=== PATIENT | female | born 1950 | race Caucasian/White ===

== ENCOUNTER 2019-09-22 20:09 | Inpatient (IN) | payer MEDICARE, MEDICAID ==
[~2019-09-22] VITALS: Ht 147.3 cm; Wt 58.2 kg
[~2019-09-22 20:09] MED LIST: ALPR.25T PO; CITA40TA19 PO; CRESTOR40 MG PO; FLUT1DIS27 IH; FURO40TA4 PO; LVT.05T PO; LVT.1T PO; POTA10CA43 PO; Prednisone PO; SERT100T8 PO; SERT25TA PO; TIOT18CA IH; TRAM50TA2 PO; WARF1TAB6 PO; WARF4TAB PO; ZLP10T PO
[2019-09-22] MEDS ORDERED: ANTACID SUSP 30 ML UDC (MYLANTA) PO PRN (20:30)
[2019-09-22] MEDS ORDERED: ONDANSETRON 4 MG (ZOFRAN) ORAL DISSOLVE TAB PO PRN (20:30)
[2019-09-22] MEDS ORDERED: ONDANSETRON 4 MG/2 ML (SDV) Z0FRAN IV PRN (20:30)
[2019-09-22] MEDS ORDERED: ENOXAPARIN 40 MG/0.4 ML (LOVENOX) SYR SC SCH (20:30)
[2019-09-22] MEDS ORDERED: CEFEPIME INJECTION 1,000 MG in WATER (STERILE) FOR INJECTION 10 ML IV SCH (20:30)
[2019-09-22] MEDS ORDERED: BISACODYL 10 MG SUPP (DULCOLAX) PR PRN (20:30)
[2019-09-22] MEDS ORDERED: polyethylene glycoL POWDER 17 GM (MIRALAX) PACK PO PRN (20:30)
[2019-09-22 22:29] VITALS: BP 115/71
[2019-09-22] MEDS: LACTATED RINGERS 1,000 ML IV SCH (22:40)
[2019-09-22 22:45] VITALS: BP 101/61
[2019-09-22 23:00] VITALS: BP 115/52
[2019-09-22] MEDS ORDERED: WATER (STERILE) FOR INJECTION 20 ML ONE (23:02)
[2019-09-22] MEDS ORDERED: CEFEPIME 2 GM (MAXIPIME) VIAL ONE (23:02)
[2019-09-22 23:15] VITALS: BP 112/65
[2019-09-22] MEDS: inSUlin ASPART (NovoLOG) 1 UNIT/0.01 ML (CHARGE PER UNIT) SC SCH (23:16)
[2019-09-22] MEDS: methylPREDNISolone 40 MG/ML (Solu-MEDROL) VIAL IV SCH (23:17)
[2019-09-22 23:30] VITALS: BP 113/52
[2019-09-22 23:45] VITALS: BP 118/55
[2019-09-23] VITALS (17 sets, daily range): BP systolic 77–127; BP diastolic 52–96
[2019-09-23] MEDS: AZITHROMYCIN 250 MG TAB (ZITHROMAX) PO SCH ×2 (02:54→23:11)
[2019-09-23] MEDS: ACETAMINOPHEN 325 MG TABLET PO PRN ×2 (02:55→18:47)
[2019-09-23 03:33] LABS: BASOPHILS % (AUTO) 0 % (0-10); EOSINOPHILS % (AUTO) 0 % (0-10); HEMATOCRIT 38 % (35-52); HEMOGLOBIN 11.5 G/DL (11.5-16.0); LYMPHOCYTES # (AUTO) 1.2 X 10^3 (1.0-4.0); LYMPHOCYTES % (AUTO) 5 % (12-44); MEAN CORPUSCULAR HEMOGLOBIN 23 PG (25-34); MEAN CORPUSCULAR HGB CONC 30 G/DL (32-36); MEAN CORPUSCULAR VOLUME 76 FL (80-99); MEAN PLATELET VOLUME 10.7 FL (7.4-10.4); MONOCYTES # (AUTO) 1.3 X 10^3 (0.0-1.0); MONOCYTES % (AUTO) 6 % (0-12); NEUTROPHILS # (AUTO) 20.4 X 10^3 (1.8-7.8); NEUTROPHILS % (AUTO) 89 % (42-75); PLATELET COUNT 278 10^3/uL (130-400); RED CELL DISTRIBUTION WIDTH 23.1 % (10.0-14.5); WHITE BLOOD COUNT 22.9 10^3/uL (4.3-11.0)
[2019-09-23 03:45] LABS: INR 2.6 (0.8-1.4); PROTHROMBIN TIME PATIENT 28.9 SEC (12.2-14.7)
[2019-09-23 03:51] LABS: ALANINE AMINOTRANSFERASE 18 U/L (0-55); ALBUMIN 3.6 GM/DL (3.2-4.5); ALKALINE PHOSPHATASE 84 U/L (40-136); BUN/CREATININE RATIO 27; CALCIUM 8.9 MG/DL (8.5-10.1); CARBON DIOXIDE 17 MMOL/L (21-32); CHLORIDE 108 MMOL/L (98-107); CREATININE SERUM 0.92 MG/DL (0.60-1.30); GFR ESTIMATED 60; GLUCOSE 145 MG/DL (70-105); PHOSPHORUS 3.8 MG/DL (2.3-4.7); POTASSIUM 4.4 MMOL/L (3.6-5.0); SODIUM 140 MMOL/L (135-145); TOTAL PROTEIN 7.1 GM/DL (6.4-8.2)
[2019-09-23 04:27] LABS: BAND NEUTROPHILS 8 %; LYMPHOCYTES % (MANUAL) 4 %; MONOCYTES % (MANUAL) 3 %; NEUTROPHILS % (MANUAL) 85 %; POLYCHROMASIA SLIGHT
[2019-09-23 04:28] LABS: ANISOCYTOSIS MARKED; ELLIPT/OVALOCYTES SLIGHT; MICROCYTOSIS MODERATE; POIKILOCYTOSIS SLIGHT; SPHEROCYTES SLIGHT
[2019-09-23] MEDS ORDERED: CEFEPIME INJECTION 1,000 MG in WATER (STERILE) FOR INJECTION 10 ML IV SCH (05:00)
[2019-09-23] MEDS: inSUlin ASPART (NovoLOG) 1 UNIT/0.01 ML (CHARGE PER UNIT) SC SCH ×4 (05:37→20:55)
--- NOTE | 2019-09-23 06:09 | Diagnostic Imaging Report ---
INDICATION: Pneumonia. Single frontal view of the chest is obtained with comparison made study of 12/25/2014. FINDINGS: There is cardiomegaly. There is focal airspace disease in the upper left lung which is somewhat obscured by overlying pacemaker battery pack. In addition, there is rounded focal density projecting over the upper lobe of the right lung. There is prominence of the right hilum. Mild diffuse interstitial prominence is also seen throughout both lungs. No pneumothorax is identified. IMPRESSION: Bilateral airspace disease could represent multifocal pneumonia. Focal densities do appear somewhat nodular and underlying mass cannot be excluded. Short-term radiographic follow-up after treatment for pneumonia is recommended to document resolution. If these findings persist, consideration could be given to CT evaluation of the chest to exclude mass and/or adenopathy. Dictated by: Dictated on workstation # [id number]
[2019-09-23] MEDS: methylPREDNISolone 40 MG/ML (Solu-MEDROL) VIAL IV SCH ×4 (06:27→23:10)
[2019-09-23] MEDS: LACTATED RINGERS 1,000 ML IV SCH ×5 (06:27→23:11)
[2019-09-23] MEDS ORDERED: LACTATED RINGERS 1,000 ML IV SCH (07:45)
[2019-09-23 08:14] LABS: CLARITY,URINE SL CLOUDY; COLOR,URINE BROWN; GLUCOSE, URINE (UA) NEGATIVE (NEGATIVE); KETONES,URINE TRACE (NEGATIVE); LEUKOCYTE ESTERASE ,URINE NEGATIVE (NEGATIVE); NITRITE,URINE NEGATIVE (NEGATIVE); PH,URINE 5.5 (5-9); PROTEIN,URINE 2+ (NEGATIVE)
[2019-09-23 08:31] LABS: AMORPHOUS SEDIMENT,UR RARE AMOR URATES /LPF; BACTERIA,URINE TRACE /HPF; RBC,URINE TNTC /HPF
--- NOTE | 2019-09-23 10:38 | History & Physical-Hospitalist ---
History of Present Illness HPI/Chief Complaint Pt is a 69yoCF with a PMH of COPD, CAD s/p CABG, a-fib who presented to outside ER due to cough and dizziness. She is quite flat and short in her answer and thus history is limited. Per patient this all started yesterday and she was too weak to get up from her chair. In the ER she was found to have a fever and PNA and was transferred here for sepsis. She has no complaints today and states she is feeling well. In fact her only concern was about turning her oxygen down to her baseline 4lpm. She is currently admitted to the ICU while awaiting COVID testing. Source: patient Exam Limitations: no limitations Date Seen 09/23/19 Time Seen by a Provider: 10:23 Attending Physician Beth Gao MD PCP Gavino Benitez DO Referring Physician Date of Admission Sep 22, 2019 at 22:25 Home Medications & Allergies Home Medications Reviewed patient Home Medication Reconciliation performed by pharmacy medication reconciliations optical manufacturing technician and/or nursing. Patients Allergies have been reviewed. Allergies Allergies Coded Allergies No Known Drug Allergies (Xhjnqaprqt22/15/11) Past Zoxbxin-Bozszi-Lnkipc Hx Past Med/Social Hx: Reviewed Nursing Past Med/Soc Hx Patient Social History Alcohol Use: Occasionally Uses Recreational Drug Use: No Smoking Status: Former Smoker Former Smoker, Quit: Sep 21, 2013 Type Used: Cigarettes Physical Abuse Screen: No Sexual Abuse: No Recent Foreign Travel: No Contact w/other who traveled: No Recent Hopitalizations: Yes (6 months ago) Immunizations Up To Date Tetanus Booster (TDap): Unknown Date of Pneumonia Vaccine: Sep 21, 2018 Seasonal Allergies Seasonal Allergies: No Past Medical History Surgeries: Cardiac, CABG Respiratory: COPD Cardiac: Atrial Fibrillation, Coronary Artery Disease, High Cholesterol, Hypertension Reproductive: No Sexually Transmitted Disease: No HIV/AIDS: No Female Reproductive Disorders: Denies Endocrine: Hypothyroidsim Are Your Blood Sugars Over 250: No HEENT: Cataract Hearing Impairment: Hard of Hearing Psychosocial: Anxiety History of Blood Disorders: No Adverse Reaction to Blood Flannery: No Family History Reviewed Nursing Family Hx FH: cancer G8 BROTHER G8 BROTHER G8 BROTHER G8 BROTHER G8 BROTHER G8 SISTER G8 SISTER FHx: leukemia 19 FATHER FHx: stroke 19 MOTHER No Pertinent Family Hx Review of Systems Constitutional: dizziness, fever, weakness Respiratory: cough, phlegm, short of breath Cardiovascular: No chest pain, No palpitations Gastrointestinal: no symptoms reported Genitourinary: no symptoms reported Musculoskeletal: no symptoms reported Skin: no symptoms reported Psychiatric/Neurological: No Symptoms Reported Physical Exam Physical Exam Vital Signs Vital Signs - First Documented 09/22/19 09/22/19 22:29 22:45 Pulse 59 Resp 16 B/P (MAP) 115/71 (86) Pulse Ox 98 O2 Delivery Nasal Cannula O2 Flow Rate 6.00 Capillary Refill : Less Than 3 Seconds Height, Weight, BMI Height: 4'10.50" Weight: 106lbs. oz. 48.996475ke; 26.31 BMI Method:Stated General Appearance: No Apparent Distress, Chronically ill HEENT: PERRL/EOMI, Moist Mucous Membranes Neck: Normal Inspection, Supple Respiratory: No Accessory Muscle Use; No Respiratory Distress; Rhonci; No Wheezing Cardiovascular: Regular Rate, Rhythm, No Murmur Gastrointestinal: Normal Bowel Sounds, Non Tender, Soft Genital/Rectal: Other (ramos in place) Extremity: No Calf Tenderness, No Pedal Edema Neurologic/Psychiatric: Alert, Oriented x3; No Facial Droop; Other (flat affect) Skin: Normal Color, Warm/Dry Results Results/Procedures Labs Laboratory Tests 09/23/19 03:15 Patient resulted labs reviewed. Assessment/Plan Admission Diagnosis Sepsis from CAP Admission Status: Inpatient Order (span 2 midnights) Reason for Inpatient Admission: iv abx, on increase oxygen, high risk for decompensation Assessment and Plan Severe Sepsis CAP COPD Acute on Chronic Hypoxic Respiratory Failure Severe sepsis on Continue Cefepime given structural lung disease Continue steroids Seems more consistent with PNA and COPD than COVID but will await testing and keep in precautions CADs/p CABG HTN a-fib Resume meds when able INR therapeutic Hypothyroidism Resume meds when able Diagnosis/Problems Diagnosis/Problems (1) CAD (coronary artery disease) Status: Chronic Qualifiers: Coronary Disease-Associated Artery/Lesion type: bypass graft [place] vs. transplanted heart: [place] heart Associated angina: without angina Qualified Codes: I25.810 - Atherosclerosis of coronary artery bypass graft(s) without angina pectoris (2) COPD (chronic obstructive pulmonary disease) Status: Chronic Qualifiers: COPD type: COPD with acute lower respiratory infection Qualified Codes: J44.0 - Chronic obstructive pulmonary disease with (acute) lower respiratory infection (3) Acute respiratory failure Status: Chronic Qualifiers: Respiratory failure complication: hypoxia Qualified Codes: J96.01 - Acute respiratory failure with hypoxia (4) Atrial fibrillation Status: Chronic Qualifiers: Atrial fibrillation type: paroxysmal Qualified Codes: I48.0 - Paroxysmal atrial fibrillation (5) Hypertension Status: Chronic Qualifiers: Hypertension type: essential hypertension Qualified Codes: I10 - Essential (primary) hypertension (6) Hyperlipidemia Status: Chronic Qualifiers: Hyperlipidemia type: mixed hyperlipidemia Qualified Codes: E78.2 - Mixed hyperlipidemia (7) Hypothyroidism Status: Chronic Qualifiers: Hypothyroidism type: unspecified Qualified Codes: E03.9 - Hypothyroidism, unspecified (8) Severe sepsis Status: Acute (9) Sepsis due to pneumonia Status: Acute Clinical Quality Measures DVT/VTE Risk/Contraindication: Risk Factor Score Per Nursin RFS Level Per Nursing on Admit: 4+=Very High ROC KING MD Sep 23, 2019 10:38
--- NOTE | 2019-09-23 10:38 | NUR ---
DR GASPAR NOTIFIED THAT PT'S URINE OUTPUT FOR 4 HOURS WAS 75ML AND THAT BOLUS COMPLETED. ORDERS RECEIVED TO INCREASE IVF TO 150ML/HR. ORDERS ENTERED AND IVF INCREASED. PT VOICES NO C/O OF PAIN, NO NEEDS VOICED AT THIS TIME WILL CONTINUE TO MONITOR.
--- NOTE | 2019-09-23 11:00 | NUR ---
I spoke with RN, she advised pt was doing well emotionally, I requested she advise pt I could phone in if she would like to speak with me. I will continue to monitor.
[2019-09-23] MEDS ORDERED: MONT10TA26 PO (11:51)
[2019-09-23] MEDS ORDERED: ALPR0.254 PO (11:51)
[2019-09-23] MEDS ORDERED: OMEP20CA18 PO (11:51)
[2019-09-23] MEDS ORDERED: LEVO50TA6 PO (11:51)
[2019-09-23] MEDS ORDERED: IPRA3AMP31 NEB (11:51)
[2019-09-23] MEDS ORDERED: ROSU40TA23 PO (11:51)
[2019-09-23] MEDS ORDERED: RT-ALBUINH PO (11:51)
[2019-09-23] MEDS ORDERED: SERT100T8 PO (11:51)
[2019-09-23] MEDS ORDERED: METF-397 PO (11:51)
[2019-09-23] MEDS ORDERED: POTA10TA PO (11:51)
[2019-09-23] MEDS ORDERED: FURO20TA4 PO (11:51)
[2019-09-23] MEDS ORDERED: APIX5TAB PO (11:51)
[2019-09-23] MEDS ORDERED: FLUT1BLS3 IN (11:51)
[2019-09-23] MEDS ORDERED: CETI10TA17 PO (11:51)
[2019-09-23] MEDS ORDERED: LISI2.5T PO (11:51)
[2019-09-23] MEDS ORDERED: MULT-974 PO (11:53)
[2019-09-23] MEDS ORDERED: OMEG-109 PO (11:53)
[2019-09-23 11:54] LABS: BILIRUBIN,URINE 2+ (NEGATIVE)
--- NOTE | 2019-09-23 11:55 | NUR ---
SPOKE WITH THE PT VIA HER ROOM PHONE, WENT THRU THE EXT MED HISTORY AND GOT A MED LIST FAXED FROM [facility] TO COMPLETE THE MED REC. PT WAS ABLE TO TELL ME HOW SHE TAKES ALL HER MEDICATIONS AND THERE WERE NO DISCREPANCIES WITH WHAT IS LISTED FROM [facility]. OTC MEDS: FISH OIL [id number]
[2019-09-23] MEDS: CEFEPIME INJECTION 1,000 MG in WATER (STERILE) FOR INJECTION 10 ML IV SCH ×2 (13:50→20:42)
[2019-09-23] MEDS ORDERED: NON-FORMULARY MEDICATION 1 EA EA (Cetirizine HCl 10 MG) PO PRN (14:30)
[2019-09-23] MEDS ORDERED: LORATADINE (CLARITIN) 10 MG TAB PO PRN (15:15)
[2019-09-23] MEDS: FUROSEMIDE 20 MG (LASIX) TAB PO SCH (16:37)
[2019-09-23] MEDS: APIXABAN 5 MG (ELIQUIS) TABLET PO SCH (20:42)
[2019-09-23] MEDS: MONTELUKAST 10 MG (SINGULAIR) TAB PO SCH (20:42)
[2019-09-23] MEDS: ROSUVASTATIN 20 MG (CRESTOR) TABLET PO SCH (20:42)
[2019-09-23] MEDS ORDERED: NON-FORMULARY MEDICATION 1 EA EA (Rosuvastatin Calcium 40 MG) PO SCH (21:00)
--- NOTE | 2019-09-23 23:30 | NUR ---
Received bedside report from AKIN Negron. Agreed with previous nurse assessment. Will assume patient care.
[2019-09-24] VITALS (7 sets, daily range): BP systolic 102–126; BP diastolic 52–75
--- NOTE | 2019-09-24 03:38 | Pulmonary Consultation ---
History of Present Illness History of Present Illness Date Seen by Provider: Sep 24, 2019 Time Seen by Provider: 03:33 Date of Admission History of Present Illness 69yo with hx of COPD, CAD presented to ED secondary to worsening cough, weakness, and dizziness. Influenza, strep and COVID are negative. She was dx with acute PNA in the ED. Allergies and Home Medications Allergies Coded Allergies: No Known Drug Allergies (Unverified , 05/03/11) Home Medications Albuterol Sulfate 1 Puff Puff, 2 PUFF PO Q6H PRN for SHORTNESS OF BREATH, (Reported) Alprazolam 0.25 Mg Tablet, 0.25 MG PO DAILY PRN for ANXIETY, (Reported) Apixaban 5 Mg Tablet, 5 MG PO BID, (Reported) Cetirizine HCl 10 Mg Tablet, 10 MG PO DAILY PRN for ALLERGY SYMPTOMS, (Reported) Fluticasone/Umeclidin/Vilanter 1 Each Blst.w.dev, 1 PUFF IN DAILY, (Reported) RINSE AND SPIT AFTER EACH INHALATION Furosemide 20 Mg Tablet, 20 MG PO BID, (Reported) Ipratropium/Albuterol Sulfate 3 Ml Ampul.neb, 1 VIAL NEB Q6H, (Reported) Levothyroxine Sodium 50 Mcg Tablet, 50 MCG PO DAILY, (Reported) Lisinopril 2.5 Mg Tablet, 2.5 MG PO DAILY, (Reported) Metformin HCl 500 Mg Tablet, 500 MG PO BID, (Reported) Montelukast Sodium 10 Mg Tablet, 10 MG PO HS, (Reported) Multivitamin 1 Each Tablet, 1 EACH PO DAILY, (Reported) [place]-3 Fatty Acids/Fish Oil 1 Each Capsule, 1 EACH PO DAILY, (Reported) Omeprazole 20 Mg Capsule.dr, 20 MG PO DAILY, (Reported) Potassium Chloride 10 Meq Tablet.er, 20 MEQ PO DAILY, (Reported) TAKES 2 (10MEQ) TABS DAILY Rosuvastatin Calcium 40 Mg Tablet, 40 MG PO HS, (Reported) Sertraline HCl 100 Mg Tablet, 100 MG PO DAILY, (Reported) Past Lopyfcy-Zkiuzt-Chzzul Hx Past Med/Social Hx: Reviewed Nursing Past Med/Soc Hx Patient Social History Alcohol Use: Occasionally Uses Recreational Drug Use: No Smoking Status: Former Smoker Type Used: Cigarettes Former Smoker, Quit: Sep 21, 2013 Recent Foreign Travel: No Contact w/Someone Who Travel: No Recent Hopitalizations: Yes (6 months ago) Immunizations Up To Date Tetanus Booster (TDap): Unknown Date of Pneumonia Vaccine: Sep 21, 2018 Seasonal Allergies Seasonal Allergies: No Past Medical History Surgeries: Yes Cardiac, CABG Respiratory: Yes Sleep Apnea, COPD Cardiac: Yes ([place] in 1998) Atrial Fibrillation, Coronary Artery Disease, High Cholesterol, Hypertension Neurological: No Reproductive Disorders: No Female Reproductive Disorders: Denies Sexually Transmitted Disease: No HIV/AIDS: No Genitourinary: No Gastrointestinal: No Musculoskeletal: No Endocrine: Yes Hypothyroidsim Are Your Blood Sugars Over 250: No Cataract Hearing Impairment: Hard of Hearing Cancer: No Psychosocial: Yes Anxiety Integumentary: No Blood Disorders: No Adverse Reaction/Blood Tranf: No Family Medical History Reviewed Nursing Family Hx FH: cancer G8 BROTHER G8 BROTHER G8 BROTHER G8 BROTHER G8 BROTHER G8 SISTER G8 SISTER FHx: leukemia 19 FATHER FHx: stroke 19 MOTHER No Pertinent Family Hx Review of Systems Time Seen by Provider: 08:26 Sepsis Event Evaluation Height, Weight, BMI Height: 4'10.50" Weight: 106lbs. oz. 48.558055un; 26.31 BMI Method:Stated Exam Exam Vital Signs Date Time Temp Pulse Resp B/P (MAP) Pulse Ox O2 Delivery O2 Flow Rate FiO2 09/24/19 00:00 36.2 60 20 116/72 (87) High Flow N/C 6.00 09/23/19 20:00 37.0 09/23/19 20:00 60 15 113/70 (84) High Flow N/C 6.00 09/23/19 20:00 94 High Flow N/C 6.00 09/23/19 19:00 60 09/23/19 16:00 60 20 105/57 (73) 90 High Flow N/C 6.00 09/23/19 12:59 60 09/23/19 12:35 36.8 09/23/19 12:00 60 20 77/67 (70) 90 High Flow N/C 6.00 09/23/19 11:00 59 19 105/52 (69) 92 High Flow N/C 6.00 09/23/19 10:00 60 24 108/57 (74) 93 High Flow N/C 6.00 09/23/19 09:00 60 25 115/52 (73) 93 High Flow N/C 6.00 09/23/19 08:11 High Flow N/C 6.00 09/23/19 08:00 36.3 09/23/19 08:00 92 High Flow N/C 6.00 09/23/19 08:00 60 17 109/82 (91) 92 High Flow N/C 8.00 09/23/19 07:30 95 Nasal Cannula 6.00 09/23/19 07:00 60 28 111/60 (77) 95 High Flow N/C 8.00 09/23/19 07:00 60 09/23/19 06:00 60 21 127/64 (85) 94 High Flow N/C 8.00 09/23/19 05:00 60 23 116/62 (80) 93 High Flow N/C 8.00 09/23/19 04:00 High Flow N/C 8.00 09/23/19 04:00 59 23 119/66 (83) 92 High Flow N/C 8.00 09/23/19 04:00 36.8 I & O 09/24/19 07:00 Intake Total 1380 ml Output Total 470 ml Balance 910 ml Height & Weight Height: 4'10.50" Weight: 106lbs. oz. 48.161083lz; 26.31 BMI Method:Stated General Appearance: No Apparent Distress, Chronically ill HEENT: PERRL/EOMI, Moist Mucous Membranes Neck: Normal Inspection, Supple Respiratory: No Accessory Muscle Use, Rhonci Cardiovascular: Regular Rate, Rhythm, No Murmur Capillary Refill: Less Than 3 Seconds Extremity: No Calf Tenderness, No Pedal Edema Neurologic/Psychiatric: Alert, Oriented x3, Other Skin: Normal Color, Warm/Dry Results Lab Laboratory Tests 09/23/19 03:15 Assessment/Plan Assessment/Plan Acute CAP -Continue Abx -oxygen bilateral pulmonary infiltrates with nodular appearance -Pt needs out pt CT of chest in 8 wks after discharge to ensure complete resolution. COPD -Albuterol, trilogy -Solumedrol - Change to prednisone -Oxygen ESME GASPAR DO Sep 24, 2019 03:38
[2019-09-24 05:00] LABS: BASOPHILS % (AUTO) 0 % (0-10); EOSINOPHILS % (AUTO) 0 % (0-10); HEMATOCRIT 35 % (35-52); HEMOGLOBIN 10.6 G/DL (11.5-16.0); LYMPHOCYTES % (AUTO) 8 % (12-44); MEAN CORPUSCULAR HEMOGLOBIN 23 PG (25-34); MEAN CORPUSCULAR HGB CONC 31 G/DL (32-36); MEAN CORPUSCULAR VOLUME 76 FL (80-99); MEAN PLATELET VOLUME 10.4 FL (7.4-10.4); MONOCYTES # (AUTO) 0.7 X 10^3 (0.0-1.0); MONOCYTES % (AUTO) 6 % (0-12); NEUTROPHILS # (AUTO) 10.7 X 10^3 (1.8-7.8); NEUTROPHILS % (AUTO) 87 % (42-75); PLATELET COUNT 226 10^3/uL (130-400); RED CELL DISTRIBUTION WIDTH 22.7 % (10.0-14.5); WHITE BLOOD COUNT 12.3 10^3/uL (4.3-11.0)
[2019-09-24] MEDS ORDERED: WATER (STERILE) FOR INJECTION 10 ML ONE (05:01)
[2019-09-24] MEDS ORDERED: CEFEPIME 1 GM (MAXIPIME) VIAL ONE (05:01)
[2019-09-24 05:16] LABS: ALBUMIN 3.1 GM/DL (3.2-4.5); CHLORIDE 108 MMOL/L (98-107); POTASSIUM 4.2 MMOL/L (3.6-5.0); SODIUM 138 MMOL/L (135-145)
[2019-09-24 05:17] LABS: CALCIUM 8.8 MG/DL (8.5-10.1)
[2019-09-24 05:18] LABS: GLUCOSE 162 MG/DL (70-105)
[2019-09-24 05:19] LABS: CARBON DIOXIDE 18 MMOL/L (21-32); TOTAL PROTEIN 6.3 GM/DL (6.4-8.2)
[2019-09-24 05:20] LABS: BILIRUBIN,TOTAL 0.4 MG/DL (0.1-1.0)
[2019-09-24] MEDS: CEFEPIME INJECTION 1,000 MG in WATER (STERILE) FOR INJECTION 10 ML IV SCH ×3 (05:20→20:37)
[2019-09-24] MEDS: methylPREDNISolone 40 MG/ML (Solu-MEDROL) VIAL IV SCH ×3 (05:20→17:09)
[2019-09-24 05:22] LABS: ALKALINE PHOSPHATASE 72 U/L (40-136); GFR ESTIMATED > 60; PHOSPHORUS 3.3 MG/DL (2.3-4.7)
[2019-09-24 05:23] LABS: BUN/CREATININE RATIO 35
[2019-09-24 05:25] LABS: ALANINE AMINOTRANSFERASE 25 U/L (0-55)
[2019-09-24] MEDS: inSUlin ASPART (NovoLOG) 1 UNIT/0.01 ML (CHARGE PER UNIT) SC SCH ×4 (05:59→21:53)
[2019-09-24] MEDS: FUROSEMIDE 20 MG (LASIX) TAB PO SCH ×2 (06:00→17:09)
[2019-09-24] MEDS: LEVOTHYROXINE 50 MCG (LEVOTHROID) TAB PO SCH (06:00)
[2019-09-24] MEDS ORDERED: RT-ALBUTEROL HFA (PROAIR HFA) 8.5 GM IH SCH (07:00)
[2019-09-24] MEDS ORDERED: RT-ALBUTEROL SULF 2.5 MG/3 ML PRE-MIX VIAL INH PRN (07:45)
[2019-09-24] MEDS: KCL 10 MEQ TAB (MICRO K) PO SCH (07:53)
[2019-09-24] MEDS: lisINopril 5 MG (PRINIVIL) TABLET PO SCH (07:55)
[2019-09-24] MEDS: APIXABAN 5 MG (ELIQUIS) TABLET PO SCH ×2 (07:55→20:37)
[2019-09-24] MEDS: PANTOPRAZOLE 20 MG TABLET (PROTONIX) PO SCH (07:56)
[2019-09-24] MEDS: SERTRALINE 100 MG (ZOLOFT) TAB PO SCH (07:56)
[2019-09-24] MEDS ORDERED: OMEPRAZOLE 20 MG (PriLOSEC) CAP NON-FORMULARY PO SCH (09:00)
[2019-09-24] MEDS ORDERED: NON-FORMULARY MEDICATION 1 EA EA (Lisinopril 2.5 MG) PO SCH (09:00)
[2019-09-24] MEDS: ALPRAZolam 0.25 MG (XANAX) TAB PO PRN (09:24)
--- NOTE | 2019-09-24 10:27 | Progress Note - Hospitalist ---
Subjective HPI/CC On Admission Date Seen by Provider: Sep 24, 2019 Time Seen by Provider: 10:23 Pt is a 69yoCF with a PMH of COPD, CAD s/p CABG, a-fib who presented to outside ER due to cough and dizziness. She is quite flat and short in her answer and thus history is limited. Per patient this all started yesterday and she was too weak to get up from her chair. In the ER she was found to have a fever and PNA and was transferred here for sepsis. She has no complaints today and states she is feeling well. In fact her only concern was about turning her oxygen down to her baseline 4lpm. She is currently admitted to the ICU while awaiting COVID testing. Subjective/Events-last exam Pt reports feeling better today. Still quite short of breath with movement but improving. Requiring more oxygen despite clinical improvement. Focused Exam Lactate Level 09/23/19 03:15: Lactic Acid Level 1.67 Objective Exam Vital Signs Vital Signs Date Time Temp Pulse Resp B/P (MAP) Pulse Ox O2 Delivery O2 Flow Rate FiO2 09/24/19 08:00 36.3 60 18 124/75 (91) Vapotherm 25.00 80.00 09/24/19 07:58 87 Capillary Refill : Less Than 3 Seconds General Appearance: No Apparent Distress, Chronically ill Respiratory: No Respiratory Distress, Wheezing Cardiovascular: Regular Rate, Rhythm, No Murmur Gastrointestinal: Normal Bowel Sounds, Non Tender, Soft Neurologic/Psychiatric: Alert, Oriented x3 Results/Procedures Lab Laboratory Tests 09/24/19 04:27 Patient resulted labs reviewed. Assessment/Plan Assessment and Plan Assess & Plan/Chief Complaint Severe Sepsis CAP COPD Acute on Chronic Hypoxic Respiratory Failure Severe sepsis on arrival but now resolved Continue Cefepime given structural lung disease Continue steroids COVID negative Pulm consulted, appreciate recs Will get ABG given increasing oxygen requirement CADs/p CABG HTN a-fib Resume meds when able INR therapeutic Hypothyroidism Resume meds when able Diagnosis/Problems Diagnosis/Problems (1) CAD (coronary artery disease) Status: Chronic Qualifiers: Coronary Disease-Associated Artery/Lesion type: bypass graft [place] vs. transplanted heart: [place] heart Associated angina: without angina Qualified Codes: I25.810 - Atherosclerosis of coronary artery bypass graft(s) without angina pectoris (2) COPD (chronic obstructive pulmonary disease) Status: Chronic Qualifiers: COPD type: COPD with acute lower respiratory infection Qualified Codes: J44.0 - Chronic obstructive pulmonary disease with (acute) lower respiratory infection (3) Acute respiratory failure Status: Chronic Qualifiers: Respiratory failure complication: hypoxia Qualified Codes: J96.01 - Acute respiratory failure with hypoxia (4) Atrial fibrillation Status: Chronic Qualifiers: Atrial fibrillation type: paroxysmal Qualified Codes: I48.0 - Paroxysmal atrial fibrillation (5) Hypertension Status: Chronic Qualifiers: Hypertension type: essential hypertension Qualified Codes: I10 - Essential (primary) hypertension (6) Hyperlipidemia Status: Chronic Qualifiers: Hyperlipidemia type: mixed hyperlipidemia Qualified Codes: E78.2 - Mixed hyperlipidemia (7) Hypothyroidism Status: Chronic Qualifiers: Hypothyroidism type: unspecified Qualified Codes: E03.9 - Hypothyroidism, unspecified (8) Severe sepsis Status: Acute (9) Sepsis due to pneumonia Status: Acute Clinical Quality Measures DVT/VTE Risk/Contraindication: Risk Factor Score Per Nursin RFS Level Per Nursing on Admit: 4+=Very High ROC KING MD Sep 24, 2019 10:27
[2019-09-24 10:52] LABS: ABG BASE EXCESS -6.3 MMOL/L (-2.5-2.5); ABG OXYGEN SATURATION 96 % (94-100); ABG PCO2 38 MMHG (35-45); ABG PO2 84 MMHG (79-93); ABG TCO2 20.1 MMOL/L (21.0-31.0)
[2019-09-24 10:57] LABS: ABG PH 7.31 (7.37-7.43)
[2019-09-24 10:58] LABS: ALLENS TEST YES-POS; INSPIRED O2 80% 25 L; VENTILATOR NO
[2019-09-24 10:59] LABS: PATIENT TEMP 36.3
[2019-09-24] MEDS: RT-ALBUTEROL SULF 2.5 MG/3 ML PRE-MIX VIAL INH SCH ×3 (11:13→18:03)
[2019-09-24 13:24] LABS: RSV PCR TEST Not Detected (Not Detected)
[2019-09-24] MEDS ORDERED: PATIENT MAY USE OWN MEDS, ALL MC SCH (18:30)
[2019-09-24] MEDS: TRELEGY IH SCH (20:35)
[2019-09-24] MEDS: MONTELUKAST 10 MG (SINGULAIR) TAB PO SCH (20:37)
[2019-09-24] MEDS: ROSUVASTATIN 20 MG (CRESTOR) TABLET PO SCH (20:37)
[2019-09-25] MEDS: AZITHROMYCIN 250 MG TAB (ZITHROMAX) PO SCH ×2 (00:20→23:54)
[2019-09-25] MEDS: methylPREDNISolone 40 MG/ML (Solu-MEDROL) VIAL IV SCH ×5 (00:20→23:54)
[2019-09-25 04:00] VITALS: BP 130/60
[2019-09-25] MEDS: CEFEPIME INJECTION 1,000 MG in WATER (STERILE) FOR INJECTION 10 ML IV SCH ×3 (04:41→20:23)
[2019-09-25 05:19] LABS: BASOPHILS % (AUTO) 0 % (0-10); EOSINOPHILS % (AUTO) 0 % (0-10); HEMATOCRIT 34 % (35-52); HEMOGLOBIN 10.2 G/DL (11.5-16.0); LYMPHOCYTES # (AUTO) 0.5 X 10^3 (1.0-4.0); LYMPHOCYTES % (AUTO) 7 % (12-44); MEAN CORPUSCULAR HEMOGLOBIN 23 PG (25-34); MEAN CORPUSCULAR HGB CONC 30 G/DL (32-36); MEAN CORPUSCULAR VOLUME 76 FL (80-99); MEAN PLATELET VOLUME 10.5 FL (7.4-10.4); MONOCYTES # (AUTO) 0.6 X 10^3 (0.0-1.0); MONOCYTES % (AUTO) 7 % (0-12); NEUTROPHILS % (AUTO) 86 % (42-75); PLATELET COUNT 238 10^3/uL (130-400); RED CELL DISTRIBUTION WIDTH 22.8 % (10.0-14.5); WHITE BLOOD COUNT 8.1 10^3/uL (4.3-11.0)
[2019-09-25 06:07] LABS: ALBUMIN 3.2 GM/DL (3.2-4.5)
[2019-09-25 06:08] LABS: POTASSIUM 4.5 MMOL/L (3.6-5.0)
[2019-09-25 06:09] LABS: CALCIUM 9.1 MG/DL (8.5-10.1)
[2019-09-25 06:10] LABS: TOTAL PROTEIN 6.4 GM/DL (6.4-8.2)
[2019-09-25 06:12] LABS: BILIRUBIN,TOTAL 0.3 MG/DL (0.1-1.0)
[2019-09-25 06:13] LABS: PHOSPHORUS 2.9 MG/DL (2.3-4.7)
[2019-09-25 06:14] LABS: CREATININE SERUM 1.15 MG/DL (0.60-1.30)
[2019-09-25 06:16] LABS: MAGNESIUM 2.1 MG/DL (1.6-2.4)
[2019-09-25] MEDS: FUROSEMIDE 20 MG (LASIX) TAB PO SCH ×2 (06:40→16:57)
[2019-09-25] MEDS: LEVOTHYROXINE 50 MCG (LEVOTHROID) TAB PO SCH (06:40)
[2019-09-25] MEDS: inSUlin ASPART (NovoLOG) 1 UNIT/0.01 ML (CHARGE PER UNIT) SC SCH ×4 (06:41→20:58)
[2019-09-25] MEDS: RT-ALBUTEROL SULF 2.5 MG/3 ML PRE-MIX VIAL INH SCH ×4 (07:05→18:38)
[2019-09-25 08:00] VITALS: BP 131/76
[2019-09-25] MEDS: APIXABAN 5 MG (ELIQUIS) TABLET PO SCH ×2 (08:51→20:23)
[2019-09-25] MEDS: SERTRALINE 100 MG (ZOLOFT) TAB PO SCH (08:51)
[2019-09-25] MEDS: PANTOPRAZOLE 20 MG TABLET (PROTONIX) PO SCH (08:51)
[2019-09-25] MEDS: lisINopril 5 MG (PRINIVIL) TABLET PO SCH (08:52)
[2019-09-25] MEDS: KCL 10 MEQ TAB (MICRO K) PO SCH (08:52)
[2019-09-25 12:00] VITALS: BP 117/54
[2019-09-25] MEDS: TRELEGY IH SCH (13:33)
--- NOTE | 2019-09-25 14:24 | Progress Note - Hospitalist ---
Subjective HPI/CC On Admission Date Seen by Provider: Sep 25, 2019 Time Seen by Provider: 14:22 Pt is a 69yoCF with a PMH of COPD, CAD s/p CABG, a-fib who presented to outside ER due to cough and dizziness. She is quite flat and short in her answer and thus history is limited. Per patient this all started yesterday and she was too weak to get up from her chair. In the ER she was found to have a fever and PNA and was transferred here for sepsis. She has no complaints today and states she is feeling well. In fact her only concern was about turning her oxygen down to her baseline 4lpm. She is currently admitted to the ICU while awaiting COVID testing. Subjective/Events-last exam Pt reports feeling better. Up and moving more. Still slightly SOB but improving. Focused Exam Lactate Level 09/23/19 03:15: Lactic Acid Level 1.67 Objective Exam Vital Signs Vital Signs Date Time Temp Pulse Resp B/P (MAP) Pulse Ox O2 Delivery O2 Flow Rate FiO2 09/25/19 12:00 36.4 60 20 117/54 (75) 93 Vapotherm 25.00 60.00 09/25/19 10:53 60 Capillary Refill : Less Than 3 Seconds General Appearance: No Apparent Distress, Chronically ill Respiratory: No Accessory Muscle Use, Rhonci, Other (on vapotherm) Cardiovascular: Regular Rate, Rhythm, Normal Peripheral Pulses Gastrointestinal: Normal Bowel Sounds, Non Tender, Soft Neurologic/Psychiatric: Alert, Oriented x3 Results/Procedures Lab Laboratory Tests 09/25/19 04:20 Patient resulted labs reviewed. Assessment/Plan Assessment and Plan Assess & Plan/Chief Complaint Severe Sepsis CAP COPD Acute on Chronic Hypoxic Respiratory Failure Severe sepsis on arrival but now resolved Continue Cefepime given structural lung disease Currently on Vapotherm, wean as able Continue steroids COVID negative Pulm consulted, appreciate recs CADs/p CABG HTN a-fib Continue home meds Hypothyroidism Continue home meds Diagnosis/Problems Diagnosis/Problems (1) CAD (coronary artery disease) Status: Chronic Qualifiers: Coronary Disease-Associated Artery/Lesion type: bypass graft [place] vs. transplanted heart: [place] heart Associated angina: without angina Qualified Codes: I25.810 - Atherosclerosis of coronary artery bypass graft(s) without angina pectoris (2) COPD (chronic obstructive pulmonary disease) Status: Chronic Qualifiers: COPD type: COPD with acute lower respiratory infection Qualified Codes: J4 4.0 - Chronic obstructive pulmonary disease with (acute) lower respiratory infection (3) Acute respiratory failure Status: Chronic Qualifiers: Respiratory failure complication: hypoxia Qualified Codes: J96.01 - Acute respiratory failure with hypoxia (4) Atrial fibrillation Status: Chronic Qualifiers: Atrial fibrillation type: paroxysmal Qualified Codes: I48.0 - Paroxysmal atrial fibrillation (5) Hypertension Status: Chronic Qualifiers: Hypertension type: essential hypertension Qualified Codes: I10 - Essential (primary) hypertension (6) Hyperlipidemia Status: Chronic Qualifiers: Hyperlipidemia type: mixed hyperlipidemia Qualified Codes: E78.2 - Mixed hyperlipidemia (7) Hypothyroidism Status: Chronic Qualifiers: Hypothyroidism type: unspecified Qualified Codes: E03.9 - Hypothyroidism, unspecified (8) Severe sepsis Status: Acute (9) Sepsis due to pneumonia Status: Acute Clinical Quality Measures DVT/VTE Risk/Contraindication: Risk Factor Score Per Nursin RFS Level Per Nursing on Admit: 4+=Very High ROC KING MD Sep 25, 2019 14:24
--- NOTE | 2019-09-25 14:58 | Physical Therapy Evaluation ---
PT Evaluation-General Medical Diagnosis Admission Date Sep 22, 2019 at 22:25 Medical Diagnosis: sepsis Onset Date: Sep 22, 2019 Therapy Diagnosis Therapy Diagnosis: decreased mobility Height/Weight Height (Feet): 4 Height (Inches): 10.50 Weight (Pounds): 106 Precautions Precautions/Isolations: Fall Prevention Weight Bear Status Right Lower Extremity: Right Weight Bearing/Tolerated Left Lower Extremity: Left Weight Bearing/Tolerated Referral Physician: Dr. Diaz Reason for Referral: Evaluation/Treatment Medical History Pertinent Medical History: Atrial Fib, CABG, CAD, COPD, HTN Additional Medical History high cholesterol, [place] [employer], anxiety Current History Presented to ER with cough and dizziness. Reviewed History: Yes Social History Home: Single Level Current Living Status: Alone Entry Into Home: Level Entry Prior Prior Level of Function SCALE: Activities may be completed with or without assistive devices. 8-Rrobljfldr-wwbemzr completes the activity by him/herself with no assistance from a helper. 5-Set-up or Clean-up Assistance-helper sets up or cleans up; patient completes activity. [place] assists only prior to or following the activity. 4-Supervision or Touching Assistance-helper provides verbal cues and/or touching/steadying and/or contact guard assistance as patient completes activity. Assistance may be provided throughout the activity or intermittently. 3-Partial/Moderate Assistance-helper does LESS THAN HALF the effort. [place] lifts, holds or supports trunk or limbs, but provides less than half the effort. 2-Substantial/Maximal Assistance-helper does MORE THAN HALF the effort. [place] lifts or holds trunk or limbs and provides more than half the effort. 8-Nbddtmskb-owxswh does ALL the effort. Patient does none of the effort to complete the activity. Or, the assistance of 2 or more helpers is required for the patient to complete the activity. If activity was not attempted, code reason: 7-Patient Refused. 9-Not Applicable-not attempted and the patient did not perform the activity before the current illness, exacerbation or injury. 10-Not Attempted due to Environmental Limitations-(lack of equipment, weather restraints, etc.). 88-Not Attempted due to Medical Conditions or Safety Concerns. Bed Mobility: 6 Transfers (B,C,W/C): 6 Gait: 6 Indoor Mobility (Ambulation): Independent Prior Devices Use: Walker PT Evaluation-Current Subjective Pt. in bed and agrees to PT. She denies pain. Co-eval with OT due to severe SOB with activity. Pt/Family Goals home Objective Patient Orientation: Person, Place, Time, Situation Attachments: Oxygen (10 L) ROM/Strength ROM Upper Extremities See OT ROM Lower Extremities WFL (B) Strength Upper Extremities See OT Strength Lower Extremities Grossly 4/5 (B) Integumentary/Posture Integumentary grossly intact Bowel Incontinence: No Bladder Incontinence: No Posture kyphotic Neuromuscular (Tone, Coordination, Reflexes) unremarkable Sensory Vision: Functional Hearing: Impaired Hand Dominance: Right Sensation Right Upper Extremit: Intact Sensation Left Upper Extremity: Intact Sensation Right Lower Extremit: Intact Sensation Left Lower Extremity: Intact Transfers Sit to Lying (QC): 3 Lying to Sitting/Side of Bed(Q: 4 Sit to Stand (QC): 4 Gait Does the Patient Walk?: Yes Mode of Locomotion: Walk Anticipated Mode of Locomotion: Walk Walk 150 ft (QC): 4 Distance: 150 ft Gait Assistive Device: FWW Comments/Gait Description several cues needed to stay close to walker Balance Sitting Static: Good Sitting Dynamic: Good Standing Static: Good Standing Dynamic: Fair Treatment evaluation only Assessment/Needs Pt. is a 69 y.o. female with decreased mobility following hospital stay for sepsis. Pt. is currently min-mod A with transfers and ambulates with CGA. Pt. becomes SOB with ambulation, observable purple color of lips and nose post ambulation on 10L O2 and took approximately 2 minutes to regain breathing. Pt. would benefit from skilled PT to improve mobility and strength for return home. Rehab Potential: Guarded PT Fpc Goals Drafting Instructor Goals PT Fpc Goals Time Frame: Oct 02, 2019 Roll Left & Right (QC): 6 Sit to Lying (QC): 6 Lying-Sitting on Side/Bed(QC): 6 Sit to Stand (QC): 6 Chair/Vap-td-Rwvbz Xfer(QC): 6 Toilet Transfer (QC): 6 Does the Patient Walk: Yes Walk 150 ft (QC): 6 PT Plan Problem List Problem List: Activity Tolerance, Functional Strength, Safety, Balance, Gait, Transfer, Bed Mobility, ROM Treatment/Plan Treatment Plan: Continue Plan of Care Treatment Plan: Bed Mobility, Concurrent Therapy, Education, Functional Activity Mason, Functional Strength, Gait, Safety, Therapeutic Exercise, Transfers Treatment Duration: Oct 02, 2019 Frequency: 6 times per week Estimated Hrs Per Day: .25 hour per day Patient and/or Family Agrees t: Yes Time/GCodes Time In: 1425 Time Out: 1450 Total Billed Treatment Time: 25 Total Billed Treatment 1, EV 25' (co-eval with OT) JAE MANSFIELD PT Sep 25, 2019 14:58
--- NOTE | 2019-09-25 15:01 | Occupational Therapy Eval ---
OT Evaluation-General/PLF Medical Diagnosis Admission Date Sep 22, 2019 at 22:25 Medical Diagnosis: Pneumonia, sepsis Onset Date: Sep 22, 2019 Therapy Diagnosis Therapy Diagnosis: Weakness Height/Weight Height (Feet): 4 Height (Inches): 10.50 Weight (Pounds): 106 Precautions Precautions/Isolations: Fall Prevention Weight Bear Status Weight Bearing Restriction: Weight Bearing/Tolerated Referral Physician: Dr. Diaz Referral Reason: Activity Tolerance, Self Care, Evaluation/Treatment, Strengthening/ROM Medical History Pertinent Medical History: Atrial Fib, CABG, CAD, COPD Current History Pt. came to ER with SOA. Admitted to ICU until COVID test results came back negative. Reviewed History: Yes Social History Home: Single Level Current Living Status: Alone Entry Into Home: Level Entry ADL-Prior Level of Function SCALE: Activities may be completed with or without assistive devices. 0-Hkfpanzrao-znxxhip completes the activity by him/herself with no assistance from a helper. 5-Set-up or Clean-up Assistance-helper sets up or cleans up; patient completes activity. [place] assists only prior to or following the activity. 4-Supervision or Touching Assistance-helper provides verbal cues and/or touching/steadying and/or contact guard assistance as patient completes ac tivity. Assistance may be provided throughout the activity or intermittently. 3-Partial/Moderate Assistance-helper does LESS THAN HALF the effort. [place] lifts, holds or supports trunk or limbs, but provides less than half the effort. 2-Substantial/Maximal Assistance-helper does MORE THAN HALF the effort. [place] lifts or holds trunk or limbs and provides more than half the effort. 6-Xojkckslo-cukott does ALL the effort. Patient does none of the effort to complete the activity. Or, the assistance of 2 or more helpers is required for the patient to complete the activity. If activity was not attempted, code reason: 7-Patient Refused. 9-Not Applicable-not attempted and the patient did not perform the activity before the current illness, exacerbation or injury. 10-Not Attempted due to Environmental Limitations-(lack of equipment, weather restraints, etc.). 88-Not Attempted due to Medical Conditions or Safety Concerns. ADL PLOF Comments Pt. states that she lives alone and that her daughter in law comes over to help her bathe approximately once every two weeks. She states that she is able to dress herself. She has someone who cleans her home, and she is able to make small meals. She is on continuous oxygen. She is on 4 L during day and 8 at night. Pt. uses a walker for mobility. Self Care: Needed Some Help Functional Cognition: Unknown DME/Equipment: Bath Chair, Shower DME/Equipment Comments Pt. has a walker. Drive Self: No OT Current Status Subjective No pain reported but pt. does state that she feels very weak during ambulation. Appearance Pt. in bed. Agreeable to treatment. Pt. has just finished breathing treatment. Pt. on 10 L 02. Mental Status/Objective Patient Orientation: Person, Place Current Hand Dominance: Right Upper Extremity ROM WFL Upper Extremity Strength Right UE- 4/5 Left UE- 3/5 ADL-Treatment On/Off Footwear (QC): 3 (Pt. is able to doff slipper socks with effort, but unable to don them.) Pt. agrees to work with OT/PT. Completed co-treat due to fatigue and severe oxygen depletion. PT focused on transfers while OT attempted to facilitate ADL skills on side of bed. Pt. transferred supine-sit with min assist. Rest break needed. Stood with CGA and ambulated approximately 150 feet with increased time needed and walker support. Pt. reports feeling fatigued. Transferred to side of bed and attempted footwear. Pt. able to doff slipper socks with effort and increased time, but unable to don them. Pt. verbalizes that she needs to rest. Attempts to lay down but unable to get feet into bed. Mod assist with this. Max x 2 for bed mobility. All needs met. Education OT Patient Education: Correct positioning, Modified ADL techniques, Progress toward Goal/Update tx plan, Purpose of tx/functional activities, Reviewed precautions, Rehab process, Transfer techniques Teaching Recipient: Patient Teaching Methods: Demonstration, Discussion Response to Teaching: Verbalize Understanding, Return Demonstration OT Short Term Goals Short Term Goals Time Frame: Oct 02, 2019 Eatin Oral hygiene: 4 Toileting hygiene: 3 Upper body dressin Lower body dressin Putting on/taking off footwear: 3 (Min assist) OT Care Home Goals Care Home Goals Time Frame: Oct 09, 2019 Eating (QC): 6 Oral Hygiene (QC): 6 Toileting Hygiene (QC): 6 Shower/Bathe Self (QC): 4 Upper Body Dressing (QC): 5 Lower Body Dressing (QC): 4 On/Off Footwear (QC): 4 Additional Goals: 1-Demonstrate ADL Tasks, 2-Verbalize Understanding, 3- ImproveStrength/Mason 1=Demonstrate adherence to instructed precautions during ADL tasks. 2=Patient will verbalize/demonstrate understanding of assistive devices/modific ations for ADL. 3=Patient will improve strength/tolerance for activity to enable patient to perform ADL's. OT Education/Plan Problem List/Assessment Assessment: Decreased Activ Tolerance, Decreased UE Strength, Dependent Transfers, Impaired Bed Mobility, Impaired I ADL's, Impaired Self-Care Skills Discharge Recommendations Plan/Recommendations: Continue POC Therapy Discharge Recommendati: Post Acute OT Equpiment Recommendations-D/C: Hip Kit Comment Discharge location and equipment needs to be determined. Treatment Plan/Plan of Care Treatment,Training & Education: Yes Patient would benefit from OT for education, treatment and training to promote independence in ADL's, mobility, safety and/or upper extremity function for ADL's. Plan of Care: ADL Retraining, Functional Mobility, UE Funct Exercise/Act Treatment Duration: Oct 09, 2019 Frequency: 5 times per week Estimated Hrs Per Day: .25 hour per day Agreement: Yes Rehab Potential: Fair Time/GCodes Start Time: 14:25 Stop Time: 14:50 Total Time Billed (hr/min): 25 Billed Treatment Time 1, EVH Co-treatment with PT. Please see above note for designated roles. SCOTT PEREZ OT Sep 25, 2019 15:01
[2019-09-25 16:00] VITALS: BP 124/59
[2019-09-25] MEDS: ACETAMINOPHEN 325 MG TABLET PO PRN (17:02)
--- NOTE | 2019-09-25 17:25 | Pulmonary Progress Note ---
Subjective Time Seen by a Provider: 17:20 Sepsis Event Evaluation Height, Weight, BMI Height: 4'10.50" Weight: 106lbs. oz. [id number]; 26.31 BMI Method:Stated Focused Exam Lactate Level 09/23/19 03:15: Lactic Acid Level 1.67 Exam Exam Vital Signs Date Time Temp Pulse Resp B/P (MAP) Pulse Ox O2 Delivery O2 Flow Rate FiO2 09/25/19 16:00 36.1 62 18 124/59 (80) 94 High Flow N/C 10.00 09/25/19 14:32 94 High Flow N/C 10.00 09/25/19 12:00 36.4 60 20 117/54 (75) 93 Vapotherm 25.00 60.00 09/25/19 10:53 92 Vapotherm 20.00 60 09/25/19 08:00 36.5 60 18 131/76 (94) 88 Vapotherm 25.00 60.00 09/25/19 08:00 Vapotherm 25.00 80 09/25/19 07:06 96 Vapotherm 25.00 70 09/25/19 04:00 36.5 60 20 130/60 (83) 91 Vapotherm 25.00 75.00 09/25/19 01:39 93 Vapotherm 25.00 75 09/24/19 23:59 37.2 60 20 126/57 (80) 98 Vapotherm 25.00 75.00 09/24/19 21:23 91 Vapotherm 25.00 75 09/24/19 20:00 Vapotherm 25.00 80 09/24/19 20:00 36.4 60 22 108/52 (70) 92 Vapotherm 25.00 75.00 09/24/19 18:03 90 Vapotherm 25.00 75 I & O 09/25/19 07:00 Intake Total 1740 ml Output Total 840 ml Balance 900 ml Height & Weight Height: 4'10.50" Weight: 106lbs. oz. 48.674754rf; 26.31 BMI Method:Stated General Appearance: No Apparent Distress, Chronically ill HEENT: PERRL/EOMI, Moist Mucous Membranes Neck: Normal Inspection, Supple Respiratory: No Accessory Muscle Use, Rhonci, Other (on vapotherm) Cardiovascular: Regular Rate, Rhythm, Normal Peripheral Pulses Capillary Refill: Less Than 3 Seconds Extremity: No Calf Tenderness, No Pedal Edema Neurologic/Psychiatric: Alert, Oriented x3 Skin: Normal Color, Warm/Dry Results Lab Laboratory Tests 09/24/19 04:27 09/25/19 04:20 Assessment/Plan Assessment/Plan Acute CAP -Continue Abx -MRSA is negative -Influenza is negative -oxygen -COVID is negative bilateral pulmonary infiltrates with nodular appearance -Pt needs out pt CT of chest in 8 wks after discharge to ensure complete resolution. COPD -Albuterol, trilogy - currently on prednisone -Oxygen ESME GASPAR DO Sep 25, 2019 17:25
[2019-09-25 20:17] VITALS: BP 130/60
[2019-09-25] MEDS: ROSUVASTATIN 20 MG (CRESTOR) TABLET PO SCH (20:23)
[2019-09-25] MEDS: MONTELUKAST 10 MG (SINGULAIR) TAB PO SCH (20:23)
[2019-09-25 23:51] VITALS: BP 123/54
[2019-09-26 03:34] VITALS: BP 137/65
[2019-09-26 05:42] LABS: BASOPHILS % (AUTO) 0 % (0-10); EOSINOPHILS % (AUTO) 0 % (0-10); HEMATOCRIT 34 % (35-52); HEMOGLOBIN 10.3 G/DL (11.5-16.0); LYMPHOCYTES # (AUTO) 0.5 X 10^3 (1.0-4.0); LYMPHOCYTES % (AUTO) 7 % (12-44); MEAN CORPUSCULAR HEMOGLOBIN 23 PG (25-34); MEAN CORPUSCULAR HGB CONC 30 G/DL (32-36); MEAN CORPUSCULAR VOLUME 76 FL (80-99); MEAN PLATELET VOLUME 10.7 FL (7.4-10.4); MONOCYTES # (AUTO) 0.4 X 10^3 (0.0-1.0); MONOCYTES % (AUTO) 6 % (0-12); NEUTROPHILS # (AUTO) 5.7 X 10^3 (1.8-7.8); NEUTROPHILS % (AUTO) 87 % (42-75); PLATELET COUNT 238 10^3/uL (130-400); RED CELL DISTRIBUTION WIDTH 22.4 % (10.0-14.5); WHITE BLOOD COUNT 6.6 10^3/uL (4.3-11.0)
[2019-09-26] MEDS: CEFEPIME INJECTION 1,000 MG in WATER (STERILE) FOR INJECTION 10 ML IV SCH ×3 (05:50→21:12)
[2019-09-26] MEDS: methylPREDNISolone 40 MG/ML (Solu-MEDROL) VIAL IV SCH (05:52)
[2019-09-26] MEDS: LEVOTHYROXINE 50 MCG (LEVOTHROID) TAB PO SCH (05:52)
[2019-09-26 05:55] LABS: ALBUMIN 3.5 GM/DL (3.2-4.5); POTASSIUM 4.5 MMOL/L (3.6-5.0)
[2019-09-26 05:56] LABS: CALCIUM 8.8 MG/DL (8.5-10.1)
[2019-09-26 05:58] LABS: TOTAL PROTEIN 6.8 GM/DL (6.4-8.2)
[2019-09-26 05:59] LABS: BILIRUBIN,TOTAL 0.4 MG/DL (0.1-1.0)
[2019-09-26 06:01] LABS: CREATININE SERUM 1.12 MG/DL (0.60-1.30); PHOSPHORUS 2.6 MG/DL (2.3-4.7)
[2019-09-26 06:04] LABS: MAGNESIUM 2.4 MG/DL (1.6-2.4)
[2019-09-26] MEDS: RT-ALBUTEROL SULF 2.5 MG/3 ML PRE-MIX VIAL INH SCH ×4 (06:31→18:33)
[2019-09-26] MEDS: inSUlin ASPART (NovoLOG) 1 UNIT/0.01 ML (CHARGE PER UNIT) SC SCH ×4 (06:51→21:12)
[2019-09-26] MEDS: FUROSEMIDE 20 MG (LASIX) TAB PO SCH ×2 (06:51→16:58)
--- NOTE | 2019-09-26 07:12 | Diagnostic Imaging Report ---
INDICATION: Lower respiratory infection EXAMINATION: Portable chest 2:27 AM There are postoperative changes from CABG surgery. There is a dual-chamber pacemaker. There is a hazy infiltrate in the right lung. There is a patchy area of consolidation in the left upper lobe. IMPRESSION: Bilateral pulmonary infiltrates. The infiltrate in the left lung appears to have improved slightly since 09/23/2019. Dictated by: Dictated on workstation # [id number]
[2019-09-26] MEDS: SERTRALINE 100 MG (ZOLOFT) TAB PO SCH (07:56)
[2019-09-26] MEDS: KCL 10 MEQ TAB (MICRO K) PO SCH (07:56)
[2019-09-26] MEDS: lisINopril 5 MG (PRINIVIL) TABLET PO SCH (07:56)
[2019-09-26] MEDS: PANTOPRAZOLE 20 MG TABLET (PROTONIX) PO SCH (07:56)
[2019-09-26] MEDS: APIXABAN 5 MG (ELIQUIS) TABLET PO SCH ×2 (07:57→21:12)
[2019-09-26 08:00] VITALS: BP 145/65
[2019-09-26] MEDS: ALPRAZolam 0.25 MG (XANAX) TAB PO PRN (09:17)
--- NOTE | 2019-09-26 10:17 | NUR ---
"RD ASSESSMENT PMHx: COPD; CAD s/p CABG; hypercholesterolemia; HTN; hypothyroidism PT INTERACTION: Pt was awake and pleasant during nutrition assessment. Pt states her current appetite is pretty good and that she is not a big eater. Pt states not tolerating her nutrition supplementation as she does not like the taste. Note avg PO intake of 50% x2d, per chart review. Pt states trying to follow a low-Na diet at home, and has no issues with chewing/swallowing food. Pt states no recent issues with nausea/vomiting at this time. Pt states recent episodes of diarrhea occurring for the past 2d. Note last BM was 09/24 and pt currently on bowel regimen of Miralax PRN, per chart review. Pt states unsure of recent wt changes, but states the last time she weighed at home, her weight was 116#. Pt stated she weighed herself last week. Note current weight of 134#, per chart review. ABNORMAL NUTRITION-RELATED LAB VALUES LOW: HIGH: BUN 37; glu 249; alkphos 139 Est. kcal needs: 1814-3985 kcal | 25-30 kcal/kg Est. Pro needs: 49-61 g Pro | 0.8-1.0 g Pro/kg PES STATEMENT: Inadequate oral intake (NI-2.1) related to loss of appetite | diarrhea as evidenced by pt interview | avg PO intake 50% x2d INTERVENTION: Continue with current diet order of Regular diet. Discontinue current supplementation order of Ensure Enlive (vary) with meals TID. Pt states she does not like the taste of the supplement. Encouraged pt to eat when able. Will continue to follow and reassess as pt needs, intake, and status change. MONITOR/EVALUATE: PO Intake; Plan of Care; Hydration Status; Weight Status; Lab Values Ana Rosa Dailey, MS, RD, LD"
--- NOTE | 2019-09-26 10:30 | Progress Note - Hospitalist ---
Subjective HPI/CC On Admission Date Seen by Provider: Sep 26, 2019 Time Seen by Provider: 10:25 Pt is a 69yoCF with a PMH of COPD, CAD s/p CABG, a-fib who presented to outside ER due to cough and dizziness. She is quite flat and short in her answer and thus history is limited. Per patient this all started yesterday and she was too weak to get up from her chair. In the ER she was found to have a fever and PNA and was transferred here for sepsis. She has no complaints today and states she is feeling well. In fact her only concern was about turning her oxygen down to her baseline 4lpm. She is currently admitted to the ICU while awaiting COVID testing. Subjective/Events-last exam Pt reports feeling much better today. Off Vapotherm. Inquiring about eventual discharge date. Still on 10lpm. Objective Exam Vital Signs Vital Signs Date Time Temp Pulse Resp B/P (MAP) Pulse Ox O2 Delivery O2 Flow Rate FiO2 09/26/19 12:00 36.1 60 20 143/65 (91) 88 High Flow N/C 10.00 09/25/19 10:53 60 Capillary Refill : Less Than 3 Seconds General Appearance: No Apparent Distress, Chronically ill Respiratory: Lungs Clear, No Respiratory Distress Cardiovascular: Regular Rate, Rhythm, No Murmur Neurologic/Psychiatric: Alert, Oriented x3 Results/Procedures Lab Laboratory Tests 09/26/19 05:20 Patient resulted labs reviewed. Assessment/Plan Assessment and Plan Assess & Plan/Chief Complaint Severe Sepsis CAP COPD Acute on Chronic Hypoxic Respiratory Failure Severe sepsis on arrival but now resolved Continue Cefepime given structural lung disease Currently on Vapotherm, wean as able Continue steroids, transition to oral COVID negative Pulm consulted, appreciate recs CADs/p CABG HTN a-fib Continue home meds Hypothyroidism Continue home meds Diagnosis/Problems Diagnosis/Problems (1) CAD (coronary artery disease) Status: Chronic Qualifiers: Coronary Disease-Associated Artery/Lesion type: bypass graft [place] vs. transplanted heart: [place] heart Associated angina: without angina Qualified Codes: I25.810 - Atherosclerosis of coronary artery bypass graft(s) without angina pectoris (2) COPD (chronic obstructive pulmonary disease) Status: Chronic Qualifiers: COPD type: COPD with acute lower respiratory infection Qualified Codes: J44.0 - Chronic obstructive pulmonary disease with (acute) lower respiratory infection (3) Acute respiratory failure Status: Chronic Qualifiers: Respiratory failure complication: hypoxia Qualified Codes: J96.01 - Acute respiratory failure with hypoxia (4) Atrial fibrillation Status: Chronic Qualifiers: Atrial fibrillation type: paroxysmal Qualified Codes: I48.0 - Paroxysmal atrial fibrillation (5) Hypertension Status: Chronic Qualifiers: Hypertension type: essential hypertension Qualified Codes: I10 - Essential (primary) hypertension (6) Hyperlipidemia Status: Chronic Qualifiers: Hyperlipidemia type: mixed hyperlipidemia Qualified Codes: E78.2 - Mixed hyperlipidemia (7) Hypothyroidism Status: Chronic Qualifiers: Hypothyroidism type: unspecified Qualified Codes: E03.9 - Hypothyroidism, unspecified (8) Severe sepsis Status: Acute (9) Sepsis due to pneumonia Status: Acute Clinical Quality Measures DVT/VTE Risk/Contraindication: Risk Factor Score Per Nursin RFS Level Per Nursing on Admit: 4+=Very High ROC KING MD Sep 26, 2019 10:30
--- NOTE | 2019-09-26 10:37 | Occupational Ther Daily Note ---
OT Current Status-Daily Note Subjective Pt alert, sitting in recliner. Pt agrees to therapy. No c/o pain. O2 levels stayed above 90% throughout treatment. Mental Status/Objective Patient Orientation: Person, Place, Time, Situation Attachments: Oxygen (10L) ADL-Treatment Therapy Code Descriptions/Definitions Functional [place] Measure: 0=Not Assessed/NA 4=Minimal Assistance 1=Total Assistance 5=Supervision or Setup 2=Maximal Assistance 6=Modified [place] 3=Moderate Assistance 7=Complete IndependenceSCALE: Activities may be completed with or without assistive devices. 9-Kziicptbxk-tdqoxgp completes the activity by him/herself with no assistance from a helper. 5-Set-up or Clean-up Assistance-helper sets up or cleans up; patient completes activity. [place] assists only prior to or following the activity. 4-Supervision or Touching Assistance-helper provides verbal cues and/or touching/steadying and/or contact guard assistance as patient completes activity. Assistance may be provided throughout the activity or intermittently. 3-Partial/Moderate Assistance-helper does LESS THAN HALF the effort. [place] lifts, holds or supports trunk or limbs, but provides less than half the effort. 2-Substantial/Maximal Assistance-helper does MORE THAN HALF the effort. [place] lifts or holds trunk or limbs and provides more than half the effort. 3-Ilsuepmwf-blkvpg does ALL the effort. Patient does none of the effort to complete the activity. Or, the assistance of 2 or more helpers is required for the patient to complete the activity. If activity was not attempted, code reason: 7-Patient Refused. 9-Not Applicable-not attempted and the patient did not perform the activity before the current illness, exacerbation or injury. 10-Not Attempted due to Environmental Limitations-(lack of equipment, weather restraints, etc.). 88-Not Attempted due to Medical Conditions or Safety Concerns. On/Off Footwear: 6 (Pt able to reach socks and don/doff by self sitting in recliner.) Other Treatment Pt completed 2 sets of 10 reps, 4 exercises B UE against gravity. Skilled instructions needed for technique and breathing correctly during exercising. After session, pt sitting in recliner with call light/phone in reach. All needs met in room. OT Short Term Goals Short Term Goals Time Frame: Oct 02, 2019 Eatin Oral hygiene: 4 Toileting hygiene: 3 Upper body dressin Lower body dressin Putting on/taking off footwear: 3 (Min assist) OT Repairer Pump Goals Repairer Pump Goals Time Frame: Oct 09, 2019 Eating (QC): 6 Oral Hygiene (QC): 6 Toileting Hygiene (QC): 6 Shower/Bathe Self (QC): 4 Upper Body Dressing (QC): 5 Lower Body Dressing (QC): 4 On/Off Footwear (QC): 4 Additional Goals: 1-Demonstrate ADL Tasks, 2-Verbalize Understanding, 3- ImproveStrength/[place] 1=Demonstrate adherence to instructed precautions during ADL tasks. 2=Patient will verbalize/demonstrate understanding of assistive devices/modifications for ADL. 3=Patient will improve strength/tolerance for activity to enable patient to perform ADL's. OT Education/Plan Problem List/Assessment Assessment: Decreased Activ Tolerance, Decreased UE Strength, Impaired Self- Care Skills Discharge Recommendations Plan/Recommendations: Continue POC Treatment Plan/Plan of Care Patient would benefit from OT for education, treatment and training to promote independence in ADL's, mobility, safety and/or upper extremity function for ADL's. Plan of Care: ADL Retraining, Functional Mobility, UE Funct Exercise/Act Treatment Duration: Oct 09, 2019 Frequency: 5 times per week Estimated Hrs Per Day: .25 hour per day Agreement: Yes Rehab Potential: Fair Time/GCodes Start Time: 10:13 Stop Time: 10:30 Total Time Billed (hr/min): 18 Billed Treatment Time 1 visit-EX 1 (18 min) FREDI MARCUS Sep 26, 2019 10:37
--- NOTE | 2019-09-26 10:48 | Physical Therapy Daily Note ---
PT Daily Note-Current Subjective Pt up in chair with O2 per nasal canula 10L/min. Pt denies pain, says "If I get up my legs just get real weak." Appearance Pt appears cyanotic, purple lips, fingernails upon arrival. O2 sat taken at 92% upon arrival. Mental Status Patient Orientation: Person, Place Attachments: Oxygen 10L/min Transfers SCALE: Activities may be completed with or without assistive devices. 3-Sdwrqienip-frjrvxh completes the activity by him/herself with no assistance from a helper. 5-Set-up or Clean-up Assistance-helper sets up or cleans up; patient completes activity. [place] assists only prior to or following the activity. 4-Supervision or Touching Assistance-helper provides verbal cues and/or touching/steadying and/or contact guard assistance as patient completes activity. Assistance may be provided throughout the activity or intermittently. 3-Partial/Moderate Assistance-helper does LESS THAN HALF the effort. [place] lifts, holds or supports trunk or limbs, but provides less than half the effort. 2-Substantial/Maximal Assistance-helper does MORE THAN HALF the effort. [place] lifts or holds trunk or limbs and provides more than half the effort. 3-Kotgohwne-pdjwld does ALL the effort. Patient does none of the effort to complete the activity. Or, the assistance of 2 or more helpers is required for the patient to complete the activity. If activity was not attempted, code reason: 7-Patient Refused. 9-Not Applicable-not attempted and the patient did not perform the activity before the current illness, exacerbation or injury. 10-Not Attempted due to Environmental Limitations-(lack of equipment, weather restraints, etc.). 88-Not Attempted due to Medical Conditions or Safety Concerns. Weight Bearing Right Lower Extremity: Right Weight Bearing/Tolerated Left Lower Extremity: Left Weight Bearing/Tolerated Gait Training Gait Assistive Device: FWW Exercises Seated Therapy Exercises: Ankle pumps, Long arc quads Seated Reps: 15 Treatments Pt seen for LE ther ex, gait training with FWW and CGA. Pt amb x 80ft with FWW and CGA, O2 10L/min. O2 sats remained >90% during ambulation, dropped to 84% upon return to chair. Recovered to 98% with purse lip breathing in 1-2min. Assessment Current Status: Poor Progress, Fair Progress Pt SOB, O2 sats pretty steady >90%. One brief drop to 84%. Pt LE fatigue easily. Pt resting in recliner with legs elevated, call light in reach and all needs met post therapy. O2 insitu. PT Foil Spinner Goals Foil Spinner Goals PT Foil Spinner Goals Time Frame: Oct 02, 2019 Roll Left & Right (QC): 6 Sit to Lying (QC): 6 Lying-Sitting on Side/Bed(QC): 6 Sit to Stand (QC): 6 Chair/Sxa-ny-Vnujk Xfer(QC): 6 Toilet Transfer (QC): 6 Does the Patient Walk: Yes Walk 150 ft (QC): 6 PT Plan Treatment/Plan Treatment Plan: Continue Plan of Care Treatment Plan: Bed Mobility, Concurrent Therapy, Education, Functional Activity Mason, Functional Strength, Gait, Safety, Therapeutic Exercise, Transfers Treatment Duration: Oct 02, 2019 Frequency: 6 times per week Estimated Hrs Per Day: .25 hour per day Patient and/or Family Agrees t: Yes Time/GCodes Time In: 955 Time Out: 1015 Total Billed Treatment Time: 20 Total Billed Treatment 1, gait 15', ther ex 5' VIVIANA WADSWORTH CPTA Sep 26, 2019 10:48
[2019-09-26 12:00] VITALS: BP 143/65
[2019-09-26 16:00] VITALS: BP 129/60
[2019-09-26 20:20] VITALS: BP 134/62
[2019-09-26] MEDS: MONTELUKAST 10 MG (SINGULAIR) TAB PO SCH (21:12)
[2019-09-26] MEDS: ROSUVASTATIN 20 MG (CRESTOR) TABLET PO SCH (21:12)
[2019-09-27 00:10] VITALS: BP 128/64
[2019-09-27] MEDS: AZITHROMYCIN 250 MG TAB (ZITHROMAX) PO SCH (00:13)
[2019-09-27 04:00] VITALS: BP 126/75
[2019-09-27] MEDS: inSUlin ASPART (NovoLOG) 1 UNIT/0.01 ML (CHARGE PER UNIT) SC SCH ×4 (05:54→21:09)
[2019-09-27 06:11] LABS: BASOPHILS % (AUTO) 0 % (0-10); EOSINOPHILS % (AUTO) 0 % (0-10); HEMATOCRIT 37 % (35-52); LYMPHOCYTES # (AUTO) 1.5 X 10^3 (1.0-4.0); LYMPHOCYTES % (AUTO) 13 % (12-44); MEAN CORPUSCULAR HEMOGLOBIN 23 PG (25-34); MEAN CORPUSCULAR HGB CONC 30 G/DL (32-36); MEAN CORPUSCULAR VOLUME 76 FL (80-99); MEAN PLATELET VOLUME 10.1 FL (7.4-10.4); MONOCYTES # (AUTO) 1.2 X 10^3 (0.0-1.0); MONOCYTES % (AUTO) 10 % (0-12); NEUTROPHILS # (AUTO) 9.1 X 10^3 (1.8-7.8); NEUTROPHILS % (AUTO) 77 % (42-75); PLATELET COUNT 269 10^3/uL (130-400); RED CELL DISTRIBUTION WIDTH 22.6 % (10.0-14.5); WHITE BLOOD COUNT 11.8 10^3/uL (4.3-11.0)
--- NOTE | 2019-09-27 06:19 | Pulmonary Progress Note ---
Subjective Date Seen by a Provider: Sep 27, 2019 Time Seen by a Provider: 06:15 Subjective/Events-last exam No complications noted. Sepsis Event Evaluation Height, Weight, BMI Height: 4'10.50" Weight: 106lbs. oz. 48.284653kp; 26.31 BMI Method:Stated Exam Exam Vital Signs Date Time Temp Pulse Resp B/P (MAP) Pulse Ox O2 Delivery O2 Flow Rate FiO2 09/27/19 04:00 36.4 60 24 126/75 (92) 95 High Flow N/C 10.00 09/27/19 00:10 36.8 60 18 128/64 (85) 91 High Flow N/C 10.00 09/26/19 21:00 High Flow N/C 10.00 09/26/19 20:20 36.4 60 20 134/62 (86) 97 High Flow N/C 10.00 09/26/19 18:34 94 High Flow N/C 10.00 09/26/19 16:00 36.3 60 22 129/60 (83) 94 High Flow N/C 10.00 09/26/19 14:36 92 High Flow N/C 10.00 09/26/19 12:00 36.1 60 20 143/65 (91) 88 High Flow N/C 10.00 09/26/19 10:41 93 High Flow N/C 10.00 09/26/19 08:00 90 High Flow N/C 10.00 09/26/19 08:00 36.0 60 20 145/65 (91) 90 High Flow N/C 10.00 09/26/19 06:31 96 High Flow N/C 10.00 I & O 09/27/19 07:00 Intake Total 1320 ml Balance 1320 ml Height & Weight Height: 4'10.50" Weight: 106lbs. oz. 48.975890rq; 26.31 BMI Method:Stated General Appearance: No Apparent Distress, Chronically ill HEENT: PERRL/EOMI, Moist Mucous Membranes Neck: Normal Inspection, Supple Respiratory: Lungs Clear, No Respiratory Distress Cardiovascular: Regular Rate, Rhythm, No Murmur Capillary Refill: Less Than 3 Seconds Extremity: No Calf Tenderness, No Pedal Edema Neurologic/Psychiatric: Alert, Oriented x3 Skin: Normal Color, Warm/Dry Results Lab Laboratory Tests 09/26/19 05:20 09/27/19 05:30 Assessment/Plan Assessment/Plan Acute CAP -Continue Abx -MRSA is negative -Influenza is negative -oxygen -COVID is negative bilateral pulmonary infiltrates with nodular appearance -Pt needs out pt CT of chest in 8 wks after discharge to ensure complete resolution. COPD -Albuterol, trilogy - prednisone -Oxygen ESME GASPAR DO Sep 27, 2019 06:19
[2019-09-27 06:21] LABS: ALBUMIN 3.6 GM/DL (3.2-4.5)
[2019-09-27 06:22] LABS: POTASSIUM 3.7 MMOL/L (3.6-5.0)
[2019-09-27 06:24] LABS: TOTAL PROTEIN 6.9 GM/DL (6.4-8.2)
[2019-09-27] MEDS: FUROSEMIDE 20 MG (LASIX) TAB PO SCH ×2 (06:24→17:49)
[2019-09-27] MEDS: CEFEPIME INJECTION 1,000 MG in WATER (STERILE) FOR INJECTION 10 ML IV SCH ×3 (06:24→21:07)
[2019-09-27] MEDS: LEVOTHYROXINE 50 MCG (LEVOTHROID) TAB PO SCH (06:24)
[2019-09-27] MEDS: predniSONE 20 MG TAB PO SCH (06:24)
[2019-09-27 06:26] LABS: BILIRUBIN,TOTAL 0.4 MG/DL (0.1-1.0)
[2019-09-27 06:27] LABS: PHOSPHORUS 2.4 MG/DL (2.3-4.7)
[2019-09-27 06:28] LABS: CREATININE SERUM 1.07 MG/DL (0.60-1.30)
[2019-09-27 06:30] LABS: MAGNESIUM 2.4 MG/DL (1.6-2.4)
--- NOTE | 2019-09-27 06:40 | NUR ---
DR GASPAR AT PT ROOM TO SEE PT, ORDERED TO ADD INCENTIVE SPIROMETER Q2 FOR PT. AND TO CHANGE HER BREATHING TX, SEE ORDER HX.
[2019-09-27] MEDS ORDERED: RT-ALBUTEROL SULF 2.5 MG/3 ML PRE-MIX VIAL ONE (07:01)
[2019-09-27] MEDS: TRELEGY IH SCH (07:17)
[2019-09-27] MEDS ORDERED: RT-ALBUTEROL SULF 2.5 MG/3 ML PRE-MIX VIAL INH SCH (07:30)
[2019-09-27 07:59] VITALS: BP 135/74
[2019-09-27] MEDS: APIXABAN 5 MG (ELIQUIS) TABLET PO SCH ×2 (08:37→21:08)
[2019-09-27] MEDS: KCL 10 MEQ TAB (MICRO K) PO SCH (08:37)
[2019-09-27] MEDS: SERTRALINE 100 MG (ZOLOFT) TAB PO SCH (08:37)
[2019-09-27] MEDS: lisINopril 5 MG (PRINIVIL) TABLET PO SCH (08:37)
[2019-09-27] MEDS: PANTOPRAZOLE 20 MG TABLET (PROTONIX) PO SCH (08:37)
--- NOTE | 2019-09-27 09:24 | Physical Therapy Daily Note ---
PT Daily Note-Current Subjective Patient reports she doesn't do much at home and only gets out of bed to go to the bathroom. Requires much encouragement to participate with PT. Mental Status Patient Orientation: Person, Time, Situation Attachments: Oxygen (10L HF) Transfers SCALE: Activities may be completed with or without assistive devices. 6-Wsuqqufqxk-wganhwl completes the activity by him/herself with no assistance from a helper. 5-Set-up or Clean-up Assistance-helper sets up or cleans up; patient completes activity. [place] assists only prior to or following the activity. 4-Supervision or Touching Assistance-helper provides verbal cues and/or touching/steadying and/or contact guard assistance as patient completes activity. Assistance may be provided throughout the activity or intermittently. 3-Partial/Moderate Assistance-helper does LESS THAN HALF the effort. [place] lift s, holds or supports trunk or limbs, but provides less than half the effort. 2-Substantial/Maximal Assistance-helper does MORE THAN HALF the effort. [place] lifts or holds trunk or limbs and provides more than half the effort. 0-Qpbwgzyku-svvfds does ALL the effort. Patient does none of the effort to complete the activity. Or, the assistance of 2 or more helpers is required for the patient to complete the activity. If activity was not attempted, code reason: 7-Patient Refused. 9-Not Applicable-not attempted and the patient did not perform the activity before the current illness, exacerbation or injury. 10-Not Attempted due to Environmental Limitations-(lack of equipment, weather restraints, etc.). 88-Not Attempted due to Medical Conditions or Safety Concerns. Roll Left & Right (QC): 5 Lying to Sitting/Side of Bed(Q: 5 Sit to Stand (QC): 5 Chair/Mud-uz-Pxijg Xfer(QC): 5 Weight Bearing Right Lower Extremity: Right Weight Bearing/Tolerated Left Lower Extremity: Left Weight Bearing/Tolerated Exercises Supine Ex: Ankle pumps, Quad Set, Heel Slides, Straight leg raise Supine Reps: 10 Seated Therapy Exercises: Long arc quads Seated Reps: 15 Assessment SAO2 taken during treatment session and maintained >90% at all times. Noted, patient lips appear cyanotic and feet are mottled. RN is aware. Patient did transfer to recliner and has call light in hand. PT Airline Reservationist Goals Airline Reservationist Goals PT Airline Reservationist Goals Time Frame: Oct 02, 2019 Roll Left & Right (QC): 6 Sit to Lying (QC): 6 Lying-Sitting on Side/Bed(QC): 6 Sit to Stand (QC): 6 Chair/Lja-jg-Nkani Xfer(QC): 6 Toilet Transfer (QC): 6 Does the Patient Walk: Yes Walk 150 ft (QC): 6 PT Plan Treatment/Plan Treatment Plan: Continue Plan of Care Treatment Plan: Bed Mobility, Concurrent Therapy, Education, Functional Activity Mason, Functional Strength, Gait, Safety, Therapeutic Exercise, Transfers Treatment Duration: Oct 02, 2019 Frequency: 6 times per week Estimated Hrs Per Day: .25 hour per day Patient and/or Family Agrees t: Yes Time/GCodes Time In: 900 Time Out: 915 Total Billed Treatment Time: 15 Total Billed Treatment 1 visit FA 15 min LAURY ESPOSITO PT Sep 27, 2019 09:24
[2019-09-27] MEDS: RT-ALBUTEROL/IPRATROPIUM 3 ML (DUONEB) VIAL INH SCH ×4 (10:42→22:10)
--- NOTE | 2019-09-27 11:22 | Occupational Ther Daily Note ---
OT Current Status-Daily Note Subjective Pt alert, sitting in recliner. Pt agrees to therapy. Pt states that at home she only goes from bed to bathroom to recliner then if she does make a salad she is SOA. Mental Status/Objective Patient Orientation: Person, Place, Time, Situation ADL-Treatment Therapy Code Descriptions/Definitions Functional [place] Measure: 0=Not Assessed/NA 4=Minimal Assistance 1=Total Assistance 5=Supervision or Setup 2=Maximal Assistance 6=Modified [place] 3=Moderate Assistance 7=Complete IndependenceSCALE: Activities may be completed with or without assistive devices. 0-Tyfqngvedk-rgfvmqj completes the activity by him/herself with no assistance from a helper. 5-Set-up or Clean-up Assistance-helper sets up or cleans up; patient completes activity. [place] assists only prior to or following the activity. 4-Supervision or Touching Assistance-helper provides verbal cues and/or touching/steadying and/or contact guard assistance as patient completes activity. Assistance may be provided throughout the activity or intermittently. 3-Partial/Moderate Assistance-helper does LESS THAN HALF the effort. [place] lifts, holds or supports trunk or limbs, but provides less than half the effort. 2-Substantial/Maximal Assistance-helper does MORE THAN HALF the effort. [place] lifts or holds trunk or limbs and provides more than half the effort. 4-Zdmwzorwj-nrrqhm does ALL the effort. Patient does none of the effort to complete the activity. Or, the assistance of 2 or more helpers is required for the patient to complete the activity. If activity was not attempted, code reason: 7-Patient Refused. 9-Not Applicable-not attempted and the patient did not perform the activity before the current illness, exacerbation or injury. 10-Not Attempted due to Environmental Limitations-(lack of equipment, weather restraints, etc.). 88-Not Attempted due to Medical Conditions or Safety Concerns. Other Treatment Pt stated that she had already washed up for the day. Would like to wash hair. Pt able to scoot self back in chair using B UE and scooting hips backward. Pt given shower cap to wash hair and pt able to place and sustain shldr flexion to wash hair with cap. Pt then brushed hair. Pt declined to complete oral care. Pt then was able to remember 1 exercise from yesterday and completed 10 reps. Then with instructions and cues for correct technique pt able to complete 2 more exercises before fatigue. After session, pt sitting in recliner with call light/phone in reach. All needs met in room. OT Short Term Goals Short Term Goals Time Frame: Oct 02, 2019 Eatin Oral hygiene: 4 Toileting hygiene: 3 Upper body dressin Lower body dressin Putting on/taking off footwear: 3 (Min assist) OT Otr Owner Operator Goals Fpc Goals Time Frame: Oct 09, 2019 Eating (QC): 6 Oral Hygiene (QC): 6 Toileting Hygiene (QC): 6 Shower/Bathe Self (QC): 4 Upper Body Dressing (QC): 5 Lower Body Dressing (QC): 4 On/Off Footwear (QC): 4 Additional Goals: 1-Demonstrate ADL Tasks, 2-Verbalize Understanding, 3- ImproveStrength/[place]ason 1=Demonstrate adherence to instructed precautions during ADL tasks. 2=Patient will verbalize/demonstrate understanding of assistive devices/modifications for ADL. 3=Patient will improve strength/tolerance for activity to enable patient to perform ADL's. OT Education/Plan Problem List/Assessment Assessment: Decreased Activ Tolerance, Decreased UE Strength Discharge Recommendations Plan/Recommendations: Continue POC Treatment Plan/Plan of Care Patient would benefit from OT for education, treatment and training to promote independence in ADL's, mobility, safety and/or upper extremity function for ADL's. Plan of Care: ADL Retraining, Functional Mobility, UE Funct Exercise/Act Treatment Duration: Oct 09, 2019 Frequency: 5 times per week Estimated Hrs Per Day: .25 hour per day Agreement: Yes Rehab Potential: Fair Time/GCodes Start Time: 10:55 Stop Time: 11:18 Total Time Billed (hr/min): 23 Billed Treatment Time 1 visit-FA 1 (15 min) EX 1 (8 min) FREDI MARCUS Sep 27, 2019 11:22
--- NOTE | 2019-09-27 11:41 | NUR ---
SWINGBED evaluation requested for need of Oxygen titration to reach the home dose. Patient normally has 4 L during the day and 8L at [facility], but is requiring to L cont at this time. Failed titration yesterday with decreased saturations with low liter flow. She is working with PT/OT but limited ambulation ability do to fatigue and SOB. Started authorization for expedited review for today admit to SWINGBED. [employer] advantage is out of the office for the Holiday but someone is supposed to be working the fax and referrals from home? Awaiting call and decision. Addendum: 09/27/19 at 1230 by LIBIA JULES RN Prior to sending the referral to [facility] for SWING BED approval, Dr. Diaz , myself blairtom and patient KATYA Murillo spoke on the phone about patient's condition and POC. All are in agreement to access SKILLED benefit if approval is obtained from [facility]. All are aware that length of stay on SWB will be determined by [facility] and patient's progress and participation with POC. It possible that she may still require a Short Stay at an Area SNF if she continues to need additional care prior to return home.
[2019-09-27 12:00] VITALS: BP 112/64
--- NOTE | 2019-09-27 13:44 | Progress Note - Hospitalist ---
Subjective HPI/CC On Admission Date Seen by Provider: Sep 27, 2019 Time Seen by Provider: 13:39 Pt is a 69yoCF with a PMH of COPD, CAD s/p CABG, a-fib who presented to outside ER due to cough and dizziness. She is quite flat and short in her answer and thus history is limited. Per patient this all started yesterday and she was too weak to get up from her chair. In the ER she was found to have a fever and PNA and was transferred here for sepsis. She has no complaints today and states she is feeling well. In fact her only concern was about turning her oxygen down to her baseline 4lpm. She is currently admitted to the ICU while awaiting COVID testing. Subjective/Events-last exam Pt reports feeling slightly better today but still on 10lpm. Discussed with her and her daughter in law Lidia about potential for swing bed admission to work on continued therapy and oxygen titration. Objective Exam Vital Signs Vital Signs Date Time Temp Pulse Resp B/P (MAP) Pulse Ox O2 Delivery O2 Flow Rate FiO2 09/27/19 12:00 36.5 60 18 112/64 (80) 95 High Flow N/C 12.00 09/25/19 10:53 60 Capillary Refill : Less Than 3 Seconds General Appearance: No Apparent Distress, Chronically ill Respiratory: No Accessory Muscle Use Neurologic/Psychiatric: Alert, Oriented x3, Normal Mood/Affect Results/Procedures Lab Laboratory Tests 09/27/19 05:30 Patient resulted labs reviewed. Assessment/Plan Assessment and Plan Assess & Plan/Chief Complaint Severe Sepsis CAP COPD Acute on Chronic Hypoxic Respiratory Failure Severe sepsis on arrival but now resolved Continue Cefepime given structural lung disease Currently on Vapotherm, wean as able Continue steroids orally COVID negative Pulm consulted, appreciate recs Swing bed evaluation CADs/p CABG HTN a-fib Continue home meds Hypothyroidism Continue home meds Diagnosis/Problems Diagnosis/Problems (1) CAD (coronary artery disease) Status: Chronic Qualifiers: Coronary Disease-Associated Artery/Lesion type: bypass graft [place] vs. transplanted heart: [place] heart Associated angina: without angina Qualified Codes: I25.810 - Atherosclerosis of coronary artery bypass graft(s) without angina pectoris (2) COPD (chronic obstructive pulmonary disease) Status: Chronic Qualifiers: COPD type: COPD with acute lower respiratory infection Qualified Codes: J44.0 - Chronic obstructive pulmonary disease with (acute) lower respiratory infection (3) Acute respiratory failure Status: Chronic Qualifiers: Respiratory failure complication: hypoxia Qualified Codes: J96.01 - Acute respiratory failure with hypoxia (4) Atrial fibrillation Status: Chronic Qualifiers: Atrial fibrillation type: paroxysmal Qualified Codes: I48.0 - Paroxysmal atrial fibrillation (5) Hypertension Status: Chronic Qualifiers: Hypertension type: essential hypertension Qualified Codes: I10 - Essential (primary) hypertension (6) Hyperlipidemia Status: Chronic Qualifiers: Hyperlipidemia type: mixed hyperlipidemia Qualified Codes: E78.2 - Mixed hyperlipidemia (7) Hypothyroidism Status: Chronic Qualifiers: Hypothyroidism type: unspecified Qualified Codes: E03.9 - Hypothyroidism, unspecified (8) Severe sepsis Status: Acute (9) Sepsis due to pneumonia Status: Acute Clinical Quality Measures DVT/VTE Risk/Contraindication: Risk Factor Score Per Nursin RFS Level Per Nursing on Admit: 4+=Very High ROC KING MD Sep 27, 2019 13:44
--- NOTE | 2019-09-27 14:23 | NUR ---
SWING BED: I have not heard from [facility] in regard to authorization for SWINGBED. This is not anticipated to be forth coming due to the Holiday. Will continue to seek authorization on Monday if skilled status is still needed.
[2019-09-27 15:38] VITALS: BP 124/69
--- NOTE | 2019-09-27 16:21 | NUR ---
Pastoral care visit.
[2019-09-27 19:54] VITALS: BP 130/75
[2019-09-27] MEDS: ACETAMINOPHEN 325 MG TABLET PO PRN (21:08)
[2019-09-27] MEDS: ALPRAZolam 0.25 MG (XANAX) TAB PO PRN (21:08)
[2019-09-27] MEDS: MONTELUKAST 10 MG (SINGULAIR) TAB PO SCH (21:08)
[2019-09-27] MEDS: diphenhydrAMINE 25 MG TAB (BENADRYL) PO PRN (21:08)
[2019-09-27] MEDS: MELATONIN 3 MG TABLET PO PRN (21:09)
[2019-09-27] MEDS: ROSUVASTATIN 20 MG (CRESTOR) TABLET PO SCH (21:09)
[2019-09-28 00:03] VITALS: BP 126/72
[2019-09-28] MEDS: RT-ALBUTEROL/IPRATROPIUM 3 ML (DUONEB) VIAL INH SCH ×6 (02:19→22:23)
[2019-09-28 04:00] VITALS: BP 136/68
[2019-09-28 05:21] LABS: BASOPHILS % (AUTO) 0 % (0-10); EOSINOPHILS # (AUTO) 0.1 10^3/uL (0.0-0.3); EOSINOPHILS % (AUTO) 1 % (0-10); HEMATOCRIT 35 % (35-52); HEMOGLOBIN 10.4 G/DL (11.5-16.0); LYMPHOCYTES # (AUTO) 1.7 X 10^3 (1.0-4.0); LYMPHOCYTES % (AUTO) 18 % (12-44); MEAN CORPUSCULAR HEMOGLOBIN 23 PG (25-34); MEAN CORPUSCULAR HGB CONC 30 G/DL (32-36); MEAN CORPUSCULAR VOLUME 75 FL (80-99); MONOCYTES # (AUTO) 1.1 X 10^3 (0.0-1.0); MONOCYTES % (AUTO) 12 % (0-12); NEUTROPHILS # (AUTO) 6.6 X 10^3 (1.8-7.8); NEUTROPHILS % (AUTO) 70 % (42-75); PLATELET COUNT 247 10^3/uL (130-400); RED CELL DISTRIBUTION WIDTH 22.5 % (10.0-14.5); WHITE BLOOD COUNT 9.4 10^3/uL (4.3-11.0)
[2019-09-28 05:30] LABS: ALBUMIN 3.3 GM/DL (3.2-4.5)
[2019-09-28 05:31] LABS: CHLORIDE 107 MMOL/L (98-107); POTASSIUM 3.1 MMOL/L (3.6-5.0); SODIUM 141 MMOL/L (135-145)
[2019-09-28 05:32] LABS: CALCIUM 8.6 MG/DL (8.5-10.1)
[2019-09-28 05:33] LABS: GLUCOSE 76 MG/DL (70-105); TOTAL PROTEIN 6.4 GM/DL (6.4-8.2)
[2019-09-28 05:34] LABS: CARBON DIOXIDE 22 MMOL/L (21-32)
[2019-09-28 05:35] LABS: BILIRUBIN,TOTAL 0.5 MG/DL (0.1-1.0)
[2019-09-28 05:36] LABS: ALKALINE PHOSPHATASE 112 U/L (40-136); PHOSPHORUS 2.4 MG/DL (2.3-4.7)
[2019-09-28 05:37] LABS: CREATININE SERUM 0.82 MG/DL (0.60-1.30); GFR ESTIMATED > 60
[2019-09-28 05:38] LABS: BUN/CREATININE RATIO 37
[2019-09-28 05:39] LABS: MAGNESIUM 2.4 MG/DL (1.6-2.4)
[2019-09-28 05:40] LABS: ALANINE AMINOTRANSFERASE 36 U/L (0-55)
[2019-09-28] MEDS: inSUlin ASPART (NovoLOG) 1 UNIT/0.01 ML (CHARGE PER UNIT) SC SCH ×4 (06:05→21:29)
[2019-09-28] MEDS: predniSONE 20 MG TAB PO SCH (06:23)
[2019-09-28] MEDS: FUROSEMIDE 20 MG (LASIX) TAB PO SCH ×2 (06:23→17:43)
[2019-09-28] MEDS: LEVOTHYROXINE 50 MCG (LEVOTHROID) TAB PO SCH (06:23)
--- NOTE | 2019-09-28 07:00 | Pulmonary Progress Note ---
Subjective Time Seen by a Provider: 06:58 Subjective/Events-last exam PT is still requiring a lot of oxygen. Sepsis Event Evaluation Height, Weight, BMI Height: 4'50" Weight: 106lbs. oz. 48.204630uw; 26.31 BMI Method:Stated Exam Exam Vital Signs Date Time Temp Pulse Resp B/P (MAP) Pulse Ox O2 Delivery O2 Flow Rate FiO2 09/28/19 04:00 36.0 60 20 136/68 (90) 95 High Flow N/C 10.00 09/28/19 02:19 90 High Flow N/C 10.00 09/28/19 00:03 36.4 60 20 126/72 (90) 94 High Flow N/C 10.00 09/27/19 22:11 96 High Flow N/C 10.00 09/27/19 20:00 High Flow N/C 10.00 09/27/19 19:54 36.3 60 20 130/75 (93) 93 High Flow N/C 10.00 09/27/19 18:26 96 High Flow N/C 10.00 09/27/19 15:38 36.0 60 18 124/69 (87) 95 High Flow N/C 10.00 09/27/19 14:10 94 High Flow N/C 12.00 09/27/19 12:00 36.5 60 18 112/64 (80) 95 High Flow N/C 12.00 09/27/19 10:42 88 High Flow N/C 12.00 09/27/19 08:00 High Flow N/C 10.00 09/27/19 07:59 36.7 60 20 135/74 (94) 94 High Flow N/C 10.00 09/27/19 07:23 Nasal Cannula 10.00 09/27/19 07:21 88 Nasal Cannula 10.00 09/27/19 07:20 88 High Flow N/C 10.00 I & O 09/28/19 07:00 Intake Total 1780 ml Output Total 375 ml Balance 1405 ml Height & Weight Height: 4'.50" Weight: 106lbs. oz. 48.117680ek; 26.31 BMI Method:Stated General Appearance: No Apparent Distress, Chronically ill HEENT: PERRL/EOMI, Moist Mucous Membranes Neck: Normal Inspection, Supple Respiratory: No Accessory Muscle Use Cardiovascular: Regular Rate, Rhythm, No Murmur Capillary Refill: Less Than 3 Seconds Extremity: No Calf Tenderness, No Pedal Edema Neurologic/Psychiatric: Alert, Oriented x3, Normal Mood/Affect Skin: Normal Color, Warm/Dry Results Lab Laboratory Tests 09/27/19 05:30 09/28/19 04:51 09/28/19 04:55 Assessment/Plan Assessment/Plan Acute CAP -Continue Abx -MRSA is negative -Influenza is negative -oxygen -COVID is negative Pulmonary edema with persistent hypoxia -BNP is 303 -Increase lasix to 40mg BID -increase Kdur to 40bid with lasix bilateral pulmonary infiltrates with nodular appearance -Pt needs out pt CT of chest in 8 wks after discharge to ensure complete resolution. COPD -Albuterol, trilogy - prednisone -Oxygen ESME GASPAR DO Sep 28, 2019 07:00
[2019-09-28] MEDS: KCL 10 MEQ TAB (MICRO K) PO SCH ×2 (07:55→17:44)
[2019-09-28 08:05] VITALS: BP 137/71
--- NOTE | 2019-09-28 08:21 | Physical Therapy Progress Note ---
Therapy Progress Note Patient on Hold per RN due to decreased SAO2 on 10L O2 HF. PT will to continue to monitor patient status. LAURY ESPOSITO PT Sep 28, 2019 08:21
[2019-09-28] MEDS: lisINopril 5 MG (PRINIVIL) TABLET PO SCH (09:37)
[2019-09-28] MEDS: APIXABAN 5 MG (ELIQUIS) TABLET PO SCH ×2 (09:37→21:27)
[2019-09-28] MEDS: PANTOPRAZOLE 20 MG TABLET (PROTONIX) PO SCH (09:37)
[2019-09-28] MEDS: SERTRALINE 100 MG (ZOLOFT) TAB PO SCH (09:38)
[2019-09-28 11:21] VITALS: BP 122/59
[2019-09-28] MEDS: ACETAMINOPHEN 325 MG TABLET PO PRN (11:27)
--- NOTE | 2019-09-28 11:32 | Progress Note - Hospitalist ---
Subjective HPI/CC On Admission Date Seen by Provider: Sep 28, 2019 Time Seen by Provider: 11:24 Pt is a 69yoCF with a PMH of COPD, CAD s/p CABG, a-fib who presented to outside ER due to cough and dizziness. She is quite flat and short in her answer and thus history is limited. Per patient this all started yesterday and she was too weak to get up from her chair. In the ER she was found to have a fever and PNA and was transferred here for sepsis. She has no complaints today and states she is feeling well. In fact her only concern was about turning her oxygen down to her baseline 4lpm. She is currently admitted to the ICU while awaiting COVID testing. Subjective/Events-last exam Pt reports doing well and breathing better. She's still on 10lpm HFNC. Objective Exam Vital Signs Vital Signs Date Time Temp Pulse Resp B/P (MAP) Pulse Ox O2 Delivery O2 Flow Rate FiO2 09/28/19 11:21 36.5 60 20 122/59 (80) 91 High Flow N/C 10.00 09/25/19 10:53 60 Capillary Refill : Less Than 3 Seconds General Appearance: No Apparent Distress, WD/WN Respiratory: No Accessory Muscle Use, Wheezing (expiratory), Other (on 10lpm) Cardiovascular: Regular Rate, Rhythm, No Murmur Gastrointestinal: Normal Bowel Sounds, Non Tender, Soft Neurologic/Psychiatric: Alert, Oriented x3 Results/Procedures Lab Laboratory Tests 09/28/19 04:51 09/28/19 04:55 Patient resulted labs reviewed. Assessment/Plan Assessment and Plan Assess & Plan/Chief Complaint Severe Sepsis CAP COPD Acute on Chronic Hypoxic Respiratory Failure Severe sepsis on arrival but now resolved Continue Cefepime given structural lung disease Currently to wean oxygen as able Continue steroids but will switch back to IV given persistent wheezing and 10lpm NC COVID negative Pulm consulted, appreciate recs Swing bed evaluation CAD s/p CABG HTN a-fib Continue home meds Hypothyroidism Continue home meds DVT ppx: already on Eliquis for A-fib Diagnosis/Problems Diagnosis/Problems (1) CAD (coronary artery disease) Status: Chronic Qualifiers: Coronary Disease-Associated Artery/Lesion type: bypass graft [place] vs. transplanted heart: [place] heart Associated angina: without angina Qualified Codes: I25.810 - Atherosclerosis of coronary artery bypass graft(s) without angina pectoris (2) COPD (chronic obstructive pulmonary disease) Status: Chronic Qualifiers: COPD type: COPD with acute lower respiratory infection Qualified Codes: J44.0 - Chronic obstructive pulmonary disease with (acute) lower respiratory infection (3) Acute respiratory failure Status: Chronic Qualifiers: Respiratory failure complication: hypoxia Qualified Codes: J96.01 - Acute respiratory failure with hypoxia (4) Atrial fibrillation Status: Chronic Qualifiers: Atrial fibrillation type: paroxysmal Qualified Codes: I48.0 - Paroxysmal atrial fibrillation (5) Hypertension Status: Chronic Qualifiers: Hypertension type: essential hypertension Qualified Codes: I10 - Essential (primary) hypertension (6) Hyperlipidemia Status: Chronic Qualifiers: Hyperlipidemia type: mixed hyperlipidemia Qualified Codes: E78.2 - Mixed hyperlipidemia (7) Hypothyroidism Status: Chronic Qualifiers: Hypothyroidism type: unspecified Qualified Codes: E03.9 - Hypothyroidism, unspecified (8) Severe sepsis Status: Acute (9) Sepsis due to pneumonia Status: Acute Clinical Quality Measures DVT/VTE Risk/Contraindication: Risk Factor Score Per Nursin RFS Level Per Nursing on Admit: 4+=Very High ROC KING MD Sep 28, 2019 11:31
[2019-09-28] MEDS: TRELEGY IH SCH (11:42)
[2019-09-28] MEDS: methylPREDNISolone 40 MG/ML (Solu-MEDROL) VIAL IV SCH ×2 (11:47→17:43)
[2019-09-28 15:42] VITALS: BP 128/63
[2019-09-28 20:30] VITALS: BP 146/80
[2019-09-28] MEDS: ROSUVASTATIN 20 MG (CRESTOR) TABLET PO SCH (21:27)
[2019-09-28] MEDS: MELATONIN 3 MG TABLET PO PRN (21:27)
[2019-09-28] MEDS: MONTELUKAST 10 MG (SINGULAIR) TAB PO SCH (21:27)
[2019-09-28] MEDS: ALPRAZolam 0.25 MG (XANAX) TAB PO PRN (21:27)
[2019-09-28] MEDS: diphenhydrAMINE 25 MG TAB (BENADRYL) PO PRN (21:27)
[2019-09-29] VITALS (7 sets, daily range): BP systolic 117–136; BP diastolic 62–79
[2019-09-29] MEDS: methylPREDNISolone 40 MG/ML (Solu-MEDROL) VIAL IV SCH ×4 (00:49→17:49)
[2019-09-29] MEDS: RT-ALBUTEROL/IPRATROPIUM 3 ML (DUONEB) VIAL INH SCH ×6 (02:51→20:42)
[2019-09-29 05:59] LABS: BASOPHILS % (AUTO) 0 % (0-10); EOSINOPHILS % (AUTO) 0 % (0-10); HEMATOCRIT 37 % (35-52); HEMOGLOBIN 11.2 G/DL (11.5-16.0); LYMPHOCYTES # (AUTO) 0.9 X 10^3 (1.0-4.0); LYMPHOCYTES % (AUTO) 11 % (12-44); MEAN CORPUSCULAR HEMOGLOBIN 23 PG (25-34); MEAN CORPUSCULAR HGB CONC 31 G/DL (32-36); MEAN CORPUSCULAR VOLUME 75 FL (80-99); MEAN PLATELET VOLUME 10.6 FL (7.4-10.4); MONOCYTES # (AUTO) 0.5 X 10^3 (0.0-1.0); MONOCYTES % (AUTO) 7 % (0-12); NEUTROPHILS # (AUTO) 6.5 X 10^3 (1.8-7.8); NEUTROPHILS % (AUTO) 82 % (42-75); PLATELET COUNT 276 10^3/uL (130-400); RED CELL DISTRIBUTION WIDTH 22.4 % (10.0-14.5); WHITE BLOOD COUNT 7.8 10^3/uL (4.3-11.0)
[2019-09-29] MEDS: KCL 10 MEQ TAB (MICRO K) PO SCH ×2 (06:19→17:49)
[2019-09-29] MEDS: FUROSEMIDE 20 MG (LASIX) TAB PO SCH ×2 (06:19→17:50)
[2019-09-29] MEDS: LEVOTHYROXINE 50 MCG (LEVOTHROID) TAB PO SCH (06:20)
[2019-09-29] MEDS: inSUlin ASPART (NovoLOG) 1 UNIT/0.01 ML (CHARGE PER UNIT) SC SCH ×4 (06:20→20:49)
[2019-09-29 06:23] LABS: ALBUMIN 3.7 GM/DL (3.2-4.5)
[2019-09-29 06:25] LABS: CALCIUM 9.1 MG/DL (8.5-10.1)
[2019-09-29 06:28] LABS: BILIRUBIN,TOTAL 0.6 MG/DL (0.1-1.0)
[2019-09-29 06:29] LABS: CREATININE SERUM 0.95 MG/DL (0.60-1.30); PHOSPHORUS 2.9 MG/DL (2.3-4.7)
[2019-09-29 06:32] LABS: MAGNESIUM 2.4 MG/DL (1.6-2.4)
[2019-09-29] MEDS: TRELEGY IH SCH (06:52)
--- NOTE | 2019-09-29 06:58 | Pulmonary Progress Note ---
Subjective Time Seen by a Provider: 06:54 Subjective/Events-last exam Pt is doing better. Need to titrate oxygen down. Sepsis Event Evaluation Height, Weight, BMI Height: 4'.50" Weight: 106lbs. oz. 48.306042mg; 26.31 BMI Method:Stated Exam Exam Vital Signs Date Time Temp Pulse Resp B/P (MAP) Pulse Ox O2 Delivery O2 Flow Rate FiO2 09/29/19 04:18 36.6 59 20 129/67 (87) 93 High Flow N/C 9.00 09/29/19 02:51 96 High Flow N/C 10.00 09/29/19 00:09 36.7 72 22 117/62 (80) 94 High Flow N/C 9.00 09/28/19 20:30 36.4 60 16 146/80 (102) 89 High Flow N/C 10.00 09/28/19 20:00 High Flow N/C 10.00 09/28/19 18:24 88 High Flow N/C 10.00 09/28/19 15:42 36.3 60 20 128/63 (84) 89 High Flow N/C 10.00 09/28/19 15:13 88 High Flow N/C 10.00 09/28/19 11:45 88 Nasal Cannula 10.00 09/28/19 11:44 High Flow N/C 09/28/19 11:43 88 High Flow N/C 10.00 09/28/19 11:21 36.5 60 20 122/59 (80) 91 High Flow N/C 10.00 09/28/19 08:05 36.3 58 20 137/71 (93) 93 High Flow N/C 10.00 09/28/19 08:00 93 High Flow N/C 10.00 09/28/19 07:23 88 High Flow N/C 10.00 I & O 09/29/19 07:00 Intake Total 920 ml Output Total 1250 ml Balance -330 ml Height & Weight Height: 4'10.50" Weight: 106lbs. oz. 48.712753bp; 26.31 BMI Method:Stated General Appearance: No Apparent Distress, WD/WN HEENT: PERRL/EOMI, Moist Mucous Membranes Neck: Normal Inspection, Supple Respiratory: No Accessory Muscle Use, Wheezing (expiratory), Other (on 10lpm) Cardiovascular: Regular Rate, Rhythm, No Murmur Capillary Refill: Less Than 3 Seconds Extremity: No Calf Tenderness, No Pedal Edema Neurologic/Psychiatric: Alert, Oriented x3 Skin: Normal Color, Warm/Dry Results Lab Laboratory Tests 09/28/19 04:51 09/28/19 04:55 09/29/19 05:22 Assessment/Plan Assessment/Plan Acute CAP -Continue Abx -Titrate oxygen down -MRSA is negative -Influenza is negative -oxygen -COVID is negative Pulmonary edema with persistent hypoxia -repeat BNP - lasix to 40mg BID -Kdur to 40bid with lasix bilateral pulmonary infiltrates with nodular appearance -Pt needs out pt CT of chest in 8 wks after discharge to ensure complete resolution. COPD -Albuterol, trilogy - Solumedrol -Oxygen ESME GASPAR DO Sep 29, 2019 06:58
--- NOTE | 2019-09-29 08:33 | Diagnostic Imaging Report ---
EXAM: Portable chest COMPARED to a prior study from September 26, 2019. INDICATION: Follow-up pneumonia. FINDINGS: The patient is status post sternotomy and pacemaker placement. Enlargement of the cardiac silhouette is unchanged. There are chronic interstitial changes present within the lungs as well as some superimposed bilateral pulmonary infiltrates. These involve both upper lobes and the right lung base. There is also mild obscuration of the left hemidiaphragm suggesting left lower lobe involvement. Overall features are not significantly changed from the prior exam. IMPRESSION: While there are chronic interstitial changes within the lungs, there do appear to be superimposed bilateral upper and lower lobe pulmonary infiltrates. These are not significantly changed. Enlargement of the cardiac silhouette appears stable. Dictated by: Dictated on workstation # [id number]
[2019-09-29] MEDS: PANTOPRAZOLE 20 MG TABLET (PROTONIX) PO SCH (08:58)
[2019-09-29] MEDS: SERTRALINE 100 MG (ZOLOFT) TAB PO SCH (08:58)
[2019-09-29] MEDS: lisINopril 5 MG (PRINIVIL) TABLET PO SCH (08:58)
[2019-09-29] MEDS: APIXABAN 5 MG (ELIQUIS) TABLET PO SCH ×2 (08:58→20:47)
[2019-09-29] MEDS: ADVAIR HFA 115/21 MCG INHALER 8 GM IH SCH ×2 (10:31→21:00)
--- NOTE | 2019-09-29 12:19 | Progress Note - Hospitalist ---
Subjective HPI/CC On Admission Date Seen by Provider: Sep 29, 2019 Time Seen by Provider: 12:16 Pt is a 69yoCF with a PMH of COPD, CAD s/p CABG, a-fib who presented to outside ER due to cough and dizziness. She is quite flat and short in her answer and thus history is limited. Per patient this all started yesterday and she was too weak to get up from her chair. In the ER she was found to have a fever and PNA and was transferred here for sepsis. She has no complaints today and states she is feeling well. In fact her only concern was about turning her oxygen down to her baseline 4lpm. She is currently admitted to the ICU while awaiting COVID testing. Subjective/Events-last exam Pt reports feeling well today. Still on 10lpm. Discussed marian of IS with her and importance of OOB. Objective Exam Vital Signs Vital Signs Date Time Temp Pulse Resp B/P (MAP) Pulse Ox O2 Delivery O2 Flow Rate FiO2 09/29/19 12:02 36.1 60 20 126/73 (90) 95 High Flow N/C 10.00 09/25/19 10:53 60 Capillary Refill : Less Than 3 SecondsLess Than 3 Seconds General Appearance: No Apparent Distress, WD/WN Respiratory: Lungs Clear, No Accessory Muscle Use, No Respiratory Distress Cardiovascular: Regular Rate, Rhythm, No Murmur Gastrointestinal: Normal Bowel Sounds, Non Tender, Soft Neurologic/Psychiatric: Alert, Oriented x3 Results/Procedures Lab Laboratory Tests 09/29/19 05:22 Patient resulted labs reviewed. Assessment/Plan Assessment and Plan Assess & Plan/Chief Complaint Severe Sepsis CAP COPD Acute on Chronic Hypoxic Respiratory Failure Severe sepsis on arrival but now resolved Completed Cefepime course Currently to wean oxygen as able Remains on 10lpm COVID negative Pulm consulted, appreciate recs Swing bed evaluation, could consider palliative care consult as well pending course CAD s/p CABG HTN a-fib Continue home meds Hypothyroidism Continue home meds DVT ppx: already on Eliquis for A-fib Diagnosis/Problems Diagnosis/Problems (1) CAD (coronary artery disease) Status: Chronic Qualifiers: Coronary Disease-Associated Artery/Lesion type: bypass graft [place] vs. transplanted heart: [place] heart Associated angina: without angina Qualified Codes: I25.810 - Atherosclerosis of coronary artery bypass graft(s) without angina pectoris (2) COPD (chronic obstructive pulmonary disease) Status: Chronic Qualifiers: COPD type: COPD with acute lower respiratory infection Qualified Codes: J44.0 - Chronic obstructive pulmonary disease with (acute) lower respiratory infection (3) Acute respiratory failure Status: Chronic Qualifiers: Respiratory failure complication: hypoxia Qualified Codes: J96.01 - Acute respiratory failure with hypoxia (4) Atrial fibrillation Status: Chronic Qualifiers: Atrial fibrillation type: paroxysmal Qualified Codes: I48.0 - Paroxysmal atrial fibrillation (5) Hypertension Status: Chronic Qualifiers: Hypertension type: essential hypertension Qualified Codes: I10 - Essential (primary) hypertension (6) Hyperlipidemia Status: Chronic Qualifiers: Hyperlipidemia type: mixed hyperlipidemia Qualified Codes: E78.2 - Mixed hyperlipidemia (7) Hypothyroidism Status: Chronic Qualifiers: Hypothyroidism type: unspecified Qualified Codes: E03.9 - Hypothyroidism, unspecified (8) Severe sepsis Status: Acute (9) Sepsis due to pneumonia Status: Acute Clinical Quality Measures DVT/VTE Risk/Contraindication: Risk Factor Score Per Nursin RFS Level Per Nursing on Admit: 4+=Very High ROC KING MD Sep 29, 2019 12:19
[2019-09-29] MEDS: ROSUVASTATIN 20 MG (CRESTOR) TABLET PO SCH (20:46)
[2019-09-29] MEDS: MELATONIN 3 MG TABLET PO PRN (20:46)
[2019-09-29] MEDS: MONTELUKAST 10 MG (SINGULAIR) TAB PO SCH (20:46)
[2019-09-29] MEDS: diphenhydrAMINE 25 MG TAB (BENADRYL) PO PRN (20:47)
[2019-09-29] MEDS: ALPRAZolam 0.25 MG (XANAX) TAB PO PRN (20:47)
[2019-09-30] MEDS: methylPREDNISolone 40 MG/ML (Solu-MEDROL) VIAL IV SCH ×2 (00:55→06:34)
[2019-09-30] MEDS: RT-ALBUTEROL/IPRATROPIUM 3 ML (DUONEB) VIAL INH SCH ×6 (02:07→21:31)
[2019-09-30 04:05] VITALS: BP 126/73
[2019-09-30 05:40] LABS: BASOPHILS % (AUTO) 0 % (0-10); EOSINOPHILS % (AUTO) 0 % (0-10); HEMATOCRIT 35 % (35-52); HEMOGLOBIN 10.6 G/DL (11.5-16.0); LYMPHOCYTES # (AUTO) 0.8 X 10^3 (1.0-4.0); LYMPHOCYTES % (AUTO) 9 % (12-44); MEAN CORPUSCULAR HEMOGLOBIN 22 PG (25-34); MEAN CORPUSCULAR HGB CONC 30 G/DL (32-36); MEAN CORPUSCULAR VOLUME 74 FL (80-99); MEAN PLATELET VOLUME 10.3 FL (7.4-10.4); MONOCYTES # (AUTO) 0.6 X 10^3 (0.0-1.0); MONOCYTES % (AUTO) 7 % (0-12); NEUTROPHILS # (AUTO) 7.8 X 10^3 (1.8-7.8); NEUTROPHILS % (AUTO) 84 % (42-75); PLATELET COUNT 282 10^3/uL (130-400); RED CELL DISTRIBUTION WIDTH 22.4 % (10.0-14.5); WHITE BLOOD COUNT 9.2 10^3/uL (4.3-11.0)
[2019-09-30 05:46] LABS: ALBUMIN 3.4 GM/DL (3.2-4.5); POTASSIUM 4.4 MMOL/L (3.6-5.0)
[2019-09-30 05:48] LABS: CALCIUM 8.9 MG/DL (8.5-10.1)
[2019-09-30 05:49] LABS: TOTAL PROTEIN 6.8 GM/DL (6.4-8.2)
[2019-09-30 05:51] LABS: BILIRUBIN,TOTAL 0.5 MG/DL (0.1-1.0)
[2019-09-30 05:53] LABS: CREATININE SERUM 1.01 MG/DL (0.60-1.30)
[2019-09-30 05:56] LABS: MAGNESIUM 2.4 MG/DL (1.6-2.4)
[2019-09-30] MEDS: FUROSEMIDE 20 MG (LASIX) TAB PO SCH ×2 (06:34→18:09)
[2019-09-30] MEDS: LEVOTHYROXINE 50 MCG (LEVOTHROID) TAB PO SCH (06:34)
[2019-09-30] MEDS: inSUlin ASPART (NovoLOG) 1 UNIT/0.01 ML (CHARGE PER UNIT) SC SCH ×4 (06:34→21:11)
[2019-09-30] MEDS: KCL 10 MEQ TAB (MICRO K) PO SCH ×2 (06:34→18:09)
[2019-09-30] MEDS: ADVAIR HFA 115/21 MCG INHALER 8 GM IH SCH ×2 (06:50→18:22)
[2019-09-30] MEDS: TRELEGY IH SCH (06:51)
--- NOTE | 2019-09-30 07:58 | Pulmonary Progress Note ---
Subjective Time Seen by a Provider: 07:56 Subjective/Events-last exam PT is doing better. Sepsis Event Evaluation Height, Weight, BMI Height: 4'.50" Weight: 106lbs. oz. 48.381884kn; 26.31 BMI Method:Stated Exam Exam Vital Signs Date Time Temp Pulse Resp B/P (MAP) Pulse Ox O2 Delivery O2 Flow Rate FiO2 09/30/19 07:14 High Flow N/C 9.00 09/30/19 06:47 97 High Flow N/C 10.00 09/30/19 04:05 36.4 66 18 126/73 (90) 95 High Flow N/C 10.00 09/30/19 02:07 95 High Flow N/C 10.00 09/29/19 23:45 36.7 60 18 134/79 (97) 97 High Flow N/C 10.00 09/29/19 20:43 93 High Flow N/C 10.00 09/29/19 20:00 High Flow N/C 9.00 09/29/19 20:00 36.2 60 20 132/72 (92) 91 High Flow N/C 10.00 09/29/19 18:15 94 High Flow N/C 10.00 09/29/19 15:55 36.5 60 20 135/72 (93) 97 High Flow N/C 9.00 09/29/19 14:20 92 High Flow N/C 10.00 09/29/19 12:02 36.1 60 20 126/73 (90) 95 High Flow N/C 10.00 09/29/19 10:32 95 High Flow N/C 10.00 09/29/19 08:00 36.6 58 18 136/74 (94) 93 High Flow N/C 10.00 09/29/19 08:00 High Flow N/C 9.00 I & O 09/30/19 07:00 Intake Total 2040 ml Output Total 1250 ml Balance 790 ml Height & Weight Height: 4'.50" Weight: 106lbs. oz. 48.101831uj; 26.31 BMI Method:Stated General Appearance: No Apparent Distress, Chronically ill HEENT: PERRL/EOMI, Moist Mucous Membranes Neck: Normal Inspection, Supple Respiratory: Lungs Clear, No Respiratory Distress Cardiovascular: Regular Rate, Rhythm, No Murmur Capillary Refill: Less Than 3 Seconds Extremity: No Calf Tenderness, No Pedal Edema Neurologic/Psychiatric: Alert, Oriented x3 Skin: Normal Color, Warm/Dry Results Lab Laboratory Tests 09/29/19 05:22 09/30/19 05:05 Assessment/Plan Assessment/Plan Acute CAP -Continue Abx -Titrate oxygen down -MRSA is negative -Influenza is negative -oxygen -COVID is negative Pulmonary edema with persistent hypoxia - lasix to 40mg BID -Kdur to 40bid with lasix bilateral pulmonary infiltrates with nodular appearance -Pt needs out pt CT of chest in 8 wks after discharge to ensure complete resolution. COPD -Albuterol, trilogy - Solumedrol -- change to prednisone taper -Oxygen ESME GASPAR DO Sep 30, 2019 07:58
[2019-09-30 08:00] VITALS: BP 125/77
--- NOTE | 2019-09-30 08:17 | NUR ---
F/U with respiratory therapy Mae this a.m. about weaning oxygen to hopeful home regimen. Mae has already decreased the patient's oxygen to 8LPM et just f/u that her oxygen saturations are 94% with this liter flow. She then decreased her oxygen flow rate to 6LPM et will f/u with that when she receives her next breathing treatment. It is likely that the patient will need continuous o2 at 6LPM to maintain o2 saturations of between 88-92%. Dr. Gao involved in the above conversation et would like to discharge the patient to home if she is able to tolerate the oxygen weaning. No further interventions at this time. Will continue to follow along et assist as needed.
[2019-09-30] MEDS: PANTOPRAZOLE 20 MG TABLET (PROTONIX) PO SCH (08:38)
[2019-09-30] MEDS: lisINopril 5 MG (PRINIVIL) TABLET PO SCH (08:38)
[2019-09-30] MEDS: SERTRALINE 100 MG (ZOLOFT) TAB PO SCH (08:38)
[2019-09-30] MEDS: APIXABAN 5 MG (ELIQUIS) TABLET PO SCH ×2 (08:38→19:50)
--- NOTE | 2019-09-30 09:15 | Occupational Ther Daily Note ---
OT Current Status-Daily Note Subjective No pain reported. Appearance Pt. up in reclining chair. Mental Status/Objective Patient Orientation: Person, Place Attachments: Oxygen ADL-Treatment Therapy Code Descriptions/Definitions Functional [place] Measure: 0=Not Assessed/NA 4=Minimal Assistance 1=Total Assistance 5=Supervision or Setup 2=Maximal Assistance 6=Modified [place] 3=Moderate Assistance 7=Complete IndependenceSCALE: Activities may be completed with or without assistive devices. 8-Pmhpdsutwa-crragny completes the activity by him/herself with no assistance from a helper. 5-Set-up or Clean-up Assistance-helper sets up or cleans up; patient completes activity. [place] assists only prior to or following the activity. 4-Supervision or Touching Assistance-helper provides verbal cues and/or touching/steadying and/or contact guard assistance as patient completes activity. Assistance may be provided throughout the activity or intermittently. 3-Partial/Moderate Assistance-helper does LESS THAN HALF the effort. [place] lifts, holds or supports trunk or limbs, but provides less than half the effort. 2-Substantial/Maximal Assistance-helper does MORE THAN HALF the effort. [place] lifts or holds trunk or limbs and provides more than half the effort. 1-Zavxazkch-vkjqnq does ALL the effort. Patient does none of the effort to complete the activity. Or, the assistance of 2 or more helpers is required for the patient to complete the activity. If activity was not attempted, code reason: 7-Patient Refused. 9-Not Applicable-not attempted and the patient did not perform the activity before the current illness, exacerbation or injury. 10-Not Attempted due to Environmental Limitations-(lack of equipment, weather restraints, etc.). 88-Not Attempted due to Medical Conditions or Safety Concerns. On/Off Footwear: 5 (Set up to don slipper socks from chair level.) Pt. up in chair. Declines shower or sponge bath. Does agree to go for walk with OT. Pt. transferred sit-stand with SBA. Used walker and ambulated approximately 30 feet with CGA. Ambulated back to chair. Reports that her legs feel a bit "wobbly" and SOA. O2 sats taken and pt. at 84%. Pt. rested and encouraged to breathe in through nose, out through mouth. Pt. on 6 L 02. Sats remained at approximately 84%. Nursing notified. All needs met up in chair. Education OT Patient Education: Correct positioning, Modified ADL techniques, Progress toward Goal/Update tx plan, Purpose of tx/functional activities, Reviewed precautions, Rehab process, Transfer techniques Teaching Recipient: Patient Teaching Methods: Demonstration, Discussion Response to Teaching: Verbalize Understanding, Return Demonstration OT Short Term Goals Short Term Goals Time Frame: Oct 02, 2019 Eatin Oral hygiene: 4 Toileting hygiene: 3 Upper body dressin Lower body dressin Putting on/taking off footwear: 3 (Min assist) OT Longterm Goals Longterm Goals Time Frame: Oct 09, 2019 Eating (QC): 6 Oral Hygiene (QC): 6 Toileting Hygiene (QC): 6 Shower/Bathe Self (QC): 4 Upper Body Dressing (QC): 5 Lower Body Dressing (QC): 4 On/Off Footwear (QC): 4 Additional Goals: 1-Demonstrate ADL Tasks, 2-Verbalize Understanding, 3-ImproveStrength/[place] 1=Demonstrate adherence to instructed precautions during ADL tasks. 2=Patient will verbalize/demonstrate understanding of assistive devices/modifications for ADL. 3=Patient will improve strength/tolerance for activity to enable patient to perf orm ADL's. OT Education/Plan Problem List/Assessment Assessment: Decreased Activ Tolerance, Impaired I ADL's, Impaired Self-Care Skills Discharge Recommendations Plan/Recommendations: Continue POC Treatment Plan/Plan of Care Treatment,Training & Education: Yes Patient would benefit from OT for education, treatment and training to promote independence in ADL's, mobility, safety and/or upper extremity function for ADL's. Plan of Care: ADL Retraining, Functional Mobility, UE Funct Exercise/Act Treatment Duration: Oct 09, 2019 Frequency: 5 times per week Estimated Hrs Per Day: .25 hour per day Agreement: Yes Rehab Potential: Fair Time/GCodes Start Time: 08:45 Stop Time: 09:05 Total Time Billed (hr/min): 20 Billed Treatment Time 1, SCOTT ONEAL OT Sep 30, 2019 09:15
[2019-09-30 12:00] VITALS: BP 126/60
--- NOTE | 2019-09-30 12:15 | NUR ---
DR. PARIKH NOTIFIED OF BLOOD GLUCOSE 467. ORDER TO GIVE TOP DOSE ON SLIDING SCALE.
[2019-09-30] MEDS: predniSONE 10 MG TAB PO SCH (12:17)
--- NOTE | 2019-09-30 13:58 | Physical Therapy Daily Note ---
PT Daily Note-Current Subjective Pt up in chair with O2 per nasal canula at 6L/min. Pt agreeable, denies pain. O2 sat 92% prior to treatment Mental Status Patient Orientation: Person, Place, Situation Attachments: Oxygen Portable O2 at 6L/min Transfers SCALE: Activities may be completed with or without assistive devices. 8-Majpdexckt-yzugdej completes the activity by him/herself with no assistance from a helper. 5-Set-up or Clean-up Assistance-helper sets up or cleans up; patient completes activity. [place] assists only prior to or following the activity. 4-Supervision or Touching Assistance-helper provides verbal cues and/or touc ron/steadying and/or contact guard assistance as patient completes activity. Assistance may be provided throughout the activity or intermittently. 3-Partial/Moderate Assistance-helper does LESS THAN HALF the effort. [place] lifts, holds or supports trunk or limbs, but provides less than half the effort. 2-Substantial/Maximal Assistance-helper does MORE THAN HALF the effort. [place] lifts or holds trunk or limbs and provides more than half the effort. 3-Xweiomkkl-iqfawy does ALL the effort. Patient does none of the effort to complete the activity. Or, the assistance of 2 or more helpers is required for the patient to complete the activity. If activity was not attempted, code reason: 7-Patient Refused. 9-Not Applicable-not attempted and the patient did not perform the activity before the current illness, exacerbation or injury. 10-Not Attempted due to Environmental Limitations-(lack of equipment, weather restraints, etc.). 88-Not Attempted due to Medical Conditions or Safety Concerns. sit to stand transfers SBA Weight Bearing Right Lower Extremity: Right Weight Bearing/Tolerated Left Lower Extremity: Left Weight Bearing/Tolerated Gait Training Gait Assistive Device: FWW Pt amb with FWW, CGA x 70ft, O2 sats upon return 94% Exercises Seated Therapy Exercises: Ankle pumps, Long arc quads, Hip abd/add Seated Reps: 20 Treatments Pt seen for LE strengthening in chair and gait training with FWW. Assessment Current Status: Good Progress Pt SOB and somewhat cyanotic with gait training. Pt O2 sats remained >92% throughtout treatment. Pt resting in recliner with legs elevated, call light in lap and all needs met. PT Skilled Nursing Goals Skilled Nursing Goals PT [place] Goals Time Frame: Oct 02, 2019 Roll Left & Right (QC): 6 Sit to Lying (QC): 6 Lying-Sitting on Side/Bed(QC): 6 Sit to Stand (QC): 6 Chair/Ofx-kb-Wibvn Xfer(QC): 6 Toilet Transfer (QC): 6 Does the Patient Walk: Yes Walk 150 ft (QC): 6 PT Plan Treatment/Plan Treatment Plan: Continue Plan of Care Treatment Plan: Bed Mobility, Concurrent Therapy, Education, Functional Activity [place], Functional Strength, Gait, Safety, Therapeutic Exercise, Transfers Treatment Duration: Oct 02, 2019 Frequency: 6 times per week Estimated Hrs Per Day: .25 hour per day Patient and/or Family Agrees t: Yes Time/GCodes Time In: 1145 Time Out: 1205 Total Billed Treatment Time: 20 Total Billed Treatment 1, gait 15', ther ex 5' VIVIANA WADSWORTH CPTA Sep 30, 2019 13:58
--- NOTE | 2019-09-30 14:39 | Progress Note - Hospitalist ---
Subjective HPI/CC On Admission Date Seen by Provider: Sep 30, 2019 Time Seen by Provider: 10:45 Pt is a 69yoCF with a PMH of COPD, CAD s/p CABG, a-fib who presented to outside ER due to cough and dizziness. She is quite flat and short in her answer and thus history is limited. Per patient this all started yesterday and she was too weak to get up from her chair. In the ER she was found to have a fever and PNA and was transferred here for sepsis. She has no complaints today and states she is feeling well. In fact her only concern was about turning her oxygen down to her baseline 4lpm. She is currently admitted to the ICU while awaiting COVID testing. Subjective/Events-last exam she reports no new complaints or concerns. She denies any shortness of breath. She denies any chest pain. She has not been able to walk on her own. She is feeling weak. Objective Exam Vital Signs Vital Signs Date Time Temp Pulse Resp B/P (MAP) Pulse Ox O2 Delivery O2 Flow Rate FiO2 09/30/19 10:09 90 High Flow N/C 6.00 09/30/19 08:00 36.0 60 22 125/77 (93) 09/25/19 10:53 60 Capillary Refill : Less Than 3 SecondsLess Than 3 Seconds General Appearance: No Apparent Distress, Chronically ill Respiratory: No Respiratory Distress, Decreased Breath Sounds Cardiovascular: Regular Rate, Rhythm, No Murmur Gastrointestinal: Normal Bowel Sounds, Non Tender, Soft Extremity: Normal Inspection, Non Tender, Pedal Edema Neurologic/Psychiatric: Alert, Oriented x3, No Motor/Sensory Deficits, Normal Mood/Affect Skin: Warm/Dry, Pallor Results/Procedures Lab Laboratory Tests 09/30/19 05:05 Patient resulted labs reviewed. Assessment/Plan Assessment and Plan Assess & Plan/Chief Complaint COPD Acute on Chronic Hypoxic Respiratory Failure Completed Cefepime course, sepsis and pneumonia resolved continue to wean oxygen as able COVID negative Pulm consulted, appreciate recs CAD s/p CABG HTN a-fib Continue home meds Hypothyroidism Continue home meds debility Continue PT/OT Will likely need SNF on discharge DVT ppx: already on Eliquis for A-fib Severe sepsis, resolved Community-acquired pneumonia, resolved Diagnosis/Problems Diagnosis/Problems (1) Acute and chronic respiratory failure with hypoxia Status: Acute (2) COPD (chronic obstructive pulmonary disease) Status: Chronic Qualifiers: COPD type: COPD with acute lower respiratory infection Qualified Codes: J44.0 - Chronic obstructive pulmonary disease with (acute) lower respiratory infection Clinical Quality Measures DVT/VTE Risk/Contraindication: Risk Factor Score Per Nursin RFS Level Per Nursing on Admit: 4+=Very High JOSHUA PARIKH MD Sep 30, 2019 14:39
--- NOTE | 2019-09-30 15:29 | NUR ---
DISCHARGE PLANNING: I have spoken to Pamela, patient's daughter in law regarding the change in discharge POC. I sent, last Monday, for SWINGBED authorization to see about getting extended time to titrate her oxygen demand to her home dose. I received authorization from [facility] for SWINGBED but due to having been successful in getting her titrated to 4-6 L she is no longer requiring Hospitalization but rather more appropriate for SNF. Lidia would like for this RN to send referral to [facility]. This has been done. Will await [facility] approval.
[2019-09-30 16:04] VITALS: BP 121/72
[2019-09-30] MEDS: MONTELUKAST 10 MG (SINGULAIR) TAB PO SCH (19:50)
[2019-09-30] MEDS: ROSUVASTATIN 20 MG (CRESTOR) TABLET PO SCH (19:50)
[2019-09-30 20:12] VITALS: BP 120/71
[2019-09-30 23:42] VITALS: BP 131/60
[2019-10-01] MEDS: RT-ALBUTEROL/IPRATROPIUM 3 ML (DUONEB) VIAL INH SCH ×3 (01:42→11:01)
[2019-10-01 05:04] LABS: BASOPHILS % (AUTO) 0 % (0-10); EOSINOPHILS % (AUTO) 0 % (0-10); HEMATOCRIT 37 % (35-52); HEMOGLOBIN 11.1 G/DL (11.5-16.0); LYMPHOCYTES # (AUTO) 1.7 X 10^3 (1.0-4.0); LYMPHOCYTES % (AUTO) 14 % (12-44); MEAN CORPUSCULAR HEMOGLOBIN 23 PG (25-34); MEAN CORPUSCULAR HGB CONC 30 G/DL (32-36); MEAN CORPUSCULAR VOLUME 75 FL (80-99); MEAN PLATELET VOLUME 10.1 FL (7.4-10.4); MONOCYTES # (AUTO) 1.5 X 10^3 (0.0-1.0); MONOCYTES % (AUTO) 12 % (0-12); NEUTROPHILS # (AUTO) 8.9 X 10^3 (1.8-7.8); NEUTROPHILS % (AUTO) 74 % (42-75); PLATELET COUNT 309 10^3/uL (130-400); RED CELL DISTRIBUTION WIDTH 22.5 % (10.0-14.5)
[2019-10-01 05:25] LABS: ALBUMIN 3.6 GM/DL (3.2-4.5); POTASSIUM 4.6 MMOL/L (3.6-5.0)
[2019-10-01 05:26] LABS: CALCIUM 8.8 MG/DL (8.5-10.1)
[2019-10-01 05:27] LABS: TOTAL PROTEIN 6.9 GM/DL (6.4-8.2)
[2019-10-01 05:29] LABS: BILIRUBIN,TOTAL 0.5 MG/DL (0.1-1.0)
[2019-10-01 05:31] LABS: CREATININE SERUM 0.98 MG/DL (0.60-1.30); PHOSPHORUS 2.8 MG/DL (2.3-4.7)
[2019-10-01 05:34] LABS: MAGNESIUM 2.4 MG/DL (1.6-2.4)
[2019-10-01] MEDS: FUROSEMIDE 20 MG (LASIX) TAB PO SCH (06:08)
[2019-10-01] MEDS: LEVOTHYROXINE 50 MCG (LEVOTHROID) TAB PO SCH (06:08)
[2019-10-01] MEDS: KCL 10 MEQ TAB (MICRO K) PO SCH (06:09)
[2019-10-01] MEDS: inSUlin ASPART (NovoLOG) 1 UNIT/0.01 ML (CHARGE PER UNIT) SC SCH ×2 (06:10→11:18)
--- NOTE | 2019-10-01 07:11 | Pulmonary Progress Note ---
Subjective Time Seen by a Provider: 07:08 Subjective/Events-last exam PT is doing better. Sepsis Event Evaluation Height, Weight, BMI Height: 4'10.50" Weight: 106lbs. oz. 48.341254lm; 26.31 BMI Method:Stated Exam Exam Vital Signs Date Time Temp Pulse Resp B/P (MAP) Pulse Ox O2 Delivery O2 Flow Rate FiO2 10/01/19 01:42 91 Nasal Cannula 5.00 09/30/19 23:42 36.4 60 18 131/60 (83) 94 High Flow N/C 6.00 09/30/19 21:31 94 Nasal Cannula 6.00 09/30/19 20:12 36.6 60 22 120/71 (87) 91 High Flow N/C 6.00 09/30/19 19:51 High Flow N/C 6.00 09/30/19 18:22 86 Nasal Cannula 4.00 09/30/19 16:04 36.4 60 22 121/72 (88) 89 High Flow N/C 4.00 09/30/19 14:48 94 Nasal Cannula 6.00 09/30/19 12:00 36.4 59 20 126/60 (82) 93 Nasal Cannula 8.00 09/30/19 10:09 90 High Flow N/C 6.00 09/30/19 08:00 36.0 60 22 125/77 (93) 95 High Flow N/C 10.00 09/30/19 08:00 36.0 60 22 125/77 (93) 95 Nasal Cannula 8.00 09/30/19 07:14 High Flow N/C 9.00 I & O 10/01/19 07:00 Intake Total 1710 ml Output Total 578 ml Balance 1132 ml Height & Weight Height: 4'10.50" Weight: 106lbs. oz. 48.558119tt; 26.31 BMI Method:Stated General Appearance: No Apparent Distress, Chronically ill HEENT: PERRL/EOMI, Moist Mucous Membranes Neck: Normal Inspection, Supple Respiratory: No Respiratory Distress, Decreased Breath Sounds Cardiovascular: Regular Rate, Rhythm, No Murmur Capillary Refill: Less Than 3 Seconds Extremity: Normal Inspection, Non Tender, Pedal Edema Neurologic/Psychiatric: Alert, Oriented x3, No Motor/Sensory Deficits, Normal Mood/Affect Skin: Warm/Dry, Pallor Results Lab Laboratory Tests 09/30/19 05:05 10/01/19 04:43 Assessment/Plan Assessment/Plan Acute CAP - resolving -s/p Abx -Pt is normally on 4 liters of oxygen at home -MRSA is negative -Influenza is negative -oxygen -COVID is negative Pulmonary edema with persistent hypoxia - lasix to 40mg BID bilateral pulmonary infiltrates with nodular appearance -Pt needs out pt CT of chest in 8 wks after discharge to ensure complete resolution. COPD -Albuterol, trilogy - prednisone taper -Oxygen Leukocytosis - secondary to steroids Pt is ok from pulmonary standpoint for discharge. ESME GASPAR DO Oct 01, 2019 07:11
[2019-10-01] MEDS: TRELEGY IH SCH (07:15)
[2019-10-01] MEDS: ADVAIR HFA 115/21 MCG INHALER 8 GM IH SCH (07:15)
[2019-10-01 08:00] VITALS: BP 152/68
[2019-10-01] MEDS: SERTRALINE 100 MG (ZOLOFT) TAB PO SCH (08:03)
[2019-10-01] MEDS: APIXABAN 5 MG (ELIQUIS) TABLET PO SCH (08:03)
[2019-10-01] MEDS: lisINopril 5 MG (PRINIVIL) TABLET PO SCH (08:03)
[2019-10-01] MEDS: PANTOPRAZOLE 20 MG TABLET (PROTONIX) PO SCH (08:03)
[2019-10-01] MEDS: predniSONE 10 MG TAB PO SCH (08:04)
--- NOTE | 2019-10-01 10:39 | Physical Therapy Daily Note ---
PT Daily Note-Current Subjective Patient agrees to PT. No c/o. Mental Status Patient Orientation: Person, Time, Situation Attachments: Oxygen Transfers SCALE: Activities may be completed with or without assistive devices. 4-Imdvzctehe-odaymnu completes the activity by him/herself with no assistance from a helper. 5-Set-up or Clean-up Assistance-helper sets up or cleans up; patient completes activity. [place] assists only prior to or following the activity. 4-Supervision or Touching Assistance-helper provides verbal cues and/or touching/steadying and/or contact guard assistance as patient completes activity. Assistance may be provided throughout the activity or intermittently. 3-Partial/Moderate Assistance-helper does LESS THAN HALF the effort. [place] lifts, holds or supports trunk or limbs, but provides less than half the effort. 2-Substantial/Maximal Assistance-helper does MORE THAN HALF the effort. [place] lifts or holds trunk or limbs and provides more than half the effort. 6-Uqhrrxscv-dwdlmt does ALL the effort. Patient does none of the effort to complete the activity. Or, the assistance of 2 or more helpers is required for the patient to complete the activity. If activity was not attempted, code reason: 7-Patient Refused. 9-Not Applicable-not attempted and the patient did not perform the activity before the current illness, exacerbation or injury. 10-Not Attempted due to Environmental Limitations-(lack of equipment, weather restraints, etc.). 88-Not Attempted due to Medical Conditions or Safety Concerns. Sit to Stand (QC): 4 Weight Bearing Right Lower Extremity: Right Weight Bearing/Tolerated Left Lower Extremity: Left Weight Bearing/Tolerated Gait Training Distance: 150' Walk 10 feet (QC): 4 Walk 50 ft with 2 Turns(QC): 4 Walk 150 ft (QC): 4 Gait Assistive Device: FWW extended UE's with FWW use Assessment O2 5L NC in place with gait training. Patient tolerated treatment and did display increase SOA, however, SAO2 >90%. PT Senior Care Goals Starter Mechanic Goals PT Starter Mechanic Goals Time Frame: Oct 02, 2019 Roll Left & Right (QC): 6 Sit to Lying (QC): 6 Lying-Sitting on Side/Bed(QC): 6 Sit to Stand (QC): 6 Chair/Riz-sd-Ptzzc Xfer(QC): 6 Toilet Transfer (QC): 6 Does the Patient Walk: Yes Walk 150 ft (QC): 6 PT Plan Treatment/Plan Treatment Plan: Continue Plan of Care Treatment Plan: Bed Mobility, Concurrent Therapy, Education, Functional Activity Mason, Functional Strength, Gait, Safety, Therapeutic Exercise, Transfers Treatment Duration: Oct 02, 2019 Frequency: 6 times per week Estimated Hrs Per Day: .25 hour per day Patient and/or Family Agrees t: Yes Time/GCodes Time In: 845 Time Out: 855 Total Billed Treatment Time: 10 Total Billed Treatment 1 visit GT 10 min LAURY ESPOSITO PT Oct 01, 2019 10:39
--- NOTE | 2019-10-01 11:27 | Occupational Ther Daily Note ---
OT Current Status-Daily Note Subjective Pt seen in recliner chair. Pt agrees to OT tx session, denies pain. Mental Status/Objective Attachments: Oxygen (5L) ADL-Treatment Therapy Code Descriptions/Definitions Functional [place] Measure: 0=Not Assessed/NA 4=Minimal Assistance 1=Total Assistance 5=Supervision or Setup 2=Maximal Assistance 6=Modified [place] 3=Moderate Assistance 7=Complete IndependenceSCALE: Activities may be completed with or without assistive devices. 4-Dptxqoswje-pliwrpx completes the activity by him/herself with no assistance from a helper. 5-Set-up or Clean-up Assistance-helper sets up or cleans up; patient completes activity. [place] assists only prior to or following the activity. 4-Supervision or Touching Assistance-helper provides verbal cues and/or touching/steadying and/or contact guard assistance as patient completes activity. Assistance may be provided throughout the activity or intermittently. 3-Partial/Moderate Assistance-helper does LESS THAN HALF the effort. [place] lifts, holds or supports trunk or limbs, but provides less than half the effort. 2-Substantial/Maximal Assistance-helper does MORE THAN HALF the effort. [place] lifts or holds trunk or limbs and provides more than half the effort. 9-Txlmobdnf-vdrqzh does ALL the effort. Patient does none of the effort to complete the activity. Or, the assistance of 2 or more helpers is required for the patient to complete the activity. If activity was not attempted, code reason: 7-Patient Refused. 9-Not Applicable-not attempted and the patient did not perform the activity before the current illness, exacerbation or injury. 10-Not Attempted due to Environmental Limitations-(lack of equipment, weather restraints, etc.). 88-Not Attempted due to Medical Conditions or Safety Concerns. Bathing Location: L Arm, R Arm, L Upper Leg, R Upper Leg, Chest, Abdomen, Buttocks, Perineal Area Shower/Bathe Self (QC): 4 (SBA for sponge bath, denies LE's/ feet washing on this date.) Upper Body Dressing (QC): 5 (s/u gown donning) Lower Body Dressing (QC): 4 (SBA for brief donning in recliner .) On/Off Footwear: 7 Toileting Hygiene (QC): 4 (SBA in stance during bottom washing, SUP during marquita hygiene on commode.) Toilet Transfer (QC): 4 (SBA to BSC) Other Treatment Pt agrees to sponge bath on this date. Pt requests bathroom, stating she would like to use BSC rather than standard toilet. Completes with SBA. Pt begins sponge bath in stance at commode (bottom/ marquita hygiene- doffs briefs in stance with LE movement with SBA). Pt completes bath in recliner, skilled cues for diaphragmatic/ nose breathing. Pt takes multiple breaks due to SOB. Pt completes, dresses. Pt requests shower cap for hair grooming- completes with s/u due to decreased pinch strength to open packaging. Pt completes hair grooming, break for breathing. Pt denies having theraband in room for UE exercises. Pt denies needs, call light in reach, pt remains in recliner chair end of session. Education OT Patient Education: Correct positioning, Energy conservation, Modified ADL techniques, Purpose of tx/functional activities Teaching Recipient: Patient Teaching Methods: Demonstration, Discussion Response to Teaching: Verbalize Understanding, Return Demonstration OT Short Term Goals Short Term Goals Time Frame: Oct 02, 2019 Eatin Oral hygiene: 4 Toileting hygiene: 3 Upper body dressin Lower body dressin Putting on/taking off footwear: 3 (Min assist) OT Export Freight Clerk Goals Export Freight Clerk Goals Time Frame: Oct 09, 2019 Eating (QC): 6 Oral Hygiene (QC): 6 Toileting Hygiene (QC): 6 Shower/Bathe Self (QC): 4 Upper Body Dressing (QC): 5 Lower Body Dressing (QC): 4 On/Off Footwear (QC): 4 Additional Goals: 1-Demonstrate ADL Tasks, 2-Verbalize Understanding, 3- ImproveStrength/[place]ason 1=Demonstrate adherence to instructed precautions during ADL tasks. 2=Patient will verbalize/demonstrate understanding of assistive devices/modifications for ADL. 3=Patient will improve strength/tolerance for activity to enable patient to perform ADL's. OT Education/Plan Problem List/Assessment Assessment: Decreased Activ Tolerance, Impaired I ADL's, Impaired Self-Care Skills Discharge Recommendations Plan/Recommendations: Continue POC Therapy Discharge Recommendati: 24 Hour Supervision, Post Acute OT Treatment Plan/Plan of Care Treatment,Training & Education: Yes Patient would benefit from OT for education, treatment and training to promote independence in ADL's, mobility, safety and/or upper extremity function for ADL's. Plan of Care: ADL Retraining, Functional Mobility, UE Funct Exercise/Act Treatment Duration: Oct 09, 2019 Frequency: 5 times per week Estimated Hrs Per Day: .25 hour per day Agreement: Yes Rehab Potential: Fair Time/GCodes Start Time: 10:35 Stop Time: 10:55 Total Time Billed (hr/min): 20 Billed Treatment Time 1, ADL (20) MARSHA FRANKLIN OTR Oct 01, 2019 11:27
[2019-10-01] MEDS ORDERED: PRED10TA22 PO (11:29)
--- NOTE | 2019-10-01 11:39 | Discharge Summary ---
Discharge Summary Reconcile Patient Problems Problems Reviewed?: Yes Hospital Course Hospital Course Date of Admission: Sep 22, 2019 at 22:25 Admission Diagnosis : severe sepsis due to pneumonia Family Physician/Provider: Gavino Benitez DO Date of Discharge: 10/01/19 Discharge Diagnosis: severe sepsis due to pneumonia Hospital Course: Nasima Chan is a 69-year-old female who presented with cough and shortness of breath and was admitted with severe sepsis due to pneumonia. She was treated with IV antibiotics and her symptoms improved. She completed a course of antibiotics while in the hospital. She was also treated with steroids for COPD exacerbation. Her course was complicated by weakness and debility. She was discharged to [facility] for ongoing therapies. She was given a taper of steroids. Her oxygen requirement returned to her baseline levels prior to discharge. Labs and Pending Lab Test: Laboratory Tests 09/30/19 15:39: Glucometer 262H 09/30/19 21:05: Glucometer 297H 10/01/19 04:43: White Blood Count 12.0H, Red Blood Count 4.93, Hemoglobin 11.1L, Hematocrit 37, Mean Corpuscular Volume 75L, Mean Corpuscular Hemoglobin 23L, Mean Corpuscular Hemoglobin Concent 30L, Red Cell Distribution Width 22.5H, Platelet Count 309, Mean Platelet Volume 10.1, Neutrophils (%) (Auto) 74, Lymphocytes (%) (Auto) 14, Monocytes (%) (Auto) 12, Eosinophils (%) (Auto) 0, Basophils (%) (Auto) 0, Neutrophils # (Auto) 8.9H, Lymphocytes # (Auto) 1.7, Monocytes # (Auto) 1.5H, Eosinophils # (Auto) 0.0, Basophils # (Auto) 0.0, Sodium Level 141, Potassium Level 4.6, Chloride Level 100, Carbon Dioxide Level 29, Anion Gap 12, Blood Urea Nitrogen 25H, Creatinine 0.98, Estimat Glomerular Filtration Rate 56, BUN/Creatinine Ratio 26, Glucose Level 187H, Calcium Level 8.8, Corrected Calcium 9.1, Phosphorus Level 2.8, Magnesium Level 2.4, Total Bilirubin 0.5, Aspartate Amino Transf (AST/SGOT) 25, Alanine Aminotransferase (ALT/SGPT) 35, Alkaline Phosphatase 128, Total Protein 6.9, Albumin 3.6 10/01/19 10:58: Glucometer 209H Microbiology 09/23/19 Influenza Types A,B Antigen ([facility]) - Final, Complete Home Meds Active Prednisone 10 Mg Tab.ds.pk 10 Mg PO DAILY Take 6 tabs(60mg)daily,decrease by 1 tab(10mg)every other day. Reported Multi-Vitamin Daily (Multivitamin) 1 Each Tablet 1 Each PO DAILY Fish Oil 1,200 mg Softgel ([place]-3 Fatty Acids/Fish Oil) 1 Each Capsule 1 Each PO DAILY Cetirizine HCl 10 Mg Tablet 10 Mg PO DAILY PRN K-Tab ER (Potassium Chloride) 10 Meq Tablet.er 20 Meq PO DAILY TAKES 2 (10MEQ) TABS DAILY Sertraline HCl 100 Mg Tablet 100 Mg PO DAILY Furosemide 20 Mg Tablet 20 Mg PO BID Levothyroxine Sodium 50 Mcg Tablet 50 Mcg PO DAILY Eliquis (Apixaban) 5 Mg Tablet 5 Mg PO BID Rosuvastatin Calcium 40 Mg Tablet 40 Mg PO HS Alprazolam 0.25 Mg Tablet 0.25 Mg PO DAILY PRN Metformin HCl 500 Mg Tablet 500 Mg PO BID Iprat-Albut 0.5-3(2.5) mg/3 ml (Ipratropium/Albuterol Sulfate) 3 Ml Ampul.neb 1 Vial NEB Q6H Montelukast Sodium 10 Mg Tablet 10 Mg PO HS Omeprazole 20 Mg Capsule.dr 20 Mg PO DAILY Lisinopril 2.5 Mg Tablet 2.5 Mg PO DAILY Proair Hfa (Albuterol Sulfate) 1 Puff Puff 2 Puff PO Q6H PRN Trelegy Ellipta 100-62.5-25 (Fluticasone/Umeclidin/Vilanter) 1 Each Blst.w.dev 1 Puff IN DAILY RINSE AND SPIT AFTER EACH INHALATION Instructions to Patient/Family Assessment/Instructions take medications as prescribed. Participate in therapies. Follow-up with your primary care physician. Follow Up Appt.: next senior living rounds Skilled NF Admit to: [facility] Certification (SNF) I certify that SNF services are required to be given on an inpatient basis because of the above named patient's need for jail care on a continuing basis for the conditions(s) for which he/she was receiving inpatient hospital services prior to his/her transfer to the SNF. Residential Facility Order: Nursing Services, Transport Analyst-Evaluate & Treat, Physical Therapy-Evaluate & Treat Oxygen Delivery Method: Nasal Cannula Discharge Diet: No Restrictions Daily Activity as Tolerated: Yes Resuscitation Status: Full Code Joshua Gao Oct 01, 2019 11:37 Discharge Physical Exam General: Alert, Oriented X3, Cooperative, No Acute Distress HEENT: Atraumatic, EOMI Lungs: Clear to Auscultation, Other (decreased breath sounds) Heart: Regular Rate, No Murmurs Abdomen: Normal Bowel Sounds, Soft, No Tenderness Extremities: No Edema, No Tenderness/Swelling Skin: No Rashes, No Significant Lesion Neuro: Normal Speech Psych/Mental Status: Mental Status NL, Mood NL JOSHUA GAO MD Oct 01, 2019 11:39
--- NOTE | 2019-10-01 14:00 | NUR ---
CM FINALIZED DISCHARGE PLAN: Patient dismissing to [facility] skilled for Nursing, Physical Therapy, et Occupational Therapy with goal of returning to her prior level of functioning. Patient's ultimate goal is to return home once therapy is completed however she is open to the possibility of staying manager long term care if she continues to needs 24/7 assistance. F/U with the patient's daughter in law Lidia about dismissal time. Lidia voiced appreciation for our staff et [facility] staff for keeping them informed et taking great care of Nasima. She denies any needs at this time et reports that they will take Nasima's things to [facility] around 5 p.m. She has been in communication with [facility] et all are aware. She will be picked up by [facility] staff at 1430.
== END 2019-10-01 14:56 | DRG 871 ==
LOC: ICU 22:25 → 4TH 09-23 23:30
PROVIDERS: ADMIT Internal Medicine; ATTEND Internal Medicine
DX: A41.9 Sepsis, unspecified organism (principal); R65.20 Severe sepsis without septic shock; J18.9 Pneumonia, unspecified organism; J96.21 Acute and chronic respiratory failure with hypoxia; J44.0 Chronic obstructive pulmonary disease with (acute) lower respiratory infection; I25.810 Atherosclerosis of coronary artery bypass graft(s) without angina pectoris; I48.0 Paroxysmal atrial fibrillation; E03.9 Hypothyroidism, unspecified; E78.2 Mixed hyperlipidemia; I10 Essential (primary) hypertension; F41.9 Anxiety disorder, unspecified; Z95.1 Presence of aortocoronary bypass graft; Z87.891 Personal history of nicotine dependence
CPT/HCPCS: 36415; 71045; 80053; 81000; 82805; 82962; 83605; 83735; 83880; 84100; 84145; 84484; 85007; 85025; 85027; 85610; 87081; 87449; 87631; 87635; 87804; 87899; 94640; 94760

== ENCOUNTER 2019-10-26 23:04 | Inpatient (IN) | payer MEDICARE, MEDICAID ==
[~2019-10-26] VITALS: Ht 147 cm; Wt 79.2 kg
[~2019-10-26 23:04] MED LIST changes: +ALPR0.254 PO; +APIX5TAB PO; +CETI10TA17 PO; +FLUT1BLS3 IN; +FURO20TA4 PO; +IPRA3AMP31 NEB; +LEVO50TA6 PO; +LISI2.5T PO; +METF-397 PO; +MONT10TA26 PO; +MULT-974 PO; +OMEG-109 PO; +OMEP20CA18 PO; +POTA10TA PO; +PRED10TA22 PO; +ROSU40TA23 PO; +RT-ALBUINH PO
--- OUTSIDE RECORDS SUMMARY | 2019-10-26 23:10 | XMS REPORT | Continuity of Care Document ---
Author Organization Unknown Address Unknown Phone Unavailable Allergies Active Description Code Type Severity Reaction Onset Reported/Identified Relationship to Patient Clinical Status Yes NO KNOWN DRUG ALLERGIES NO KNOWN DRUG ALLERG UNKNOWN Yes NO KNOWN DRUG ALLERGIES UNKNOWN NO KNOWN DRUG ALLERG Yes NO KNOWN DRUG ALLERGIES UNKNOWN UNKNOWN Yes No Known Drug Allergies [id number] Drug Allergy Unknown N/A 05/03/2011 Medications Medication Packaging Start Date St op Date Route Dosage Sig ALPRAZOLAM TAB 0.25 MG (XANAX) MG 12/19/2016 01/18/2017 PRN BID ROSUVASTATIN CALCIUM 40 MG T AB (rosuvastatin) oral tablet mg 12/19/2016 01/17/2017 QHS&2100 POTASSIUM CHLORIDE TAB 20 MEQ (K-DUR) MEQ 12/19/2016 12/19/2016 ONCE&2112 FUROSEMIDE VIAL INJ 20 MG (LASIX VIAL) MG 12/19/2016 12/19/2016 ONCE&2129 POTASSIUM CHLORIDE TAB 20 MEQ (K-DUR) MEQ 12/19/2016 12/19/2016 ONCE&2138 ONDANSETRON VIAL INJ 4 MG/2CC (ZOFRAN 2CC VIAL) MG 12/19/2016 12/26/2016 PRN Q6H IPRATROPIUM/ALBUTEROL INH SO LN (DUO-NEB INH SOLN) MLS 12/20/2016 12/27/2016 PRN Q4H POTASSIUM CHLORIDE TAB 20 MEQ (K-DUR) MEQ 12/20/2016 12/26/2016 BID&0800,2000 FUROSEMIDE VIAL INJ 20 MG (LASIX VIAL) MG 12/20/2016 12/26/2016 BID&0800,2000 LISINOPRIL TAB 5 MG (ZESTRIL) MG 12/20/2016 01/18/2017 Daily&0900 SERTRALINE TAB 50 MG (ZOLOFT) MG 12/20/2016 01/18/2017 Daily&0900 AZITHROMYCIN TAB 500 MG (ZITHROMAX) MG 12/20/2016 12/24/2016 Daily&0900 FISH OIL 1,000 MG CAPSULE (o esperanza-3 fatty acids-fish oil) oral capsule TAB 12/20/2016 01/18/2017 Daily&09 00 CETIRIZINE TAB 10 MG (ZYRTEC) MG 12/20/2016 01/18/2017 Daily&0900 CEFTRIAXONE PREMIX IV BAG IV 1 GM/50CC (ROCEPHIN PREMIX IV BAG) GM 12/20/2016 12/26/2016 Daily&0900 LEVOTHYROXINE TAB 50 MCG (SYNTHROID) MCG 12/20/2016 01/18/2017 Daily&0900 APIXABAN TAB 5 MG (ELIQUIS) MG 12/20/2016 01/18/2017 Daily&0900 INCRUSE ELLIPTA 62.5 MCG INH (umeclidinium) inhl blister with device Dose(s) 12/20/2016 12/26/2016 Daily&1100 FLUTICASONE/SALMETEROL MDI 2 50 /50MCG (ADVAIR DISKUS) Dose(s) 12/20/2016 12/26/2016 BID&0800,2000 KETOROLAC VIAL INJ 30 MG/CC (TORADOL VIAL) MG 09/02/2017 09/02/2017 ONCE&0916 KETOROLAC VIAL INJ 30 MG/CC (TORADOL VIAL) MG 05/22/2019 05/22/2019 ONCE&1228 ALPRAZOLAM TAB 0.25 MG (XANAX) Dose(s) 06/17/2019 06/27/2019 PRN Q6H LEVALBUTEROL LIQ 1.25 MG/3ML (XOPENEX) MG 06/17/2019 06/17/2019 ONCE&1214 FUROSEMIDE VIAL INJ 20 MG (LASIX VIAL) MG 06/17/2019 06/17/2019 ONCE&1214 LEVALBUTEROL LIQ 1.25 MG/3ML (XOPENEX) MG 06/17/2019 06/24/2019 QID&0600,1100,1600,2100 METFORMIN TAB 500 MG (GLUCOPHAGE) MG 06/17/2019 06/24/2019 BID&0800,2000 MONTELUKAST TAB 10 MG (SINGULAIR) MG 06/17/2019 07/16/2019 QPM&2000 FLUTICASONE INHALER MDI 110 MCG (FLOVENT INHALER) Dose(s) 06/17/2019 06/24/2019 BID&0800,2000 APIXABAN TAB 5 MG (ELIQUIS) Dose(s) 06/17/2019 06/24/2019 BID&0800,2000 ACETAMINOPHEN ORAL TABLET 325mg(Tylenol) MG 06/17/2019 07/17/2019 PRN Q4H LISINOPRIL TAB 5 MG (ZESTRIL) Dose(s) 06/18/2019 06/24/2019 Daily&0900 POTASSIUM CHLORIDE TAB 10 MEQ (K-DUR) Dose(s) 06/18/2019 06/24/2019 Daily&0900 SERTRALINE TAB 50 MG (ZOLOFT) Dose(s) 06/18/2019 06/24/2019 Daily&0900 PANTOPRAZOLE VIAL INJ 40 MG (PROTONIX IV) MG 06/18/2019 06/27/2019 Q24H&0900 INCRUSE ELLIPTA 62.5 MCG INH (umeclidinium) inhl blister with device Dose(s) 06/18/2019 06/24/2019 Daily&0900 CETIRIZINE TAB 10 MG (ZYRTEC) Dose(s) 06/18/2019 06/24/2019 Daily&0900 MultiVits (Thera M Plus) (mu bvgvsi-gqtw-oejxnwr) oral tablet Dose(s) 06/18/2019 07/17/2019 Daily&0900 FISH OIL CAP CAP 1000 MG (OMEGA 3) Dose(s) 06/18/2019 06/24/2019 Daily&0900 LEVOTHYROXINE TAB 50 MCG (SYNTHROID) Dose(s) 06/18/2019 06/24/2019 Daily&0900 FUROSEMIDE VIAL INJ 20 MG (LASIX VIAL) MG 06/18/2019 06/24/2019 Daily&0900 ACETAMINOPHEN ORAL TABLET 325mg(Tylenol) MG 09/22/2019 09/22/2019 ONCE&1804 ONDANSETRON VIAL INJ 4 MG/2CC (ZOFRAN 2CC VIAL) MG 09/22/2019 09/22/2019 ONCE&1804 NORMAL SALINE 1000CC IV BAG INJ 0.9 % (NS 1000CC IV BAG) ml 09/22/2019 09/22/2019 ONCE&1804 Piperacillin-tazobactam 3.37 5 Gm IV recon soln (Zosyn) GM 09/22/2019 09/22/2019 ONCE&1824 NORMAL SALINE 1000CC IV BAG INJ 0.9 % (NS 1000CC IV BAG) ml 09/22/2019 10/07/2019 CONTINUOUSEVERY 0 Hour NORMAL SALINE 250CC IV BAG I NJ 0.9 % (NS 250CC IV BAG) ml 09/22/2019 09/22/2019 ONCE&2030 Problems Date Dx Coded Attending Type Code Diagnosis Diagnosed By 02/01/2011 Ot 327.23 OBS TRUCTIVE SLEEP APNEA (ADULT) (PEDIATR 05/03/2011 Ot 272.4 HYPE RLIPIDEMIA NEC/NOS 05/03/2011 Ot 276.8 HYPO POTASSEMIA 05/03/2011 Ot 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 05/03/2011 Ot 327.23 OBS TRUCTIVE SLEEP APNEA (ADULT) (PEDIATR 05/03/2011 Ot 401.9 HYPE RTENSION NOS 05/03/2011 Ot 414.00 COR ON ATHEROSCLER NOS TYPE VESSEL, NATIV 05/03/2011 Ot 426.0 ATRI OVENT BLOCK COMPLETE 05/03/2011 Ot 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 05/03/2011 Ot 496 CHR AI RWAY OBSTRUCT NEC 05/03/2011 Ot V15.1 HX-M AJOR CARDIOVASC SURG 05/03/2011 Ot V45.81 AOR TOCORONARY BYPASS 05/03/2011 Ot V53.31 FIT TING AND ADJUSTMENT OF CARDIAC PACEMA 05/03/2011 Ot V58.61 ANTICOAGULANTS,LT,CURRENT USE 05/03/2011 Ot V58.69 OTH MED,LT,CURRENT USE 05/17/2011 Ot 327.23 OBS TRUCTIVE SLEEP APNEA (ADULT) (PEDIATR 12/27/2014 ANAYELI KURTZ MD Ot 244 .9 HYPOTHYROIDISM NOS 12/27/2014 ANAYELI KURTZ MD Ot 272 .4 HYPERLIPIDEMIA NEC/NOS 12/27/2014 ANAYELI KURTZ MD Ot 276 .8 HYPOPOTASSEMIA 12/27/2014 ANAYELI KURTZ MD Ot 277 .4 DIS BILIRUBIN EXCRETION 12/27/2014 ANAYELI KURTZ MD Ot 300.00 ANXIETY STATE NOS 12/27/2014 ANAYELI KURTZ MD Ot 305 .1 TOBACCO USE DISORDER 12/27/2014 ANAYELI KURTZ MD Ot 327.23 OBSTRUCTIVE SLEEP APNEA (ADULT) (PEDIATR 12/27/2014 ANAYELI KURTZ MD Ot 401 .9 HYPERTENSION NOS 12/27/2014 ANAYELI KURTZ MD Ot 414.00 CORON ATHEROSCLER NOS TYPE VESSEL, NATIV 12/27/2014 ANAYELI KURTZ MD Ot 427.31 ATRIAL FIBRILLATION 12/27/2014 ANAYELI KURTZ MD Ot 428 .0 CONGESTIVE HEART FAILURE NOS 12/27/2014 ANAYELI KURTZ MD Ot 491.21 OBSTR CHRONIC BRONCHITIS, W (ACUTE) EXAC 12/27/2014 ANAYELI KURTZ MD Ot 518.84 ACUTE AND CHRONIC RESPIRATORY FAILURE 12/27/2014 ANAYELI KURTZ MD Ot 599 .0 12/27/2014 ANAYELI KURTZ MD Ot V45.01 CARDIAC PACEMAKER IN SITU 12/27/2014 ANAYELI KURTZ MD Ot V45.81 AORTOCORONARY BYPASS 12/27/2014 ANAYELI KURTZ MD Ot V58.61 ANTICOAGULANTS,LT,CURRENT USE 02/03/2015 ESME GASPAR DO Ot 496 02/03/2015 ESME GASPAR DO Ot 799. 02 02/17/2015 ESME GASPAR DO Ot 496 02/17/2015 ESME GASPAR DO Ot 799. 02 03/03/2015 ESME GASPAR DO Ot 496 03/03/2015 ESME GASPAR DO Ot 799. 02 03/05/2015 ESME GASPAR DO Ot 496 03/05/2015 ESME GASPAR DO Ot 799. 02 03/05/2015 ESME GASPAR DO Ot 496 03/05/2015 ESME GASAPR DO Ot 799. 02 03/12/2015 LEONEL ROJAS APRN Ot 511.9 03/25/2015 LEONEL ROJAS APRN Ot 511.9 04/14/2015 LEONEL ROJAS APRN Ot 511.9 04/14/2015 LEONEL ROJAS APRN Ot 511.9 05/01/2015 ESME GASPAR DO Ot 496 05/01/2015 ESME GASPAR DO Ot 799. 02 09/28/2015 ESME GASPAR DO Ot 496 09/28/2015 ESME GASPAR DO Ot 799. 02 09/28/2015 ESME GASPAR DO Ot 496 09/28/2015 ESME GASPAR DO Ot 799. 02 09/28/2015 LEONEL ROJAS APRN Ot 511.9 09/29/2015 LEONEL ROJAS 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 Ot J44.9 09/29/2015 LEONEL ROJAS 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 Ot R06.00 10/21/2015 LEONEL ROJAS 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 Ot J44.9 CHRONIC OBSTRUCTIVE PULMONARY DISEASE, U 10/21/2015 LEONEL ROJAS 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 Ot R06.00 DYSPNEA, UNSPECIFIED 11/05/2015 LEONEL ROJAS 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 Ot 511.9 PLEURAL EFFUSION NOS 11/05/2015 LEONEL ROJAS 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 Ot J44.9 CHRONIC OBSTRUCTIVE PULMONARY DISEASE, U 11/05/2015 LEONEL ROJAS 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 Ot R06.00 DYSPNEA, UNSPECIFIED 11/05/2015 LEONEL ROJAS 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 Ot J44.9 CHRONIC OBSTRUCTIVE PULMONARY DISEASE, U 11/05/2015 LEONEL ROJAS 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 Ot R06.00 DYSPNEA, UNSPECIFIED 11/05/2015 LEONEL ROJAS 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 Ot J44.9 CHRONIC OBSTRUCTIVE PULMONARY DISEASE, U 11/05/2015 LEONEL ROJAS 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 Ot R06.00 DYSPNEA, UNSPECIFIED 11/13/2015 LEONEL ROJAS 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 Ot J44.9 CHRONIC OBSTRUCTIVE PULMONARY DISEASE, U 11/13/2015 LEONEL ROJAS 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 Ot R06.00 DYSPNEA, UNSPECIFIED 11/13/2015 ESME GASPAR DO Ot 496 CHR AIRWAY OBSTRUCT NEC 11/13/2015 ESME GASPAR DO Ot 799. 02 HYPOXEMIA 11/13/2015 ESME GASPAR DO Ot 496 CHR AIRWAY OBSTRUCT NEC 11/13/2015 ESME GASPAR DO Ot 799. 02 HYPOXEMIA 11/13/2015 LEONEL ROJAS 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 Ot 511.9 PLEURAL EFFUSION NOS 11/13/2015 LEONEL ROJAS 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 Ot J44.9 CHRONIC OBSTRUCTIVE PULMONARY DISEASE, U 11/13/2015 LEONEL ROJAS 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 Ot R06.00 DYSPNEA, UNSPECIFIED 12/04/2015 LEONEL ROJAS 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 Ot J44.9 CHRONIC OBSTRUCTIVE PULMONARY DISEASE, U 12/04/2015 LEONEL ROJAS 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 Ot R06.00 DYSPNEA, UNSPECIFIED 12/19/2016 Gavino Benitez J44.0 CHR OBSTRUCTIVE PULMON DISEASE WITH (ACUTE) LOWER RESP INFCT 12/19/2016 Gavino Benitez W J44.1 CHRONIC OBSTRUCTIVE PULMONARY DISEASE W (ACUTE) EXACERBATION 12/19/2016 Gavino Benitez W Z95.0 PRESENCE OF CARDIAC PACEMAKER 12/19/2016 Gavino Benitez W Z95.1 PRESENCE OF AORTOCORONARY BYPASS GRAFT 12/19/2016 ELVI SUE J44.0 CHR OBSTRUCTIVE PULMON DISEASE WITH (ACUTE) LOWER RESP INFCT 12/19/2016 ELVI SUE J44.1 CHRONIC OBSTRUCTIVE PULMONARY DISEASE W (ACUTE) EXACERBATION 12/19/2016 ELVI SUE Z95.0 PRESENCE OF CARDIAC PACEMAKER 12/19/2016 ELVI SUE Z95.1 PRESENCE OF AORTOCORONARY BYPASS GRAFT 12/19/2016 Gavino Benitez W 491.21 12/19/2016 Gavino Benitez W 491.22 12/19/2016 Gavino Benitez J44.0 CHRONIC OBSTRUCTIVE PULMON DISEASE W ACUTE LOWER RESP INFCT 12/19/2016 Gavino Benitez J44.1 CHRONIC OBSTRUCTIVE PULMONARY DISEASE W (ACUTE) EXACERBATION 12/19/2016 Gavino Benitez W V45.01 12/19/2016 Gavino Benitez W V45.81 12/19/2016 Gavino Benitez W Z95.0 PRESENCE OF CARDIAC PACEMAKER 12/19/2016 Gavino Benitez Z95.1 PRESENCE OF AORTOCORONARY BYPASS GRAFT 12/19/2016 ELVI SUE J44.0 CHR OBSTRUCTIVE PULMON DISEASE WITH (ACUTE) LOWER RESP INFCT 12/19/2016 LEISUREELVI J44.1 CHRONIC OBSTRUCTIVE PULMONARY DISEASE W (ACUTE) EXACERBATION 12/19/2016 ELVI SUE Z95.0 PRESENCE OF CARDIAC PACEMAKER 12/19/2016 ELVI SUE Z95.1 PRESENCE OF AORTOCORONARY BYPASS GRAFT 12/19/2016 Gavino Benitez I50.9 HEART FAILURE, UNSPECIFIED 12/19/2016 Gavino Benitez J20.9 ACUTE BRONCHITIS, UNSPECIFIED 12/19/2016 Paoni, Gavino W J44.9 CHRONIC OBSTRUCTIVE PULMONARY DISEASE, UNSPECIFIED 12/19/2016 LEISURE, ELVI W I50.9 HEART FAILURE, UNSPECIFIED 12/19/2016 LEISURE, ELVI W J20.9 ACUTE BRONCHITIS, UNSPECIFIED 12/19/2016 LEISURE, ELVI W J44.9 CHRONIC OBSTRUCTIVE PULMONARY DISEASE, UNSPECIFIED 12/19/2016 PaGavino wagner W 428.0 CONGESTIVE HEART FAILURE, UNSPECIFIED 12/19/2016 PaGavino wagner W 466.0 ACUTE BRONCHITIS 12/19/2016 Gavino Benitez W 496 CHRONIC AIRWAY OBSTRUCTION, NOT ELSEWHERE CLASSIFIED 12/19/2016 Gavino Benitez W I50.9 HEART FAILURE, UNSPECIFIED 12/19/2016 PaGavino wagenr W J20.9 ACUTE BRONCHITIS, UNSPECIFIED 12/19/2016 PaGavino wagner W J44.9 CHRONIC OBSTRUCTIVE PULMONARY DISEASE, UNSPECIFIED 12/19/2016 LEISURE, ELVI Reyes I50.9 HEART FAILURE, UNSPECIFIED 12/19/2016 LEISURE, ELVI Reyes J20.9 ACUTE BRONCHITIS, UNSPECIFIED 12/19/2016 LEISURE, ELVI Reyes J44.9 CHRONIC OBSTRUCTIVE PULMONARY DISEASE, UNSPECIFIED 12/19/2016 Gavino Benitez W 276.1 HYPOSMOLALITY AND/OR HYPONATREMIA 12/19/2016 Gavino Benitez W E87.1 HYPO- OSMOLALITY AND HYPONATREMIA 12/19/2016 Gavino Benitez W 276.1 HYPOSMOLALITY AND/OR HYPONATREMIA 12/19/2016 Gavino Benitez W E87.1 HYPO- OSMOLALITY AND HYPONATREMIA 12/19/2016 Gavino Benitez W 276.1 HYPOSMOLALITY AND/OR HYPONATREMIA 12/19/2016 Gavino Benitez W E87.1 HYPO- OSMOLALITY AND HYPONATREMIA 12/19/2016 Gavino Benitez W 276.1 HYPOSMOLALITY AND/OR HYPONATREMIA 12/19/2016 Gavino Benitez W 276.8 12/19/2016 Gavino Benitez W E87.1 HYPO- OSMOLALITY AND HYPONATREMIA 12/19/2016 Gavino Benitez W E87.6 HYPOKALEMIA 12/20/2016 Gavino Benitez W 276.1 HYPOSMOLALITY AND/OR HYPONATREMIA 12/20/2016 Gavino Benitez W 276.8 12/20/2016 Paoni, Gavino W E87.1 HYPO- OSMOLALITY AND HYPONATREMIA 12/20/2016 Pabernard, Gavino W E87.6 HYPOKALEMIA 12/20/2016 PaGavino wagner W 276.1 HYPOSMOLALITY AND/OR HYPONATREMIA 12/20/2016 Pabernard, Gavino W 276.8 12/20/2016 Pabernard, Gavino W E87.1 HYPO- OSMOLALITY AND HYPONATREMIA 12/20/2016 PaGavino wagner W E87.6 HYPOKALEMIA 12/20/2016 PaGavino wagner W 276.1 12/20/2016 PaGavino wagner W 276.8 12/20/2016 Pabernard, Gavino W E87.1 HYPO- OSMOLALITY AND HYPONATREMIA 12/20/2016 PaGavino wagner W E87.6 HYPOKALEMIA 09/02/2017 David Montoya 920 CONTUSION OF FACE, SCALP, AND NECK EXCEPT EYE(S) 09/02/2017 David Montoya 924.01 CONTUSION OF HIP 09/02/2017 David Montoya S00.03XA CONTUSION OF SCALP, INITIAL ENCOUNTER 09/02/2017 David Montoya S70.01XA CONTUSION OF RIGHT HIP, INITIAL ENCOUNTER 10/11/2017 Gavino Benitez 427.32 ATRIAL FLUTTER 10/11/2017 Gavino Benitez 429.2 CARDIOVASCULAR DISEASE, UNSPECIFIED 10/11/2017 Gavino Benitez 496 CHRONIC AIRWAY OBSTRUCTION, NOT ELSEWHERE CLASSIFIED 10/11/2017 Gavino Benitez I25.10 ATHEROSCLEROTIC HEART DISEASE OF [place] CORONARY ARTERY WITHOUT ANGINA PECTORIS 10/11/2017 Gavino Benitez I48.2 CHRONIC ATRIAL FIBRILLATION 10/11/2017 Gavino Benitez J44.9 CHRONIC OBSTRUCTIVE PULMONARY DISEASE, UNSPECIFIED 10/11/2017 Gavino Benitez 244.9 UNSPECIFIED HYPOTHYROIDISM 10/11/2017 Gavino Benitez 427.32 ATRIAL FLUTTER 10/11/2017 Gavino Benitez 429.2 CARDIOVASCULAR DISEASE, UNSPECIFIED 10/11/2017 Gavino Benitez 496 CHRONIC AIRWAY OBSTRUCTION, NOT ELSEWHERE CLASSIFIED 10/11/2017 Gavino Benitez E03.9 HYPOTHYROIDISM, UNSPECIFIED 10/11/2017 Gavino Benitez I25.10 ATHEROSCLEROTIC HEART DISEASE OF [place] CORONARY ARTERY WITHOUT ANGINA PECTORIS 10/11/2017 Paoni, Gavino W I48.2 CHRONIC ATRIAL FIBRILLATION 10/11/2017 Gavino Benitez W J44.9 CHRONIC OBSTRUCTIVE PULMONARY DISEASE, UNSPECIFIED 10/11/2017 W 244.9 UNSP ECIFIED HYPOTHYROIDISM 10/11/2017 W 427.32 ATR IAL FLUTTER 10/11/2017 W 429.2 CARD IOVASCULAR DISEASE, UNSPECIFIED 10/11/2017 W 496 CHRONI C AIRWAY OBSTRUCTION, NOT ELSEWHERE CLASSIFIED 10/11/2017 W E03.9 HYPO THYROIDISM, UNSPECIFIED 10/11/2017 W I25.10 ATH EROSCLEROTIC HEART DISEASE OF [place] CORONARY ARTERY WITHOUT ANGINA PECTORIS 10/11/2017 W 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 10/11/2017 W 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, UNSPECIFIED 10/11/2017 Gavino Benitez W 244.9 UNSPECIFIED HYPOTHYROIDISM 10/11/2017 Gavino Benitez W 427.32 ATRIAL FLUTTER 10/11/2017 Gavino Benitez W 429.2 CARDIOVASCULAR DISEASE, UNSPECIFIED 10/11/2017 Gavino Benitez 496 CHRONIC AIRWAY OBSTRUCTION, NOT ELSEWHERE CLASSIFIED 10/11/2017 Gavino Benitez E03.9 HYPOTHYROIDISM, UNSPECIFIED 10/11/2017 Gavino Benitez W I25.10 ATHEROSCLEROTIC HEART DISEASE OF [place] CORONARY ARTERY WITHOUT ANGINA PECTORIS 10/11/2017 Gavino Benitez I48.2 CHRONIC ATRIAL FIBRILLATION 10/11/2017 Gavino Benitez J44.9 CHRONIC OBSTRUCTIVE PULMONARY DISEASE, UNSPECIFIED 07/04/2018 W 429.2 CARD IOVASCULAR DISEASE, UNSPECIFIED 07/04/2018 W I25.10 ATH EROSCLEROTIC HEART DISEASE OF [place] CORONARY ARTERY WITHOUT ANGINA PECTORIS 11/05/2018 David Montoya 300.00 ANXIETY STATE, UNSPECIFIED 11/05/2018 David Montoya 414.01 CORONARY ATHEROSCLEROSIS OF [place] CORONARY ARTERY 11/05/2018 David Montoya F41.9 ANXIETY DISORDER, UNSPECIFIED 11/05/2018 David Montoya I25.10 ATHSCL HEART DISEASE OF [place] CORONARY ARTERY W/O ANG PCTRS 11/05/2018 David Montoya V45.01 CARDIAC PACEMAKER IN SITU 11/05/2018 David Montoya Z95.0 PRESENCE OF CARDIAC PACEMAKER 03/05/2019 ESME GASPAR DO Ot 496 CHR AIRWAY OBSTRUCT NEC 03/05/2019 ESME GASPAR DO Ot 799. 02 HYPOXEMIA 03/05/2019 ESME GASPAR DO Ot 496 CHR AIRWAY OBSTRUCT NEC 03/05/2019 ESME GASPAR DO Ot 799. 02 HYPOXEMIA 03/05/2019 LEONEL ROJAS APRN Ot 511.9 PLEURAL EFFUSION NOS 03/05/2019 LEONEL ROJAS 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 Ot J44.9 CHRONIC OBSTRUCTIVE PULMONARY DISEASE, U 03/05/2019 LEONEL ROJAS APRN Ot R06.00 DYSPNEA, UNSPECIFIED 05/22/2019 LEISURE, JELLYGLENNA W 959.11 OTHER INJURY OF CHIP 05/22/2019 LEISURE, JELLYGLENNA W E03.9 HYPOTHYROIDISM, UNSPECIFIED 05/22/2019 LEISURE, ELVI W E87.1 HYPO-OSMOLALITY AND HYPONATREMIA 05/22/2019 LEISURE, ELVI W E87.6 HYPOKALEMIA 05/22/2019 LEISURE, ELVI Reyes F41.9 ANXIETY DISORDER, UNSPECIFIED 05/22/2019 LEISURE, LEVI Reyes I25.10 ATHSCL HEART DISEASE OF [place] CORONARY ARTERY W/O ANG PCTRS 05/22/2019 LEISURE, DARYTad W I48.2 CHRONIC ATRIAL FIBRILLATION 05/22/2019 LEISURE, ELVI W J44.9 CHRONIC OBSTRUCTIVE PULMONARY DISEASE, UNSPECIFIED 05/22/2019 LEISURE, DARYTad W S00.03 XA CONTUSION OF SCALP, INITIAL ENCOUNTER 05/22/2019 LEISURE, JELLYGLENNA Reyes S29.9 UNSPECIFIED INJURY OF THORAX 05/22/2019 LEISURE, DARYTad Reyes S29.9X XA UNSPECIFIED INJURY OF THORAX, INITIAL ENCOUNTER 05/22/2019 LEISURE, JELLYGLENNA Reyes S70.01 XA CONTUSION OF RIGHT HIP, INITIAL ENCOUNTER 05/22/2019 LEISURE, JELLYGLENNA W Z95.0 PRESENCE OF CARDIAC PACEMAKER 06/17/2019 Gavino Benitez E03.9 HYPOTHYROIDISM, UNSPECIFIED 06/17/2019 Gavino Benitez E87.1 HYPO- OSMOLALITY AND HYPONATREMIA 06/17/2019 Gavino Benitez E87.6 HYPOKALEMIA 06/17/2019 Gavino Benitez F41.9 ANXIETY DISORDER, UNSPECIFIED 06/17/2019 Gavino Benitez I25.10 ATHSCL HEART DISEASE OF [place] CORONARY ARTERY W/O ANG PCTRS 06/17/2019 Emmanuel Gavino W I48.2 CHRONIC ATRIAL FIBRILLATION 06/17/2019 Emmanuel Gavino W J44.9 CHRONIC OBSTRUCTIVE PULMONARY DISEASE, UNSPECIFIED 06/17/2019 Pabernard, Gavino W Z95.0 PRESENCE OF CARDIAC PACEMAKER 06/17/2019 Pabernard Gavino W E03.9 HYPOTHYROIDISM, UNSPECIFIED 06/17/2019 Pabernard, Gavino W E87.1 HYPO- OSMOLALITY AND HYPONATREMIA 06/17/2019 Pabernard Gavino W E87.6 HYPOKALEMIA 06/17/2019 Pabernard, Gavino W F41.9 ANXIETY DISORDER, UNSPECIFIED 06/17/2019 Pabernard, Gavino W I25.10 ATHSCL HEART DISEASE OF [place] CORONARY ARTERY W/O ANG PCTRS 06/17/2019 Emmanuel Gavino W I48.2 CHRONIC ATRIAL FIBRILLATION 06/17/2019 Pabernard Gavino W J44.9 CHRONIC OBSTRUCTIVE PULMONARY DISEASE, UNSPECIFIED 06/17/2019 Pabernard Gavino W S00.03XA CONTUSION OF SCALP, INITIAL ENCOUNTER 06/17/2019 Emmanuel Gavino W S70.01XA CONTUSION OF RIGHT HIP, INITIAL ENCOUNTER 06/17/2019 Emmanuel Gavino W Z95.0 PRESENCE OF CARDIAC PACEMAKER 06/18/2019 Emmanuel Gavino 414.01 CORONARY 06/18/2019 Gavino eBnitez W E03.9 HYPOTHYROIDISM, UNSPECIFIED 06/18/2019 Emmanuel Gavino W E87.1 HYPO- OSMOLALITY AND HYPONATREMIA 06/18/2019 Emmanuel Gavino W E87.6 HYPOKALEMIA 06/18/2019 Gavino Benitez W F41.9 ANXIETY DISORDER, UNSPECIFIED 06/18/2019 Emmanuel Gavino W I25.10 ATHSCL HEART DISEASE OF [place] CORONARY ARTERY W/O ANG PCTRS 06/18/2019 Emmanuel Gavino W I48.2 CHRONIC ATRIAL FIBRILLATION 06/18/2019 Gavino Benitez W J44.9 CHRONIC O 06/18/2019 Emmanuel Gavino W S00.03XA CONTUSION OF SCALP, INITIAL ENCOUNTER 06/18/2019 Emmanuel Gavino W S70.01XA CONTUSION OF RIGHT HIP, INITIAL ENCOUNTER 06/18/2019 Emmanuel Gavino W Z95.0 PRESENCE OF CARDIAC PACEMAKER 09/02/2019 LEONEL ROAJS APRN Ot 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 09/02/2019 LEONEL ROJAS APRN Ot J44.9 CHRONIC OBSTRUCTIVE PULMONARY DISEASE, U 09/02/2019 LEONEL ROJAS APRN Ot J96.20 ACUTE AND CHR RESP FAILURE, UNSP W HYPOX 09/02/2019 LEONEL ROJAS APRN Ot K80.20 CALCULUS OF GALLBLADDER W/O CHOLECYSTITI 09/02/2019 LEONEL ROJAS APRN Ot Z95.0 PRESENCE OF CARDIAC PACEMAKER 09/22/2019 LEISURE, ELVI W E03.9 HYPOTHYROIDISM, UNSPECIFIED 09/22/2019 LEISURE, ELVI W E87.1 HYPO-OSMOLALITY AND HYPONATREMIA 09/22/2019 LEISURE, DARYA W E87.6 HYPOKALEMIA 09/22/2019 LEISURE, ELVI W F41.9 ANXIETY DISORDER, UNSPECIFIED 09/22/2019 LEISURE, DARYA W I25.10 ATHSCL HEART DISEASE OF [place] CORONARY ARTERY W/O ANG PCTRS 09/22/2019 LEISURE, ELVI W I48.2 CHRONIC ATRIAL FIBRILLATION 09/22/2019 LEISURE, ELVI W J44.9 CHRONIC OBSTRUCTIVE PULMONARY DISEASE, UNSPECIFIED 09/22/2019 LEISURE, LYNAMARIA W S70.01 XA CONTUSION OF RIGHT HIP, INITIAL ENCOUNTER 09/22/2019 LEISURE, DARYA W Z95.0 PRESENCE OF CARDIAC PACEMAKER 09/22/2019 LEISURE, DARYA W E03.9 HYPOTHYROIDISM, UNSPECIFIED 09/22/2019 LEISURE, DARYA W E87.1 HYPO-OSMOLALITY AND HYPONATREMIA 09/22/2019 LEISURE, DARYA W E87.6 HYPOKALEMIA 09/22/2019 LEISURE, ELVI Reyes F41.9 ANXIETY DISORDER, UNSPECIFIED 09/22/2019 LEISURE, DARYA W I25.10 ATHSCL HEART DISEASE OF [place] CORONARY ARTERY W/O ANG PCTRS 09/22/2019 LEISURE, ELVI W I48.2 CHRONIC ATRIAL FIBRILLATION 09/22/2019 LEISURE, DARYA W J44.9 CHRONIC OBSTRUCTIVE PULMONARY DISEASE, UNSPECIFIED 09/22/2019 LEISURE, DARYA W S00.03 XA CONTUSION OF SCALP, INITIAL ENCOUNTER 09/22/2019 LEISURE, ELVI W S70.01 XA CONTUSION OF RIGHT HIP, INITIAL ENCOUNTER 09/22/2019 LEISURE, LYNIETA W Z95.0 PRESENCE OF CARDIAC PACEMAKER 09/22/2019 LEISURE, DARYA 244.9 UNSPECIFIE 09/22/2019 LEISURE, ELVI W E03.9 HYPOTHYROIDISM, UNSPECIFIED 09/22/2019 LEISURE, ELVI W E87.1 HYPO-OSMOLALITY AND HYPONATREMIA 09/22/2019 LEISURE, ELVI W E87.6 HYPOKALEMIA 09/22/2019 LEISURE, ELVI W F41.9 ANXIETY DISORDER, UNSPECIFIED 09/22/2019 LEISURE, ELVI I10 ESSENTIAL (P 09/22/2019 LEISURE, ELVI W I25.10 ATHSCL HEART DISEASE OF [place] CORONARY ARTERY W/O ANG PCTRS 09/22/2019 LEISURE, ELVI W I48.2 CHRONIC ATRIAL FIBRILLATION 09/22/2019 LEISURE, ELVI W J44.9 CHRONIC OBSTRUCTIVE PULMONARY DISEASE, UNSPECIFIED 09/22/2019 LEISURE, ELVI Reyes S00.03 XA CONTUSION OF SCALP, INITIAL ENCOUNTER 09/22/2019 LEISURE, ELVI Reyes S70.01 XA CONTUSION OF RIGHT HIP, INITIAL ENCOUNTER 09/22/2019 LEISURE, ELVI Reyes Z95.0 PRESENCE OF CARDIAC PACEMAKER 09/24/2019 KATI ASHTON, JOSHUA Quiroz Ot A41. 9 SEPSIS, UNSPECIFIED ORGANISM 09/24/2019 KATI ASHTON, JOSHUA Quiroz Ot E03. 9 HYPOTHYROIDISM, UNSPECIFIED 09/24/2019 KATI ASHTON, JOSHUA Quiroz Ot E78. 2 MIXED HYPERLIPIDEMIA 09/24/2019 KATI ASHTON, JOSHUA Qurioz Ot F41. 9 ANXIETY DISORDER, UNSPECIFIED 09/24/2019 KATI ASHTON, JOSHUA Quiroz Ot I10 ESSENTIAL (PRIMARY) HYPERTENSION 09/24/2019 KATI ASHTNO, JOSHUA Quiroz Ot I25. 10 ATHSCL HEART DISEASE OF [place] CORONARY 09/24/2019 KATI ASHTON, JOSHUA Quiroz Ot I48. 0 PAROXYSMAL ATRIAL FIBRILLATION 09/24/2019 JOSHUA PARIKH MD Ot J18. 9 PNEUMONIA, UNSPECIFIED ORGANISM 09/24/2019 JOSHUA PARIKH MD Ot J44. 9 CHRONIC OBSTRUCTIVE PULMONARY DISEASE, U 09/24/2019 JOSHUA PARIKH MD Ot J96. 21 ACUTE AND CHRONIC RESPIRATORY FAILURE [place] 09/24/2019 KATI ASHTON, JOSHUA Quiroz Ot R65. 20 SEVERE SEPSIS WITHOUT SEPTIC SHOCK 09/24/2019 JOSHUA PARIKH MD Ot Z87.891 PERSONAL HISTORY OF NICOTINE DEPENDENCE 09/24/2019 JOSHUA PARIKH MD Ot Z95. 1 PRESENCE OF AORTOCORONARY BYPASS GRAFT 09/24/2019 JOSHUA PARIKH MD Ot A41. 9 SEPSIS, UNSPECIFIED ORGANISM 09/24/2019 JOSHUA PARIKH MD Ot E03. 9 HYPOTHYROIDISM, UNSPECIFIED 09/24/2019 JOSHUA PARIKH MD Ot E78. 2 MIXED HYPERLIPIDEMIA 09/24/2019 JOSHUA PARIKH MD Ot F41. 9 ANXIETY DISORDER, UNSPECIFIED 09/24/2019 JOSHUA PARIKH MD Ot I10 ESSENTIAL (PRIMARY) HYPERTENSION 09/24/2019 JOSHUA PARIKH MD Ot I25. 10 ATHSCL HEART DISEASE OF [place] CORONARY 09/24/2019 JOSHUA PARIKH MD Ot I48. 0 PAROXYSMAL ATRIAL FIBRILLATION 09/24/2019 JOSHUA PARIKH MD Ot J18. 9 PNEUMONIA, UNSPECIFIED ORGANISM 09/24/2019 JOSHUA PARIKH MD Ot J44. 9 CHRONIC OBSTRUCTIVE PULMONARY DISEASE, U 09/24/2019 JOSHUA PARIKH MD Ot J96. 21 ACUTE AND CHRONIC RESPIRATORY FAILURE [place] 09/24/2019 JOSHUA PARIKH MD Ot R65. 20 SEVERE SEPSIS WITHOUT SEPTIC SHOCK 09/24/2019 JOSHUA PARIKH MD Ot Z87.891 PERSONAL HISTORY OF NICOTINE DEPENDENCE 09/24/2019 JOSHUA PARIKH MD Ot Z95. 1 PRESENCE OF AORTOCORONARY BYPASS GRAFT 09/25/2019 JOSHUA PARIKH MD Ot A41. 9 SEPSIS, UNSPECIFIED ORGANISM 09/25/2019 JOSHUA PARIKH MD Ot E03. 9 HYPOTHYROIDISM, UNSPECIFIED 09/25/2019 JOSHUA PARIKH MD Ot E78. 2 MIXED HYPERLIPIDEMIA 09/25/2019 JOSHUA PARIKH MD Ot F41. 9 ANXIETY DISORDER, UNSPECIFIED 09/25/2019 JOSHUA PARIKH MD Ot I10 ESSENTIAL (PRIMARY) HYPERTENSION 09/25/2019 JOSHUA PARIKH MD Ot I25. 10 ATHSCL HEART DISEASE OF [place] CORONARY 09/25/2019 JOSHUA PARIKH MD Ot I48. 0 PAROXYSMAL ATRIAL FIBRILLATION 09/25/2019 JOSHUA PARIKH MD Ot J18. 9 PNEUMONIA, UNSPECIFIED ORGANISM 09/25/2019 JOSHUA PARIKH MD Ot J44. 9 CHRONIC OBSTRUCTIVE PULMONARY DISEASE, U 09/25/2019 JOSHUA PARIKH MD Ot J96. 21 ACUTE AND CHRONIC RESPIRATORY FAILURE [place] 09/25/2019 JOSHUA PARIKH MD Ot R65. 20 SEVERE SEPSIS WITHOUT SEPTIC SHOCK 09/25/2019 JOSHUA PARIKH MD Ot Z87.891 PERSONAL HISTORY OF NICOTINE DEPENDENCE 09/25/2019 JOSHUA PARIKH MD Ot Z95. 1 PRESENCE OF AORTOCORONARY BYPASS GRAFT 09/26/2019 JOSHUA PARIKH MD Ot A41. 9 SEPSIS, UNSPECIFIED ORGANISM 09/26/2019 JOSHUA PARIKH MD Ot E03. 9 HYPOTHYROIDISM, UNSPECIFIED 09/26/2019 JOSHUA PARIKH MD Ot E78. 2 MIXED HYPERLIPIDEMIA 09/26/2019 JOSHUA PARIKH MD Ot F41. 9 ANXIETY DISORDER, UNSPECIFIED 09/26/2019 JOSHUA PARIKH MD Ot I10 ESSENTIAL (PRIMARY) HYPERTENSION 09/26/2019 JOSHUA PARIKH MD Ot I25. 10 ATHSCL HEART DISEASE OF [place] CORONARY 09/26/2019 JOSHUA PARIKH MD Ot I48. 0 PAROXYSMAL ATRIAL FIBRILLATION 09/26/2019 JOSHUA PARIKH MD Ot J18. 9 PNEUMONIA, UNSPECIFIED ORGANISM 09/26/2019 JOSHUA PARIKH MD Ot J44. 9 CHRONIC OBSTRUCTIVE PULMONARY DISEASE, U 09/26/2019 JOSHUA PARIKH MD Ot J96. 21 ACUTE AND CHRONIC RESPIRATORY FAILURE [place] 09/26/2019 JOSHUA PARIKH MD Ot R65. 20 SEVERE SEPSIS WITHOUT SEPTIC SHOCK 09/26/2019 JOSHUA PARIKH MD Ot Z87.891 PERSONAL HISTORY OF NICOTINE DEPENDENCE 09/26/2019 JOSHUA PARIKH MD Ot Z95. 1 PRESENCE OF AORTOCORONARY BYPASS GRAFT 09/27/2019 JOSHUA PARIKH MD Ot A41. 9 SEPSIS, UNSPECIFIED ORGANISM 09/27/2019 JOSHUA PARIKH MD Ot E03. 9 HYPOTHYROIDISM, UNSPECIFIED 09/27/2019 JOSHUA PARIKH MD Ot E78. 2 MIXED HYPERLIPIDEMIA 09/27/2019 JOSHUA PARIKH MD Ot F41. 9 ANXIETY DISORDER, UNSPECIFIED 09/27/2019 KATI MD, JOSHUA M Ot I10 ESSENTIAL (PRIMARY) HYPERTENSION 09/27/2019 JOSHUA PARIKH MD Ot I25.810 ATHEROSCLEROSIS OF CABG W/O ANGINA PECTO 09/27/2019 JOSHUA PARIKH MD Ot I48. 0 PAROXYSMAL ATRIAL FIBRILLATION 09/27/2019 JOSHUA PARIKH MD Ot J18. 9 PNEUMONIA, UNSPECIFIED ORGANISM 09/27/2019 JOSHUA PARIKH MD Ot J44. 0 CHR OBSTRUCTIVE PULMON DISEASE WITH (ACU 09/27/2019 JOSHUA PARIKH MD Ot J96. 21 ACUTE AND CHRONIC RESPIRATORY FAILURE [place] 09/27/2019 JOSHUA PARIKH MD Ot R65. 20 SEVERE SEPSIS WITHOUT SEPTIC SHOCK 09/27/2019 JOSHUA PARIKH MD Ot Z87.891 PERSONAL HISTORY OF NICOTINE DEPENDENCE 09/27/2019 JOSHUA PARIKH MD Ot Z95. 1 PRESENCE OF AORTOCORONARY BYPASS GRAFT 09/28/2019 JOSHUA PARIKH MD Ot A41. 9 SEPSIS, UNSPECIFIED ORGANISM 09/28/2019 JOSHUA PARIKH MD Ot E03. 9 HYPOTHYROIDISM, UNSPECIFIED 09/28/2019 JOSHUA PARIKH MD Ot E78. 2 MIXED HYPERLIPIDEMIA 09/28/2019 JOSHUA PARIKH MD Ot F41. 9 ANXIETY DISORDER, UNSPECIFIED 09/28/2019 JOSHUA PARIKH MD Ot I10 ESSENTIAL (PRIMARY) HYPERTENSION 09/28/2019 JOSHUA PARIKH MD Ot I25.810 ATHEROSCLEROSIS OF CABG W/O ANGINA PECTO 09/28/2019 JOSHUA PARIKH MD Ot I48. 0 PAROXYSMAL ATRIAL FIBRILLATION 09/28/2019 JOSHUA PARIKH MD Ot J18. 9 PNEUMONIA, UNSPECIFIED ORGANISM 09/28/2019 JOSHUA PARIKH MD Ot J44. 0 CHR OBSTRUCTIVE PULMON DISEASE WITH (ACU 09/28/2019 JOSHUA PARIKH MD Ot J96. 21 ACUTE AND CHRONIC RESPIRATORY FAILURE [place] 09/28/2019 JOSHUA PARIKH MD Ot R65. 20 SEVERE SEPSIS WITHOUT SEPTIC SHOCK 09/28/2019 JOSHUA PARIKH MD M Ot Z87.891 PERSONAL HISTORY OF NICOTINE DEPENDENCE 09/28/2019 JOSHUA PARIKH MD M Ot Z95. 1 PRESENCE OF AORTOCORONARY BYPASS GRAFT 09/29/2019 JOSHUA PARIKH MD Ot A41. 9 SEPSIS, UNSPECIFIED ORGANISM 09/29/2019 JOSHUA PARKIH MD Ot E03. 9 HYPOTHYROIDISM, UNSPECIFIED 09/29/2019 JOSHUA PARIKH MD Ot E78. 2 MIXED HYPERLIPIDEMIA 09/29/2019 JOSHUA PARIKH MD Ot F41. 9 ANXIETY DISORDER, UNSPECIFIED 09/29/2019 JOSHUA PARIKH MD M Ot I10 ESSENTIAL (PRIMARY) HYPERTENSION 09/29/2019 JOSHUA PARIKH MD Ot I25.810 ATHEROSCLEROSIS OF CABG W/O ANGINA PECTO 09/29/2019 JOSHUA PARIKH MD M Ot I48. 0 PAROXYSMAL ATRIAL FIBRILLATION 09/29/2019 JOSHUA PARIKH MD Ot J18. 9 PNEUMONIA, UNSPECIFIED ORGANISM 09/29/2019 JOSHUA PARIKH MD Ot J44. 0 CHR OBSTRUCTIVE PULMON DISEASE WITH (ACU 09/29/2019 JOSHUA PARIKH MD M Ot J96. 21 ACUTE AND CHRONIC RESPIRATORY FAILURE [place] 09/29/2019 JOSHUA PARIKH MD Ot R65. 20 SEVERE SEPSIS WITHOUT SEPTIC SHOCK 09/29/2019 JOSHUA PARIKH MD M Ot Z87.891 PERSONAL HISTORY OF NICOTINE DEPENDENCE 09/29/2019 JOSHUA PARIKH MD M Ot Z95. 1 PRESENCE OF AORTOCORONARY BYPASS GRAFT 09/29/2019 JOSHUA PRAIKH MD Ot A41. 9 SEPSIS, UNSPECIFIED ORGANISM 09/29/2019 JOSHUA PARIKH MD Ot E03. 9 HYPOTHYROIDISM, UNSPECIFIED 09/29/2019 JOSHUA PARIKH MD Ot E78. 2 MIXED HYPERLIPIDEMIA 09/29/2019 JOSHUA PARIKH MD Ot F41. 9 ANXIETY DISORDER, UNSPECIFIED 09/29/2019 JOSHUA PARIKH MD M Ot I10 ESSENTIAL (PRIMARY) HYPERTENSION 09/29/2019 JOSHUA PARIKH MD M Ot I25.810 ATHEROSCLEROSIS OF CABG W/O ANGINA PECTO 09/29/2019 JOSHUA PARIKH MD M Ot I48. 0 PAROXYSMAL ATRIAL FIBRILLATION 09/29/2019 JOSHUA PARIKH MD Ot J18. 9 PNEUMONIA, UNSPECIFIED ORGANISM 09/29/2019 JOSHUA PARIKH MD M Ot J44. 0 CHR OBSTRUCTIVE PULMON DISEASE WITH (ACU 09/29/2019 JOSHUA PARIKH MD M Ot J96. 21 ACUTE AND CHRONIC RESPIRATORY FAILURE [place] 09/29/2019 JOSHUA PARIKH MD Ot R65. 20 SEVERE SEPSIS WITHOUT SEPTIC SHOCK 09/29/2019 JOSHUA PARIKH MD Ot Z87.891 PERSONAL HISTORY OF NICOTINE DEPENDENCE 09/29/2019 JOSHUA PARIKH MD Ot Z95. 1 PRESENCE OF AORTOCORONARY BYPASS GRAFT 09/30/2019 JOSHUA PARIKH MD Ot A41. 9 SEPSIS, UNSPECIFIED ORGANISM 09/30/2019 JOSHUA PARIKH MD Ot E03. 9 HYPOTHYROIDISM, UNSPECIFIED 09/30/2019 JOSHUA PARIKH MD Ot E78. 2 MIXED HYPERLIPIDEMIA 09/30/2019 JOSHUA PARIKH MD Ot F41. 9 ANXIETY DISORDER, UNSPECIFIED 09/30/2019 JOSHUA PARIKH MD Ot I10 ESSENTIAL (PRIMARY) HYPERTENSION 09/30/2019 JOSHUA PARIKH MD Ot I25.810 ATHEROSCLEROSIS OF CABG W/O ANGINA PECTO 09/30/2019 JOSHUA PARIKH MD Ot I48. 0 PAROXYSMAL ATRIAL FIBRILLATION 09/30/2019 JOSHUA PARIKH MD Ot J18. 9 PNEUMONIA, UNSPECIFIED ORGANISM 09/30/2019 JOSHUA PARIKH MD Ot J44. 0 CHR OBSTRUCTIVE PULMON DISEASE WITH (ACU 09/30/2019 JOSHUA PARIKH MD Ot J96. 21 ACUTE AND CHRONIC RESPIRATORY FAILURE [place] 09/30/2019 JOSHUA PARIKH MD Ot R65. 20 SEVERE SEPSIS WITHOUT SEPTIC SHOCK 09/30/2019 JOSHUA PARIKH MD Ot Z87.891 PERSONAL HISTORY OF NICOTINE DEPENDENCE 09/30/2019 JOSHUA PARIKH MD Ot Z95. 1 PRESENCE OF AORTOCORONARY BYPASS GRAFT 10/01/2019 JOSHUA PARIKH MD Ot A41. 9 SEPSIS, UNSPECIFIED ORGANISM 10/01/2019 JOSHUA PARIKH MD Ot E03. 9 HYPOTHYROIDISM, UNSPECIFIED 10/01/2019 JOSHUA PARIKH MD Ot E78. 2 MIXED HYPERLIPIDEMIA 10/01/2019 JOSHUA PARIKH MD Ot F41. 9 ANXIETY DISORDER, UNSPECIFIED 10/01/2019 JOSHUA PARIKH MD Ot I10 ESSENTIAL (PRIMARY) HYPERTENSION 10/01/2019 JOSHUA PARIKH MD Ot I25.810 ATHEROSCLEROSIS OF CABG W/O ANGINA PECTO 10/01/2019 JOSHUA PARIKH MD Ot I48. 0 PAROXYSMAL ATRIAL FIBRILLATION 10/01/2019 JOSHUA PARIKH MD Ot J18. 9 PNEUMONIA, UNSPECIFIED ORGANISM 10/01/2019 JOSHUA PARIKH MD Ot J44. 0 CHR OBSTRUCTIVE PULMON DISEASE WITH (ACU 10/01/2019 JOSHUA PARIKH MD Ot J96. 21 ACUTE AND CHRONIC RESPIRATORY FAILURE [place] 10/01/2019 JOSHUA PARIKH MD Ot R65. 20 SEVERE SEPSIS WITHOUT SEPTIC SHOCK 10/01/2019 JOSHUA PARIKH MD Ot Z87.891 PERSONAL HISTORY OF NICOTINE DEPENDENCE 10/01/2019 JOSHUA PARIKH MD Ot Z95. 1 PRESENCE OF AORTOCORONARY BYPASS GRAFT 10/01/2019 JOSHUA PARIKH MD Ot A41. 9 SEPSIS, UNSPECIFIED ORGANISM 10/01/2019 JOSHUA PARIKH MD Ot E03. 9 HYPOTHYROIDISM, UNSPECIFIED 10/01/2019 JOSHUA PARIKH MD Ot E78. 2 MIXED HYPERLIPIDEMIA 10/01/2019 JOSHUA PARIKH MD Ot F41. 9 ANXIETY DISORDER, UNSPECIFIED 10/01/2019 JOSHUA PARIKH MD Ot I10 ESSENTIAL (PRIMARY) HYPERTENSION 10/01/2019 JOSHUA PARIKH MD Ot I25.810 ATHEROSCLEROSIS OF CABG W/O ANGINA PECTO 10/01/2019 JOSHUA PARIKH MD Ot I48. 0 PAROXYSMAL ATRIAL FIBRILLATION 10/01/2019 JOSHUA PARIKH MD Ot J18. 9 PNEUMONIA, UNSPECIFIED ORGANISM 10/01/2019 JOSHUA PARIKH MD Ot J44. 0 CHR OBSTRUCTIVE PULMON DISEASE WITH (ACU 10/01/2019 JOSHUA PARIKH MD Ot J96. 21 ACUTE AND CHRONIC RESPIRATORY FAILURE [place] 10/01/2019 JOSHUA PARIKH MD Ot R65. 20 SEVERE SEPSIS WITHOUT SEPTIC SHOCK 10/01/2019 JOSHUA PARIKH MD Ot Z87.891 PERSONAL HISTORY OF NICOTINE DEPENDENCE 10/01/2019 JOSHUA PARIKH MD Ot Z95. 1 PRESENCE OF AORTOCORONARY BYPASS GRAFT Procedures There is no data. Results Test Result Range Comprehensive Metabolic Panel - 08/28/16 09:26 Albumin 4.0 g/dL 3.6-5.1 ALP 116 U/L 35-130 ALT 17 U/L 6-45 Anion Gap 17 6-14 AST 18 U/L 2-40 BUN 15 mg/dL 5-25 Calcium 9.4 mg/dL 8.3-10.4 Chloride 103 mmol/L 95-114 CO2 27 mEq/L 22-33 Creat 0.75 mg/dL 0.50-1.50 eGFR 77 mL/min/1.73m2 >59 Globulin 3.4 g/dL 2.3-3.5 Glucose 130 mg/dL 70-110 Osmo 298 280-295 Potassium 4.2 mmol/L 3.5-5.3 Sodium 143 mmol/L 134-148 TBil 0.7 mg/dL 0.2-1.2 TP 7.4 g/dL 6.0-8.3 Lipid Panel - 08/28/16 09:26 C/HDL 3.3 3.7-6.7 Cholesterol 142 mg/dL 100-240 HDL 43 mg/dL 30-85 LDL-Calculated 74 mg/dL 0-100 Trig 125 mg/dL 35-160 VLDL 25 mg/dL 0-42 Cardiac Panel - 12/19/16 19:18 CK 36 U/L 26-174 CK-MB 1.0 ng/ml 0.0-9.2 Myoglobin 27.1 ng/ml 1.6-106.0 Troponin <0.020 ng/mL 0.0-0.4 BNP - 12/19/16 19:18 BNP 377.00 pg/ml 0.00-100.00 Mycoplasma - 12/19/16 21:07 Mycoplasma Negative Negative Magnesium - 12/19/16 21:38 Mg++ 1.9 mg/dL 1.6-2.6 BMP - 12/20/16 05:20 Anion Gap 14 6-14 BUN 14 mg/dL 5-25 Calcium 8.9 mg/dL 8.3-10.4 Chloride 105 mmol/L 95-114 CO2 30 mEq/L 22-33 Creat 0.68 mg/dL 0.50-1.50 eGFR 86 mL/min/1.73m2 >59 Glucose 169 mg/dL 70-110 Osmo 303 280-295 Potassium 3.8 mmol/L 3.5-5.3 Sodium 145 mmol/L 134-148 BNP - 12/20/16 05:20 BNP 324.80 pg/ml 0.00-100.00 Urinalysis - 12/20/16 10:07 Icotest N/A Negative Urine-Appearance Clear Clear Urine-Bacteria 1+ Urine-Bilirubin Negative Negative Urine-Blood 1+ Negative Urine-Color Yellow Colorless[place] Urine-Epithelial Cells 5-10/HPF Urine-Glucose Negative Negative Urine-Ketones Negative Negative Urine-Leukocytes Trace Negative Urine-Nitrite Negative Negative Urine-pH 6.0 5-8.5 Urine-Protein Negative Negative Urine-RBC Rare/HPF Urine-Specific [place] 1.020 1.000-1 .030 Urine-WBC 2-5/HPF Urobilinogen 0.2 E.U./dL 0.2-1.0 Thyroid Stimulating Hormone - 10/11/17 1 0:54 TSH 3.68 mIU/mL 0.32-5.00 Pulmonary Function Hemoglobin - 03/12/19 12:15 Hgb 14.0 g/dL 13.0-15.0 Thyroid Stimulating Hormone - 04/03/19 1 0:00 TSH 2.48 mIU/mL 0.32-5.00 Antinuclear Antibodies Direct - 04/03/19 10:00 NIYA DIRECT NEGATIVE NEGATIVE Antinuclear Antibodies Direct - 04/03/19 10:00 NIYA Direct Negative Negative Thyroid Stimulating Hormone - 06/17/19 0 9:33 TSH 5.80 mIU/mL 0.32-5.00 Urinalysis - 06/17/19 12:00 Icotest N/A Negative Urine Volume Urine Volume Sufficient (10mL) Urine-Appearance Clear Clear Urine-Bacteria Trace Urine-Bilirubin Negative Negative Urine-Blood Negative Negative Urine-Color Yellow Colorless[place] Urine-Epithelial Cells 0-5/HPF Urine-Glucose Negative Negative Urine-Ketones Negative Negative Urine-Leukocytes Negative Negative Urine-Nitrite Negative Negative Urine-Other Urine Saved if Culture Need ed (48hrs from time of collection) Urine-pH 6.5 5-8.5 Urine-Protein Trace Negative Urine-RBC Negative Urine-Specific [place] 1.020 1.000-1 .030 Urine-WBC Few/HPF Urobilinogen 0.2 E.U./dL 0.2-1.0 BNP - 06/18/19 09:03 BNP 241.60 pg/ml 0.00-100.00 Comprehensive Metabolic Panel - 08/05/19 10:13 Albumin 4.1 g/dL 3.6-5.1 ALP 96 U/L 35-130 ALT 11 U/L 6-45 Anion Gap 15 6-14 AST 22 U/L 2-40 BUN 12 mg/dL 5-25 Calcium 9.5 mg/dL 8.3-10.4 Chloride 107 mmol/L 95-114 CO2 23 mEq/L 22-33 Creat 0.81 mg/dL 0.50-1.50 eGFR 70 mL/min/1.73m2 >59 Globulin 3.4 g/dL 2.3-3.5 Glucose 109 mg/dL 70-110 Osmo 291 280-295 Potassium 4.4 mmol/L 3.5-5.3 Sodium 141 mmol/L 134-148 TBil 0.6 mg/dL 0.2-1.2 TP 7.5 g/dL 6.0-8.3 Lipid Panel - 08/05/19 10:13 C/HDL 3.3 3.7-6.7 Cholesterol 108 mg/dL 100-240 HDL 33 mg/dL 30-85 LDL-Calculated 55 mg/dL 0-100 Trig 98 mg/dL 35-160 VLDL 20 mg/dL 0-42 BNP - 09/22/19 17:57 BNP 374.60 pg/ml 0.00-100.00 Mycoplasma - 09/22/19 17:59 Mycoplasma Positive Negative Lactic Acid - 09/22/19 18:00 Lactic Acid 42.0 mg/dL 4.5-19.8 Blood Culture - 09/22/19 18:00 PRELIM CULTURE RESULTS Blood Culture Negativ e, No Growth Day 1 FINAL CULTURE RESULTS Blood Culture Negative , No Growth Day 5 MEDIA PLATED Blood Culture Media Position C47 CULTURE SOURCE LEFT AC Blood Culture - 09/22/19 18:01 PRELIM CULTURE RESULTS Blood Culture Negativ e, No Growth Day 1 FINAL CULTURE RESULTS Blood Culture Negative , No Growth Day 5 MEDIA PLATED Blood Culture Media Position C41 CULTURE SOURCE RIGHT HAND Urinalysis - 09/22/19 19:11 Icotest Negative Negative Urine Crystals Amorphous material: few/HPF Urine Volume Urine Volume Sufficient (10mL) Urine Yeast No Yeast present Urine-Appearance Slightly Cloudy Clear Urine-Bacteria 1+ Urine-Bilirubin 1+ Negative Urine-Blood Trace-lysed Negative Urine-Color Yellow Colorless[place] Urine-Epithelial Cells 5-10/HPF Urine-Glucose Negative Negative Urine-Ketones Negative Negative Urine-Leukocytes Negative Negative Urine-Mucus 3+ Urine-Nitrite Negative Negative Urine-Other Culture to follow Urine-pH 5.5 5-8.5 Urine-Protein 2+ Negative Urine-RBC 5-10/HPF Urine-Specific [place] >=1.030 1.000-1 .030 Urine-WBC 5-10/HPF Urobilinogen 0.2 0.2-1.0 Urine Culture - 09/22/19 19:17 PRELIM CULTURE RESULTS No Growth 24 hours FINAL CULTURE RESULTS No Growth 48 hours MEDIA PLATED Setup at 19:20 on 09/22/2019 CULTURE SOURCE catheter 2019 Coronavirus SARS-CoV-2 SO - 0 23:24 Coronavirus Ab [Units/volume] in Serum Negative Negative Urine Legionella pneumophila antigen ass ay - 09/22/19 23:24 Urine Legionella pneumophila antigen assay Negativ e NRG Streptococcus pneumoniae antigen detecti on - 09/22/19 23:24 Streptococcus pneumoniae antigen detection Negativ e NRG Methicillin resistant Staphylococcus aur eus (MRSA) screening culture - 09/22/19 23:24 Methicillin resistant Staphylococcus aureus (MRSA) scr eening culture NEG NRG Complete blood count (CBC) with automate d white blood cell (WBC) differential - 09/23/19 03:15 Blood leukocytes automated count (number/volume) 22.9 10*3/uL 4.3-11.0 Blood erythrocytes automated count (number/volume) 5.00 10*6/uL 4.35-5.85 Venous blood hemoglobin measurement (mass/volume) 11.5 g/dL 11.5-16.0 Blood hematocrit (volume fraction) 38 % 35-52 Automated erythrocyte mean corpuscular volume 76 [ foz_us] 80-99 Automated erythrocyte mean corpuscular h emoglobin (mass per erythrocyte) 23 pg 25-34 Automated erythrocyte mean corpuscular h emoglobin concentration measurement (mass/volume) 30 g/dL 32-36 Automated erythrocyte distribution width ratio 23. 1 % 10.0- 14.5 Automated blood platelet count (count/volume) 278 10*3/uL 130-400 Automated blood platelet mean volume measurement 10.7 [foz_us] 7.4-10.4 Automated blood neutrophils/100 leukocytes 89 % 42-75 Automated blood lymphocytes/100 leukocytes 5 % 12-44 Blood monocytes/100 leukocytes 6 % 0-12 Automated blood eosinophils/100 leukocytes 0 % 0-10 Automated blood basophils/100 leukocytes 0 % 0-10 Blood neutrophils automated count (number/volume) 20.4 10*3 1.8-7.8 Blood lymphocytes automated count (number/volume) 1.2 10*3 1.0-4.0 Blood monocytes automated count (number/volume) 1. 3 10*3 0.0-1.0 Automated eosinophil count 0.0 10*3/uL 0 .0-0.3 Automated blood basophil count (count/volume) 0.0 10*3/uL 0.0-0.1 Blood lactic acid measurement (moles/vol ume) - 09/23/19 03:15 Blood lactic acid measurement (moles/volume) 1.67 mmol/L 0.50-2.00 Comprehensive metabolic panel - 09/23/19 03:15 Serum or plasma sodium measurement (moles/volume) 140 mmol/L 135-145 Serum or plasma potassium measurement (moles/volume) 4.4 mmol/L 3.6-5.0 Serum or plasma chloride measurement (moles/volume) 108 mmol/L 98-107 Carbon dioxide 17 mmol/L 21-32 Serum or plasma anion gap determination (moles/volume) 15 mmol/L 5-14 Serum or plasma urea nitrogen measurement (mass/volume ) 25 mg/dL 7-18 Serum or plasma creatinine measurement (mass/volume) 0.92 mg/dL 0.60-1.30 Serum or plasma urea nitrogen/creatinine mass ratio 27 NRG Serum or plasma creatinine measurement w ith calculation of estimated glomerular filtration rate 60 NRG Serum or plasma glucose measurement (mass/volume) 145 mg/dL 70-105 Serum or plasma calcium measurement (mass/volume) 8.9 mg/dL 8.5-10.1 Serum or plasma total bilirubin measurement (mass/volu me) 1.0 mg/dL 0.1-1.0 Serum or plasma alkaline phosphatase joaquim surement (enzymatic activity/volume) 84 U/L 40-136 Serum or plasma aspartate aminotransfera se measurement (enzymatic activity/volume) 29 U/L 5-34 Serum or plasma alanine aminotransferase measurement (enzymatic activity/volume) 18 U/L 0-55 Serum or plasma protein measurement (mass/volume) 7.1 g/dL 6.4-8.2 Serum or plasma albumin measurement (mass/volume) 3.6 g/dL 3.2-4.5 CALCIUM CORRECTED 9.2 mg/dL 8.5-10.1 Serum or plasma phosphate measurement (m ass/volume) - 09/23/19 03:15 Serum or plasma phosphate measurement (mass/volume) 3.8 mg/dL 2.3-4.7 Magnesium - 09/23/19 03:15 Magnesium 2.0 mg/dL 1.6-2.4 PT panel in platelet poor plasma by coag ulation assay - 09/23/19 03:15 Prothrombin time (PT) in platelet poor plasma by coagu lation assay 28.9 s 12.2-14.7 INR in platelet poor plasma or blood by coagulation as say 2.6 0.8-1.4 PROCALCITONIN (PCT) - 09/23/19 03:15 PROCALCITONIN (PCT) 3.11 ng/mL <0.10 Serum or plasma troponin i.cardiac measu rement (mass/volume) - 09/23/19 03:15 Serum or plasma troponin i.cardiac measurement (mass/v olume) < ng/mL <0.028 Manual absolute plasma cell count - 12/06 03:15 Blood monocytes/100 leukocytes 3 % NRG Manual blood segmented neutrophils/100 leukocytes 85 % NRG Blood band neutrophils/100 leukocytes 8 % NRG Manual blood lymphocytes/100 leukocytes 4 % NRG Blood polychromasia detection by light microscopy SLIGHT NRG Blood anisocytosis detection by light microscopy M ARKED NRG Blood ovalocytes detection by light microscopy SLI GHT NRG Blood poikilocytosis detection by light microscopy SLIGHT NRG Blood microcytes detection by light microscopy MOD ERATE NRG Blood spherocytes detection by light microscopy SL IGHT NRG Serum or plasma lithium measurement (mol es/volume) - 09/23/19 03:15 BNP PT 407.2 pg/mL <100.0 Influenza virus A and B antigen detectio n - 09/23/19 06:35 FLU RESULT NEGATIVE FOR INFLUENZA A AND B ANTIGENS BY [facility] RESPIRATORY VIRUS PANEL - 09/23/19 06:35 Serum ragweed IgE antibody assay Not Detected Not Detected Serum or plasma aripiprazole measurement (mass/volume) Footnote Not Detected PARAINFLU 3 PCR Footnote Not Detected METAPNEUMO PCR Not Detected Not Detecte d Adenovirus detection, CSF, PCR Footnote Not Detected INFLUENZA A PCR Not Detected Not Detect ed INFLUENZA B PCR Not Detected Not Detect ed Complete urinalysis with reflex to cultu re - 09/23/19 08:10 Urine color determination BROWN NRG Urine clarity determination SL CLOUDY N RG Urine pH measurement by test strip 5.5 5-9 Specific gravity of urine by test strip >= 1.016-1.022 Urine protein assay by test strip, semi-quantitative 2+ NEGATIVE Urine glucose detection by automated test strip NE GATIVE NEGATIVE Erythrocytes detection in urine sediment by light micr oscopy 3+ NEGATIVE Urine ketones detection by automated test strip TR ISAAK NEGATIVE Urine nitrite detection by test strip NEGATIVE NEGATIVE Urine total bilirubin detection by test strip 2+ NEGATIVE Urine urobilinogen measurement by automated test strip (mass/volume) 0.2 mg/dL < = 1.0 Urine leukocyte esterase detection by dipstick NEG ATIVE NEGATIVE Automated urine sediment erythrocyte cou nt by microscopy (number/high power field) TNTC NRG Automated urine sediment leukocyte count by microscopy (number/high power field) [HPF] NRG Bacteria detection in urine sediment by light microsco py TRACE NRG Squamous epithelial cells detection in u rine sediment by light microscopy 2-5 NRG Crystals detection in urine sediment by light microsco py PRESENT NRG Casts detection in urine sediment by light microscopy NONE NRG Mucus detection in urine sediment by light microscopy NEGATIVE NRG Complete urinalysis with reflex to culture NO NRG Amorphous sediment detection in urine sediment by ligh t microscopy RARE POLLY URATES NRG Capillary blood glucose measurement by g lucometer (mass/volume) - 09/23/19 11:35 Capillary blood glucose measurement by glucometer (mas s/volume) 319 mg/dL 70-110 Capillary blood glucose measurement by g lucometer (mass/volume) - 09/23/19 16:36 Capillary blood glucose measurement by glucometer (mas s/volume) 161 mg/dL 70-110 Capillary blood glucose measurement by g lucometer (mass/volume) - 09/23/19 20:47 Capillary blood glucose measurement by glucometer (mas s/volume) 220 mg/dL 70-110 Complete blood count (CBC) with automate d white blood cell (WBC) differential - 09/24/19 04:27 Blood leukocytes automated count (number/volume) 12.3 10*3/uL 4.3-11.0 Blood erythrocytes automated count (number/volume) 4.59 10*6/uL 4.35-5.85 Venous blood hemoglobin measurement (mass/volume) 10.6 g/dL 11.5-16.0 Blood hematocrit (volume fraction) 35 % 35-52 Automated erythrocyte mean corpuscular volume 76 [ foz_us] 80-99 Automated erythrocyte mean corpuscular h emoglobin (mass per erythrocyte) 23 pg 25-34 Automated erythrocyte mean corpuscular h emoglobin concentration measurement (mass/volume) 31 g/dL 32-36 Automated erythrocyte distribution width ratio 22. 7 % 10.0- 14.5 Automated blood platelet count (count/volume) 226 10*3/uL 130-400 Automated blood platelet mean volume measurement 10.4 [foz_us] 7.4-10.4 Automated blood neutrophils/100 leukocytes 87 % 42-75 Automated blood lymphocytes/100 leukocytes 8 % 12-44 Blood monocytes/100 leukocytes 6 % 0-12 Automated blood eosinophils/100 leukocytes 0 % 0-10 Automated blood basophils/100 leukocytes 0 % 0-10 Blood neutrophils automated count (number/volume) 10.7 10*3 1.8-7.8 Blood lymphocytes automated count (number/volume) 1.0 10*3 1.0-4.0 Blood monocytes automated count (number/volume) 0. 7 10*3 0.0-1.0 Automated eosinophil count 0.0 10*3/uL 0 .0-0.3 Automated blood basophil count (count/volume) 0.0 10*3/uL 0.0-0.1 Comprehensive metabolic panel - 09/24/19 04:27 Serum or plasma sodium measurement (moles/volume) 138 mmol/L 135-145 Serum or plasma potassium measurement (moles/volume) 4.2 mmol/L 3.6-5.0 Serum or plasma chloride measurement (moles/volume) 108 mmol/L 98-107 Carbon dioxide 18 mmol/L 21-32 Serum or plasma anion gap determination (moles/volume) 12 mmol/L 5-14 Serum or plasma urea nitrogen measurement (mass/volume ) 28 mg/dL 7-18 Serum or plasma creatinine measurement (mass/volume) 0.80 mg/dL 0.60-1.30 Serum or plasma urea nitrogen/creatinine mass ratio 35 NRG Serum or plasma creatinine measurement w ith calculation of estimated glomerular filtration rate > NRG Serum or plasma glucose measurement (mass/volume) 162 mg/dL 70-105 Serum or plasma calcium measurement (mass/volume) 8.8 mg/dL 8.5-10.1 Serum or plasma total bilirubin measurement (mass/volu me) 0.4 mg/dL 0.1-1.0 Serum or plasma alkaline phosphatase joaquim surement (enzymatic activity/volume) 72 U/L 40-136 Serum or plasma aspartate aminotransfera se measurement (enzymatic activity/volume) 26 U/L 5-34 Serum or plasma alanine aminotransferase measurement (enzymatic activity/volume) 25 U/L 0-55 Serum or plasma protein measurement (mass/volume) 6.3 g/dL 6.4-8.2 Serum or plasma albumin measurement (mass/volume) 3.1 g/dL 3.2-4.5 CALCIUM CORRECTED 9.5 mg/dL 8.5-10.1 Serum or plasma phosphate measurement (m ass/volume) - 09/24/19 04:27 Serum or plasma phosphate measurement (mass/volume) 3.3 mg/dL 2.3-4.7 Magnesium - 09/24/19 04:27 Magnesium 2.0 mg/dL 1.6-2.4 Capillary blood glucose measurement by g lucometer (mass/volume) - 09/24/19 05:19 Capillary blood glucose measurement by glucometer (mas s/volume) 159 mg/dL 70-110 Arterial blood gas measurement - 0 09:50 Blood pCO2 38 mm[Hg] 35-45 Blood pO2 84 mm[Hg] 79-93 Arterial blood bicarbonate measurement (moles/volume) 19 mmol/L 23-27 Arterial blood base excess by calculation -6.3 mmo l/L -2.5-2.5 Arterial blood oxygen saturation measurement 96 % 94-100 * Inhaled oxygen flow rate 80% 25 L NRG Arterial blood pH measurement with patient temperature correction 7.31 7.37-7.43 Arterial blood carbon dioxide, total measurement (mole s/volume) 20.1 mmol/L 21.0-31.0 Body site RIGHT RADIAL NRG Assessment of wrist artery patency prior to arterial p uncture YES-POS NRG Setting of ventilation mode NO NR G Measurement of body temperature 36.3 NRG Capillary blood glucose measurement by g lucometer (mass/volume) - 09/24/19 11:10 Capillary blood glucose measurement by glucometer (mas s/volume) 254 mg/dL 70-110 Capillary blood glucose measurement by g lucometer (mass/volume) - 09/24/19 16:06 Capillary blood glucose measurement by glucometer (mas s/volume) 307 mg/dL 70-110 Capillary blood glucose measurement by g lucometer (mass/volume) - 09/24/19 21:34 Capillary blood glucose measurement by glucometer (mas s/volume) 296 mg/dL 70-110 Complete blood count (CBC) with automate d white blood cell (WBC) differential - 09/25/19 04:20 Blood leukocytes automated count (number/volume) 8.1 10*3/uL 4.3-11.0 Blood erythrocytes automated count (number/volume) 4.47 10*6/uL 4.35-5.85 Venous blood hemoglobin measurement (mass/volume) 10.2 g/dL 11.5-16.0 Blood hematocrit (volume fraction) 34 % 35-52 Automated erythrocyte mean corpuscular volume 76 [ foz_us] 80-99 Automated erythrocyte mean corpuscular h emoglobin (mass per erythrocyte) 23 pg 25-34 Automated erythrocyte mean corpuscular h emoglobin concentration measurement (mass/volume) 30 g/dL 32-36 Automated erythrocyte distribution width ratio 22. 8 % 10.0- 14.5 Automated blood platelet count (count/volume) 238 10*3/uL 130-400 Automated blood platelet mean volume measurement 10.5 [foz_us] 7.4-10.4 Automated blood neutrophils/100 leukocytes 86 % 42-75 Automated blood lymphocytes/100 leukocytes 7 % 12-44 Blood monocytes/100 leukocytes 7 % 0-12 Automated blood eosinophils/100 leukocytes 0 % 0-10 Automated blood basophils/100 leukocytes 0 % 0-10 Blood neutrophils automated count (number/volume) 7.0 10*3 1.8-7.8 Blood lymphocytes automated count (number/volume) 0.5 10*3 1.0-4.0 Blood monocytes automated count (number/volume) 0. 6 10*3 0.0-1.0 Automated eosinophil count 0.0 10*3/uL 0 .0-0.3 Automated blood basophil count (count/volume) 0.0 10*3/uL 0.0-0.1 Comprehensive metabolic panel - 09/25/19 04:20 Serum or plasma sodium measurement (moles/volume) 138 mmol/L 135-145 Serum or plasma potassium measurement (moles/volume) 4.5 mmol/L 3.6-5.0 Serum or plasma chloride measurement (moles/volume) 108 mmol/L 98-107 Carbon dioxide 18 mmol/L 21-32 Serum or plasma anion gap determination (moles/volume) 12 mmol/L 5-14 Serum or plasma urea nitrogen measurement (mass/volume ) 39 mg/dL 7-18 Serum or plasma creatinine measurement (mass/volume) 1.15 mg/dL 0.60-1.30 Serum or plasma urea nitrogen/creatinine mass ratio 34 NRG Serum or plasma creatinine measurement w ith calculation of estimated glomerular filtration rate 47 NRG Serum or plasma glucose measurement (mass/volume) 236 mg/dL 70-105 Serum or plasma calcium measurement (mass/volume) 9.1 mg/dL 8.5-10.1 Serum or plasma total bilirubin measurement (mass/volu me) 0.3 mg/dL 0.1-1.0 Serum or plasma alkaline phosphatase joaquim surement (enzymatic activity/volume) 120 U/L 40-136 Serum or plasma aspartate aminotransfera se measurement (enzymatic activity/volume) 29 U/L 5-34 Serum or plasma alanine aminotransferase measurement (enzymatic activity/volume) 30 U/L 0-55 Serum or plasma protein measurement (mass/volume) 6.4 g/dL 6.4-8.2 Serum or plasma albumin measurement (mass/volume) 3.2 g/dL 3.2-4.5 CALCIUM CORRECTED 9.7 mg/dL 8.5-10.1 Serum or plasma phosphate measurement (m ass/volume) - 09/25/19 04:20 Serum or plasma phosphate measurement (mass/volume) 2.9 mg/dL 2.3-4.7 Magnesium - 09/25/19 04:20 Magnesium 2.1 mg/dL 1.6-2.4 Capillary blood glucose measurement by g lucometer (mass/volume) - 09/25/19 11:21 Capillary blood glucose measurement by glucometer (mas s/volume) 258 mg/dL 70-110 Capillary blood glucose measurement by g lucometer (mass/volume) - 09/25/19 16:12 Capillary blood glucose measurement by glucometer (mas s/volume) 266 mg/dL 70-110 Capillary blood glucose measurement by g lucometer (mass/volume) - 09/25/19 20:53 Capillary blood glucose measurement by glucometer (mas s/volume) 293 mg/dL 70-110 Complete blood count (CBC) with automate d white blood cell (WBC) differential - 09/26/19 05:20 Blood leukocytes automated count (number/volume) 6.6 10*3/uL 4.3-11.0 Blood erythrocytes automated count (number/volume) 4.53 10*6/uL 4.35-5.85 Venous blood hemoglobin measurement (mass/volume) 10.3 g/dL 11.5-16.0 Blood hematocrit (volume fraction) 34 % 35-52 Automated erythrocyte mean corpuscular volume 76 [ foz_us] 80-99 Automated erythrocyte mean corpuscular h emoglobin (mass per erythrocyte) 23 pg 25-34 Automated erythrocyte mean corpuscular h emoglobin concentration measurement (mass/volume) 30 g/dL 32-36 Automated erythrocyte distribution width ratio 22. 4 % 10.0- 14.5 Automated blood platelet count (count/volume) 238 10*3/uL 130-400 Automated blood platelet mean volume measurement 10.7 [foz_us] 7.4-10.4 Automated blood neutrophils/100 leukocytes 87 % 42-75 Automated blood lymphocytes/100 leukocytes 7 % 12-44 Blood monocytes/100 leukocytes 6 % 0-12 Automated blood eosinophils/100 leukocytes 0 % 0-10 Automated blood basophils/100 leukocytes 0 % 0-10 Blood neutrophils automated count (number/volume) 5.7 10*3 1.8-7.8 Blood lymphocytes automated count (number/volume) 0.5 10*3 1.0-4.0 Blood monocytes automated count (number/volume) 0. 4 10*3 0.0-1.0 Automated eosinophil count 0.0 10*3/uL 0 .0-0.3 Automated blood basophil count (count/volume) 0.0 10*3/uL 0.0-0.1 Comprehensive metabolic panel - 09/26/19 05:20 Serum or plasma sodium measurement (moles/volume) 137 mmol/L 135-145 Serum or plasma potassium measurement (moles/volume) 4.5 mmol/L 3.6-5.0 Serum or plasma chloride measurement (moles/volume) 107 mmol/L 98-107 Carbon dioxide 19 mmol/L 21-32 Serum or plasma anion gap determination (moles/volume) 11 mmol/L 5-14 Serum or plasma urea nitrogen measurement (mass/volume ) 37 mg/dL 7-18 Serum or plasma creatinine measurement (mass/volume) 1.12 mg/dL 0.60-1.30 Serum or plasma urea nitrogen/creatinine mass ratio 33 NRG Serum or plasma creatinine measurement w ith calculation of estimated glomerular filtration rate 48 NRG Serum or plasma glucose measurement (mass/volume) 249 mg/dL 70-105 Serum or plasma calcium measurement (mass/volume) 8.8 mg/dL 8.5-10.1 Serum or plasma total bilirubin measurement (mass/volu me) 0.4 mg/dL 0.1-1.0 Serum or plasma alkaline phosphatase joaquim surement (enzymatic activity/volume) 139 U/L 40-136 Serum or plasma aspartate aminotransfera se measurement (enzymatic activity/volume) 34 U/L 5-34 Serum or plasma alanine aminotransferase measurement (enzymatic activity/volume) 42 U/L 0-55 Serum or plasma protein measurement (mass/volume) 6.8 g/dL 6.4-8.2 Serum or plasma albumin measurement (mass/volume) 3.5 g/dL 3.2-4.5 CALCIUM CORRECTED 9.2 mg/dL 8.5-10.1 Serum or plasma phosphate measurement (m ass/volume) - 09/26/19 05:20 Serum or plasma phosphate measurement (mass/volume) 2.6 mg/dL 2.3-4.7 Magnesium - 09/26/19 05:20 Magnesium 2.4 mg/dL 1.6-2.4 Capillary blood glucose measurement by g lucometer (mass/volume) - 09/26/19 11:06 Capillary blood glucose measurement by glucometer (mas s/volume) 272 mg/dL 70-110 Capillary blood glucose measurement by g lucometer (mass/volume) - 09/26/19 16:46 Capillary blood glucose measurement by glucometer (mas s/volume) 264 mg/dL 70-110 Capillary blood glucose measurement by g lucometer (mass/volume) - 09/26/19 21:06 Capillary blood glucose measurement by glucometer (mas s/volume) 221 mg/dL 70-110 Complete blood count (CBC) with automate d white blood cell (WBC) differential - 09/27/19 05:30 Blood leukocytes automated count (number/volume) 11.8 10*3/uL 4.3-11.0 Blood erythrocytes automated count (number/volume) 4.87 10*6/uL 4.35-5.85 Venous blood hemoglobin measurement (mass/volume) 11.0 g/dL 11.5-16.0 Blood hematocrit (volume fraction) 37 % 35-52 Automated erythrocyte mean corpuscular volume 76 [ foz_us] 80-99 Automated erythrocyte mean corpuscular h emoglobin (mass per erythrocyte) 23 pg 25-34 Automated erythrocyte mean corpuscular h emoglobin concentration measurement (mass/volume) 30 g/dL 32-36 Automated erythrocyte distribution width ratio 22. 6 % 10.0- 14.5 Automated blood platelet count (count/volume) 269 10*3/uL 130-400 Automated blood platelet mean volume measurement 10.1 [foz_us] 7.4-10.4 Automated blood neutrophils/100 leukocytes 77 % 42-75 Automated blood lymphocytes/100 leukocytes 13 % 12-44 Blood monocytes/100 leukocytes 10 % 0-12 Automated blood eosinophils/100 leukocytes 0 % 0-10 Automated blood basophils/100 leukocytes 0 % 0-10 Blood neutrophils automated count (number/volume) 9.1 10*3 1.8-7.8 Blood lymphocytes automated count (number/volume) 1.5 10*3 1.0-4.0 Blood monocytes automated count (number/volume) 1. 2 10*3 0.0-1.0 Automated eosinophil count 0.0 10*3/uL 0 .0-0.3 Automated blood basophil count (count/volume) 0.0 10*3/uL 0.0-0.1 Comprehensive metabolic panel - 09/27/19 05:30 Serum or plasma sodium measurement (moles/volume) 139 mmol/L 135-145 Serum or plasma potassium measurement (moles/volume) 3.7 mmol/L 3.6-5.0 Serum or plasma chloride measurement (moles/volume) 106 mmol/L 98-107 Carbon dioxide 22 mmol/L 21-32 Serum or plasma anion gap determination (moles/volume) 11 mmol/L 5-14 Serum or plasma urea nitrogen measurement (mass/volume ) 35 mg/dL 7-18 Serum or plasma creatinine measurement (mass/volume) 1.07 mg/dL 0.60-1.30 Serum or plasma urea nitrogen/creatinine mass ratio 33 NRG Serum or plasma creatinine measurement w ith calculation of estimated glomerular filtration rate 51 NRG Serum or plasma glucose measurement (mass/volume) 83 mg/dL 70-105 Serum or plasma calcium measurement (mass/volume) 9.0 mg/dL 8.5-10.1 Serum or plasma total bilirubin measurement (mass/volu me) 0.4 mg/dL 0.1-1.0 Serum or plasma alkaline phosphatase joaquim surement (enzymatic activity/volume) 137 U/L 40-136 Serum or plasma aspartate aminotransfera se measurement (enzymatic activity/volume) 34 U/L 5-34 Serum or plasma alanine aminotransferase measurement (enzymatic activity/volume) 41 U/L 0-55 Serum or plasma protein measurement (mass/volume) 6.9 g/dL 6.4-8.2 Serum or plasma albumin measurement (mass/volume) 3.6 g/dL 3.2-4.5 CALCIUM CORRECTED 9.3 mg/dL 8.5-10.1 Serum or plasma phosphate measurement (m ass/volume) - 09/27/19 05:30 Serum or plasma phosphate measurement (mass/volume) 2.4 mg/dL 2.3-4.7 Magnesium - 09/27/19 05:30 Magnesium 2.4 mg/dL 1.6-2.4 Serum or plasma lithium measurement (mol es/volume) - 09/27/19 05:30 BNP PT 303.8 pg/mL <100.0 Capillary blood glucose measurement by g lucometer (mass/volume) - 09/27/19 05:44 Capillary blood glucose measurement by glucometer (mas s/volume) 84 mg/dL 70-110 Capillary blood glucose measurement by g lucometer (mass/volume) - 09/27/19 10:55 Capillary blood glucose measurement by glucometer (mas s/volume) 310 mg/dL 70-110 Capillary blood glucose measurement by g lucometer (mass/volume) - 09/27/19 15:41 Capillary blood glucose measurement by glucometer (mas s/volume) 304 mg/dL 70-110 Capillary blood glucose measurement by g lucometer (mass/volume) - 09/27/19 20:11 Capillary blood glucose measurement by glucometer (mas s/volume) 225 mg/dL 70-110 Complete blood count (CBC) with automate d white blood cell (WBC) differential - 09/28/19 04:51 Blood leukocytes automated count (number/volume) 9.4 10*3/uL 4.3-11.0 Blood erythrocytes automated count (number/volume) 4.61 10*6/uL 4.35-5.85 Venous blood hemoglobin measurement (mass/volume) 10.4 g/dL 11.5-16.0 Blood hematocrit (volume fraction) 35 % 35-52 Automated erythrocyte mean corpuscular volume 75 [ foz_us] 80-99 Automated erythrocyte mean corpuscular h emoglobin (mass per erythrocyte) 23 pg 25-34 Automated erythrocyte mean corpuscular h emoglobin concentration measurement (mass/volume) 30 g/dL 32-36 Automated erythrocyte distribution width ratio 22. 5 % 10.0- 14.5 Automated blood platelet count (count/volume) 247 10*3/uL 130-400 Automated blood platelet mean volume measurement 10.0 [foz_us] 7.4-10.4 Automated blood neutrophils/100 leukocytes 70 % 42-75 Automated blood lymphocytes/100 leukocytes 18 % 12-44 Blood monocytes/100 leukocytes 12 % 0-12 Automated blood eosinophils/100 leukocytes 1 % 0-10 Automated blood basophils/100 leukocytes 0 % 0-10 Blood neutrophils automated count (number/volume) 6.6 10*3 1.8-7.8 Blood lymphocytes automated count (number/volume) 1.7 10*3 1.0-4.0 Blood monocytes automated count (number/volume) 1. 1 10*3 0.0-1.0 Automated eosinophil count 0.1 10*3/uL 0 .0-0.3 Automated blood basophil count (count/volume) 0.0 10*3/uL 0.0-0.1 Comprehensive metabolic panel - 09/28/19 04:55 Serum or plasma sodium measurement (moles/volume) 141 mmol/L 135-145 Serum or plasma potassium measurement (moles/volume) 3.1 mmol/L 3.6-5.0 Serum or plasma chloride measurement (moles/volume) 107 mmol/L 98-107 Carbon dioxide 22 mmol/L 21-32 Serum or plasma anion gap determination (moles/volume) 12 mmol/L 5-14 Serum or plasma urea nitrogen measurement (mass/volume ) 30 mg/dL 7-18 Serum or plasma creatinine measurement (mass/volume) 0.82 mg/dL 0.60-1.30 Serum or plasma urea nitrogen/creatinine mass ratio 37 NRG Serum or plasma creatinine measurement w ith calculation of estimated glomerular filtration rate > NRG Serum or plasma glucose measurement (mass/volume) 76 mg/dL 70-105 Serum or plasma calcium measurement (mass/volume) 8.6 mg/dL 8.5-10.1 Serum or plasma total bilirubin measurement (mass/volu me) 0.5 mg/dL 0.1-1.0 Serum or plasma alkaline phosphatase joaquim surement (enzymatic activity/volume) 112 U/L 40-136 Serum or plasma aspartate aminotransfera se measurement (enzymatic activity/volume) 27 U/L 5-34 Serum or plasma alanine aminotransferase measurement (enzymatic activity/volume) 36 U/L 0-55 Serum or plasma protein measurement (mass/volume) 6.4 g/dL 6.4-8.2 Serum or plasma albumin measurement (mass/volume) 3.3 g/dL 3.2-4.5 CALCIUM CORRECTED 9.2 mg/dL 8.5-10.1 Serum or plasma phosphate measurement (m ass/volume) - 09/28/19 04:55 Serum or plasma phosphate measurement (mass/volume) 2.4 mg/dL 2.3-4.7 Magnesium - 09/28/19 04:55 Magnesium 2.4 mg/dL 1.6-2.4 Capillary blood glucose measurement by g lucometer (mass/volume) - 09/28/19 10:44 Capillary blood glucose measurement by glucometer (mas s/volume) 182 mg/dL 70-110 Capillary blood glucose measurement by g lucometer (mass/volume) - 09/28/19 15:45 Capillary blood glucose measurement by glucometer (mas s/volume) 237 mg/dL 70-110 Capillary blood glucose measurement by g lucometer (mass/volume) - 09/28/19 20:29 Capillary blood glucose measurement by glucometer (mas s/volume) 273 mg/dL 70-110 Complete blood count (CBC) with automate d white blood cell (WBC) differential - 09/29/19 05:22 Blood leukocytes automated count (number/volume) 7.8 10*3/uL 4.3-11.0 Blood erythrocytes automated count (number/volume) 4.90 10*6/uL 4.35-5.85 Venous blood hemoglobin measurement (mass/volume) 11.2 g/dL 11.5-16.0 Blood hematocrit (volume fraction) 37 % 35-52 Automated erythrocyte mean corpuscular volume 75 [ foz_us] 80-99 Automated erythrocyte mean corpuscular h emoglobin (mass per erythrocyte) 23 pg 25-34 Automated erythrocyte mean corpuscular h emoglobin concentration measurement (mass/volume) 31 g/dL 32-36 Automated erythrocyte distribution width ratio 22. 4 % 10.0- 14.5 Automated blood platelet count (count/volume) 276 10*3/uL 130-400 Automated blood platelet mean volume measurement 10.6 [foz_us] 7.4-10.4 Automated blood neutrophils/100 leukocytes 82 % 42-75 Automated blood lymphocytes/100 leukocytes 11 % 12-44 Blood monocytes/100 leukocytes 7 % 0-12 Automated blood eosinophils/100 leukocytes 0 % 0-10 Automated blood basophils/100 leukocytes 0 % 0-10 Blood neutrophils automated count (number/volume) 6.5 10*3 1.8-7.8 Blood lymphocytes automated count (number/volume) 0.9 10*3 1.0-4.0 Blood monocytes automated count (number/volume) 0. 5 10*3 0.0-1.0 Automated eosinophil count 0.0 10*3/uL 0 .0-0.3 Automated blood basophil count (count/volume) 0.0 10*3/uL 0.0-0.1 Comprehensive metabolic panel - 09/29/19 05:22 Serum or plasma sodium measurement (moles/volume) 140 mmol/L 135-145 Serum or plasma potassium measurement (moles/volume) 4.0 mmol/L 3.6-5.0 Serum or plasma chloride measurement (moles/volume) 104 mmol/L 98-107 Carbon dioxide 22 mmol/L 21-32 Serum or plasma anion gap determination (moles/volume) 14 mmol/L 5-14 Serum or plasma urea nitrogen measurement (mass/volume ) 27 mg/dL 7-18 Serum or plasma creatinine measurement (mass/volume) 0.95 mg/dL 0.60-1.30 Serum or plasma urea nitrogen/creatinine mass ratio 28 NRG Serum or plasma creatinine measurement w ith calculation of estimated glomerular filtration rate 58 NRG Serum or plasma glucose measurement (mass/volume) 194 mg/dL 70-105 Serum or plasma calcium measurement (mass/volume) 9.1 mg/dL 8.5-10.1 Serum or plasma total bilirubin measurement (mass/volu me) 0.6 mg/dL 0.1-1.0 Serum or plasma alkaline phosphatase joaquim surement (enzymatic activity/volume) 113 U/L 40-136 Serum or plasma aspartate aminotransfera se measurement (enzymatic activity/volume) 23 U/L 5-34 Serum or plasma alanine aminotransferase measurement (enzymatic activity/volume) 34 U/L 0-55 Serum or plasma protein measurement (mass/volume) 7.0 g/dL 6.4-8.2 Serum or plasma albumin measurement (mass/volume) 3.7 g/dL 3.2-4.5 CALCIUM CORRECTED 9.3 mg/dL 8.5-10.1 Serum or plasma phosphate measurement (m ass/volume) - 09/29/19 05:22 Serum or plasma phosphate measurement (mass/volume) 2.9 mg/dL 2.3-4.7 Magnesium - 09/29/19 05:22 Magnesium 2.4 mg/dL 1.6-2.4 Serum or plasma lithium measurement (mol es/volume) - 09/29/19 05:22 BNP PT 374.1 pg/mL <100.0 Capillary blood glucose measurement by g lucometer (mass/volume) - 09/29/19 06:07 Capillary blood glucose measurement by glucometer (mas s/volume) 196 mg/dL 70-110 Capillary blood glucose measurement by g lucometer (mass/volume) - 09/29/19 11:19 Capillary blood glucose measurement by glucometer (mas s/volume) 231 mg/dL 70-110 Capillary blood glucose measurement by g lucometer (mass/volume) - 09/29/19 15:47 Capillary blood glucose measurement by glucometer (mas s/volume) 242 mg/dL 70-110 Capillary blood glucose measurement by g lucometer (mass/volume) - 09/29/19 20:39 Capillary blood glucose measurement by glucometer (mas s/volume) 305 mg/dL 70-110 Complete blood count (CBC) with automate d white blood cell (WBC) differential - 09/30/19 05:05 Blood leukocytes automated count (number/volume) 9.2 10*3/uL 4.3-11.0 Blood erythrocytes automated count (number/volume) 4.75 10*6/uL 4.35-5.85 Venous blood hemoglobin measurement (mass/volume) 10.6 g/dL 11.5-16.0 Blood hematocrit (volume fraction) 35 % 35-52 Automated erythrocyte mean corpuscular volume 74 [ foz_us] 80-99 Automated erythrocyte mean corpuscular h emoglobin (mass per erythrocyte) 22 pg 25-34 Automated erythrocyte mean corpuscular h emoglobin concentration measurement (mass/volume) 30 g/dL 32-36 Automated erythrocyte distribution width ratio 22. 4 % 10.0- 14.5 Automated blood platelet count (count/volume) 282 10*3/uL 130-400 Automated blood platelet mean volume measurement 10.3 [foz_us] 7.4-10.4 Automated blood neutrophils/100 leukocytes 84 % 42-75 Automated blood lymphocytes/100 leukocytes 9 % 12-44 Blood monocytes/100 leukocytes 7 % 0-12 Automated blood eosinophils/100 leukocytes 0 % 0-10 Automated blood basophils/100 leukocytes 0 % 0-10 Blood neutrophils automated count (number/volume) 7.8 10*3 1.8-7.8 Blood lymphocytes automated count (number/volume) 0.8 10*3 1.0-4.0 Blood monocytes automated count (number/volume) 0. 6 10*3 0.0-1.0 Automated eosinophil count 0.0 10*3/uL 0 .0-0.3 Automated blood basophil count (count/volume) 0.0 10*3/uL 0.0-0.1 Comprehensive metabolic panel - 09/30/19 05:05 Serum or plasma sodium measurement (moles/volume) 141 mmol/L 135-145 Serum or plasma potassium measurement (moles/volume) 4.4 mmol/L 3.6-5.0 Serum or plasma chloride measurement (moles/volume) 101 mmol/L 98-107 Carbon dioxide 27 mmol/L 21-32 Serum or plasma anion gap determination (moles/volume) 13 mmol/L 5-14 Serum or plasma urea nitrogen measurement (mass/volume ) 27 mg/dL 7-18 Serum or plasma creatinine measurement (mass/volume) 1.01 mg/dL 0.60-1.30 Serum or plasma urea nitrogen/creatinine mass ratio 27 NRG Serum or plasma creatinine measurement w ith calculation of estimated glomerular filtration rate 54 NRG Serum or plasma glucose measurement (mass/volume) 218 mg/dL 70-105 Serum or plasma calcium measurement (mass/volume) 8.9 mg/dL 8.5-10.1 Serum or plasma total bilirubin measurement (mass/volu me) 0.5 mg/dL 0.1-1.0 Serum or plasma alkaline phosphatase joaquim surement (enzymatic activity/volume) 110 U/L 40-136 Serum or plasma aspartate aminotransfera se measurement (enzymatic activity/volume) 23 U/L 5-34 Serum or plasma alanine aminotransferase measurement (enzymatic activity/volume) 30 U/L 0-55 Serum or plasma protein measurement (mass/volume) 6.8 g/dL 6.4-8.2 Serum or plasma albumin measurement (mass/volume) 3.4 g/dL 3.2-4.5 CALCIUM CORRECTED 9.4 mg/dL 8.5-10.1 Serum or plasma phosphate measurement (m ass/volume) - 09/30/19 05:05 Serum or plasma phosphate measurement (mass/volume) 3.0 mg/dL 2.3-4.7 Magnesium - 09/30/19 05:05 Magnesium 2.4 mg/dL 1.6-2.4 Capillary blood glucose measurement by g lucometer (mass/volume) - 09/30/19 11:12 Capillary blood glucose measurement by glucometer (mas s/volume) 467 mg/dL 70-110 Capillary blood glucose measurement by g lucometer (mass/volume) - 09/30/19 15:39 Capillary blood glucose measurement by glucometer (mas s/volume) 262 mg/dL 70-110 Capillary blood glucose measurement by g lucometer (mass/volume) - 09/30/19 21:05 Capillary blood glucose measurement by glucometer (mas s/volume) 297 mg/dL 70-110 Complete blood count (CBC) with automate d white blood cell (WBC) differential - 10/01/19 04:43 Blood leukocytes automated count (number/volume) 12.0 10*3/uL 4.3-11.0 Blood erythrocytes automated count (number/volume) 4.93 10*6/uL 4.35-5.85 Venous blood hemoglobin measurement (mass/volume) 11.1 g/dL 11.5-16.0 Blood hematocrit (volume fraction) 37 % 35-52 Automated erythrocyte mean corpuscular volume 75 [ foz_us] 80-99 Automated erythrocyte mean corpuscular h emoglobin (mass per erythrocyte) 23 pg 25-34 Automated erythrocyte mean corpuscular h emoglobin concentration measurement (mass/volume) 30 g/dL 32-36 Automated erythrocyte distribution width ratio 22. 5 % 10.0- 14.5 Automated blood platelet count (count/volume) 309 10*3/uL 130-400 Automated blood platelet mean volume measurement 10.1 [foz_us] 7.4-10.4 Automated blood neutrophils/100 leukocytes 74 % 42-75 Automated blood lymphocytes/100 leukocytes 14 % 12-44 Blood monocytes/100 leukocytes 12 % 0-12 Automated blood eosinophils/100 leukocytes 0 % 0-10 Automated blood basophils/100 leukocytes 0 % 0-10 Blood neutrophils automated count (number/volume) 8.9 10*3 1.8-7.8 Blood lymphocytes automated count (number/volume) 1.7 10*3 1.0-4.0 Blood monocytes automated count (number/volume) 1. 5 10*3 0.0-1.0 Automated eosinophil count 0.0 10*3/uL 0 .0-0.3 Automated blood basophil count (count/volume) 0.0 10*3/uL 0.0-0.1 Comprehensive metabolic panel - 10/01/19 04:43 Serum or plasma sodium measurement (moles/volume) 141 mmol/L 135-145 Serum or plasma potassium measurement (moles/volume) 4.6 mmol/L 3.6-5.0 Serum or plasma chloride measurement (moles/volume) 100 mmol/L 98-107 Carbon dioxide 29 mmol/L 21-32 Serum or plasma anion gap determination (moles/volume) 12 mmol/L 5-14 Serum or plasma urea nitrogen measurement (mass/volume ) 25 mg/dL 7-18 Serum or plasma creatinine measurement (mass/volume) 0.98 mg/dL 0.60-1.30 Serum or plasma urea nitrogen/creatinine mass ratio 26 NRG Serum or plasma creatinine measurement w ith calculation of estimated glomerular filtration rate 56 NRG Serum or plasma glucose measurement (mass/volume) 187 mg/dL 70-105 Serum or plasma calcium measurement (mass/volume) 8.8 mg/dL 8.5-10.1 Serum or plasma total bilirubin measurement (mass/volu me) 0.5 mg/dL 0.1-1.0 Serum or plasma alkaline phosphatase joaquim surement (enzymatic activity/volume) 128 U/L 40-136 Serum or plasma aspartate aminotransfera se measurement (enzymatic activity/volume) 25 U/L 5-34 Serum or plasma alanine aminotransferase measurement (enzymatic activity/volume) 35 U/L 0-55 Serum or plasma protein measurement (mass/volume) 6.9 g/dL 6.4-8.2 Serum or plasma albumin measurement (mass/volume) 3.6 g/dL 3.2-4.5 CALCIUM CORRECTED 9.1 mg/dL 8.5-10.1 Serum or plasma phosphate measurement (m ass/volume) - 10/01/19 04:43 Serum or plasma phosphate measurement (mass/volume) 2.8 mg/dL 2.3-4.7 Magnesium - 10/01/19 04:43 Magnesium 2.4 mg/dL 1.6-2.4 Capillary blood glucose measurement by g lucometer (mass/volume) - 10/01/19 10:58 Capillary blood glucose measurement by glucometer (mas s/volume) 209 mg/dL 70-110 Encounters ACCT No. Visit Date/Time Discharge Status Pt. Type Provider Facility Loc./Unit Complaint [id number] 09/22/2019 00:00:00 09/22/2019 22:00 :00 DIS Outpatient ELVI SUE [facility] ER [id number] 08/27/2019 14:05:00 08/27/2019 23:59 :00 DIS Outpatient Gavino Benitez [id number] 08/05/2019 10:18:00 08/05/2019 23:59 :00 DIS Outpatient Gavino Benitez [id number] 08/05/2019 10:09:00 08/05/2019 23:59 :00 DIS Outpatient ESME GASPAR [id number] 06/17/2019 09:20:00 06/18/2019 13:30 :00 DIS Outpatient Gavino Benitez [facility] MED-SURG [id number] 05/22/2019 11:16:00 05/22/2019 12:47: 00 DIS Outpatient ELVI SUE [facility] ER [id number] 04/03/2019 16:21:00 04/03/2019 23:59: 00 DIS Outpatient Gavino Benitez [id number] 04/03/2019 09:55:00 04/03/2019 23:59: 00 DIS Outpatient Gavino Benitez [id number] 03/12/2019 12:10:00 03/12/2019 23:59: 00 DIS Outpatient Glenny Pretty [id number] 11/28/2018 10:30:00 11/28/2018 23:59: 00 DIS Outpatient Gavino Benitez [id number] 11/05/2018 11:48:00 11/05/2018 14:45: 00 DIS Outpatient David Montoya [id number] 04/05/2018 08:26:00 04/05/2018 23:59: 00 DIS Outpatient CIRO HURLEY [id number] 11/29/2017 10:05:00 11/29/2017 23:59: 00 DIS Outpatient Glenny Pretty [id number] 10/11/2017 10:53:00 10/11/2017 23:59: 00 DIS Outpatient Gavino Benitez [id number] 09/02/2017 08:03:00 09/02/2017 10:25: 00 DIS Outpatient Lindsay [facility] [id number] 04/05/2017 13:31:00 04/05/2017 23:59: 00 DIS Outpatient JIMENEZ HURLEYY [id number] 02/07/2017 10:35:00 02/07/2017 23:59: 00 DIS Outpatient ESME GASPAR [id number] 12/19/2016 19:13:00 12/20/2016 13:50: 00 DIS Outpatient Emmanuel 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 [facility] RAD COPD [id number] 02/14/2019 11:59:00 019 23:59:59 CLS Outpatient MARTA 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 [facility] 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 COPD [id number] 02/27/2017 13:00:00 017 23:59:59 CLS Preadmit CRYSTAL LEONEL E 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 [facility] PULM J43.8 COPD [id number] 01/05/2017 08:39:00 017 23:59:59 CLS Preadmit MARTA 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 [facility] RAD J43.8 COPD [id number] 11/09/2016 13:00:00 017 23:59:59 CLS Preadmit MATEO AC [facility] CARD R06.09,I48.0,I25.10 [id number] 09/28/2015 09:53:00 016 23:59:59 CLS Outpatient MARTA ROJASINE Piyush 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 [facility] RAD COPD,DYSPNEA [id number] 03/04/2015 08:16:00 015 23:59:59 CLS Outpatient MARTA 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 [facility] RAD PLEURAL EFFUSIO N [id number] 02/09/2015 10:23:00 015 23:59:59 CLS Outpatient ESME GASPAR DO [facility] RAD COPD DYSPNEA HYPOXIA [id number] 01/27/2015 16:33:00 015 23:59:59 CLS Outpatient ESME GASPAR DO [facility] LAB COPD,DYSPNEA,HYPOXIA [id number] 12/25/2014 14:25:00 015 13:10:00 DIS Inpatient JERARDO ASHTON, ANAYELI [facility] CSD HYPOXIA,BILAT PLEURAL EFFUSIONS,CHF,UTI [id number] 12/25/2014 14:46:00 Document Registration [id number] 05/16/2011 20:30:00 Document Registration [id number] 05/03/2011 10:32:00 Document Registration
[2019-10-26] MEDS ORDERED: NS IV 1000 ML 1,000 ML IV SCH (23:16)
[2019-10-26 23:23] LABS: ABG OXYGEN SATURATION 91 % (94-100); ABG PCO2 40 MMHG (35-45); ABG PO2 80 MMHG (79-93); ABG TCO2 14.7 MMOL/L (21.0-31.0)
--- NOTE | 2019-10-26 23:23 | ED Respiratory ---
General Chief Complaint: Respiratory Problems Stated Complaint: RESP. DISTRESS Source: patient, EMS, [facility] records Exam Limitations: no limitations History of Present Illness Date Seen by Provider: October 26, 2019 Time Seen by Provider: 22:56 Initial Comments Patient resents ER by EMS from [facility] with chief complaint staff said they heard a thump when they had her sit up on the side of the bed and they were just outside the room. When they went in there she was laying on the floor on her right side. They deny that she had any loss of consciousness. Unsure if she struck her head or not. EMS placed a c-collar on her. Patient was nonverbal and had a good waveform of 50% per staff. She is on 2-3 L by nasal cannula at baseline with a history of COPD. She does not smoke presently. No history of fever cough. When the patient arrived she gives the same history and his verbal as well as oriented. Her sats on a nonrebreather at 15 years per minute were 98%. She denies nausea vomiting chest pain fevers chills cough. She denies pain in her neck or head. She had a small epistaxis that was hemostatic by the time she arrived. Echocardiogram by Dr. Pretty 2014 demonstrates EF of 50-55%. Allergies and Home Medications Allergies Coded Allergies: No Known Drug Allergies (Unverified , 05/03/11) Home Medications Albuterol Sulfate 1 Puff Puff, 2 PUFF PO Q6H PRN for SHORTNESS OF BREATH, (Reported) Alprazolam 0.25 Mg Tablet, 0.25 MG PO DAILY PRN for ANXIETY, (Reported) Apixaban 5 Mg Tablet, 5 MG PO BID, (Reported) Cetirizine HCl 10 Mg Tablet, 10 MG PO DAILY PRN for ALLERGY SYMPTOMS, (Reported) Fluticasone/Umeclidin/Vilanter 1 Each Blst.w.dev, 1 PUFF IN DAILY, (Reported) RINSE AND SPIT AFTER EACH INHALATION Furosemide 20 Mg Tablet, 20 MG PO BID, (Reported) Ipratropium/Albuterol Sulfate 3 Ml Ampul.neb, 1 VIAL NEB Q6H, (Reported) Levothyroxine Sodium 50 Mcg Tablet, 50 MCG PO DAILY, (Reported) Lisinopril 2.5 Mg Tablet, 2.5 MG PO DAILY, (Reported) Metformin HCl 500 Mg Tablet, 500 MG PO BID, (Reported) Montelukast Sodium 10 Mg Tablet, 10 MG PO HS, (Reported) Multivitamin 1 Each Tablet, 1 EACH PO DAILY, (Reported) [place]-3 Fatty Acids/Fish Oil 1 Each Capsule, 1 EACH PO DAILY, (Reported) Omeprazole 20 Mg Capsule.dr, 20 MG PO DAILY, (Reported) Potassium Chloride 10 Meq Tablet.er, 20 MEQ PO DAILY, (Reported) TAKES 2 (10MEQ) TABS DAILY Prednisone 10 Mg Tab.ds.pk, 10 MG PO DAILY Take 6 tabs(60mg)daily,decrease by 1 tab(10mg)every other day. Prescribed by: JOSHUA PARIKH on 10/01/19 1129 Rosuvastatin Calcium 40 Mg Tablet, 40 MG PO HS, (Reported) Sertraline HCl 100 Mg Tablet, 100 MG PO DAILY, (Reported) Patient Home Medication List Home Medication List Reviewed: Yes ( DISCHARGE) Review of Systems Review of Systems Constitutional: No chills, No fever EENTM: No ear pain, No eye pain Respiratory: No cough, No phlegm; short of breath; No wheezing Gastrointestinal: No constipation, No diarrhea, No nausea, No vomiting Genitourinary: No discharge, No dysuria Musculoskeletal: No back pain, No joint pain Skin: No pruritus, No rash All Other Systems Reviewed Negative Unless Noted: Yes Past Rpyrvnz-Coutur-Opxcor Hx Patient Social History Alcohol Use: Denies Use Recreational Drug Use: No Smoking Status: Former Smoker Type Used: Cigarettes Former Smoker, Quit: Sep 21, 2013 Recent Hopitalizations: Yes (6 months ago) Immunizations Up To Date Tetanus Booster (TDap): Unknown Date of Pneumonia Vaccine: Sep 21, 2018 Seasonal Allergies Seasonal Allergies: No Past Medical History Surgeries: Yes Cardiac, CABG Respiratory: Yes Sleep Apnea, COPD Cardiac: Yes ([place] in 1998) Atrial Fibrillation, Coronary Artery Disease, High Cholesterol, Hypertension Neurological: No Reproductive Disorders: No Female Reproductive Disorders: Denies Sexually Transmitted Disease: No HIV/AIDS: No Genitourinary: No Gastrointestinal: No Musculoskeletal: No Endocrine: Yes Hypothyroidsim Cataract Hearing Impairment: Hard of Hearing Cancer: No Psychosocial: Yes Anxiety Integumentary: No Blood Disorders: No Adverse Reaction/Blood Tranf: No Family Medical History FH: cancer G8 BROTHER G8 BROTHER G8 BROTHER G8 BROTHER G8 BROTHER G8 SISTER G8 SISTER FHx: leukemia 19 FATHER FHx: stroke 19 MOTHER No Pertinent Family Hx Physical Exam Vital Signs - First Documented Capillary Refill : Height: 4'10.50" Weight: 106lbs. oz. 48.707244hr; 26.31 BMI Method:Stated General Appearance: WD/WN, moderate distress Eyes: Bilateral Eye Normal Inspection, Bilateral Eye PERRL, Bilateral Eye EOMI HEENT: PERRL/EOMI (3 mm bilateral), normal ENT inspection, TMs normal, pharynx normal Neck: non-tender, full range of motion, normal inspection Respiratory: lungs clear, normal breath sounds, respiratory distress (respiratory rate 35), accessory muscle use (moderate) Cardiovascular: normal peripheral pulses, regular rate, rhythm Gastrointestinal: normal bowel sounds, non tender, soft, no organomegaly Extremities: non-tender, normal inspection, no pedal edema, normal capillary refill Neurologic/Psychiatric: clinical pathologist II-XII nml as tested, no motor/sensory deficits, alert, normal mood/affect, oriented x 3, other (moves all 4 extremities and apparently without pronator drift.) Skin: normal color, warm/dry Focused Exam Sepsis Stage: Septic Shock Possible Source: Pulmonary Lactate Level 10/26/19 23:30: Lactic Acid Level 6.73*H Time of Focused Exam: 00:36 Respiratory: Lungs Clear, Normal Breath Sounds, Accessory Muscle Use, Respiratory Distress, Other (tolerating CPAP well) Cardiovascular: Regular Rate, Rhythm, Normal Peripheral Pulses, Other (trace bipedal edema) Capillary Refill: Less Than 3 Seconds Peripheral Pulses: 2+ Radial Pulses (R), 2+ Radial Pulses (L) Skin: normal color, warm/dry Lactic Acid Level Laboratory Tests Test 10/26/19 23:30 Lactic Acid Level 6.73 MMOL/L (0.50-2.00) *H Within 3hrs of presentation: Admin fluids, Admin ABX, Blood cultures prior to ABX's, Focus exam, Lactate level Procedures/Interventions Lumen: triple (16 cm 7 Scottish) Central Line Procedure: betadine prep (chlorhexidine prep), sterile drapes applied, sterile dressing applied Position: internal jugular (R) Anesthesia: Lidocaine (1% without epinephrine) Volume Anesthetic (ccs): 3 Complications: none Post Position: sutured, good blood return, position confirmed w/ CXR Risks, benefits and alternatives were explained to the procedure of putting a central line and the help support her low blood pressure. Patient was accepting of these and gave consent verbally for central line placement. Right IJ site was selected and under ultrasound surveillance had a good plump internal jugular easily accessible. Patient was draped out in usual sterile fashion after being cleaned thoroughly with chlorhexidine prep and allowing it to dry. We were wearing appropriate PPE. Under ultrasound guidance we're able to easily insert the introducer needle into the right internal jugular and get good blood return. A guidewire was passed easily on first attempt. No ectopy was noted on the monitor. A small 1 mm incision was made at the base the needle using the supplied 11 blade scalpel. The needle was removed and the dilator was passed over the guidewire. The dilator was removed. The central lumen of the pre- flushed triple lumen catheter was then passed over the guidewire and stitched in place and 2 [address] places at 13.5 cm. Guidewire was already removed. Patient tolerated procedure well. Central lumen withdrew and flushed easily. Progress/Results/Core Measures Suspected Sepsis SIRS Temperature: Pulse: Respiratory Rate: Laboratory Tests 10/26/19 23:15: White Blood Count 17.0H Blood Pressure / Mean: 10/26/19 23:30: Lactic Acid Level 6.73*H Laboratory Tests 10/26/19 23:15: Creatinine 2.10H, INR Comment 2.3H, Platelet Count 326, Total Bilirubin 0.7 Results/Orders Lab Results Laboratory Tests Test 10/26/19 23:11 10/26/19 23:15 10/26/19 23:30 10/26/19 23:35 Range/Units Blood Gas Puncture Site RIGHT RADIAL Blood Gas Patient Temperature 35.9 Arterial Blood pH 7.14 *L 7.37-7.43 Arterial Blood Partial Pressure CO2 40 35-45 MMHG Arterial Blood Partial Pressure O2 80 79-93 MMHG Arterial Blood HCO3 13 *L 23-27 MMOL/L Arterial Blood Total CO2 14.7 L 21.0-31.0 MMOL/L Arterial Blood Oxygen Saturation 91 L 94-100 % Arterial Blood Base Excess -14.0 L -2.5-2.5 MMOL/L Reese Test POSITIVE Blood Gas Ventilator Setting NO Blood Gas Inspired Oxygen 14 White Blood Count 17.0 H 4.3-11.0 10^3/uL Red Blood Count 5.10 4.35-5.85 10^6/uL Hemoglobin 11.3 L 11.5-16.0 G/DL Hematocrit 39 35-52 % Mean Corpuscular Volume 76 L 80-99 FL Mean Corpuscular Hemoglobin 22 L 25-34 PG Mean Corpuscular Hemoglobin Concent 29 L 32-36 G/DL Red Cell Distribution Width 23.0 H 10.0-14.5 % Platelet Count 326 130-400 10^3/uL Mean Platelet Volume 10.5 H 7.4-10.4 FL Neutrophils (%) (Auto) 86 H 42-75 % Lymphocytes (%) (Auto) 7 L 12-44 % Monocytes (%) (Auto) 7 0-12 % Eosinophils (%) (Auto) 0 0-10 % Basophils (%) (Auto) 0 0-10 % Neutrophils # (Auto) 14.5 H 1.8-7.8 X 10^3 Lymphocytes # (Auto) 1.2 1.0-4.0 X 10^3 Monocytes # (Auto) 1.2 H 0.0-1.0 X 10^3 Eosinophils # (Auto) 0.0 0.0-0.3 10^3/uL Basophils # (Auto) 0.0 0.0-0.1 10^3/uL Neutrophils % (Manual) 85 % Lymphocytes % (Manual) 8 % Monocytes % (Manual) 7 % Hypochromasia SLIGHT Poikilocytosis SLIGHT Anisocytosis SLIGHT Mathews Cells SLIGHT Prothrombin Time 25.9 H 12.2-14.7 SEC INR Comment 2.3 H 0.8-1.4 Activated Partial Thromboplast Time 29 24-35 SEC Sodium Level 134 L 135-145 MMOL/L Potassium Level 5.4 H 3.6-5.0 MMOL/L Chloride Level 102 98-107 MMOL/L Carbon Dioxide Level 14 L 21-32 MMOL/L Anion Gap 18 H 5-14 MMOL/L Blood Urea Nitrogen 34 H 7-18 MG/DL Creatinine 2.10 H 0.60-1.30 MG/DL Estimat Glomerular Filtration Rate 23 BUN/Creatinine Ratio 16 Glucose Level 199 H 70-105 MG/DL Calcium Level 8.8 8.5-10.1 MG/DL Corrected Calcium 9.1 8.5-10.1 MG/DL Total Bilirubin 0.7 0.1-1.0 MG/DL Aspartate Amino Transf (AST/SGOT) 379 H 5-34 U/L Alanine Aminotransferase (ALT/SGPT) 368 H 0-55 U/L Alkaline Phosphatase 151 H 40-136 U/L Troponin I 0.062 H <0.028 NG/ML B-Type Natriuretic Peptide 361.1 H <100.0 PG/ML Total Protein 7.7 6.4-8.2 GM/DL Albumin 3.6 3.2-4.5 GM/DL Lactic Acid Level 6.73 *H 0.50-2.00 MMOL/L Urine Color YELLOW Urine Clarity CLEAR Urine pH 5.5 5-9 Urine Specific [place] >=1.030 1.016-1.022 Urine Protein 3+ H NEGATIVE Urine Glucose (UA) 1+ H NEGATIVE Urine Ketones TRACE H NEGATIVE Urine Nitrite NEGATIVE NEGATIVE Urine Bilirubin 1+ H NEGATIVE Urine Urobilinogen 0.2 < = 1.0 MG/DL Urine Leukocyte Esterase NEGATIVE NEGATIVE Urine RBC (Auto) 1+ H NEGATIVE Urine RBC 2-5 H /HPF Urine WBC NONE /HPF Urine Squamous Epithelial Cells 2-5 /HPF Urine Crystals NONE /LPF Urine Bacteria MODERATE H /HPF Urine Casts PRESENT /LPF Urine Hyaline Casts RARE /LPF Urine Granular Casts 0-2 H /LPF Urine Mucus SMALL H /LPF Urine Yeast FEW H /HPF Urine Culture Indicated CULTURE PENDING My Orders Orders - JUJU LINDSEY Cbc With Automated Diff (10/26/19 23:16) Comprehensive Metabolic Panel (10/26/19 23:16) Blood Culture (10/26/19 23:16) Sputum Culture (10/26/19 23:16) Urinalysis (10/26/19 23:16) Urine Culture (10/26/19 23:16) Protime With Inr (10/26/19 23:16) Partial Thromboplastin Time (10/26/19 23:16) Chest 1 View, Ap/Pa Only (10/26/19 23:16) Ed Iv/Invasive Line Start (10/26/19 23:16) Ed Iv/Invasive Line Start (10/26/19 23:16) Ekg Tracing (10/26/19 23:16) Troponin I (10/26/19 23:16) Vital Signs Adult Sepsis Patie Q15M (5/9/20 23:16) O2 (10/26/19 23:16) Remove Rings In Anticipation O (10/26/19 23:16) Lactic Acid Analyzer (10/26/19 23:16) Ns Iv 1000 Ml (Sodium Chloride 0.9%) (10/26/19 23:16) Cefepime Injection (Maxipime Injection) (10/26/19 23:30) Vancomycin Injection (Vancomycin Injecti (10/26/19 23:30) Vancomycin Injection (Vancomycin Injecti (10/27/19 00:30) BNP (10/26/19 23:16) Ct Head/Cervical Spine Wo (10/26/19 23:16) Arterial Blood Gas (10/26/19 23:16) Albuterol/Ipra Inhalation Soln (Duoneb I (10/26/19 23:30) Svn Small Volume Nebulizer (10/26/19 23:23) Ekg Tracing (10/26/19 23:23) Continuous Ekg Monitoring (10/26/19 23:23) Catheter(Urinary) Insert & Ass 03,15 (10/26/19 23:25) Manual Differential (10/26/19 23:15) Ct Chest Wo (10/26/19 23:51) Medications Given in ED Current Medications Medications Dose Ordered Sig/Rosa Route Start Time Stop Time Status Last Admin Dose Admin Albuterol/ Ipratropium 3 ml ONCE ONCE INH 10/26/19 23:30 10/26/19 23:31 DC 10/26/19 23:28 3 ML Cefepime HCl 1000 mg/Sterile Water 10 ml @ 200 mls/hr ONCE ONCE IV 10/26/19 23:30 10/26/19 23:32 DC 10/27/19 00:55 200 MLS/HR Vancomycin HCl 500 mg/Sodium Chloride 100 ml @ 100 mls/hr ONCE ONCE IV 10/27/19 00:30 10/27/19 01:29 DC 10/27/19 00:55 100 MLS/HR Vancomycin HCl 750 mg/Sodium Chloride 100 ml @ 100 mls/hr ONCE ONCE IV 10/26/19 23:30 10/27/19 00:29 DC 10/27/19 00:56 100 MLS/HR Vital Signs/I&O 10/26/19 10/26/1910/25/20 23:05 23:05 23:54 Temp 36.5 Pulse 62 59 Resp 10 25 B/P (MAP) 131/69 (89) Pulse Ox 94 94 O2 Delivery Non Rebreather Non Rebreather O2 Flow Rate 15.00 15.00 100.00 Capillary Refill : Progress Note #1: Time: 23:27 Progress Note Patient presents with a fall so we'll get a CT of her head and neck. She also has profound hypoxia with increased oxygen demand. On 12 L by simple mask she is maintaining 99%. She does not have elevated heart rate or fever. Plan to get EKG. Initial EKG was difficult to read so we will get her breathing under control with CPAP and then repeat EKG. We'll give her a DuoNeb however her lungs sound clear. Initial ABG crackles called back demonstrate metabolic acidosis. Looking for infectious source as the increased respiratory rate seems to be from attempted compensation to a metabolic problem. Brothers catheter for urine sample. BNP and troponin. Patient is alert, oriented and although she answers slowly she does appear to be neurologically intact without any lateralizing deficits. Because of the white count and increased respiratory rate we're doing a septic workup with cefepime and vancomycin to control for pneumonia, UTI, etc. Progress Note #2: Time: 00:00 Progress Note Troponin is mildly elevated probably due to her increased respiratory demand. Plan to repeat EKG after the put her back on the CPAP. She Had a significant improvement in her work of breathing. C-collar cleared radiographically and clinically at 0004. Progress Note #3: Time: 00:40 Progress Note The patient is tolerating the CPAP well. Antibiotics have been selected. Going to put her on the cardiac stepdown unit and continue her fluids. BNP is still pending. We have spoken to Lidia Whalen her [id number]. Progress Note #4: Time: 01:31 Progress Note The patient's blood pressure was soft when she arrived around 110 systolic. Her blood pressure continued to drop throughout her stay down to 92 systolic with a map of 62. Central line was initiated. She was still getting her fluids but with a lactate of 6 I suspect she may yet need pressors. Her map falls below 60 mmHg then we will initiate pressors otherwise she is heading to the ICU. ECG Initial ECG Impression Date: October 26, 2019 Initial ECG Impression Time: 23:11 Initial ECG Rate: 61 Initial ECG Rhythm: Normal Sinus Initial ECG Intervals: Normal Initial ECG Impression: Nonspecific Changes Comment Atrial sensed ventricularly paced complexes with a fair amount of movement artifact secondary to respiratory. No clinically relevant ST elevation or depression. EKG : EKG Time: 00:12 Rate: 60 Rhythm: Normal Sinus Intervals: QT (504) ECG Comparisson: Unchanged ECG Impression: Normal Comment Sinus rhythm without clinically relevant ST elevation or depression. Diagnostic Imaging Diagonstic Imaging: Xray Plain Films/CT/US/NM/MRI: chest Comments Right lower lobe consolidation consistent with possible infiltrate versus significant pleural effusion. Reviewed: Reviewed by Me Diagonstic Imaging: CT (without IV contrast) Plain Films/CT/US/NM/MRI: c-spine, head Comments Age-indeterminate mild anterior wedging of T2. Cervical spine is intact. Severe right and moderate left pleural effusions. Mild pulmonary edema. Reviewed: Reviewed [place] Study, Reviewed by Me Diagonstic Imaging: CT (without IV contrast) Plain Films/CT/US/NM/MRI: chest Comments Cardiomegaly with severe right and mild left pleural effusion. Mild pulmonary edema. Opacities in the bilateral upper lobes, likely infectious versus inflammatory process. Bilateral lower lobe compressive atelectasis. Reviewed: Reviewed [place] Study, Reviewed by [place] Diagonstic Imaging: Xray Plain Films/CT/US/NM/MRI: chest (1 view) Comments Interval placement of a central line over the shadow of the right internal jugular terminating in the superior vena cava around the level of the right atria. No evidence of pneumothorax or other acute pathology changes since previous x-ray. Reviewed: Reviewed by Me Departure Communication (Admissions) Time/Spoke to Admitting Phy: 00:30 Discussed the case with Dr. Diaz and she agrees to take the patient on the ICU. Impression Primary Impression: Pneumonia Qualified Codes: J18.9 - Pneumonia, unspecified organism Additional Impressions: Acute respiratory failure with hypoxemia Septic shock Disposition: ADMITTED INPATIENT Condition: Critical Admissions Decision to Admit Reason: Admit from ER (General) Decision to Admit/Date: October 27, 2019 Time/Decision to Admit Time: 00:09 Departure-Patient Inst. Referrals: SILVERIO PERKINS DO (PCP/Family) Primary Care Physician JUJU LINDSEY October 26, 2019 23:22
[2019-10-26 23:24] LABS: ABG PH 7.14 (7.37-7.43)
[2019-10-26 23:25] LABS: ALLENS TEST POSITIVE; INSPIRED O2 14; PATIENT TEMP 35.9; VENTILATOR NO
[2019-10-26] MEDS ORDERED: VANCOMYCIN INJECTION 750 MG in NS (IVPB) 100 ML IV ONE (23:30)
[2019-10-26] MEDS ORDERED: CEFEPIME INJECTION 1,000 MG in WATER (STERILE) FOR INJECTION 10 ML IV ONE (23:30)
[2019-10-26] MEDS ORDERED: RT-ALBUTEROL/IPRATROPIUM 3 ML (DUONEB) VIAL INH ONE (23:30)
[2019-10-26 23:32] LABS: EOSINOPHILS % (AUTO) 0 % (0-10); MEAN CORPUSCULAR VOLUME 76 FL (80-99)
[2019-10-26 23:41] LABS: INR 2.3 (0.8-1.4); PROTHROMBIN TIME PATIENT 25.9 SEC (12.2-14.7)
[2019-10-26 23:42] LABS: ALBUMIN 3.6 GM/DL (3.2-4.5)
[2019-10-26 23:44] LABS: CALCIUM 8.8 MG/DL (8.5-10.1)
[2019-10-26 23:45] LABS: TOTAL PROTEIN 7.7 GM/DL (6.4-8.2)
[2019-10-26 23:47] LABS: BILIRUBIN,TOTAL 0.7 MG/DL (0.1-1.0)
[2019-10-26 23:49] LABS: CREATININE SERUM 2.1 MG/DL (0.60-1.30)
[2019-10-26 23:54] VITALS: BP 131/69
[2019-10-26 23:58] LABS: BILIRUBIN,URINE 1+ (NEGATIVE); CLARITY,URINE CLEAR; COLOR,URINE YELLOW; GLUCOSE, URINE (UA) 1+ (NEGATIVE); KETONES,URINE TRACE (NEGATIVE); LEUKOCYTE ESTERASE ,URINE NEGATIVE (NEGATIVE); NITRITE,URINE NEGATIVE (NEGATIVE); PH,URINE 5.5 (5-9); PROTEIN,URINE 3+ (NEGATIVE)
[2019-10-27] VITALS (31 sets, daily range): BP systolic 91–144; BP diastolic 55–133
--- NOTE | 2019-10-27 00:04 | NUR ---
DR. LINDSEY REMOVED C COLLAR AT THIS TIME.
[2019-10-27 00:26] LABS: BACTERIA,URINE MODERATE /HPF; HYALINE CASTS, URINE RARE /LPF
[2019-10-27 00:27] LABS: GRANULAR CASTS,URINE 0-2 /LPF; YEAST,URINE FEW /HPF
[2019-10-27] MEDS ORDERED: VANCOMYCIN INJECTION 500 MG in NS (IVPB) 100 ML IV ONE (00:30)
--- NOTE | 2019-10-27 00:40 | NUR ---
DR. LINDSEY UPDATED MADISYN, PT DAUGHTER IN LAW, ON PT CONDITION AND UPCOMING ADMISSION TO HOSPITAL.
--- NOTE | 2019-10-27 00:40 | NUR ---
ABMER FROM [facility] UPDATED ON PT CONDITION AND PLAN FOR ADMISSION.
[2019-10-27 00:47] LABS: HEMOGLOBIN 11.3 G/DL (11.5-16.0); MEAN CORPUSCULAR HEMOGLOBIN 22 PG (25-34)
[2019-10-27 00:48] LABS: BASOPHILS % (AUTO) 0 % (0-10); HEMATOCRIT 39 % (35-52); LYMPHOCYTES # (AUTO) 1.2 X 10^3 (1.0-4.0); LYMPHOCYTES % (AUTO) 7 % (12-44); MEAN CORPUSCULAR HGB CONC 29 G/DL (32-36); MEAN PLATELET VOLUME 10.5 FL (7.4-10.4); MONOCYTES # (AUTO) 1.2 X 10^3 (0.0-1.0); MONOCYTES % (AUTO) 7 % (0-12); NEUTROPHILS # (AUTO) 14.5 X 10^3 (1.8-7.8); NEUTROPHILS % (AUTO) 86 % (42-75); PLATELET COUNT 326 10^3/uL (130-400)
[2019-10-27 00:49] LABS: ANISOCYTOSIS SLIGHT; HYPOCHROMASIA SLIGHT; LYMPHOCYTES % (MANUAL) 8 %; MONOCYTES % (MANUAL) 7 %; NEUTROPHILS % (MANUAL) 85 %; POIKILOCYTOSIS SLIGHT
[2019-10-27 00:50] LABS: BURR CELLS SLIGHT
[2019-10-27 01:00] LABS: POTASSIUM 5.4 MMOL/L (3.6-5.0)
--- OUTSIDE RECORDS SUMMARY | 2019-10-27 01:06 | XMS REPORT | Continuity of Care Document ---
Author Organization Unknown Address Unknown Phone Unavailable Allergies Active Description Code Type Severity Reaction Onset Reported/Identified Relationship to Patient Clinical Status Yes NO KNOWN DRUG ALLERGIES NO KNOWN DRUG ALLERG UNKNOWN Yes NO KNOWN DRUG ALLERGIES UNKNOWN NO KNOWN DRUG ALLERG Yes NO KNOWN DRUG ALLERGIES UNKNOWN UNKNOWN Yes No Known Drug Allergies [id number] Drug Allergy Unknown N/A 05/03/2011 Medications Medication [...] 06/24/2019 Daily&0900 MultiVits (Thera M Plus) (mu syilft-pjiy-rmkcwkb) oral tablet Dose(s) 06/18/2019 07/17/2019 Daily&0900 FISH [...] 276.8 HYPO POTASSEMIA 05/03/2011 Ot 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 02 03/12/2015 LEONEL ROJAS [...] ROJAS APRN Ot 511.9 09/29/2015 LEONEL ROJAS LEAD INFORMATICA DEVELOPER Ot J44.9 09/29/2015 LEONEL ROJAS LEAD INFORMATICA DEVELOPER Ot R06.00 10/21/2015 LEONEL ROJAS LEAD INFORMATICA DEVELOPER Ot J44.9 CHRONIC OBSTRUCTIVE PULMONARY DISEASE, U 10/21/2015 LEONEL ROJAS LEAD INFORMATICA DEVELOPER Ot R06.00 DYSPNEA, UNSPECIFIED 11/05/2015 LEONEL ROJAS LEAD INFORMATICA DEVELOPER Ot 511.9 PLEURAL EFFUSION NOS 11/05/2015 LEONEL ROJAS LEAD INFORMATICA DEVELOPER Ot J44.9 CHRONIC OBSTRUCTIVE PULMONARY DISEASE, U 11/05/2015 LEONEL ROJAS LEAD INFORMATICA DEVELOPER Ot R06.00 DYSPNEA, UNSPECIFIED 11/05/2015 LEONEL ROJAS LEAD INFORMATICA DEVELOPER Ot J44.9 CHRONIC OBSTRUCTIVE PULMONARY DISEASE, U 11/05/2015 LEONEL ROJAS LEAD INFORMATICA DEVELOPER Ot R06.00 DYSPNEA, UNSPECIFIED 11/05/2015 LEONEL ROJAS LEAD INFORMATICA DEVELOPER Ot J44.9 CHRONIC OBSTRUCTIVE PULMONARY DISEASE, U 11/05/2015 LEONEL ROJAS LEAD INFORMATICA DEVELOPER Ot R06.00 DYSPNEA, UNSPECIFIED 11/13/2015 LEONEL ROJAS LEAD INFORMATICA DEVELOPER Ot J44.9 CHRONIC OBSTRUCTIVE PULMONARY DISEASE, U 11/13/2015 LEONEL ROJAS LEAD INFORMATICA DEVELOPER Ot R06.00 DYSPNEA, UNSPECIFIED 11/13/2015 ESME GASPAR DO Ot 496 CHR AIRWAY OBSTRUCT NEC 11/13/2015 ESME GASPAR DO Ot 799. 02 HYPOXEMIA 11/13/2015 ESME GASPAR DO Ot 496 CHR AIRWAY OBSTRUCT NEC 11/13/2015 ESME GASPAR DO Ot 799. 02 HYPOXEMIA 11/13/2015 LEONEL ROJAS LEAD INFORMATICA DEVELOPER Ot 511.9 PLEURAL EFFUSION NOS 11/13/2015 LEONEL ROJAS LEAD INFORMATICA DEVELOPER Ot J44.9 CHRONIC OBSTRUCTIVE PULMONARY DISEASE, U 11/13/2015 LEONEL ROJAS LEAD INFORMATICA DEVELOPER Ot R06.00 DYSPNEA, UNSPECIFIED 12/04/2015 LEONEL ROJAS LEAD INFORMATICA DEVELOPER Ot J44.9 CHRONIC OBSTRUCTIVE PULMONARY DISEASE, U 12/04/2015 LEONEL ROJAS LEAD INFORMATICA DEVELOPER Ot R06.00 DYSPNEA, UNSPECIFIED 12/19/2016 Gavino Benitez J44.0 CHR OBSTRUCTIVE PULMON DISEASE WITH (ACUTE) LOWER RESP INFCT 12/19/2016 Gavion Benitez W J44.1 CHRONIC OBSTRUCTIVE PULMONARY DISEASE [...] W I50.9 HEART FAILURE, UNSPECIFIED 12/19/2016 PaGavino wagner W J20.9 ACUTE BRONCHITIS, UNSPECIFIED 12/19/2016 PaGavino [...] Gavino Benitez I25.10 ATHEROSCLEROTIC HEART DISEASE OF [place] CORONARY ARTERY WITHOUT ANGINA PECTORIS 10/11/2017 Gavino [...] Gavino Benitez I25.10 ATHEROSCLEROTIC HEART DISEASE OF [place] CORONARY ARTERY WITHOUT ANGINA PECTORIS 10/11/2017 Paoni, [...] W I25.10 ATH EROSCLEROTIC HEART DISEASE OF [place] CORONARY ARTERY WITHOUT ANGINA PECTORIS 10/11/2017 W 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 10/11/2017 W 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, UNSPECIFIED 10/11/2017 Gavino Benitez W 244.9 UNSPECIFIED HYPOTHYROIDISM 10/11/2017 Gavino Benitez W 427.32 ATRIAL FLUTTER 10/11/2017 Gavino Benitez W 429.2 CARDIOVASCULAR DISEASE, UNSPECIFIED 10/11/2017 Gavino Benitez 496 CHRONIC AIRWAY OBSTRUCTION, NOT ELSEWHERE CLASSIFIED 10/11/2017 Gavino Benitez E03.9 HYPOTHYROIDISM, UNSPECIFIED 10/11/2017 Gavino Benitez W I25.10 ATHEROSCLEROTIC HEART DISEASE OF [place] CORONARY ARTERY WITHOUT ANGINA PECTORIS 10/11/2017 Gavino Benitez I48.2 CHRONIC ATRIAL FIBRILLATION 10/11/2017 Gavino Benitez J44.9 CHRONIC OBSTRUCTIVE PULMONARY DISEASE, UNSPECIFIED 07/04/2018 W 429.2 CARD IOVASCULAR DISEASE, UNSPECIFIED 07/04/2018 W I25.10 ATH EROSCLEROTIC HEART DISEASE OF [place] CORONARY ARTERY WITHOUT ANGINA PECTORIS 11/05/2018 David Montoya 300.00 ANXIETY STATE, UNSPECIFIED 11/05/2018 David Montoya 414.01 CORONARY ATHEROSCLEROSIS OF [place] CORONARY ARTERY 11/05/2018 David Montoya F41.9 ANXIETY DISORDER, UNSPECIFIED 11/05/2018 David Montoya I25.10 ATHSCL HEART DISEASE OF [place] CORONARY ARTERY W/O ANG PCTRS 11/05/2018 David [...] 511.9 PLEURAL EFFUSION NOS 03/05/2019 LEONEL ROJAS LEAD INFORMATICA DEVELOPER Ot J44.9 CHRONIC OBSTRUCTIVE PULMONARY DISEASE, U 03/05/2019 LEONEL ROJAS APRN Ot R06.00 DYSPNEA, UNSPECIFIED 05/22/2019 LEISURE, JELLYGLENNA W 959.11 OTHER INJURY OF CHIP 05/22/2019 LEISURE, JELLYGLENNA W E03.9 HYPOTHYROIDISM, UNSPECIFIED 05/22/2019 LEISURE, ELVI W E87.1 HYPO-OSMOLALITY AND HYPONATREMIA 05/22/2019 LEISURE, ELVI W E87.6 HYPOKALEMIA 05/22/2019 LEISURE, ELVI eRyes F41.9 ANXIETY DISORDER, UNSPECIFIED 05/22/2019 LEISURE, ELVI Reyes I25.10 ATHSCL HEART DISEASE OF [place] CORONARY ARTERY W/O ANG PCTRS 05/22/2019 LEISURE, [...] Gavino Benitez I25.10 ATHSCL HEART DISEASE OF [place] CORONARY ARTERY W/O ANG PCTRS 06/17/2019 Emmanuel [...] Gavino W I25.10 ATHSCL HEART DISEASE OF [place] CORONARY ARTERY W/O ANG PCTRS 06/17/2019 Emmanuel Gavino W I48.2 CHRONIC ATRIAL FIBRILLATION 06/17/2019 Pabernard Gavino W J44.9 CHRONIC OBSTRUCTIVE PULMONARY DISEASE, UNSPECIFIED 06/17/2019 Pabernard Gavino W S00.03XA CONTUSION OF SCALP, INITIAL ENCOUNTER 06/17/2019 Emmanuel Gavino W S70.01XA CONTUSION OF RIGHT HIP, INITIAL ENCOUNTER 06/17/2019 Emmanuel Gavino W Z95.0 PRESENCE OF CARDIAC PACEMAKER 06/18/2019 Emmanuel Gavino 414.01 CORONARY 06/18/2019 Gavino Benitez W E03.9 HYPOTHYROIDISM, UNSPECIFIED 06/18/2019 Emmanuel Gavino W E87.1 HYPO- OSMOLALITY AND HYPONATREMIA 06/18/2019 Emmanuel Gavino W E87.6 HYPOKALEMIA 06/18/2019 Gavino Benitez W F41.9 ANXIETY DISORDER, UNSPECIFIED 06/18/2019 Emmanuel Gavino W I25.10 ATHSCL HEART DISEASE OF [place] CORONARY ARTERY W/O ANG PCTRS 06/18/2019 Emmanuel Gavino W I48.2 CHRONIC ATRIAL FIBRILLATION 06/18/2019 Gavino Benitez W J44.9 CHRONIC O 06/18/2019 Emmanuel Gavino W S00.03XA CONTUSION OF SCALP, INITIAL ENCOUNTER 06/18/2019 Emmanuel Gavino W S70.01XA CONTUSION OF RIGHT HIP, INITIAL ENCOUNTER 06/18/2019 Emmanuel Gavino W Z95.0 PRESENCE OF CARDIAC PACEMAKER 09/02/2019 LEONEL ROJAS APRN Ot 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 9 ANXIETY DISORDER, UNSPECIFIED 09/24/2019 KATI ASHTON, JOSHUA Quiroz Ot I10 ESSENTIAL (PRIMARY) HYPERTENSION 09/24/2019 KATI ASHTON, JOSHUA Quiroz Ot I25. 10 ATHSCL HEART DISEASE OF [place] CORONARY 09/24/2019 KATI ASHTON, JOSHUA Quiroz Ot [...] Ot I25. 10 ATHSCL HEART DISEASE OF [place] CORONARY 09/24/2019 JOSHUA PARIKH MD Ot I48. [...] Ot I25. 10 ATHSCL HEART DISEASE OF [place] CORONARY 09/25/2019 JOSHUA PARIKH MD Ot I48. 0 PAROXYSMAL ATRIAL FIBRILLATION 09/25/2019 JOSHUA PARIKH MD Ot J18. 9 PNEUMONIA, UNSPECIFIED ORGANISM 09/25/2019 JOSHUA PARIKH MD Ot J44. 9 CHRONIC OBSTRUCTIVE PULMONARY DISEASE, U 09/25/2019 JOSHUA PARIKH MD Ot J96. 21 ACUTE AND CHRONIC RESPIRATORY FAILURE [place] 09/25/2019 OJSHUA PARIKH MD Ot R65. 20 SEVERE SEPSIS [...] Ot I25. 10 ATHSCL HEART DISEASE OF [place] CORONARY 09/26/2019 JOSHUA PARIKH MD Ot I48. [...] ACUTE AND CHRONIC RESPIRATORY FAILURE [place] 09/27/2019 JOHSUA PARIKH MD Ot R65. 20 SEVERE SEPSIS [...] 20 SEVERE SEPSIS WITHOUT SEPTIC SHOCK 09/29/2019 JOSHAU PARIKH MD Ot Z87.891 PERSONAL HISTORY OF [...] Negative Urine-Blood 1+ Negative Urine-Color Yellow Colorless-[place] Urine-Epithelial Cells 5-10/HPF Urine-Glucose Negative Negative Urine-Ketones Negative Negative Urine-Leukocytes Trace Negative Urine-Nitrite Negative Negative Urine-pH 6.0 5-8.5 Urine-Protein Negative Negative Urine-RBC Rare/HPF Urine-Specific [place] 1.020 1.000-1 .030 Urine-WBC 2-5/HPF Urobilinogen 0.2 [...] Negative Urine-Blood Negative Negative Urine-Color Yellow Colorless-[place] Urine-Epithelial Cells 0-5/HPF Urine-Glucose Negative Negative Urine-Ketones Negative Negative Urine-Leukocytes Negative Negative Urine-Nitrite Negative Negative Urine-Other Urine Saved if Culture Need ed (48hrs from time of collection) Urine-pH 6.5 5-8.5 Urine-Protein Trace Negative Urine-RBC Negative Urine-Specific [place] 1.020 1.000-1 .030 Urine-WBC Few/HPF Urobilinogen 0.2 [...] Negative Urine-Blood Trace-lysed Negative Urine-Color Yellow Colorless[place] Urine-Epithelial Cells 5-10/HPF Urine-Glucose Negative Negative Urine-Ketones Negative Negative Urine-Leukocytes Negative Negative Urine-Mucus 3+ Urine-Nitrite Negative Negative Urine-Other Culture to follow Urine-pH 5.5 5-8.5 Urine-Protein 2+ Negative Urine-RBC 5-10/HPF Urine-Specific [place] >=1.030 1.000-1 .030 Urine-WBC 5-10/HPF Urobilinogen 0.2 [...] INFLUENZA A AND B ANTIGENS BY IA [facility] RESPIRATORY VIRUS PANEL - 09/23/19 06:35 Serum [...] by glucometer (mas s/volume) 209 mg/dL 70-110 Arterial blood gas measurement - 0 23:11 Blood pCO2 40 mm[Hg] 35-45 Blood pO2 80 mm[Hg] 79-93 Arterial blood bicarbonate measurement (moles/volume) 13 mmol/L 23-27 Arterial blood base excess by calculation -14.0 mm ol/L -2.5-2.5 Arterial blood oxygen saturation measurement 91 % 94-100 * Inhaled oxygen flow rate 14 NRG Arterial blood pH measurement with patient temperature correction 7.14 7.37-7.43 Arterial blood carbon dioxide, total measurement (mole s/volume) 14.7 mmol/L 21.0-31.0 Body site RIGHT RADIAL NRG Assessment of wrist artery patency prior to arterial p uncture POSITIVE NRG Setting of ventilation mode NO NR G Measurement of body temperature 35.9 NRG Complete blood count (CBC) with automate d white blood cell (WBC) differential - 10/26/19 23:15 Blood leukocytes automated count (number/volume) 17.0 10*3/uL 4.3-11.0 Blood erythrocytes automated count (number/volume) 5.10 10*6/uL 4.35-5.85 Venous blood hemoglobin measurement (mass/volume) 11.3 g/dL 11.5-16.0 Blood hematocrit (volume fraction) 39 % 35-52 Automated erythrocyte mean corpuscular volume 76 [ foz_us] 80-99 Automated erythrocyte mean corpuscular h emoglobin (mass per erythrocyte) 22 pg 25-34 Automated erythrocyte mean corpuscular h emoglobin concentration measurement (mass/volume) 29 g/dL 32-36 Automated erythrocyte distribution width ratio 23. 0 % 10.0- 14.5 Automated blood platelet count (count/volume) 326 10*3/uL 130-400 Automated blood platelet mean volume measurement 10.5 [foz_us] 7.4-10.4 Automated blood neutrophils/100 leukocytes 86 % 42-75 Automated blood lymphocytes/100 leukocytes 7 % 12-44 Blood monocytes/100 leukocytes 7 % 0-12 Automated blood eosinophils/100 leukocytes 0 % 0-10 Automated blood basophils/100 leukocytes 0 % 0-10 Blood neutrophils automated count (number/volume) 14.5 10*3 1.8-7.8 Blood lymphocytes automated count (number/volume) 1.2 10*3 1.0-4.0 Blood monocytes automated count (number/volume) 1. 2 10*3 0.0-1.0 Automated eosinophil count 0.0 10*3/uL 0 .0-0.3 Automated blood basophil count (count/volume) 0.0 10*3/uL 0.0-0.1 Comprehensive metabolic panel - 10/26/19 23:15 Serum or plasma sodium measurement (moles/volume) 134 mmol/L 135-145 Serum or plasma potassium measurement (moles/volume) 5.4 mmol/L 3.6-5.0 Serum or plasma chloride measurement (moles/volume) 102 mmol/L 98-107 Serum or plasma anion gap determination (moles/volume) 18 mmol/L 5-14 Serum or plasma urea nitrogen measurement (mass/volume ) 34 mg/dL 7-18 Serum or plasma creatinine measurement (mass/volume) 2.10 mg/dL 0.60-1.30 Serum or plasma urea nitrogen/creatinine mass ratio 16 NRG Serum or plasma creatinine measurement w ith calculation of estimated glomerular filtration rate 23 NRG Serum or plasma glucose measurement (mass/volume) 199 mg/dL 70-105 Serum or plasma calcium measurement (mass/volume) 8.8 mg/dL 8.5-10.1 Serum or plasma total bilirubin measurement (mass/volu me) 0.7 mg/dL 0.1-1.0 Serum or plasma alkaline phosphatase joaquim surement (enzymatic activity/volume) 151 U/L 40-136 Serum or plasma aspartate aminotransfera se measurement (enzymatic activity/volume) 379 U/L 5-34 Serum or plasma alanine aminotransferase measurement (enzymatic activity/volume) 368 U/L 0-55 Serum or plasma protein measurement (mass/volume) 7.7 g/dL 6.4-8.2 Serum or plasma albumin measurement (mass/volume) 3.6 g/dL 3.2-4.5 CALCIUM CORRECTED 9.1 mg/dL 8.5-10.1 Serum or plasma troponin i.cardiac measu rement (mass/volume) - 10/26/19 23:15 Serum or plasma troponin i.cardiac measurement (mass/v olume) 0.062 ng/mL <0.028 PT panel in platelet poor plasma by coag ulation assay - 10/26/19 23:15 Prothrombin time (PT) in platelet poor plasma by coagu lation assay 25.9 s 12.2-14.7 INR in platelet poor plasma or blood by coagulation as say 2.3 0.8-1.4 Activated partial thromboplastin time (a PTT) in platelet poor plasma bycoagulation assay - 10/26/19 23:15 Activated partial thromboplastin time (a PTT) in platelet poor plasma bycoagulation assay 29 s 24-35 Manual absolute plasma cell count - 03/08 23:15 Blood monocytes/100 leukocytes 7 % NRG Manual blood segmented neutrophils/100 leukocytes 85 % NRG Manual blood lymphocytes/100 leukocytes 8 % NRG Blood anisocytosis detection by light microscopy S LIGHT NRG Blood poikilocytosis detection by light microscopy SLIGHT NRG Blood hypochromia detection by light microscopy SL IGHT NRG Blood ulices cells detection by light microscopy I GHT NRG Complete urinalysis with reflex to cultu re - 10/26/19 23:35 Urine color determination YELLOW NRG Urine clarity determination CLEAR NR G Urine pH measurement by test strip 5.5 5-9 Specific gravity of urine by test strip >= 1.016-1.022 Urine protein assay by test strip, semi-quantitative 3+ NEGATIVE Urine glucose detection by automated test strip 1+ NEGATIVE Erythrocytes detection in urine sediment by light micr oscopy 1+ NEGATIVE Urine ketones detection by automated test strip TR ISAAK NEGATIVE Urine nitrite detection by test strip NEGATIVE NEGATIVE Urine total bilirubin detection by test strip 1+ NEGATIVE Urine urobilinogen measurement by automated test strip (mass/volume) 0.2 mg/dL < = 1.0 Urine leukocyte esterase detection by dipstick NEG ATIVE NEGATIVE Automated urine sediment erythrocyte cou nt by microscopy (number/high power field) [HPF] NRG Automated urine sediment leukocyte count by microscopy (number/high power field) NONE NRG Bacteria detection in urine sediment by light microsco py MODERATE NRG Squamous epithelial cells detection in u rine sediment by light microscopy 2-5 NRG Crystals detection in urine sediment by light microsco py NONE NRG Casts detection in urine sediment by light microscopy PRESENT NRG Mucus detection in urine sediment by light microscopy SMALL NRG Complete urinalysis with reflex to culture CULTURE PENDING NRG Yeast detection in urine sediment by light microscopy FEW NRG Hyaline casts detection in urine sediment by light nava roscopy RARE NRG Granular casts detection in urine sediment by light mi croscopy 0-2 NRG Encounters ACCT No. Visit Date/Time Discharge Status Pt. Type Provider Facility Loc./Unit Complaint [id number] 09/22/2019 00:00:00 09/22/2019 22:00 :00 DIS Outpatient ELVI SUE [facility] ER [id number] 08/27/2019 14:05:00 08/27/2019 23:59 :00 DIS Outpatient Gavino Benitez [id number] 08/05/2019 10:18:00 08/05/2019 23:59 :00 DIS Outpatient Gavino Benitez [id number] 08/05/2019 10:09:00 08/05/2019 23:59 :00 DIS Outpatient ESME GASPAR [id number] 06/17/2019 09:20:00 06/18/2019 13:30 :00 DIS Outpatient Gavino Benitez [facility] MED-SURG [id number] 05/22/2019 11:16:00 05/22/2019 12:47: 00 DIS Outpatient ELVI SUE [facility] ER [id number] 04/03/2019 16:21:00 04/03/2019 23:59: 00 DIS Outpatient Gavino Benitez [id number] 04/03/2019 09:55:00 04/03/2019 23:59: 00 DIS Outpatient Gavino Benitez [id number] 03/12/2019 12:10:00 03/12/2019 23:59: 00 DIS Outpatient Glenny Pretty [id number] 11/28/2018 10:30:00 11/28/2018 23:59: 00 DIS Outpatient Gavino Benitez [id number] 11/05/2018 11:48:00 11/05/2018 14:45: 00 DIS Outpatient David Montoya [id number] 04/05/2018 08:26:00 04/05/2018 23:59: 00 DIS Outpatient CIRO HURLEY [id number] 11/29/2017 10:05:00 11/29/2017 23:59: 00 DIS Outpatient Glenny Pretty [id number] 10/11/2017 10:53:00 10/11/2017 23:59: 00 DIS Outpatient Gavino Benitez [id number] 09/02/2017 08:03:00 09/02/2017 10:25: [address] [facility] [id number] 04/05/2017 13:31:00 04/05/2017 23:59: 00 DIS Outpatient MEI PHY [id number] 02/07/2017 10:35:00 02/07/2017 23:59: 00 DIS Outpatient ESME GASPAR [id number] 12/19/2016 19:13:00 12/20/2016 13:50: 00 DIS Outpatient [facility] MED-SURG [id number] 08/28/2016 09:25:00 08/28/2016 23:59: 00 DIS Outpatient Gavino Benitez [id number] 07/04/2018 12:58:00 Document Registration [id number] 10/11/2017 10:02:00 Document Registration [id number] 12/19/2016 21:12:25 Document Registration [id number] 04/05/2019 09:11:00 Document Registration [id number] 09/22/2019 22:25:00 020 14:56:00 DIS Inpatient KATI ASHTON, JOSHUA [facility] 4TH PNEUMONIA DUE TO SEPSIS [id number] 03/26/2019 09:21:00 019 23:59:59 CLS Preadmit MARTA ROJASINE E LEAD INFORMATICA DEVELOPER [facility] RAD COPD [id number] 02/14/2019 11:59:00 019 23:59:59 CLS Outpatient MARTA ROJASINE E LEAD INFORMATICA DEVELOPER [facility] RAD COPD [id number] 02/27/2017 13:00:00 017 23:59:59 CLS Preadmit CRYSTALMARTA UMANZORINE E LEAD INFORMATICA DEVELOPER [facility] PULM J43.8 COPD [id number] 01/05/2017 08:39:00 017 23:59:59 CLS Preadmit MARTA ROJASINE E LEAD INFORMATICA DEVELOPER [facility] RAD J43.8 COPD [id number] 11/09/2016 13:00:00 017 23:59:59 CLS Preadmit MATEO AC [facility] CARD R06.09,I48.0,I25.10 [id number] 09/28/2015 09:53:00 016 23:59:59 CLS Outpatient LEONEL ROJAS LEAD INFORMATICA DEVELOPER [facility] RAD COPD,DYSPNEA [id number] 03/04/2015 08:16:00 015 23:59:59 CLS Outpatient MARTA ROJASINE E LEAD INFORMATICA DEVELOPER [facility] RAD PLEURAL EFFUSIO N [id number] 02/09/2015 10:23:00 015 23:59:59 CLS Outpatient ESME GASPAR DO [facility] RAD COPD DYSPNEA HYPOXIA [id number] 01/27/2015 16:33:00 015 23:59:59 CLS Outpatient ESME GASPAR DO [facility] LAB COPD,DYSPNEA,HYPOXIA [id number] 12/25/2014 14:25:00 015 13:10:00 DIS Inpatient JERARDO ASHTON, ANAYELI [facility] CSD HYPOXIA,BILAT PLEURAL EFFUSIONS,CHF,UTI [id number] 10/26/2019 23:25:00 Document Registration [id number] 12/25/2014 14:46:00 Document Registration [id number] 05/16/2011 20:30:00 Document Registration [id number] 05/03/2011 10:32:00 Document Registration
[2019-10-27] MEDS ORDERED: ACETAMINOPHEN 500 MG TAB (TYLENOL) PO PRN (02:15)
[2019-10-27] MEDS: NS IV 1000 ML 1,000 ML IV SCH ×4 (02:18→22:52)
--- NOTE | 2019-10-27 02:54 | NUR ---
JASVIR Q6 and Q2 Prn. Patient unable to perform IS or [employer].Initaite 02 to keep greater than 90%. RT to reassess or reevaluate in 72 hours or as needed. Addendum: 10/27/19 at 0254 by ZOLTAN GASPAR RT Amended: Links added.
[2019-10-27] MEDS ORDERED: RT-ALBUTEROL/IPRATROPIUM 3 ML (DUONEB) VIAL INH PRN (03:00)
[2019-10-27 04:46] LABS: ABG BASE EXCESS -5.1 MMOL/L (-2.5-2.5); ABG OXYGEN SATURATION 94 % (94-100); ABG PCO2 38 MMHG (35-45); ABG PO2 75 MMHG (79-93); ABG TCO2 21.1 MMOL/L (21.0-31.0)
[2019-10-27 04:47] LABS: ABG PH 7.34 (7.37-7.43); ALLENS TEST POSITIVE
[2019-10-27 04:48] LABS: INSPIRED O2 42; VENTILATOR YES
[2019-10-27] MEDS ORDERED: CEFEPIME 1,000 MG/SWFI 10 ML IV PUSH IV SCH ×2 (06:00)
[2019-10-27 06:26] LABS: BASOPHILS % (AUTO) 0 % (0-10); EOSINOPHILS % (AUTO) 0 % (0-10); HEMATOCRIT 34 % (35-52); HEMOGLOBIN 10.2 G/DL (11.5-16.0); LYMPHOCYTES # (AUTO) 1.3 X 10^3 (1.0-4.0); LYMPHOCYTES % (AUTO) 12 % (12-44); MEAN CORPUSCULAR HGB CONC 30 G/DL (32-36); MEAN CORPUSCULAR VOLUME 75 FL (80-99); MEAN PLATELET VOLUME 10.4 FL (7.4-10.4); MONOCYTES # (AUTO) 0.9 X 10^3 (0.0-1.0); MONOCYTES % (AUTO) 9 % (0-12); NEUTROPHILS # (AUTO) 8.5 X 10^3 (1.8-7.8); NEUTROPHILS % (AUTO) 79 % (42-75); PLATELET COUNT 251 10^3/uL (130-400); RED CELL DISTRIBUTION WIDTH 22.6 % (10.0-14.5); WHITE BLOOD COUNT 10.8 10^3/uL (4.3-11.0)
[2019-10-27 06:28] LABS: MEAN CORPUSCULAR HEMOGLOBIN 22 PG (25-34)
[2019-10-27] MEDS: RT-ALBUTEROL/IPRATROPIUM 3 ML (DUONEB) VIAL INH SCH ×3 (06:29→21:26)
[2019-10-27 06:31] LABS: POTASSIUM 4.9 MMOL/L (3.6-5.0)
[2019-10-27 06:32] LABS: CALCIUM 7.7 MG/DL (8.5-10.1)
[2019-10-27 06:34] LABS: TOTAL PROTEIN 5.7 GM/DL (6.4-8.2)
[2019-10-27 06:35] LABS: BILIRUBIN,TOTAL 0.5 MG/DL (0.1-1.0)
[2019-10-27 06:37] LABS: CREATININE SERUM 1.84 MG/DL (0.60-1.30)
[2019-10-27] MEDS: LEVOTHYROXINE 50 MCG (LEVOTHROID) TAB PO SCH (06:42)
--- NOTE | 2019-10-27 06:54 | Diagnostic Imaging Report ---
EXAMINATION: Chest radiograph, portable AP view. DATE: 10/27/2019 1:41 AM hours. INDICATION: 69-year-old female, evaluation of central line position. COMPARISON: October 26, 2019. FINDINGS: The newly placed right internal jugular central venous line tip overlies the mid SVC. There are median sternotomy wires. There is a left-sided cardiac assist device with leads. The leads appear intact. Stable overall appearance of the cardiomediastinal silhouette. There is no identified pneumothorax. There is persistent nonspecific bibasilar airspace consolidation, right greater than left with bilateral interstitial opacities. IMPRESSION: 1. Unchanged nonspecific bibasilar airspace consolidation, right greater than left with bilateral interstitial opacities. There is a moderate right and small left pleural effusion. 2. Newly placed right internal jugular central venous line overlying the mid SVC. Dictated by: Dictated on workstation # [id number]
[2019-10-27 07:06] LABS: PHOSPHORUS 3.8 MG/DL (2.3-4.7)
[2019-10-27 07:07] LABS: MAGNESIUM 2.1 MG/DL (1.6-2.4)
[2019-10-27] MEDS: KCL 20 MEQ TAB (K-DUR) PO SCH (07:14)
[2019-10-27] MEDS: POTASSIUM CL 10MEQ/50ML IVPB 50 ML IV SCH (07:14)
[2019-10-27] MEDS: MAGNESIUM 1 GM/100 ML IVPB 100 ML IV SCH (07:14)
--- NOTE | 2019-10-27 07:28 | Diagnostic Imaging Report ---
Clinical indication: Patient with respiratory distress from [facility]. Patient found on floor. Exam: Axial Head CT without IV contrast. Axial CT scan of the cervical spine with sagittal and coronal reformations. Auto Exposure Controls were utilized during the CT exam to meet ALARA standards for radiation dose reduction. Comparison: CT scan of the chest dated 03/06/2019. Findings: Head CT: There is no evidence of acute cerebral infarct, intracranial hemorrhage, or gross mass effect. There is diffuse brain parenchymal volume loss. There is patchy and confluent areas of low-attenuation white matter changes involving both cerebral hemispheres, likely representing chronic small vessel ischemic disease and leukoaraiosis. There is normal de la cruz-white matter distinction. There is no significant midline shift or herniation. There is no evidence of hydrocephalus. The basal cisterns are unremarkable. The skull, extracranial soft tissue, and orbits are unremarkable. The paranasal sinuses are unremarkable. Temporal bones show no significant abnormality. Cervical spine: There is no acute cervical spine fracture or dislocation. There is a mild compression deformity involving the upper endplate of unknown age. This is not seen on a comparison chest CT scan dated 03/06/2019. There are small vertebral body spurs and mild facet arthropathy. There is a large right pleural effusion and small to moderate left pleural effusion. There is interlobular septal thickening which may be related to pulmonary congestion. The neck soft tissue structures show no significant abnormality. Impression: 1: There is no evidence of acute intracranial process. There is no intracranial hemorrhage or skull fracture. 2: There is an age-indeterminate compression deformity of the upper T2 vertebra endplate. This deformity was not seen on a comparison chest CT dated 03/06/2019. Comparison to prior imaging, if available would better evaluate. MRI of the thoracic spine may help better evaluate for acuity, if necessary. 3: There is no acute cervical spine fracture or dislocation. 4: Bilateral pleural effusions (right side more than the left). There is concern for pulmonary congestion. I agree with [facility] rad report. Dictated by: Dictated on workstation # [id number]
--- NOTE | 2019-10-27 07:30 | Diagnostic Imaging Report ---
EXAMINATION: Portable supine AP chest at 1139 PM INDICATION: Respiratory distress The cardiomegaly, the sternotomy wires and the left-sided pacemaker seen on the prior exam of 09/29/2019 are again evident and no different. The previous study did show areas of acute pneumonia/atelectasis superimposed upon both upper lobes and the left lung base. On this exam, the upper lungs do appear better aerated. There still continues to be some atelectasis/infiltrate in the left lung base. Furthermore, a new area of pneumonia/atelectasis has developed in the right lung base. A small right pleural effusion is also now evident. The mediastinum is not widened. The osseous structures are intact. IMPRESSION: There are mixed results. The upper lungs do seem better aerated but a new area of pneumonia/atelectasis and some pleural fluid has developed in the right lung base. A follow-up exam would be recommended for continued evaluation. Dictated by: Dictated on workstation # [id number]
--- NOTE | 2019-10-27 07:36 | Diagnostic Imaging Report ---
PROCEDURE: CT chest without contrast. TECHNIQUE: Multiple contiguous axial images were obtained through the chest without the use of intravenous contrast. Auto Exposure Controls were utilized during the CT exam to meet ALARA standards for radiation dose reduction. INDICATION: Respiratory distress The previous CT chest exam of 03/06/2019 raise the question of an inflammatory/infectious process in both lungs due to interstitial pulmonary infiltrates. On this study, the appearance of the chest has worsened as there is now a prominent area of pneumonia/atelectasis involving the right lung base as well as a right pleural effusion. The effusion measures approximately 3.7 cm in maximum depth. There is also pneumonia/atelectasis in the left lower lobe with a trace amount of fluid. In addition, alveolar/interstitial infiltrates are also seen in both upper lobes. The cardiomegaly and the prominent pulmonary artery seen previously are again visualized and no different. Coronary calcifications are again seen as well and there are sternotomy wires and surgical clips as well as a left-sided pacemaker in place. The central pulmonary vasculature is somewhat prominent and there may be an element of mild pulmonary edema present. The mediastinal nodes seen on the prior exam do not appear to have changed significantly. The leann are difficult to evaluate for adenopathy due to the absence of intravenous contrast. The thyroid gland shows no definite abnormality. There is no obvious breast mass. The sections through the upper abdomen failed to show any sign of an acute abnormality. There may be a trace amount of fluid about the gallbladder wall, however. If further evaluation of the gallbladder is desired, ultrasound would be recommended. The bone windows show no evidence for an acute abnormality. IMPRESSION: 1. There is cardiomegaly, coronary artery disease and evidence of prior cardiac surgery. There is also bilateral pneumonia/atelectasis and bilateral pleural effusions with greater involvement on the right. There may be an element of pulmonary congestion present as well. 2. The mediastinal nodes seen on the prior exam are again evident and do not appear to have changed significantly. 3. There is a question of a small amount of fluid about the gallbladder. If further imaging is desired, then ultrasound would be recommended. Dictated by: Dictated on workstation # [id number]
--- NOTE | 2019-10-27 07:40 | NUR ---
CR 1.84; CR CL < 30; WT 57.2 KG; VANCO 1250 MG IV GIVEN LAST NIGHT; CONTINUE WITH VANCO 750 MG IV Q24H X 2 MORE DAYS
[2019-10-27] MEDS: NS IV 500 ML 500 ML IV SCH (07:44)
[2019-10-27] MEDS: SERTRALINE 100 MG (ZOLOFT) TAB PO SCH (08:43)
[2019-10-27] MEDS: APIXABAN 2.5 MG (ELIQUIS) TABLET PO SCH ×2 (08:43→20:26)
--- NOTE | 2019-10-27 10:13 | History & Physical-Hospitalist ---
History of Present Illness HPI/Chief Complaint Pt is a 69 yoCF known to me from recent admission for COPD who presented to the ER for a fall and hypoxia. She states she was at [facility] and laying in bed when she slid out of it. She denies any injury or LOC. When her aides came to check on her she was found to be hypoxic in the 50s. EMS was called. She normally wears 4lpm of oxygen during the day and 8lpm at night. She states this was on the whole time and she was still that hypoxic. She denies any cough or fever. She denies any wheezing. She also denies any lower extremity edema but she has 2+ pitting edema to her calves bilaterally so I am unsure of her accuracy in answering this questions. She states she is feeling better this morning. She was found to be septic shock from bilateral pneumonia with a lactic acid of >6. She was admitted to the ICU for further management. Source: patient Date Seen 10/27/19 Time Seen by a Provider: 08:45 Attending Physician Roc Diaz MD PCP Gavino Benitez DO Referring Physician Date of Admission October 27, 2019 at 01:01 Home Medications & Allergies Home Medications Reviewed patient Home Medication Reconciliation performed by pharmacy medication reconciliations truck technician and/or nursing. Patients Allergies have been reviewed. Allergies Allergies Coded Allergies No Known Drug Allergies ([id number]/15/11) Past Ltefdbg-Evsilv-Okdaxx Hx Past Med/Social Hx: Reviewed Nursing Past Med/Soc Hx Patient Social History Employed/Student: retired Alcohol Use: Denies Use Recreational Drug Use: No Smoking Status: Former Smoker Former Smoker, Quit: Sep 21, 2013 Type Used: Cigarettes Recent Foreign Travel: No Contact w/other who traveled: No Recent Hopitalizations: Yes Recent Infectious Disease Expo: No Immunizations Up To Date Tetanus Booster (TDap): Unknown Date of Pneumonia Vaccine: Sep 21, 2018 Seasonal Allergies Seasonal Allergies: No Past Medical History Surgeries: Cardiac, CABG Respiratory: COPD Cardiac: Atrial Fibrillation, Coronary Artery Disease, High Cholesterol, Hypertension Reproductive: No Sexually Transmitted Disease: No HIV/AIDS: No Female Reproductive Disorders: Denies Endocrine: Hypothyroidsim HEENT: Cataract Hearing Impairment: Hard of Hearing Psychosocial: Anxiety History of Blood Disorders: No Adverse Reaction to Blood Flannery: No Family History Reviewed Nursing Family Hx FH: cancer G8 BROTHER G8 BROTHER G8 BROTHER G8 BROTHER G8 BROTHER G8 SISTER G8 SISTER FHx: leukemia 19 FATHER FHx: stroke 19 MOTHER No Pertinent Family Hx Review of Systems ROS-Unable to Obtain: unsure of accuracy per HPI Constitutional: No chills, No fever EENTM: no symptoms reported Respiratory: No cough, No hemoptysis, No orthopnea; short of breath Cardiovascular: No chest pain; edema, Hx of Intervention; No palpitations Gastrointestinal: No abdominal pain, No nausea, No vomiting Genitourinary: decreased output; No dysuria Musculoskeletal: no symptoms reported Skin: no symptoms reported Psychiatric/Neurological: No Symptoms Reported Physical Exam Physical Exam Vital Signs Vital Signs - First Documented 10/27/19 02:34 FiO2 100 Capillary Refill : Less Than 3 Seconds Height, Weight, BMI Height: 4'10.50" Weight: 106lbs. oz. 48.180219wr; 26.47 BMI Method:Stated General Appearance: Chronically ill, Other (ill appearing) HEENT: PERRL/EOMI, Moist Mucous Membranes; No Scleral Icterus (L), No Scleral Icterus (R) Neck: Full Range of Motion, Supple; No Thyromegaly; Other (central line in place) Respiratory: No Accessory Muscle Use, Crackles, Other (on vapotherm) Cardiovascular: Regular Rate, Rhythm, No Murmur Gastrointestinal: Normal Bowel Sounds, Non Tender, Soft Back: Other (ramos in place, dark yellow urine noted) Extremity: Normal Capillary Refill, No Calf Tenderness, Swelling (2+ bilaterally of lower extremities) Neurologic/Psychiatric: Alert, Other (oriented to person, place, and major details) Skin: Normal Color, Warm/Dry Results Results/Procedures Labs Laboratory Tests 10/26/19 23:15 10/27/19 06:00 Patient resulted labs reviewed. Imaging: Reviewed Imaging Report Assessment/Plan Admission Diagnosis Septic Shock Admission Status: Inpatient Order (span 2 midnights) Reason for Inpatient Admission: IV abx, respiratory failure, will take more than two midnights to stabilize for DC Assessment and Plan Septic Shock Bilateral Pneumonia Acute on Chronic Hypoxic Respiratory Failure COPD lactic acidosis resolved Leukocytosis resolved Continue Vanc and Cefepime Await cultures Continue IVF EVERETTE Monitor Urine output as is scant currently Received bolus this AM Continue IVF transaminitis Elevated INR Likely due to shock new from last month Trend, marginally improved this morning CAD s/p CABG HTN a-fib On Eliquis Holding antihypertensives due to shock Hypothyroidism Continue Synthroid DVT PPX: Eliquis Critical Care Critically Ill Patient Diagnosis/Problems Diagnosis/Problems (1) Transaminitis (2) EVERETTE (acute kidney injury) (3) Septic shock Status: Acute (4) Pneumonia Status: Acute Qualifiers: Pneumonia type: due to unspecified organism Laterality: right Lung location: unspecified part of lung Qualified Codes: J18.9 - Pneumonia, un specified organism (5) Acute respiratory failure with hypoxemia Status: Acute (6) Hypertension Status: Chronic (7) Hypothyroidism Status: Chronic (8) Hyperlipidemia Status: Chronic (9) CAD (coronary artery disease) Status: Chronic (10) Atrial fibrillation Status: Chronic Clinical Quality Measures DVT/VTE Risk/Contraindication: Risk Factor Score Per Nursin RFS Level Per Nursing on Admit: 4+=Very High ROC DIAZ MD October 27, 2019 10:13
[2019-10-27] MEDS: inSUlin ASPART (NovoLOG) 1 UNIT/0.01 ML (CHARGE PER UNIT) SC SCH ×3 (11:00→20:04)
[2019-10-27] MEDS ORDERED: NS IV 500 ML 500 ML IV ONE (13:30)
[2019-10-27] MEDS: CEFEPIME 1,000 MG/SWFI 10 ML IV PUSH IV SCH ×2 (18:19)
[2019-10-28] VITALS (26 sets, daily range): BP systolic 111–130; BP diastolic 56–79
[2019-10-28] MEDS ORDERED: VANCOMYCIN 750 MG/NS 250 ML IVPB IV SCH ×2
[2019-10-28] MEDS: NS IV 500 ML 500 ML IV SCH (00:27)
[2019-10-28] MEDS: RT-ALBUTEROL/IPRATROPIUM 3 ML (DUONEB) VIAL INH SCH ×5 (02:39→21:54)
[2019-10-28 03:16] LABS: BASOPHILS % (AUTO) 0 % (0-10); EOSINOPHILS % (AUTO) 0 % (0-10); HEMATOCRIT 36 % (35-52); HEMOGLOBIN 10.4 G/DL (11.5-16.0); LYMPHOCYTES # (AUTO) 1.6 X 10^3 (1.0-4.0); LYMPHOCYTES % (AUTO) 16 % (12-44); MEAN CORPUSCULAR HEMOGLOBIN 22 PG (25-34); MEAN CORPUSCULAR HGB CONC 29 G/DL (32-36); MEAN CORPUSCULAR VOLUME 76 FL (80-99); MEAN PLATELET VOLUME 9.9 FL (7.4-10.4); MONOCYTES # (AUTO) 1.1 X 10^3 (0.0-1.0); MONOCYTES % (AUTO) 11 % (0-12); NEUTROPHILS # (AUTO) 7.2 X 10^3 (1.8-7.8); NEUTROPHILS % (AUTO) 73 % (42-75); PLATELET COUNT 261 10^3/uL (130-400); RED CELL DISTRIBUTION WIDTH 22.4 % (10.0-14.5); WHITE BLOOD COUNT 9.9 10^3/uL (4.3-11.0)
[2019-10-28 03:27] LABS: POTASSIUM 4.3 MMOL/L (3.6-5.0)
[2019-10-28 03:28] LABS: CALCIUM 7.4 MG/DL (8.5-10.1)
[2019-10-28 03:32] LABS: PHOSPHORUS 3.3 MG/DL (2.3-4.7)
[2019-10-28 03:33] LABS: CREATININE SERUM 1.48 MG/DL (0.60-1.30)
[2019-10-28 03:35] LABS: MAGNESIUM 1.9 MG/DL (1.6-2.4)
[2019-10-28] MEDS: KCL 20 MEQ TAB (K-DUR) PO SCH (05:05)
[2019-10-28] MEDS: POTASSIUM CL 10MEQ/50ML IVPB 50 ML IV SCH (05:05)
[2019-10-28] MEDS: MAGNESIUM 1 GM/100 ML IVPB 100 ML IV SCH (05:05)
[2019-10-28] MEDS: NS IV 1000 ML 1,000 ML IV SCH (05:05)
[2019-10-28] MEDS: inSUlin ASPART (NovoLOG) 1 UNIT/0.01 ML (CHARGE PER UNIT) SC SCH ×4 (05:06→20:43)
--- NOTE | 2019-10-28 05:31 | Pulmonary Consultation ---
History of Present Illness History of Present Illness Date Seen by Provider: October 27, 2019 (Late note ) Time Seen by Provider: 05:28 Date of Admission History of Present Illness 69yo poor historian with hx of severe oxygen dependent COPD and recent admission for acute exacerbation presented to ED secondary to worsening SOB and falling out of bed. Pt was found to have Sp02 around 50% and LA >6 while in the ED. She denies any cough or fever. She denies any wheezing. Pt was admitted to ICU for aggressive treatment. Allergies and Home Medications Allergies Coded Allergies: No Known Drug Allergies (Unverified , 05/03/11) Home Medications Albuterol Sulfate 1 Puff Puff, 2 PUFF PO Q6H PRN for SHORTNESS OF BREATH, (Reported) Alprazolam 0.25 Mg Tablet, 0.25 MG PO DAILY PRN for ANXIETY, (Reported) Apixaban 5 Mg Tablet, 5 MG PO BID, (Reported) Cetirizine HCl 10 Mg Tablet, 10 MG PO DAILY PRN for ALLERGY SYMPTOMS, (Reported) Fluticasone/Umeclidin/Vilanter 1 Each Blst.w.dev, 1 PUFF IN DAILY, (Reported) RINSE AND SPIT AFTER EACH INHALATION Furosemide 20 Mg Tablet, 20 MG PO BID, (Reported) Ipratropium/Albuterol Sulfate 3 Ml Ampul.neb, 1 VIAL NEB Q6H, (Reported) Levothyroxine Sodium 50 Mcg Tablet, 50 MCG PO DAILY, (Reported) Lisinopril 2.5 Mg Tablet, 2.5 MG PO DAILY, (Reported) Metformin HCl 500 Mg Tablet, 500 MG PO BID, (Reported) Montelukast Sodium 10 Mg Tablet, 10 MG PO HS, (Reported) Multivitamin 1 Each Tablet, 1 EACH PO DAILY, (Reported) [place]-3 Fatty Acids/Fish Oil 1 Each Capsule, 1 EACH PO DAILY, (Reported) Omeprazole 20 Mg Capsule.dr, 20 MG PO DAILY, (Reported) Potassium Chloride 10 Meq Tablet.er, 20 MEQ PO DAILY, (Reported) TAKES 2 (10MEQ) TABS DAILY Prednisone 10 Mg Tab.ds.pk, 10 MG PO DAILY Take 6 tabs(60mg)daily,decrease by 1 tab(10mg)every other day. Prescribed by: JOSHUA PARIKH on 10/01/19 1129 Rosuvastatin Calcium 40 Mg Tablet, 40 MG PO HS, (Reported) Sertraline HCl 100 Mg Tablet, 100 MG PO DAILY, (Reported) Past Dxslujo-Afuros-Wfqgcb Hx Past Med/Social Hx: Reviewed Nursing Past Med/Soc Hx Patient Social History Alcohol Use: Denies Use Recreational Drug Use: No Smoking Status: Former Smoker Type Used: Cigarettes Former Smoker, Quit: Sep 21, 2013 Recent Foreign Travel: No Contact w/Someone Who Travel: No Recent Infectious Disease Expo: No Recent Hopitalizations: Yes Physical Abuse: No Sexual Abuse: No Mistreated: No Fear: No Immunizations Up To Date Tetanus Booster (TDap): Unknown Date of Pneumonia Vaccine: Sep 21, 2018 Seasonal Allergies Seasonal Allergies: No Past Medical History Surgeries: Yes Cardiac, CABG Respiratory: Yes (RESP FX WITH HYPOXIA) Sleep Apnea, COPD Cardiac: Yes ([place] in 1998) Atrial Fibrillation, Coronary Artery Disease, High Cholesterol, Hypertension Neurological: No Reproductive Disorders: No Female Reproductive Disorders: Denies Sexually Transmitted Disease: No HIV/AIDS: No Genitourinary: No Gastrointestinal: No Musculoskeletal: No Endocrine: Yes Hypothyroidsim Cataract Hearing Impairment: Hard of Hearing Cancer: No Psychosocial: Yes Anxiety Integumentary: No Blood Disorders: No Adverse Reaction/Blood Tranf: No Family Medical History Reviewed Nursing Family Hx FH: cancer G8 BROTHER G8 BROTHER G8 BROTHER G8 BROTHER G8 BROTHER G8 SISTER G8 SISTER FHx: leukemia 19 FATHER FHx: stroke 19 MOTHER No Pertinent Family Hx Review of Systems Time Seen by Provider: 05:31 Sepsis Event Evaluation Height, Weight, BMI Height: 4'10.50" Weight: 106lbs. oz. 48.579381cw; 26.47 BMI Method:Stated Exam Exam Vital Signs Date Time Temp Pulse Resp B/P (MAP) Pulse Ox O2 Delivery O2 Flow Rate FiO2 10/28/19 04:00 NIV CPAP 45 10/28/19 04:00 60 14 119/67 (84) 94 NIV CPAP 45.00 10/28/19 03:00 60 18 125/68 (87) 93 NIV CPAP 45.00 10/28/19 02:39 60 16 45.00 10/28/19 02:00 60 16 120/68 (85) 94 NIV CPAP 45.00 10/28/19 01:00 60 16 117/68 (84) 93 NIV CPAP 45.00 10/28/19 01:00 60 5/11/20 00:00 60 21 115/63 (80) 93 NIV CPAP 45.00 10/28/19 00:00 NIV CPAP 45 10/27/19 23:00 60 20 124/66 (85) 95 NIV CPAP 45.00 10/27/19 22:53 NIV CPAP 45.00 10/27/19 22:00 60 26 114/65 (81) 96 NIV CPAP 50.00 10/27/19 21:49 NIV CPAP 50.00 10/27/19 21:26 60 16 35.00 10/27/19 21:00 60 15 123/68 (86) 90 Vapotherm 25.00 50.00 10/27/19 20:00 60 15 115/83 (94) 90 Vapotherm 25.00 50.00 10/27/19 20:00 Vapotherm 25.00 50 10/27/19 19:31 36.3 60 16 119/85 (96) 91 Vapotherm 25.00 50.00 10/27/19 19:00 60 10/27/19 19:00 60 17 119/85 (96) 91 Vapotherm 25.00 50.00 10/27/19 18:00 60 17 123/65 (84) 92 Vapotherm 25.00 50.00 10/27/19 17:00 60 14 144/133 (137) 91 NIV Bilevel 42.00 10/27/19 16:29 Vapotherm 50 10/27/19 16:00 60 16 100/68 (79) 90 NIV Bilevel 42.00 10/27/19 16:00 36.3 10/27/19 15:00 60 15 103/72 (82) 92 NIV Bilevel 42.00 10/27/19 14:35 92 Vapotherm 25.00 50 10/27/19 14:17 Vapotherm 50.00 10/27/19 14:00 60 15 100/71 (81) 92 NIV Bilevel 42.00 10/27/19 13:00 60 15 111/61 (78) 95 NIV Bilevel 42.00 10/27/19 12:44 60 10/27/19 12:24 Vapotherm 45 10/27/19 12:00 36.2 Vapotherm 50.00 10/27/19 12:00 60 14 116/70 (85) 95 NIV Bilevel 42.00 10/27/19 11:00 60 16 107/86 (93) 93 NIV Bilevel 42.00 10/27/19 10:00 60 15 99/60 (73) 93 NIV Bilevel 42.00 10/27/19 09:00 60 20 120/67 (84) 97 NIV Bilevel 42.00 10/27/19 08:00 Vapotherm 45 10/27/19 08:00 36.3 60 16 91/55 (67) 93 Nasal Cannula 5.00 10/27/19 08:00 60 22 97/60 (72) 91 NIV Bilevel 42.00 10/27/19 07:14 60 10/27/19 07:00 60 15 110/67 (81) 92 NIV Bilevel 42.00 10/27/19 06:45 Nasal Cannula 3.00 10/27/19 06:29 60 16 35.00 10/27/19 06:00 60 16 120/63 (82) 96 NIV Bilevel 42.00 I & O 10/28/19 07:00 Intake Total 900 ml Output Total 500 ml Balance 400 ml Height & Weight Height: 4'10.50" Weight: 106lbs. oz. 48.395279rk; 26.47 BMI Method:Stated General Appearance: Chronically ill, Other (ill appearing) HEENT: PERRL/EOMI, Moist Mucous Membranes; No Scleral Icterus (L), No Scleral Icterus (R) Neck: Full Range of Motion, Supple; No Thyromegaly; Other (central line in place) Respiratory: No Accessory Muscle Use, Crackles, Other (on vapotherm) Cardiovascular: Regular Rate, Rhythm, No Murmur Capillary Refill: Less Than 3 Seconds Peripheral Pulses: 2+ Radial Pulses (R), 2+ Radial Pulses (L) Gastrointestinal: normal bowel sounds, non tender, soft, no organomegaly Extremity: Normal Capillary Refill, No Calf Tenderness, Swelling (2+ bilaterall y of lower extremities) Neurologic/Psychiatric: Alert, Other (oriented to person, place, and major details) Skin: Normal Color, Warm/Dry Results Lab Laboratory Tests 10/26/19 23:15 10/27/19 06:00 10/28/19 03:00 Assessment/Plan Assessment/Plan Bilateral pneumonia -Continue Vanco, and Cefepime -Await cultures COPDAE -SVNs -Oxygen -BiPAP PRN Acute on chronic respiratory failure ARF -Monitor Received bolus this AM Continue IVF CAD s/p CABG HTN a-fib On Eliquis Hypothyroidism Continue Synthroid ESME GASPAR DO October 28, 2019 05:31
[2019-10-28] MEDS: LEVOTHYROXINE 50 MCG (LEVOTHROID) TAB PO SCH (05:48)
[2019-10-28] MEDS: CEFEPIME 1,000 MG/SWFI 10 ML IV PUSH IV SCH ×4 (05:48→20:43)
[2019-10-28] MEDS: LACTATED RINGERS 1,000 ML IV SCH (05:49)
[2019-10-28 06:16] LABS: BILIRUBIN,URINE NEGATIVE (NEGATIVE); CLARITY,URINE TURBID; COLOR,URINE YELLOW; GLUCOSE, URINE (UA) 1+ (NEGATIVE); KETONES,URINE TRACE (NEGATIVE); LEUKOCYTE ESTERASE ,URINE NEGATIVE (NEGATIVE); NITRITE,URINE NEGATIVE (NEGATIVE); PH,URINE 5.5 (5-9); PROTEIN,URINE 2+ (NEGATIVE)
[2019-10-28 06:37] LABS: RBC,URINE 50-100 /HPF
[2019-10-28 06:38] LABS: BACTERIA,URINE FEW /HPF; GRANULAR CASTS,URINE RARE /LPF
[2019-10-28 06:39] LABS: YEAST,URINE FEW /HPF
--- NOTE | 2019-10-28 06:48 | Diagnostic Imaging Report ---
Indication: Respiratory distress. Comparison: 10/27/2019. Findings: Single view of the chest demonstrates stable cardiac enlargement with central vascular congestion and basilar infiltrates on the right. There is no pneumothorax. Trace effusions are present. The right IJ catheter pacemaker is stable. Sternal wires midline. Impression: Unchanged aeration of the lungs. Dictated by: Dictated on workstation # [id number]
[2019-10-28] MEDS: APIXABAN 2.5 MG (ELIQUIS) TABLET PO SCH (08:25)
[2019-10-28] MEDS: SERTRALINE 100 MG (ZOLOFT) TAB PO SCH (08:26)
[2019-10-28] MEDS ORDERED: ACET325T38 PO (11:41)
[2019-10-28] MEDS ORDERED: ONDN4T PO (11:41)
[2019-10-28] MEDS ORDERED: CANA100T PO (11:41)
--- NOTE | 2019-10-28 11:46 | NUR ---
I ENTERED THE MED REC USING THE MAR/PHYSICIANS ORDERS FROM [facility]
[2019-10-28] MEDS ORDERED: VANCOMYCIN INJECTION 0.1 MG in NS (IVPB) 250 ML IV SCH (12:45)
--- NOTE | 2019-10-28 13:02 | NUR ---
"RD ASSESSMENT PMHx: COPD; afib; CAD; hypercholesterolemia; HTN; hypothyroidism; PT INTERACTION: Pt was awake and pleasant during nutrition assessment. Pt states current appetite is pretty good. Note avg PO intake 42% x1d, per chart review. Pt states following a regular diet at home, and has no issues with chewing/swallowing food. Note pt has missing teeth, per visual assessment. Pt states some recent issues with nausea and vomiting. Pt states no recent issues with constipation or diarrhea, and states she is unsure of when her last BM was. Note no BM recorded, and pt not currently on bowel regimen per chart review. Pt states unsure of recent wt changes. Note recent 13# wt gain x1mon, per chart review. ABNORMAL NUTRITION-RELATED LAB VALUES LOW: Ca 7.4 HIGH: Cl 110; BUN 31; cr 1.48 Est. kcal needs: 8539-0004 kcal | 25-30 kcal/kg Est. Pro needs: 51-64 g Pro | 0.8-1.0 g Pro/kg PES STATEMENT: Inadequate oral intake (NI-2.1) related to loss of appetite | nausea | vomiting as evidenced by pt interview | avg PO intake 42% x1d INTERVENTION: Continue with current diet order of Regular diet. Add Ensure Enlive (vary) to meals TID, for increased kcal intake. Provides 350 kcal and 13 g Pro per serving. Will continue to follow and reassess as pt needs, intake, and status change. MONITOR/EVALUATE: PO Intake; Plan of Care; Hydration Status; Weight Status; Lab Values Ana Rosa Dailey, MS, RD, LD"
--- NOTE | 2019-10-28 13:18 | Progress Note - Hospitalist ---
Subjective HPI/CC On Admission Date Seen by Provider: October 28, 2019 Time Seen by Provider: 09:25 Pt is a 69 yoCF known to me from recent admission for COPD who presented to the ER for a fall and hypoxia. She states she was at [facility] and laying in bed when she slid out of it. She denies any injury or LOC. When her aides came to check on her she was found to be hypoxic in the 50s. EMS was called. She normally wears 4lpm of oxygen during the day and 8lpm at night. She states this was on the whole time and she was still that hypoxic. She denies any cough or fever. She denies any wheezing. She also denies any lower extremity edema but she has 2+ pitting edema to her calves bilaterally so I am unsure of her accuracy in answering this questions. She states she is feeling better this morning. She was found to be septic shock from bilateral pneumonia with a lactic acid of >6. She was admitted to the ICU for further management. Subjective/Events-last exam she has no complaints or concerns. She denies any chest pain or shortness of breath. She is having a cough. She denies any nausea, vomiting, or abdominal pain. She has no other issues at this time. Focused Exam Lactate Level 10/27/19 02:38: Lactic Acid Level 2.07*H 10/27/19 04:49: Lactic Acid Level 1.53 10/28/19 05:45: Lactic Acid Level 0.78 Time of Focused Exam: 00:36 Objective Exam Vital Signs Vital Signs Date Time Temp Pulse Resp B/P (MAP) Pulse Ox O2 Delivery O2 Flow Rate FiO2 10/28/19 12:27 36.8 60 90 60 10/28/19 12:00 22 117/64 (81) Vapotherm 25.00 55.00 Capillary Refill : Less Than 3 Seconds General Appearance: No Apparent Distress, Chronically ill Respiratory: Lungs Clear, Normal Breath Sounds, No Respiratory Distress Cardiovascular: Regular Rate, Rhythm, No Murmur Gastrointestinal: Normal Bowel Sounds, Non Tender, Soft Extremity: Normal Inspection, Pedal Edema Neurologic/Psychiatric: Alert, Normal Mood/Affect Skin: Warm/Dry, Pallor Results/Procedures Lab Laboratory Tests 10/28/19 03:00 Patient resulted labs reviewed. Imaging: Reviewed Imaging Report Assessment/Plan Assessment and Plan Assess & Plan/Chief Complaint Bilateral pneumonia Acute on chronic respiratory failure with hypoxia COPD Continue Vanc and Cefepime urine culture negative, blood cultures with likely contaminants Continue IVF EVERETTE improving Continue IVF Elevated LFTs likely due to ischemic hepatopathy Repeat LFTs tomorrow morning CAD s/p CABG HTN a-fib continue Eliquis plan to resume antihypertensives if blood pressure increases Hypothyroidism Continue Synthroid DVT prophylaxis: Already receiving therapeutic anticoagulation Septic Shock, resolved Diagnosis/Problems Diagnosis/Problems (1) Septic shock Status: Acute (2) Pneumonia Status: Acute Qualifiers: Pneumonia type: due to unspecified organism Laterality: right Lung location: unspecified part of lung Qualified Codes: J18.9 - Pneumonia, unspecified organism (3) EVERETTE (acute kidney injury) Status: Acute (4) Acute respiratory failure Status: Acute Qualifiers: Respiratory failure complication: hypoxia Qualified Codes: J96.01 - Acute respiratory failure with hypoxia (5) Transaminitis Status: Acute (6) Atrial fibrillation Status: Chronic Clinical Quality Measures DVT/VTE Risk/Contraindication: Risk Factor Score Per Nursin RFS Level Per Nursing on Admit: 4+=Very High JOSHUA PARIKH MD October 28, 2019 13:18
--- NOTE | 2019-10-28 14:59 | NUR ---
CM/SS: Visited with pt as to plan for discharge Plan: Pt will return to [facility] when medically able Summary: Pt reports feeling better today. Pt is eager to move to the 4th floor on tomorrow or next day if she continues to feel better. Pt reports she is from [facility]. She seems unclear if she is from the Assisted Living side, or from the senior living side. Pt reports only to living there a short time. Pt report to having sons that live in [place] and [place]. Pt reassured that we will work with [facility] to coordinate her returning when the time comes. This worker will follow up. Telephone call to [facility] - Jihan - pt is on the senior living side and had been skilled. Jihan aware that pt will return in a few days. Information to be faxed when closer to time of discharge.
--- NOTE | 2019-10-28 17:47 | NUR ---
Dr Barry notified that urine output for this shift was between 275-280. Dr Barry orders to continue to monitor for now.
[2019-10-28] MEDS: APIXABAN 5 MG (ELIQUIS) TABLET PO SCH (20:44)
[2019-10-29] VITALS (24 sets, daily range): BP systolic 104–131; BP diastolic 49–80
[2019-10-29] MEDS: RT-ALBUTEROL/IPRATROPIUM 3 ML (DUONEB) VIAL INH SCH ×6 (02:07→21:33)
[2019-10-29] MEDS: MAGNESIUM 1 GM/100 ML IVPB 100 ML IV SCH (03:09)
[2019-10-29] MEDS: POTASSIUM CL 10MEQ/50ML IVPB 50 ML IV SCH (03:09)
[2019-10-29] MEDS: KCL 20 MEQ TAB (K-DUR) PO SCH (03:10)
[2019-10-29 03:26] LABS: BASOPHILS % (AUTO) 0 % (0-10); EOSINOPHILS % (AUTO) 0 % (0-10); HEMATOCRIT 35 % (35-52); HEMOGLOBIN 10.4 G/DL (11.5-16.0); LYMPHOCYTES # (AUTO) 1.3 X 10^3 (1.0-4.0); LYMPHOCYTES % (AUTO) 13 % (12-44); MEAN CORPUSCULAR HEMOGLOBIN 22 PG (25-34); MEAN CORPUSCULAR HGB CONC 30 G/DL (32-36); MEAN CORPUSCULAR VOLUME 75 FL (80-99); MEAN PLATELET VOLUME 9.5 FL (7.4-10.4); MONOCYTES # (AUTO) 1.1 X 10^3 (0.0-1.0); MONOCYTES % (AUTO) 12 % (0-12); NEUTROPHILS # (AUTO) 6.9 X 10^3 (1.8-7.8); NEUTROPHILS % (AUTO) 74 % (42-75); PLATELET COUNT 276 10^3/uL (130-400); RED CELL DISTRIBUTION WIDTH 22.8 % (10.0-14.5); WHITE BLOOD COUNT 9.4 10^3/uL (4.3-11.0)
[2019-10-29 03:35] LABS: ALBUMIN 3.2 GM/DL (3.2-4.5); POTASSIUM 4.5 MMOL/L (3.6-5.0)
[2019-10-29 03:38] LABS: TOTAL PROTEIN 6.4 GM/DL (6.4-8.2)
[2019-10-29 03:39] LABS: BILIRUBIN,TOTAL 0.6 MG/DL (0.1-1.0)
[2019-10-29 03:41] LABS: CREATININE SERUM 1.49 MG/DL (0.60-1.30); PHOSPHORUS 3.6 MG/DL (2.3-4.7)
[2019-10-29 03:43] LABS: BILIRUBIN,DIRECT 0.5 MG/DL (0.0-0.3); BILIRUBIN,INDIRECT 0.1 MG/DL
[2019-10-29] MEDS: inSUlin ASPART (NovoLOG) 1 UNIT/0.01 ML (CHARGE PER UNIT) SC SCH ×4 (04:09→20:49)
--- NOTE | 2019-10-29 05:40 | Pulmonary Progress Note ---
Subjective Time Seen by a Provider: 05:39 Subjective/Events-last exam Pt is requiring a lot of oxygen via Vapotherm. Sepsis Event Evaluation Height, Weight, BMI Height: 4'10.50" Weight: 106lbs. oz. 48.750671zc; 26.47 BMI Method:Stated Focused Exam Lactate Level 10/27/19 02:38: Lactic Acid Level 2.07*H 10/27/19 04:49: Lactic Acid Level 1.53 10/28/19 05:45: Lactic Acid Level 0.78 Time of Focused Exam: 00:36 Exam Exam Vital Signs Date Time Temp Pulse Resp B/P (MAP) Pulse Ox O2 Delivery O2 Flow Rate FiO2 10/29/19 04:00 60 16 125/73 (90) 91 Vapotherm 25.00 50.00 10/29/19 04:00 Vapotherm 25.00 55 10/29/19 03:00 60 18 126/63 (84) 93 Vapotherm 25.00 50.00 10/29/19 02:08 92 Vapotherm 25.00 50 10/29/19 02:00 60 18 114/68 (83) 93 Vapotherm 25.00 50.00 10/29/19 01:00 60 10/29/19 01:00 60 17 117/62 (80) 93 Vapotherm 25.00 50.00 10/29/19 00:00 37.0 25.00 50.00 10/29/19 00:00 Vapotherm 25.00 55 10/29/19 00:00 60 19 115/57 (76) 90 Vapotherm 25.00 50.00 10/28/19 23:00 60 18 115/66 (82) 91 Vapotherm 25.00 60.00 10/28/19 22:00 60 18 120/63 (82) 91 Vapotherm 25.00 60.00 10/28/19 21:54 93 Vapotherm 25.00 50 10/28/19 21:00 60 17 130/61 (84) 92 Vapotherm 25.00 60.00 10/28/19 20:02 36.8 60 18 123/72 (89) 92 Vapotherm 25.00 60.00 10/28/19 20:00 Vapotherm 25.00 60 10/28/19 19:00 60 20 118/59 (78) 90 Vapotherm 25.00 60.00 10/28/19 19:00 60 10/28/19 18:19 92 Vapotherm 25.00 60 10/28/19 18:00 60 17 119/79 (92) 93 Vapotherm 25.00 60.00 10/28/19 17:00 59 21 112/56 (74) 90 Vapotherm 25.00 60.00 10/28/19 16:00 60 18 127/75 (92) 93 Vapotherm 25.00 60.00 10/28/19 16:00 36.9 10/28/19 16:00 Vapotherm 25.00 60 10/28/19 15:00 60 18 126/59 (81) 96 Vapotherm 25.00 60.00 10/28/19 14:15 91 Vapotherm 25.00 60 10/28/19 14:00 60 17 124/77 (93) 88 Vapotherm 25.00 60.00 10/28/19 13:00 60 17 114/69 (84) 90 Vapotherm 25.00 60.00 10/28/19 12:27 36.8 60 90 60 10/28/19 12:17 60 10/28/19 12:00 60 22 117/64 (81) Vapotherm 25.00 55.00 10/28/19 12:00 Vapotherm 25.00 60 10/28/19 11:28 36.8 10/28/19 11:00 60 17 128/71 (90) Vapotherm 25.00 55.00 10/28/19 10:00 60 16 116/72 (87) 90 Vapotherm 25.00 55.00 10/28/19 10:00 60 25 129/74 (92) Vapotherm 25.00 55.00 10/28/19 09:00 60 16 129/74 (92) 88 Vapotherm 25.00 55.00 10/28/19 08:00 60 17 119/73 (88) 90 NIV CPAP 45.00 10/28/19 08:00 Vapotherm 20.00 50 10/28/19 07:00 60 17 116/64 (81) 90 NIV CPAP 45.00 10/28/19 07:00 36.8 10/28/19 07:00 60 10/28/19 06:48 94 Vapotherm 25.00 50 10/28/19 06:00 60 14 111/67 (82) 94 NIV CPAP 45.00 I & O 10/29/19 07:00 Intake Total 500 ml Output Total 408 ml Balance 92 ml Height & Weight Height: 4'10.50" Weight: 106lbs. oz. 48.439467hn; 26.47 BMI Method:Stated General Appearance: No Apparent Distress, Chronically ill HEENT: PERRL/EOMI, Moist Mucous Membranes; No Scleral Icterus (L), No Scleral Icterus (R) Neck: Full Range of Motion, Supple; No Thyromegaly; Other (central line in place) Respiratory: Lungs Clear, Normal Breath Sounds, No Respiratory Distress Cardiovascular: Regular Rate, Rhythm, No Murmur Capillary Refill: Less Than 3 Seconds Peripheral Pulses: 2+ Radial Pulses (R), 2+ Radial Pulses (L) Gastrointestinal: normal bowel sounds, non tender, soft, no organomegaly Extremity: Normal Inspection, Pedal Edema Neurologic/Psychiatric: Alert, Normal Mood/Affect Skin: Warm/Dry, Pallor Results Lab Laboratory Tests 10/27/19 06:00 10/28/19 03:00 10/29/19 03:20 Assessment/Plan Assessment/Plan Bilateral pneumonia -Continue Vanco, and Cefepime -Await cultures -MRSA is negative -CXR appears worse. -Change cefepime to Merrem and add eraxis -Repeat hugo cultures COPDAE -SVNs -Oxygen -BiPAP PRN Acute on chronic respiratory failure ARF -Monitor -Give liter bolus of LR and increase IVF to 150 Received bolus this AM Continue IVF CAD s/p CABG HTN a-fib On Eliquis Hypothyroidism Continue Synthroid ESME GASPAR DO October 29, 2019 05:40
[2019-10-29] MEDS ORDERED: ANIDULAFUNGIN INJECTION 200 MG in NS (IVPB) 250 ML IV ONE (05:45)
[2019-10-29] MEDS ORDERED: SODIUM BICARB 8.4% 50 MEQ/50 ML VIAL IV ONE (05:45)
[2019-10-29] MEDS ORDERED: MEROPENEM 500 MG in WATER (STERILE) FOR INJECTION 10 ML IV SCH (05:45)
[2019-10-29] MEDS: LACTATED RINGERS 1,000 ML IV SCH ×3 (06:30→21:36)
[2019-10-29] MEDS: LEVOTHYROXINE 50 MCG (LEVOTHROID) TAB PO SCH (06:54)
--- NOTE | 2019-10-29 06:58 | Diagnostic Imaging Report ---
INDICATION: Respiratory distress. Dyspnea. COMPARISON: 10/28/2019 FINDINGS: Single frontal radiographic view of the chest was obtained and demonstrates persistent mild cardiomegaly and mild vascular congestion. Sternotomy wires and left-sided dual-lead pacemaker are noted. There is persistent right internal jugular central venous catheter. Lungs continue to show diffuse prominence of the interstitium and confluent alveolar opacities within the right lung base. Small effusions are suspected. There is no pneumothorax on either side. Overall, aeration is stable. IMPRESSION: 1. Stable exam of the chest as described above. Dictated by: Dictated on workstation # [id number]
[2019-10-29 07:11] LABS: BILIRUBIN,URINE NEGATIVE (NEGATIVE); CLARITY,URINE CLEAR; COLOR,URINE YELLOW; GLUCOSE, URINE (UA) TRACE (NEGATIVE); KETONES,URINE TRACE (NEGATIVE); LEUKOCYTE ESTERASE ,URINE NEGATIVE (NEGATIVE); NITRITE,URINE NEGATIVE (NEGATIVE); PROTEIN,URINE 3+ (NEGATIVE)
[2019-10-29 07:22] LABS: AMORPHOUS SEDIMENT,UR FEW AMOR URATES /LPF; BACTERIA,URINE FEW /HPF; RBC,URINE TNTC /HPF
--- NOTE | 2019-10-29 07:59 | Diagnostic Imaging Report ---
Indication: Possible aspiration. Exam compared 10/28. Findings: Compared earlier the same date, this film is timed 7:47 a.m. Infiltrate and airspace disease in the right greater than left lower lobes redemonstrated not substantially changed small amounts of pleural fluid greater right unchanged. No pneumothorax. Sternal wires and pacemaker device stable. Impression: Basilar effusions and consolidations unchanged, no pneumothorax. Stable support apparatus. Dictated by: Dictated on workstation # [id number]
[2019-10-29] MEDS: ONDANSETRON 4 MG/2 ML (SDV) Z0FRAN IV PRN ×2 (09:30→18:37)
--- NOTE | 2019-10-29 10:26 | Speech Therapy Progress Note ---
Therapy Progress Note ST attempted to complete Bedside Dysphagia Evaluation. Patient is on O2 with Vapotherm at this time and was unable to complete BDE. ST to follow up as patient's status allows. GABRIELLA VALADEZ October 29, 2019 10:25
--- NOTE | 2019-10-29 11:15 | NUR ---
Pastoral care visit.
[2019-10-29] MEDS: SERTRALINE 100 MG (ZOLOFT) TAB PO SCH (13:32)
[2019-10-29] MEDS: MEROPENEM 500 MG in WATER (STERILE) FOR INJECTION 10 ML IV SCH ×2 (13:32→21:35)
[2019-10-29] MEDS: APIXABAN 5 MG (ELIQUIS) TABLET PO SCH ×2 (13:32→20:47)
--- NOTE | 2019-10-29 13:40 | NUR ---
CM/SS: Visited with pt as to plan for discharge Plan: Pt to return to [facility] when medically stable Summary: Pt reports she is having more issues with her breathing today. She was unable to be moved to 4th floor today as a result of that. This worker informed pt that [facility] will be able to take her back when she is medically stable. Pt is able to shake her head, as she is wearing the bipap. Pt is requesting that the mask be removed. The RN is notified of the request. This worker will follow up. Telephone Call to [facility]([phone]) to update on the status of the pt. Left message for Jihan to call back at her convenience.
--- NOTE | 2019-10-29 13:54 | Progress Note - Hospitalist ---
Subjective HPI/CC On Admission Date Seen by Provider: October 29, 2019 Time Seen by Provider: 09:30 Pt is a 69 yoCF known to me from recent admission for COPD who presented to the ER for a fall and hypoxia. She states she was at [facility] and laying in bed when she slid out of it. She denies any injury or LOC. When her aides came to check on her she was found to be hypoxic in the 50s. EMS was called. She normally wears 4lpm of oxygen during the day and 8lpm at night. She states this was on the whole time and she was still that hypoxic. She denies any cough or fever. She denies any wheezing. She also denies any lower extremity edema but she has 2+ pitting edema to her calves bilaterally so I am unsure of her accuracy in answering this questions. She states she is feeling better this morning. She was found to be septic shock from bilateral pneumonia with a lactic acid of >6. She was admitted to the ICU for further management. Subjective/Events-last exam she reports feeling nauseous this morning but did not throw up. She also reports feeling short of breath. She is still having a cough. She denies any fevers or chills. She denies any chest pain. She denies any abdominal pain. She has no other complaints or concerns. Focused Exam Lactate Level 10/27/19 02:38: Lactic Acid Level 2.07*H 10/27/19 04:49: Lactic Acid Level 1.53 10/28/19 05:45: Lactic Acid Level 0.78 Time of Focused Exam: 00:36 Objective Exam Vital Signs Vital Signs Date Time Temp Pulse Resp B/P (MAP) Pulse Ox O2 Delivery O2 Flow Rate FiO2 10/29/19 13:00 60 16 122/66 (84) 91 Vapotherm 30.00 65.00 10/29/19 12:00 36.7 10/29/19 12:00 65 Capillary Refill : Less Than 3 Seconds General Appearance: No Apparent Distress, WD/WN HEENT: PERRL/EOMI, Pharynx Normal Respiratory: Lungs Clear, Normal Breath Sounds, Other (tachypnea) Cardiovascular: Regular Rate, Rhythm, No Edema, No Murmur Gastrointestinal: Normal Bowel Sounds, Non Tender, Soft Extremity: Normal Inspection, Non Tender, No Pedal Edema Neurologic/Psychiatric: Alert, Oriented x3, No Motor/Sensory Deficits, Normal Mood/Affect Skin: Normal Color, Warm/Dry Results/Procedures Lab Laboratory Tests 10/29/19 03:20 Patient resulted labs reviewed. Imaging: Reviewed Imaging Report Assessment/Plan Assessment and Plan Assess & Plan/Chief Complaint Bilateral pneumonia Acute on chronic respiratory failure with hypoxia COPD vancomycin and cefepime discontinued Transition to Merrem and Eraxis urine culture negative, blood cultures with likely contaminants Continue IV fluids EVERETTE improving Continue IV fluids Elevated LFTs likely due to ischemic hepatopathy LFTs stable CAD s/p CABG HTN a-fib continue Eliquis plan to resume antihypertensives if blood pressure increases Hypothyroidism Continue Synthroid debility PT/OT DVT prophylaxis: Already receiving therapeutic anticoagulation Septic Shock, resolved Diagnosis/Problems Diagnosis/Problems (1) Septic shock Status: Acute (2) Pneumonia Status: Acute Qualifiers: Pneumonia type: due to unspecified organism Laterality: right Lung location: unspecified part of lung Qualified Codes: J18.9 - Pneumonia, unspecified organism (3) EVERETTE (acute kidney injury) Status: Acute (4) Acute respiratory failure Status: Acute Qualifiers: Respiratory failure complication: hypoxia Qualified Codes: J96.01 - Acute respiratory failure with hypoxia (5) Transaminitis Status: Acute (6) Atrial fibrillation Status: Chronic Clinical Quality Measures DVT/VTE Risk/Contraindication: Risk Factor Score Per Nursin RFS Level Per Nursing on Admit: 4+=Very High JOSHUA PARIKH MD October 29, 2019 13:54
--- NOTE | 2019-10-29 14:01 | ST Dysphagia Evaluation ---
Speech Evaluation-General Medical Diagnosis Septic Shcck, Bilateral Pneumonia Onset Date: October 27, 2019 Therapy Diagnosis Therapy Diagnosis: Oropharyngeal Dysphagia Precautions Precautions: Aspiration Referral Referring Physician: Dr. Barry Medical History Pertinent Medical History: Atrial Fib, CABG, CAD, COPD Reviewed History: Yes Social History Home: Custodial Speech PLF/Current-Dysphagia Prior Level of Function Patient lives in a local senior care where her needs were met. Subjective Patient was pleasant and cooperative with the Bedside Dysphagia Evaluation. Cognitive Status Patient Orientation: Person, Place Oral Motor Skills Dentition: Natural, Tumbled, Stained Ability to Follow Directions: Good Patient was NPO pending BDE. Oral Expression Ability: No Impairment Voice Voice Phonatory-Based Quality: Weak Voice Pitch: Normal Voice Loudness: Mildly Soft/Quiet Face Facial Symmetry: Symmetrical Oral-Facial Assessment Oral-Facial Dentition: Normal Labial Seal Description: Normal Smile: Normal Lingual Protrusion: Normal Lingual ROM: Normal Lingual Strength: Normal Pharynx Velopharyngeal Move.: Normal Volitional Dry Swallow: Yes Voluntary Cough: Yes Dysphagia Evaluation Consistencies Presented: Thin Liquid, Mechanical Soft, Pureed Oral phase was within normal range of function for consistencies presented. Pharyngeal phase was within normal range of function for consistencies presen hortencia. Dietary Recommendations: Mechanical Soft Liquid Recommendations: Thin Swallowing Precautions: Alternate Liquids/Solids, Double Swallow, Decreased Bolus 1/2 Tsp, Liquids from Straw, Small Bites and Sips, Sitting Upright 90 Degrees, Sitting 90 Degrees 30 Post Intake Dysphagia Evaluation Summary Patient is a pleasant 69 y/o female who resides in [facility]. She was admitted to the ICU due to Septic Shock and Bilateral Pneumonia. Patient completed the Bedside Dysphagia Evaluation without difficulty. She was able to follow directions without repetitions. Patient was give 1/2 tsp thin liquids x2 and small sips via straw x2 without difficulty. Patient was also presented 1/2 tsp bite size of puree and mechanical soft without difficulty. Oral and pharyngeal phases are within normal range of function. Patient is recommended for Dysphagia II and thin liquids. Regular texture was not presented due to patient's poor teeth condition and several missing teeth. This information was provided to her nurse as well as written on the white board in her room. Barriers to Learning Patient's recent illness. Speech Short Term Goals Short Term Goals Short Term Goals 1) Patient will tolerate least restrictive diet level without s/s of aspiration at 90% with minimal cues. 2) Patient/caregiver will utilize compensatory strategies as trained at 90-100% given minimal cues. Speech Skilled Nursing Goals Skilled Nursing Goals Patient will maintain adequate nutrition/hydration via safe effective swallow function. Speech-Plan Patient/Family Goals Patient/Family Goals: Patient will return to the [place] upon hospital discharge. Treatment Plan Speech Therapy Treatment Plan: Continue Plan of Care Treatment Duration: November 08, 2019 Frequency: 3 times per week Estimated Hrs Per Day: .25 hour per day Rehab Potential: Guarded Barriers to Learning: Patient's recent illness. Pt/Family Agrees to Plan: Yes Safety Risks/Education Teaching Recipient: Patient Teaching Methods: Demonstration, Discussion Response to Teaching: Verbalize Understanding, Return Demonstration Education Topics Provided: Safety or oral intake and diet level Time Speech Therapy Time In: 13:30 Speech Therapy Time Out: 13:45 Total Billed Time: 15 Billed Treatment Time 1LILL[address] B[address] ST October 29, 2019 14:01
--- NOTE | 2019-10-29 14:25 | Physical Therapy Evaluation ---
PT Evaluation-General Medical Diagnosis Admission Date October 27, 2019 at 01:01 Medical Diagnosis: Septic Shcck, Bilateral Pneumonia Onset Date: October 27, 2019 Therapy Diagnosis Therapy Diagnosis: generalized weakness/debility Height/Weight Height (Feet): 4 Height (Inches): 10.50 Weight (Pounds): 106 Precautions Precautions/Isolations: Fall Prevention, Standard Precautions Weight Bear Status Right Lower Extremity: Right Weight Bearing/Tolerated Left Lower Extremity: Left Weight Bearing/Tolerated Referral Physician: Sima Reason for Referral: Evaluation/Treatment Medical History Pertinent Medical History: Atrial Fib, CABG, CAD, COPD, HTN, Hypothroidism Current History EMS from [place] secondary to fall from bed Reviewed History: Yes Social History Home: Senior Living Prior Prior Level of Function SCALE: Activities may be completed with or without assistive devices. 9-Ermqsuuubu-uclusjq completes the activity by him/herself with no assistance from a helper. 5-Set-up or Clean-up Assistance-helper sets up or cleans up; patient completes activity. [place] assists only prior to or following the activity. 4-Supervision or Touching Assistance-helper provides verbal cues and/or touching/steadying and/or contact guard assistance as patient completes activity. Assistance may be provided throughout the activity or intermittently. 3-Partial/Moderate Assistance-helper does LESS THAN HALF the effort. [place] lifts, holds or supports trunk or limbs, but provides less than half the effort. 2-Substantial/Maximal Assistance-helper does MORE THAN HALF the effort. [place] lifts or holds trunk or limbs and provides more than half the effort. 9-Ochelivjt-bivubd does ALL the effort. Patient does none of the effort to complete the activity. Or, the assistance of 2 or more helpers is required for the patient to complete the activity. If activity was not attempted, code reason: 7-Patient Refused. 9-Not Applicable-not attempted and the patient did not perform the activity before the current illness, exacerbation or injury. 10-Not Attempted due to Environmental Limitations-(lack of equipment, weather restraints, etc.). 88-Not Attempted due to Medical Conditions or Safety Concerns. Bed Mobility: 3 Transfers (B,C,W/C): 3 Gait: 3 Stairs: 9 Indoor Mobility (Ambulation): Needed Some Help Stairs: Not Applicalbe Prior Devices Use: Walker PT Evaluation-Current Subjective Patient agrees to PT. Currently on vapotherm Pain Numeric Pain Scale: 0-No Pain Location: No Pain Reported Objective Patient Orientation: Person, Time Attachments: Oxygen (vapotherm), Brothers Catheter, IV ROM/Strength ROM Lower Extremities bilateral LE WFL Strength Lower Extremities 3-/5 grossly bilateral LE Integumentary/Posture Integumentary refer to nursing notes Bladder Incontinence: Brothers Cath Posture WFL Neuromuscular (Tone, Coordination, Reflexes) grossly intact Sensory Vision: Functional Hearing: Functional Sensation Right Lower Extremit: Intact Sensation Left Lower Extremity: Intact Transfers Roll Left to Right (QC): 2 Lying to Sitting/Side of Bed(Q: 2 Sit to Stand (QC): 2 Chair/Gem-fb-Ppeus Xfer(QC): 2 Gait Does the Patient Walk?: No and Walking Goal IS indicated Balance Sitting Static: Normal Sitting Dynamic: Normal Standing Static: Fair Standing Dynamic: Fair Assessment/Needs 69 y.o. female, will benefit from skilled PT to address functional strength and mobility to improve current LOF to return to NH at maximum LOF. Patient SAO2 decreased to 88% on vapotherm 75%/25L Rehab Potential: Guarded PT Skilled Nursing Goals Plant Wrapper Goals PT Plant Wrapper Goals Time Frame: November 09, 2019 Roll Left & Right (QC): 4 Sit to Lying (QC): 4 Lying-Sitting on Side/Bed(QC): 4 Sit to Stand (QC): 4 Chair/Kmo-po-Osrec Xfer(QC): 4 Toilet Transfer (QC): 4 Does the Patient Walk: Yes Walk 10 feet (QC): 4 Walk 50ft with 2 Turns (QC): 4 PT Plan Problem List Problem List: Activity Tolerance, Functional Strength, Safety, Balance, Gait, Transfer, Bed Mobility Treatment/Plan Treatment Plan: Continue Plan of Care Treatment Plan: Bed Mobility, Education, Functional Activity Mason, Functional Strength, Gait, Safety, Therapeutic Exercise, Transfers Treatment Duration: November 09, 2019 Frequency: 6 times per week Estimated Hrs Per Day: .25 hour per day Patient and/or Family Agrees t: Yes Discharge Recommendations Therapy Discharge Recommendati: Other, See Comments (alf) Time/GCodes Time In: 1400 Time Out: 1418 Total Billed Treatment Time: 18 Total Billed Treatment 1 visit EVMod 18 min LAURY ESPOSITO PT October 29, 2019 14:25
--- NOTE | 2019-10-29 15:12 | Occupational Therapy Eval ---
OT Evaluation-General/PLF Medical Diagnosis Admission Date October 27, 2019 at 01:01 Medical Diagnosis: Septic Shcck, Bilateral Pneumonia Onset Date: October 27, 2019 Therapy Diagnosis Therapy Diagnosis: impaired ADL skills Height/Weight Height (Feet): 4 Height (Inches): 10.50 Weight (Pounds): 106 Precautions Precautions/Isolations: Fall Prevention, Standard Precautions Referral Physician: Sima Medical History Pertinent Medical History: Atrial Fib, CABG, CAD, COPD, HTN, Hypothroidism Additional Medical History high cholesterol, PAMUNKEY, anxiety Reviewed History: Yes Social History Home: [facility] ([facility] per chart) ADL-Prior Level of Function SCALE: Activities may be completed with or without assistive devices. 0-Attneioojs-kscfpct completes the activity by him/herself with no assistance from a helper. 5-Set-up or Clean-up Assistance-helper sets up or cleans up; patient completes activity. [place] assists only prior to or following the activity. 4-Supervision or Touching Assistance-helper provides verbal cues and/or touching/steadying and/or contact guard assistance as patient completes activity. Assistance may be provided throughout the activity or intermittently. 3-Partial/Moderate Assistance-helper does LESS THAN HALF the effort. [place] lifts, holds or supports trunk or limbs, but provides less than half the effort. 2-Substantial/Maximal Assistance-helper does MORE THAN HALF the effort. [place] lifts or holds trunk or limbs and provides more than half the effort. 3-Ulbtrujau-gybeen does ALL the effort. Patient does none of the effort to complete the activity. Or, the assistance of 2 or more helpers is required for the patient to complete the activity. If activity was not attempted, code reason: 7-Patient Refused. 9-Not Applicable-not attempted and the patient did not perform the activity before the current illness, exacerbation or injury. 10-Not Attempted due to Environmental Limitations-(lack of equipment, weather restraints, etc.). 88-Not Attempted due to Medical Conditions or Safety Concerns. ADL PLOF Comments Pt reports needing assist for ADLs and transfers, but unable to provide detailed information. Pt states she has been unable to ambulate OT Current Status Subjective Pt sitting in chair, agrees to therapy. Pt has no c/o pain. Mental Status/Objective Patient Orientation: Person Attachments: Brothers Catheter, IV, Oxygen (vapotherm) Current Glasses/Contacts: Yes Dentures/Partials: No Hand Dominance: Right Upper Extremity ROM grossly functional Upper Extremity Coordination fair Upper Extremity Sensation intact per pt report Upper Extremity Strength decreased bilaterally ADL-Treatment ADL-Current Pt participated in UE assessment while seated in chair. Pt washed face with set up. Pt required assist to brush hair. Education provided regarding role of OT and plan of care. Pt states understanding. Pt sitting in chair with needs met after session. Education OT Patient Education: Rehab process Teaching Recipient: Patient Teaching Methods: Discussion OT Vegetable Cutter Goals Skilled Nursing Goals Time Frame: November 08, 2019 Eating (QC): 5 Oral Hygiene (QC): 5 Toileting Hygiene (QC): 3 Shower/Bathe Self (QC): 3 Upper Body Dressing (QC): 4 Lower Body Dressing (QC): 3 Additional Goals: 2-Verbalize Understanding, 3-ImproveStrength/Mason 1=Demonstrate adherence to instructed precautions during ADL tasks. 2=Patient will verbalize/demonstrate understanding of assistive devices/modifications for ADL. 3=Patient will improve strength/tolerance for activity to enable patient to perform ADL's. OT Education/Plan Problem List/Assessment Assessment: Decreased Activ Tolerance, Decreased UE Strength, Dependent Transfers, Impaired Self-Care Skills Pt to benefit from skilled OT intervention for ADL training, transfers, strengthening, and safety education to maximize level of function and allow safe discharge. Discharge Recommendations Plan/Recommendations: Continue POC Treatment Plan/Plan of Care Patient would benefit from OT for education, treatment and training to promote independence in ADL's, mobility, safety and/or upper extremity function for ADL's. Plan of Care: ADL Retraining, Functional Mobility, UE Funct Exercise/Act Treatment Duration: November 08, 2019 Frequency: 5 times per week Estimated Hrs Per Day: .25 hour per day Rehab Potential: Guarded Time/GCodes Start Time: 14:54 Stop Time: 15:04 Total Time Billed (hr/min): 10 Billed Treatment Time 1 visit, JON(10minutes) LEIGHTON BRITT OT October 29, 2019 15:12
[2019-10-30] VITALS (22 sets, daily range): BP systolic 77–146; BP diastolic 42–71
[2019-10-30] MEDS: RT-ALBUTEROL/IPRATROPIUM 3 ML (DUONEB) VIAL INH SCH ×6 (01:53→21:28)
[2019-10-30 03:11] LABS: BASOPHILS % (AUTO) 0 % (0-10); EOSINOPHILS % (AUTO) 0 % (0-10); HEMATOCRIT 33 % (35-52); HEMOGLOBIN 9.9 G/DL (11.5-16.0); LYMPHOCYTES # (AUTO) 1.2 X 10^3 (1.0-4.0); LYMPHOCYTES % (AUTO) 7 % (12-44); MEAN CORPUSCULAR HEMOGLOBIN 23 PG (25-34); MEAN CORPUSCULAR HGB CONC 30 G/DL (32-36); MEAN CORPUSCULAR VOLUME 75 FL (80-99); MEAN PLATELET VOLUME 10.4 FL (7.4-10.4); MONOCYTES # (AUTO) 1.9 X 10^3 (0.0-1.0); MONOCYTES % (AUTO) 11 % (0-12); NEUTROPHILS # (AUTO) 14.3 X 10^3 (1.8-7.8); NEUTROPHILS % (AUTO) 82 % (42-75); PLATELET COUNT 245 10^3/uL (130-400); RED CELL DISTRIBUTION WIDTH 22.7 % (10.0-14.5); WHITE BLOOD COUNT 17.4 10^3/uL (4.3-11.0)
[2019-10-30 03:22] LABS: POTASSIUM 5.1 MMOL/L (3.6-5.0)
[2019-10-30] MEDS: LACTATED RINGERS 1,000 ML IV SCH ×6 (03:22→20:40)
[2019-10-30 03:23] LABS: CALCIUM 8.1 MG/DL (8.5-10.1)
[2019-10-30 03:27] LABS: CREATININE SERUM 1.62 MG/DL (0.60-1.30); PHOSPHORUS 4.6 MG/DL (2.3-4.7)
[2019-10-30] MEDS: KCL 20 MEQ TAB (K-DUR) PO SCH (03:47)
[2019-10-30] MEDS: MAGNESIUM 1 GM/100 ML IVPB 100 ML IV SCH (03:47)
[2019-10-30] MEDS: POTASSIUM CL 10MEQ/50ML IVPB 50 ML IV SCH (03:47)
[2019-10-30] MEDS: inSUlin ASPART (NovoLOG) 1 UNIT/0.01 ML (CHARGE PER UNIT) SC SCH ×4 (03:47→20:44)
--- NOTE | 2019-10-30 05:27 | Pulmonary Progress Note ---
Subjective Time Seen by a Provider: 05:22 Subjective/Events-last exam Pt is requiring more oxygen. Currently on 70% Vapotherm. Sepsis Event Evaluation Height, Weight, BMI Height: 4'10.50" Weight: 106lbs. oz. 48.689043hb; 26.47 BMI Method:Stated Focused Exam Lactate Level 10/28/19 05:45: Lactic Acid Level 0.78 Time of Focused Exam: 00:36 Exam Exam Vital Signs Date Time Temp Pulse Resp B/P (MAP) Pulse Ox O2 Delivery O2 Flow Rate FiO2 10/30/19 05:05 Vapotherm 30.00 70.00 10/30/19 04:23 NIV CPAP 50.00 10/30/19 04:00 60 22 92/52 (65) 98 NIV CPAP 60.00 10/30/19 03:40 94 NIV CPAP 60 10/30/19 03:30 36.4 NIV CPAP 60.00 10/30/19 03:00 59 22 91/63 (72) 97 NIV CPAP 60.00 10/30/19 02:34 60 18 93/69 (77) 97 NIV CPAP 60.00 10/30/19 01:53 60 19 60.00 10/30/19 01:00 60 19 97/56 (70) 97 NIV CPAP 60.00 10/30/19 01:00 60 10/30/19 00:00 60 19 93/43 (60) 94 NIV CPAP 60.00 10/29/19 23:40 36.5 NIV CPAP 60.00 10/29/19 23:40 95 NIV CPAP 60 10/29/19 23:00 60 19 104/70 (81) 94 NIV CPAP 60.00 10/29/19 22:20 60 28 110/80 (90) 94 NIV CPAP 60.00 10/29/19 22:00 NIV CPAP 60.00 10/29/19 21:34 93 Vapotherm 30.00 75 10/29/19 21:00 60 19 107/49 (68) 92 Vapotherm 30.00 75.00 10/29/19 20:30 36.4 10/29/19 20:00 60 20 110/80 (90) 92 Vapotherm 30.00 75.00 10/29/19 19:40 Vapotherm 30.00 75.00 10/29/19 19:30 92 Vapotherm 30.00 75 10/29/19 19:00 60 10/29/19 19:00 60 17 107/69 (82) 90 Vapotherm 30.00 75.00 10/29/19 18:08 92 Vapotherm 30.00 75 10/29/19 18:00 60 19 115/68 (84) 91 Vapotherm 30.00 75.00 10/29/19 17:00 60 21 110/55 (73) 92 Vapotherm 30.00 75.00 10/29/19 16:30 36.5 10/29/19 16:00 60 19 113/68 (83) 92 Vapotherm 30.00 75.00 10/29/19 16:00 Vapotherm 30.00 75 10/29/19 15:34 92 Vapotherm 30.00 75 10/29/19 15:00 60 20 116/70 (85) Vapotherm 30.00 75.00 10/29/19 14:00 60 17 Vapotherm 30.00 75.00 10/29/19 13:56 Vapotherm 30.00 75.00 10/29/19 13:00 60 16 122/66 (84) 91 Vapotherm 30.00 65.00 10/29/19 12:37 60 10/29/19 12:00 36.7 10/29/19 12:00 Vapotherm 30.00 65 10/29/19 12:00 59 18 122/66 (84) 92 Vapotherm 30.00 65.00 10/29/19 11:12 60 20 55.00 10/29/19 11:00 60 17 124/67 (86) 92 NIV Bilevel 55.00 10/29/19 10:00 60 20 126/75 (92) 90 NIV Bilevel 55.00 10/29/19 09:00 60 20 126/75 (92) 90 Vapotherm 30.00 65.00 10/29/19 08:00 60 18 129/79 (96) 92 Vapotherm 30.00 65.00 10/29/19 07:30 36.6 10/29/19 07:30 Vapotherm 30.00 65 10/29/19 07:00 60 21 118/71 (87) 92 Vapotherm 30.00 65.00 10/29/19 07:00 60 10/29/19 06:55 High Flow N/C 15.00 10/29/19 06:55 High Flow N/C 15.00 10/29/19 06:48 95 Nasal Cannula 15.00 10/29/19 06:00 60 18 124/65 (84) 90 Vapotherm 25.00 50.00 I & O 10/30/19 07:00 Intake Total 3610 ml Output Total 217 ml Balance 3393 ml Height & Weight Height: 4'10.50" Weight: 106lbs. oz. 48.770940fq; 26.47 BMI Method:Stated General Appearance: No Apparent Distress, WD/WN HEENT: PERRL/EOMI, Pharynx Normal Neck: Full Range of Motion, Supple; No Thyromegaly; Other (central line in place) Respiratory: Lungs Clear, Normal Breath Sounds, Other (tachypnea) Cardiovascular: Regular Rate, Rhythm, No Edema, No Murmur Capillary Refill: Less Than 3 Seconds Peripheral Pulses: 2+ Radial Pulses (R), 2+ Radial Pulses (L) Gastrointestinal: normal bowel sounds, non tender, soft, no organomegaly Extremity: Normal Inspection, Non Tender, No Pedal Edema Neurologic/Psychiatric: Alert, Oriented x3, No Motor/Sensory Deficits, Normal Mood/Affect Skin: Normal Color, Warm/Dry Results Lab Laboratory Tests 10/29/19 03:20 10/30/19 03:00 Assessment/Plan Assessment/Plan Bilateral pneumonia R>L -Abx changed to Merrem and eraxis 10/28 -Pt is requiring more oxygen. Currently on 70% Vapotherm. -Add Zyvox secondary to worsening PNA -Repeat hugo cultures were done 10/28 -Repeat hugo cultures -Worsening leukocytosis -Recheck PCT -Make pt NPO COPDAE -SVNs -Oxygen -BiPAP PRN Acute on chronic respiratory failure ARF -Monitor -Give liter bolus of LR and increase IVF to 150 Continue IVF CAD s/p CABG HTN a-fib On Eliquis Hypothyroidism Continue Synthroid ESME GASPAR DO October 30, 2019 05:27
[2019-10-30] MEDS ORDERED: LACTATED RINGERS 1,000 ML IV SCH ×2 (05:30→15:30)
[2019-10-30] MEDS: LEVOTHYROXINE 50 MCG (LEVOTHROID) TAB PO SCH (05:31)
[2019-10-30] MEDS: MEROPENEM 500 MG in WATER (STERILE) FOR INJECTION 10 ML IV SCH ×3 (05:31→21:04)
--- NOTE | 2019-10-30 06:08 | NUR ---
This loan underwriter spoke to the daughter in law at this time, family wishes to have patient placed on a ventilator but no chest compressions/CPR/no defibrillation. Message relayed to Dr Barry by this loan underwriter.
[2019-10-30] MEDS ORDERED: morphine INJ 4 MG/ML 1 ML (VIAL/SYRINGE) ONE (06:28)
[2019-10-30] MEDS ORDERED: morphine INJ 4 MG/ML 1 ML (VIAL/SYRINGE) IVP PRN (06:45)
--- NOTE | 2019-10-30 07:28 | Diagnostic Imaging Report ---
INDICATION: Respiratory distress. Comparison with 10/29/2019. FINDINGS: Bibasilar infiltrates remain present without significant change. There continues to be obscuration of the costophrenic angles bilaterally. Cardiomegaly with median sternotomy changes are unchanged. Pacemaker on the left and right central line again noted. Upper lungs are clear without evidence of pulmonary venous congestion. IMPRESSION: Persistent bibasilar infiltrates with little overall change in appearance since previous exam. Dictated by: Dictated on workstation # [id number]
[2019-10-30] MEDS ORDERED: DexMEDEtomidine 250 ML DRIP 250 ML IV ONE (07:37)
[2019-10-30] MEDS ORDERED: PROPOFOL DRIP (ICU) 100 ML IV ONE (07:37)
[2019-10-30] MEDS ORDERED: NS IV 1000 ML 1,000 ML ONE ×2 (07:58→15:36)
--- NOTE | 2019-10-30 08:17 | NUR ---
anesthesia here to intubate pt. 1mg versed given with 10 atomadate and 50 of taniya 0818 intubated with size 8 et tube at 23 at the lip placement confirmed with co2 color change and chest xray. vent settings ac-24 vt 400 peep of 10 and fio2 at 100% 0824 Og placed 0825 art line obtained by anesthesia.
--- NOTE | 2019-10-30 08:38 | Anesthesia-Procedure Note ---
Procedures/Interventions Procedure Start/Stop/Diagnosis Date of Procedure: October 30, 2019 Start Time: 08:17 Referring Physician: Asha Stop Time: 08:30 Intubation RSI: Yes 100% pre-Ox, [id number]: Yes Intubation Method: orotracheal Videoscope used: Yes Grade View: 1 Medications: Etomidate (10), Rocuronium (50), Versed (1) Mask Ventilation: positive Positive End Tide CO2: Yes Breath Sounds after Intubation: bilateral-equal ETT Securred @ (cm): 23 Intubated with ease: Yes Intubation Complications: no complications Post Procedure Xray ordered by nursing staff. Care turned over to: HAND MICA PLATE LAYER Arterial Line Arterial Line Catheter: 22G Type: Radial Location: Right Procedure: prepped, draped in sterile fashion, good wave-form was obtained, patient tolerated procedure well, no immediate complications, post procedure area cleaned, post procedure dressing applied STEPAN PINTO CRNA October 30, 2019 08:38
[2019-10-30] MEDS ORDERED: ANIDULAFUNGIN INJECTION 100 MG in NS (IVPB) 100 ML IV SCH (09:00)
--- NOTE | 2019-10-30 09:05 | Diagnostic Imaging Report ---
INDICATION: Postintubation. Time of exam: 8:45 AM Correlation is made with prior chest from earlier the same day. The endotracheal tube has been placed. The tip appears to be just above the amandeep. NG tube passes below the diaphragm. A right-sided line has tip overlying the SVC. Cardiac pacemaker is in place. There are central congestive changes. There is some infiltrate in the both bases. There appear to be small effusions bilaterally. No pneumothorax is seen. IMPRESSION: Endotracheal tube and nasogastric tube placement, as described. There is congestive changes with bibasilar infiltrates and small effusions. Dictated by: Dictated on workstation # [id number]
[2019-10-30] MEDS ORDERED: NOREPINEPHRINE 4 MG/250 ML 250 ML IV ONE (09:08)
[2019-10-30] MEDS: NOREPINEPHRINE 4 MG/250 ML 250 ML IV SCH ×2 (09:24→20:08)
[2019-10-30] MEDS: DexMEDEtomidine 250 ML DRIP 250 ML IV SCH (09:24)
[2019-10-30] MEDS: PROPOFOL DRIP (ICU) 100 ML IV SCH (09:25)
[2019-10-30] MEDS: LINEZOLID IVPB 300 ML IV SCH ×2 (09:41→20:42)
[2019-10-30] MEDS: SERTRALINE 100 MG (ZOLOFT) TAB PO SCH (09:41)
[2019-10-30] MEDS: APIXABAN 5 MG (ELIQUIS) TABLET PO SCH ×2 (09:41→20:42)
[2019-10-30 09:46] LABS: ABG BASE EXCESS -10.3 MMOL/L (-2.5-2.5); ABG OXYGEN SATURATION 98 % (94-100); ABG PCO2 33 MMHG (35-45); ABG PO2 99 MMHG (79-93); ABG TCO2 16.3 MMOL/L (21.0-31.0)
[2019-10-30 09:58] LABS: ABG PH 7.28 (7.37-7.43); INSPIRED O2 60 L; PATIENT TEMP 36.2; VENTILATOR YES
[2019-10-30] MEDS ORDERED: MIDAZOLAM 5 MG/5 ML (VERSED) VIAL IJ ONE (10:41)
[2019-10-30] MEDS ORDERED: ETOMIDATE IV SOLN 20 MG/10 ML VIAL IV ONE (10:41)
[2019-10-30] MEDS ORDERED: ROCURONIUM 10 MG/ML 5 ML SYRINGE IV ONE (10:41)
--- NOTE | 2019-10-30 11:09 | NUR ---
CM/SS: Attempted to visit with pt this morning - RN assigned reports that pt was placed on the ventilator this morning. This worker will follow up.
--- NOTE | 2019-10-30 11:22 | Diagnostic Imaging Report ---
INDICATION: ET tube repositioning. COMPARISON: The exam is compared with the study from earlier this same date. This film is timed at 11:12 AM. FINDINGS: The ET tube tip is in the lower thoracic trachea above the amandeep in good position. An OG catheter extends below the diaphragm into the stomach. The pacemaker device and midline sternal wires are unremarkable. Lower lobe airspace disease, greater right, is redemonstrated although improved in the interim. There is blunting of the right angle with likely at least some right-sided pleural fluid, unchanged. IMPRESSION: The ET tube projects in good alignment. The basilar pulmonary opacities, greater right, show mild improvement. Redemonstration of presumed pleural fluid at the right costophrenic angle with no demonstrated pneumothorax. Dictated by: Dictated on workstation # [id number]
--- NOTE | 2019-10-30 11:57 | Physical Therapy Progress Note ---
Therapy Progress Note Per Nurse, pt is on medical hold at this time and will not be seen. PT will continue to check pt daily for updates. TIKA MCGARRY MECHANICAL DEVELOPMENT ENGINEER October 30, 2019 11:57
--- NOTE | 2019-10-30 13:01 | Occ Therapy Progress Note ---
Therapy Progress Note Pt currently intubated. Hold therapy at this time. Will continue to monitor and resume therapy when pt medically stable and able to actively participate. LEIGHTON BRITT OT October 30, 2019 13:01
--- NOTE | 2019-10-30 13:01 | Progress Note - Hospitalist ---
Subjective HPI/CC On Admission Date Seen by Provider: October 30, 2019 Time Seen by Provider: 09:00 Pt is a 69 yoCF known to me from recent admission for COPD who presented to the ER for a fall and hypoxia. She states she was at [facility] and laying in bed when she slid out of it. She denies any injury or LOC. When her aides came to check on her she was found to be hypoxic in the 50s. EMS was called. She normally wears 4lpm of oxygen during the day and 8lpm at night. She states this was on the whole time and she was still that hypoxic. She denies any cough or fever. She denies any wheezing. She also denies any lower extremity edema but she has 2+ pitting edema to her calves bilaterally so I am unsure of her accuracy in answering this questions. She states she is feeling better this morning. She was found to be septic shock from bilateral pneumonia with a lactic acid of >6. She was admitted to the ICU for further management. Subjective/Events-last exam She is intubated and sedated. Focused Exam Lactate Level 10/28/19 05:45: Lactic Acid Level 0.78 Time of Focused Exam: 00:36 Objective Exam Vital Signs Vital Signs Date Time Temp Pulse Resp B/P (MAP) Pulse Ox O2 Delivery O2 Flow Rate FiO2 10/30/19 12:00 35.0 10/30/19 12:00 95 Mechanical Ventilator 50 10/30/19 10:10 60 24 10/30/19 09:24 97/39 10/30/19 09:00 50.00 Capillary Refill : Less Than 3 Seconds General Appearance: No Apparent Distress, Other (Intubated and sedated) Neck: Normal Inspection, Supple Respiratory: Lungs Clear, Normal Breath Sounds, No Respiratory Distress, Other (Intubated and mechanically ventilated) Cardiovascular: Regular Rate, Rhythm, No Edema, No Murmur Gastrointestinal: Normal Bowel Sounds, Soft; No Distended Extremity: Normal Inspection, No Pedal Edema Neurologic/Psychiatric: Other (Sedated) Skin: Cool, Pallor Results/Procedures Lab Laboratory Tests 10/30/19 03:00 Patient resulted labs reviewed. Imaging: Reviewed Imaging Report Assessment/Plan Assessment and Plan Assess & Plan/Chief Complaint Bilateral pneumonia Acute on chronic respiratory failure with hypoxia COPD Endotracheally intubated WBC increasing, procalcitonin 2.2 Worsening respiratory status, intubated this morning 10/29 Continue meropenem and Eraxis Zyvox added urine culture negative, blood cultures with likely contaminants Continue IV fluids EVERETTE on CKD Acute tubular necrosis UA with numerous granular casts Creatinine slightly worse, 1.6 Continue IV fluids Elevated LFTs likely due to ischemic hepatopathy LFTs stable CAD s/p CABG HTN a-fib continue Eliquis plan to resume antihypertensives if blood pressure increases Hypothyroidism Continue Synthroid debility PT/OT DVT prophylaxis: Already receiving therapeutic anticoagulation Septic Shock, resolved Diagnosis/Problems Diagnosis/Problems (1) Septic shock Status: Acute (2) Pneumonia Status: Acute Qualifiers: Pneumonia type: due to unspecified organism Laterality: right Lung location: unspecified part of lung Qualified Codes: J18.9 - Pneumonia, unspecified organism (3) EVERETTE (acute kidney injury) Status: Acute (4) Acute respiratory failure Status: Acute Qualifiers: Respiratory failure complication: hypoxia Qualified Codes: J96.01 - Acute respiratory failure with hypoxia (5) Transaminitis Status: Acute (6) Atrial fibrillation Status: Chronic (7) ATN (acute tubular necrosis) Clinical Quality Measures DVT/VTE Risk/Contraindication: Risk Factor Score Per Nursin RFS Level Per Nursing on Admit: 4+=Very High JOSHUA PARIKH MD October 30, 2019 13:01
--- NOTE | 2019-10-30 14:52 | NUR ---
dr castillo notified that pt output remains low. new orders to increase main fluids to 250 and give a one liter bolus of lr now. bolus started at this time.
--- NOTE | 2019-10-30 16:00 | NUR ---
1600 blood insulin not given nurse with new pt.
[2019-10-30] MEDS ORDERED: NS IV 500 ML 500 ML ONE (16:22)
[2019-10-30 21:57] LABS: ABG PCO2 35 MMHG (35-45); ABG PO2 137 MMHG (79-93)
[2019-10-30 21:58] LABS: ABG BASE EXCESS -12.7 MMOL/L (-2.5-2.5); ABG OXYGEN SATURATION 99 % (94-100); ABG TCO2 35.4 MMOL/L (21.0-31.0); ALLENS TEST P; INSPIRED O2 60%; VENTILATOR YES
[2019-10-30 21:59] LABS: PATIENT TEMP 36.2
--- NOTE | 2019-10-30 22:09 | NUR ---
Critical ABG results and low urine output called to E ICU Dr at this time.
[2019-10-31] VITALS (23 sets, daily range): BP systolic 97–151; BP diastolic 44–57
[2019-10-31] MEDS: SODIUM BICARBONATE 8.4% VIAL 150 MEQ in 1/2 NS IV SOLUTION 1,000 ML IV SCH ×2 (00:17→13:52)
[2019-10-31] MEDS: LACTATED RINGERS 1,000 ML IV SCH (00:22)
[2019-10-31] MEDS: DexMEDEtomidine 250 ML DRIP 250 ML IV SCH ×2 (02:04→11:45)
[2019-10-31] MEDS: RT-ALBUTEROL/IPRATROPIUM 3 ML (DUONEB) VIAL INH SCH ×4 (02:14→13:37)
[2019-10-31 03:09] LABS: BASOPHILS # (AUTO) 0.1 10^3/uL (0.0-0.1); BASOPHILS % (AUTO) 0 % (0-10); EOSINOPHILS % (AUTO) 0 % (0-10); HEMATOCRIT 34 % (35-52); HEMOGLOBIN 10.3 G/DL (11.5-16.0); LYMPHOCYTES # (AUTO) 2.3 X 10^3 (1.0-4.0); LYMPHOCYTES % (AUTO) 11 % (12-44); MEAN CORPUSCULAR HEMOGLOBIN 22 PG (25-34); MEAN CORPUSCULAR HGB CONC 31 G/DL (32-36); MEAN CORPUSCULAR VOLUME 72 FL (80-99); MEAN PLATELET VOLUME 10.2 FL (7.4-10.4); MONOCYTES # (AUTO) 1.9 X 10^3 (0.0-1.0); MONOCYTES % (AUTO) 9 % (0-12); NEUTROPHILS # (AUTO) 15.8 X 10^3 (1.8-7.8); NEUTROPHILS % (AUTO) 79 % (42-75); PLATELET COUNT 294 10^3/uL (130-400); RED CELL DISTRIBUTION WIDTH 23.2 % (10.0-14.5)
[2019-10-31 03:10] LABS: ABG OXYGEN SATURATION 98 % (94-100); ABG PCO2 31 MMHG (35-45); ABG PO2 118 MMHG (79-93)
[2019-10-31 03:17] LABS: ALLENS TEST P; INSPIRED O2 60%; PATIENT TEMP 37.1; VENTILATOR YES
[2019-10-31 03:21] LABS: POTASSIUM 4.9 MMOL/L (3.6-5.0)
[2019-10-31 03:23] LABS: CALCIUM 7.3 MG/DL (8.5-10.1)
[2019-10-31 03:27] LABS: CREATININE SERUM 1.71 MG/DL (0.60-1.30); PHOSPHORUS 4.3 MG/DL (2.3-4.7)
[2019-10-31 03:29] LABS: MAGNESIUM 1.6 MG/DL (1.6-2.4)
[2019-10-31 03:51] LABS: ANISOCYTOSIS MARKED; BAND NEUTROPHILS 5 %; BASOPHILS % (MANUAL) 1 %; EOSINOPHILS % (MANUAL) 1 %; LYMPHOCYTES % (MANUAL) 11 %; MONOCYTES % (MANUAL) 10 %; NEUTROPHILS % (MANUAL) 72 %; NUCLEATED RED BLOOD CELLS 4
[2019-10-31 03:52] LABS: CRENATED RBC MODERATE; SCHISTOCYTES MODERATE
[2019-10-31] MEDS: MAGNESIUM 1 GM/100 ML IVPB 100 ML IV SCH ×3 (04:20→07:12)
[2019-10-31] MEDS: KCL 20 MEQ TAB (K-DUR) PO SCH (04:20)
[2019-10-31] MEDS: POTASSIUM CL 10MEQ/50ML IVPB 50 ML IV SCH (04:20)
[2019-10-31] MEDS: NOREPINEPHRINE 4 MG/250 ML 250 ML IV SCH ×3 (04:30→16:07)
[2019-10-31] MEDS: MEROPENEM 500 MG in WATER (STERILE) FOR INJECTION 10 ML IV SCH ×2 (05:00→13:51)
[2019-10-31] MEDS: LEVOTHYROXINE 50 MCG (LEVOTHROID) TAB PO SCH (05:02)
[2019-10-31] MEDS: inSUlin ASPART (NovoLOG) 1 UNIT/0.01 ML (CHARGE PER UNIT) SC SCH ×3 (05:06→16:28)
[2019-10-31] MEDS ORDERED: ALBUMIN 25% 25 GM/100 ML 200 ML IV ONE (05:16)
[2019-10-31] MEDS ORDERED: FUROSEMIDE 40 MG/4 ML INJ (LASIX) IVP ONE (05:30)
[2019-10-31] MEDS ORDERED: ALBUMIN 25% 25 GM/100 ML 50 ML IV ONE (05:30)
[2019-10-31] MEDS ORDERED: SODIUM BICARB 8.4% 50 MEQ/50 ML VIAL IV ONE (05:45)
--- NOTE | 2019-10-31 05:50 | Pulmonary Progress Note ---
Subjective Time Seen by a Provider: 05:45 Subjective/Events-last exam Pt is sedated on vent. Sepsis Event Evaluation Height, Weight, BMI Height: 4'10.50" Weight: 106lbs. oz. 48.411116xw; 26.47 BMI Method:Stated Focused Exam Lactate Level 10/30/19 00:46: Lactic Acid Level 2.92*H 10/30/19 22:25: Lactic Acid Level 3.08*H 10/31/19 02:50: Lactic Acid Level 2.88*H Time of Focused Exam: 00:36 Lactic Acid Level Laboratory Tests Test 10/31/19 02:50 Lactic Acid Level 2.88 MMOL/L (0.50-2.00) *H Exam Exam Vital Signs Date Time Temp Pulse Resp B/P (MAP) Pulse Ox O2 Delivery O2 Flow Rate FiO2 10/31/19 05:00 60 13 108/46 (66) 92 Mechanical Ventilator 100.00 10/31/19 04:30 60 99/47 10/31/19 04:00 60 15 101/48 (65) 97 Mechanical Ventilator 100.00 10/31/19 04:00 Mechanical Ventilator 100.00 10/31/19 03:30 96 Mechanical Ventilator 60 10/31/19 03:30 37.2 Mechanical Ventilator 60.00 10/31/19 03:00 60 18 123/46 (71) 96 Mechanical Ventilator 60.00 10/31/19 02:15 60 26 96 60 10/31/19 02:04 60 122/47 10/31/19 02:00 36.9 10/31/19 02:00 60 16 121/47 (71) 96 Mechanical Ventilator 60.00 10/31/19 01:00 60 10/31/19 01:00 60 25 123/47 (72) 97 Mechanical Ventilator 60.00 10/31/19 00:00 93 Mechanical Ventilator 60 10/31/19 00:00 60 24 130/53 (78) 96 Mechanical Ventilator 60.00 10/30/19 23:20 35.2 Mechanical Ventilator 60.00 10/30/19 23:00 59 24 102/47 (65) 97 Mechanical Ventilator 60.00 10/30/19 22:00 60 19 122/48 (72) 97 Mechanical Ventilator 60.00 10/30/19 21:29 60 25 97 60 10/30/19 21:12 Mechanical Ventilator 60.00 10/30/19 21:00 60 15 100/50 (67) Mechanical Ventilator 50.00 10/30/19 20:08 60 102/44 10/30/19 20:00 60 23 100/43 (62) 92 Mechanical Ventilator 50.00 10/30/19 19:15 94 Mechanical Ventilator 50 10/30/19 19:06 60 10/30/19 19:06 60 24 108/44 (65) 93 Mechanical Ventilator 50.00 10/30/19 19:00 Mechanical Ventilator 50.00 10/30/19 18:16 60 24 94 50 10/30/19 18:00 60 23 93 Mechanical Ventilator 60.00 10/30/19 17:00 60 23 91 Mechanical Ventilator 60.00 10/30/19 16:00 60 23 92 Mechanical Ventilator 60.00 10/30/19 16:00 94 Mechanical Ventilator 50 10/30/19 15:00 60 23 92 Mechanical Ventilator 60.00 10/30/19 14:24 60 24 92 60 10/30/19 14:00 60 0 92 Mechanical Ventilator 60.00 10/30/19 13:00 60 24 96 Mechanical Ventilator 60.00 10/30/19 13:00 60 10/30/19 12:00 60 23 95 Mechanical Ventilator 60.00 10/30/19 12:00 35.0 10/30/19 12:00 95 Mechanical Ventilator 50 10/30/19 11:00 60 24 98 Mechanical Ventilator 60.00 10/30/19 10:10 60 24 94 60 10/30/19 10:00 60 24 95 Mechanical Ventilator 60.00 10/30/19 09:25 60 10/30/19 09:24 60 97/39 10/30/19 09:24 60 10/30/19 09:00 60 24 77/49 (58) 98 Mechanical Ventilator 60.00 10/30/19 08:30 60 24 94 60 10/30/19 08:17 Mechanical Ventilator 60.00 10/30/19 08:00 92 NIV CPAP 60 10/30/19 08:00 35.7 10/30/19 08:00 60 11 82/45 (57) 90 NIV CPAP 50.00 10/30/19 07:00 60 14 89/42 (58) 92 NIV CPAP 50.00 10/30/19 06:39 60 5/13/20 06:38 NIV Bilevel 50.00 10/30/19 06:36 60 17 90 50.00 10/30/19 06:24 NIV CPAP 50.00 10/30/19 06:05 60 13 96/58 (71) 91 Vapotherm 30.00 70.00 10/30/19 06:00 Vapotherm 30.00 70.00 I & O 10/31/19 07:00 Intake Total 1060 ml Output Total 130 ml Balance 930 ml Height & Weight Height: 4'10.50" Weight: 106lbs. oz. 48.190260yv; 26.47 BMI Method:Stated General Appearance: WD/WN, Chronically ill, Other (sedated on vent) HEENT: PERRL/EOMI, Pharynx Normal Neck: Full Range of Motion, Supple; No Thyromegaly; Other (central line in place) Respiratory: Decreased Breath Sounds, Other (tachypnea) Cardiovascular: Regular Rate, Rhythm, No Edema, No Murmur Capillary Refill: Greater Than 3 Seconds Peripheral Pulses: 2+ Radial Pulses (R), 2+ Radial Pulses (L) Gastrointestinal: soft, no organomegaly, distended Extremity: Normal Inspection, Non Tender, Pedal Edema Skin: Warm/Dry Results Lab Laboratory Tests 10/30/19 03:00 10/31/19 02:50 Assessment/Plan Assessment/Plan Acute respiratory failure with worsening Bilateral pneumonia R>L - Merrem, zyvox -Continue ventilator -Give lasix 40mg IV X 1 -Give albumin x 1 -Repeat hugo cultures were done 10/28 - neg thus far -Recheck PCT COPDAE -SVNs -Oxygen -BiPAP PRN ARF- worsening -Bicarb gtt at 100 -D/C LR -Monitor Continue IVF Multiorgan failure -repeat CMP Liver failure -Check Hepatitis panel -Check US of ABD CAD s/p CABG HTN a-fib On Eliquis Hypothyroidism Continue Synthroid Discussed with family regarding pt's poor prognosis. Pt has multi organ failure and does not appear to be responding to medical therapy. I also discussed with family possible transfer for nephrology support. ESME GASPAR DO October 31, 2019 05:50
[2019-10-31 06:22] LABS: ALBUMIN 2.4 GM/DL (3.2-4.5); BILIRUBIN,DIRECT 1.3 MG/DL (0.0-0.3); BILIRUBIN,INDIRECT 0.3 MG/DL; BILIRUBIN,TOTAL 1.6 MG/DL (0.1-1.0); CALCIUM 7.4 MG/DL (8.5-10.1); CREATININE SERUM 1.73 MG/DL (0.60-1.30); POTASSIUM 4.9 MMOL/L (3.6-5.0); TOTAL PROTEIN 4.9 GM/DL (6.4-8.2)
--- NOTE | 2019-10-31 08:00 | Occ Therapy Progress Note ---
Therapy Progress Note Pt continues on mechanical vent/ sedation. OT to hold tx on this date and initiate when medically stable and able to participate. MARSHA FRANKLIN OTR October 31, 2019 08:00
[2019-10-31] MEDS: LINEZOLID IVPB 300 ML IV SCH (08:18)
[2019-10-31] MEDS: APIXABAN 5 MG (ELIQUIS) TABLET PO SCH (08:18)
[2019-10-31] MEDS: PROPOFOL DRIP (ICU) 100 ML IV SCH (08:39)
--- NOTE | 2019-10-31 08:40 | Diagnostic Imaging Report ---
INDICATION: Respiratory distress and ventilator support. Time of exam 3:50 AM Correlation is made with prior chest from one day earlier. The heart is enlarged but stable. There are changes of median sternotomy and CABG. Cardiac pacemaker remains in place. The endotracheal tube, nasogastric tube and right IJ line remain in place. Congestive changes in both lungs persists. Airspace infiltrate in the lung bases persist. No significant effusion is seen. No pneumothorax. IMPRESSION: Bibasilar airspace pulmonary infiltrates, unchanged. There is worsening congestive changes when compared with yesterday's exam. Dictated by: Dictated on workstation # [id number]
[2019-10-31] MEDS ORDERED: PANTOPRAZOLE 40 MG (PROTONIX) VIAL IV SCH (09:00)
--- NOTE | 2019-10-31 10:13 | Diagnostic Imaging Report ---
INDICATION: Respiratory distress and organ failure. PROCEDURE: Ultrasound abdomen complete. TECHNIQUE: Multiple real-time grayscale images were obtained of the abdomen in various projections. The study is significantly compromised due to overall generalized integumentary edema. This does limit evaluation of intra-abdominal structures. Liver is approximately 15 cm in size. No discrete liver mass identified. Evaluation of the blood flow within the portal and hepatic veins was difficult. Normal hepatopetal flow within the portal vein is not definitely visualized but this could conceivably be on a technical basis. Gallbladder is not visualized. The extra hepatic bile duct cannot be visualized. The pancreas, spleen, aorta and IVC were not visualized. Right and left kidneys are without hydronephrosis. No definite ascites is seen. IMPRESSION: Severely compromised exam, as described. No definite ascites is detected. The gallbladder was not visualized. Dictated by: Dictated on workstation # [id number]
--- NOTE | 2019-10-31 11:08 | Physical Therapy Progress Note ---
Therapy Progress Note Pt. vented and sedated. Will check patient status 11/01/19 to resume therapy. JAE MANSFIELD PT October 31, 2019 11:08
--- NOTE | 2019-10-31 12:38 | NUR ---
CM/SS: Pt remains on the vent. Will continue to follow, to coordinate discharge back to [facility], when medically able to do so.
--- NOTE | 2019-10-31 14:03 | NUR ---
DR GASPAR NOTIFIED OF PT'S DECREASED URINE OUTPUT OF 40CC SINCE 10 AM. NO NEW ORDERS RECEIVED EXCEPT TO CHECK LABS IN AM AND CONTINUE TO MONITOR PT.
--- NOTE | 2019-10-31 14:32 | Progress Note - Hospitalist ---
Subjective HPI/CC On Admission Date Seen by Provider: October 31, 2019 Time Seen by Provider: 08:35 Pt is a 69 yoCF known to me from recent admission for COPD who presented to the ER for a fall and hypoxia. She states she was at [facility] and laying in bed when she slid out of it. She denies any injury or LOC. When her aides came to check on her she was found to be hypoxic in the 50s. EMS was called. She normally wears 4lpm of oxygen during the day and 8lpm at night. She states this was on the whole time and she was still that hypoxic. She denies any cough or fever. She denies any wheezing. She also denies any lower extremity edema but she has 2+ pitting edema to her calves bilaterally so I am unsure of her accuracy in answering this questions. She states she is feeling better this morning. She was found to be septic shock from bilateral pneumonia with a lactic acid of >6. She was admitted to the ICU for further management. Subjective/Events-last exam She remains intubated and sedated. I called and spoke with her [id number], Lidia. We discussed that her respiratory status has worsened and she is r equiring more oxygen. We discussed that she has multiorgan failure including her lungs, kidneys, and liver. She is going to speak with her family and they will be making a decision about possible transition to comfort measures only. Focused Exam Lactate Level 10/30/19 00:46: Lactic Acid Level 2.92*H 10/30/19 22:25: Lactic Acid Level 3.08*H 10/31/19 02:50: Lactic Acid Level 2.88*H Time of Focused Exam: 00:36 Objective Exam Vital Signs Vital Signs Date Time Temp Pulse Resp B/P (MAP) Pulse Ox O2 Delivery O2 Flow Rate FiO2 10/31/19 13:40 60 24 94 80 10/31/19 12:52 37.4 10/31/19 12:12 Mechanical Ventilator 80.00 10/31/19 12:00 123/54 (77) Capillary Refill : Greater Than 3 Seconds General Appearance: No Apparent Distress, Other (Intubated and sedated) Respiratory: Lungs Clear, Normal Breath Sounds, No Respiratory Distress, Other (And intubated and mechanically ventilated) Cardiovascular: Regular Rate, Rhythm, No Murmur Gastrointestinal: Normal Bowel Sounds, Soft Extremity: Normal Inspection, Pedal Edema Neurologic/Psychiatric: Other Skin: Normal Color, Cool Results/Procedures Lab Laboratory Tests 10/31/19 02:50 Patient resulted labs reviewed. Imaging: Reviewed Imaging Report Assessment/Plan Assessment and Plan Assess & Plan/Chief Complaint Bilateral pneumonia Acute on chronic respiratory failure with hypoxia COPD Endotracheally intubated WBC increasing, procalcitonin trending down Worsening respiratory status, intubated 10/29, increasing oxygen requirement Continue Zyvox and Merrem urine culture negative, blood cultures with likely contaminants Continue IV fluids EVERETTE on CKD Acute tubular necrosis UA with numerous granular casts Oliguric Creatinine slightly worse, 1.73 Continue IV fluids Shock liver likely due to ischemic hepatopathy LFTs significantly elevated Ultrasound performed, gallbladder unable to be visualized CAD s/p CABG HTN a-fib continue Eliquis Hypothyroidism Continue Synthroid debility PT/OT Advance care planning Discussed patient's status with [id number], discussed plan of care and treatment options Family considering transition to comfort measures only status DVT prophylaxis: Already receiving therapeutic anticoagulation Septic Shock, resolved Diagnosis/Problems Diagnosis/Problems (1) Septic shock Status: Acute (2) Pneumonia Status: Acute Qualifiers: Pneumonia type: due to unspecified organism Laterality: right Lung location: unspecified part of lung Qualified Codes: J18.9 - Pneumonia, unspecified organism (3) EVERETTE (acute kidney injury) Status: Acute (4) Acute respiratory failure Status: Acute Qualifiers: Respiratory failure complication: hypoxia Qualified Codes: J96.01 - Acute respiratory failure with hypoxia (5) Transaminitis Status: Acute (6) Atrial fibrillation Status: Chronic (7) ATN (acute tubular necrosis) Status: Acute (8) Shock liver Status: Acute (9) Lactic acidosis Status: Acute Clinical Quality Measures DVT/VTE Risk/Contraindication: Risk Factor Score Per Nursin RFS Level Per Nursing on Admit: 4+=Very High JOSHUA PARIKH MD October 31, 2019 14:32
[2019-10-31] MEDS ORDERED: PROMETHAZINE INJ 25 MG/ML (PHENERGAN) AMP IVP PRN (17:45)
[2019-10-31] MEDS ORDERED: ARTIFICAL TEARS 0.4 ML UNIT DOSE (REFRESH PLUS) OU PRN (17:45)
[2019-10-31] MEDS ORDERED: LORazepam INJ 2 MG/ML (ATIVAN) VIAL IVP PRN (17:45)
[2019-10-31] MEDS ORDERED: ONDANSETRON 4 MG/2 ML (SDV) Z0FRAN IVP PRN (17:45)
[2019-10-31] MEDS ORDERED: BISACODYL 10 MG SUPP (DULCOLAX) PR PRN (17:45)
[2019-10-31] MEDS ORDERED: ATROPINE 1% OPHTHALMIC SOLN 2 ML SL PRN (17:45)
[2019-10-31] MEDS ORDERED: morphine INJ 4 MG/ML 1 ML (VIAL/SYRINGE) IV PRN (17:45)
[2019-10-31] MEDS ORDERED: GLYCOPYRROLATE 0.2 MG/ML (ROBINUL) 2 ML VIAL IV PRN (17:45)
[2019-10-31] MEDS ORDERED: RT-ALBUTEROL/IPRATROPIUM 3 ML (DUONEB) VIAL INH PRN (17:45)
[2019-10-31] MEDS ORDERED: SALIVA STIMULANT MOUTH SPRAY (BIOTENE) 1.5 OZ MM PRN (17:45)
[2019-10-31] MEDS ORDERED: ACETAMINOPHEN 650 MG SUPP (TYLENOL) PR PRN (17:45)
--- NOTE | 2019-10-31 18:03 | NUR ---
1730 FAMILY CALLED AND REQUESTED PT TO BE TRANSITIONED TO COMFORT CARE. DR PARIKH NOTIFIED AND NEW ORDERS RECEIVED. 1740 PT EXTUBATED, RESTRAINTS REMOVED. 1757 PT , NO PULSE AUSCULTATED BY THIS RN AND SURGEON PARTNER Mayra VAZQUEZ RN. Addendum: 10/31/19 at 2000 by LINETTE FRIAS RN Dr Barry and Dr Parikh notified by warehouse worker 2nd shift
--- NOTE | 2019-10-31 18:07 | NUR ---
At 1740 Nasima Chan was extubated to Comfort Care. She was put on 2L NC at this time. Addendum: 10/31/19 at 1808 by ZOLTAN GASPAR RT Amended: Links added.
--- NOTE | 2019-10-31 20:03 | NUR ---
1845 POST MORDUM CARE PROVIDED, ALL LINES D/C AND BERNABE D/C. ALL MEDICATIONS D/C AND WITNESSED BY THIS RN ALONG WITH Gianni CHANEL RN.
--- NOTE | 2019-10-31 23:30 | NUR ---
CALLED [facility] TO INQUIRE ABOUT TIMELINE FOR PICKING UP PT PER SULKY DRIVER REQUEST
--- NOTE | 2019-10-31 23:55 | NUR ---
[facility] CALLED BACK AND SAID TO GO AHEAD AND RELEASE BODY TO HOME. PT NOT A CANDIDATE FOR DONATION. HOME NOTIFIED
--- NOTE | 2019-11-01 01:00 | NUR ---
HOME HERE TO TAKE BODY
[2019-11-01 11:20] LABS: RSV PCR TEST Not Detected (Not Detected)
--- NOTE | 2019-11-03 15:34 | Discharge Summary ---
Discharge Summary Hospital Course Was the Problem List Reviewed?: Yes Problems/Dx: (1) Septic shock Status: Acute (2) Pneumonia Status: Acute Qualifiers: Qualified Codes: J18.9 - Pneumonia, unspecified organism (3) EVERETTE (acute kidney injury) Status: Acute (4) Acute respiratory failure Status: Acute Qualifiers: Qualified Codes: J96.01 - Acute respiratory failure with hypoxia (5) Transaminitis Status: Acute (6) Atrial fibrillation Status: Chronic (7) ATN (acute tubular necrosis) Status: Acute (8) Shock liver Status: Acute (9) Lactic acidosis Status: Acute Hospital Course Date of Admission: October 27, 2019 at 01:01 Admission Diagnosis : septic shock due to pneumonia Family Physician/Provider: Hitesh Langley Physician Date of Discharge: 11/03/19 Discharge Diagnosis: Septic shock due to pneumonia Hospital Course: Nasima Chan was a 69-year-old female who was admitted with septic shock due to pneumonia. She was admitted to the intensive care unit and started on IV antibiotics. She was on Vapotherm and her respiratory status worsened. She subsequently required intubation. She went into multiorgan failure with acute tubular necrosis and shock liver. Her family decided to transition her to comfort measures only status. She was compassionately extubated and subsequently . Time of was 1757 on 10/31/2019. Labs and Pending Lab Test: Microbiology 10/30/19 Gram Stain - Final, Complete 10/30/19 Sputum Culture - Final, Complete YEAST 10/29/19 Blood Culture - Preliminary, Resulted No growth 10/29/19 Urine Culture - Final, Complete NO GROWTH Home Meds Active Reported Tylenol (Acetaminophen) 325 Mg Tablet 650 Mg PO Q4H PRN Invokana (Canagliflozin) 100 Mg Tablet 100 Mg PO DAILY Zofran (Ondansetron HCl) 4 Mg Tab 4 Mg PO BID PRN Multi-Vitamin Daily (Multivitamin) 1 Each Tablet 1 Each PO DAILY Fish Oil 1,200 mg Softgel ([place]-3 Fatty Acids/Fish Oil) 1 Each Capsule 1 Each PO DAILY Cetirizine HCl 10 Mg Tablet 10 Mg PO DAILY PRN K-Tab ER (Potassium Chloride) 10 Meq Tablet.er 20 Meq PO DAILY TAKES 2 (10MEQ) TABS DAILY Sertraline HCl 100 Mg Tablet 100 Mg PO DAILY Furosemide 20 Mg Tablet 20 Mg PO BID Levothyroxine Sodium 50 Mcg Tablet 50 Mcg PO DAILY Eliquis (Apixaban) 5 Mg Tablet 5 Mg PO BID Rosuvastatin Calcium 40 Mg Tablet 40 Mg PO HS Metformin HCl 500 Mg Tablet 1,000 Mg PO BID Iprat-Albut 0.5-3(2.5) mg/3 ml (Ipratropium/Albuterol Sulfate) 3 Ml Ampul.neb 1 Vial NEB Q6H Montelukast Sodium 10 Mg Tablet 10 Mg PO HS Omeprazole 20 Mg Capsule.dr 20 Mg PO DAILY Lisinopril 2.5 Mg Tablet 2.5 Mg PO DAILY HOLD MED AND NOTIFY MD IS SBP LESS THAN 100 OR DBP LESS THAN 60 Proair Hfa (Albuterol Sulfate) 1 Puff Puff 2 Puff PO Q6H PRN Trelegy Ellipta 100-62.5-25 (Fluticasone/Umeclidin/Vilanter) 1 Each Blst.w.dev 1 Puff IN DAILY RINSE AND SPIT AFTER EACH INHALATION Assessment/Pt Instructions patient Discharge Planning: <30 minutes discharge planning Discharge Physical Examination Vital Signs Vital Signs Date Time Temp Pulse Resp B/P (MAP) Pulse Ox O2 Delivery O2 Flow Rate FiO2 10/31/19 16:29 94 Mechanical Ventilator 80.00 10/31/19 16:07 60 110/51 10/31/19 16:00 37.2 23 10/31/19 13:40 80 Allergies: Coded Allergies: No Known Drug Allergies (Unverified , 05/03/11) Discharge Summary Date of Admission October 27, 2019 at 01:01 Date of Discharge October 31, 2019 at 17:57 Discharge Date: October 31, 2019 Discharge Time: 17:57 Admission Diagnosis Septic Shock Comfort Measures/ End of Life Care: Comfort Measures Date of : October 31, 2019 Time of : 17:57 Discharge Diagnosis septic shock due to pneumonia (1) Septic shock Status: Acute (2) Pneumonia Status: Acute Qualifiers: Qualified Codes: J18.9 - Pneumonia, unspecified organism (3) EVERETTE (acute kidney injury) Status: Acute (4) Acute respiratory failure Status: Acute Qualifiers: Qualified Codes: J96.01 - Acute respiratory failure with hypoxia (5) Transaminitis Status: Acute (6) Atrial fibrillation Status: Chronic (7) ATN (acute tubular necrosis) Status: Acute (8) Shock liver Status: Acute (9) Lactic acidosis Status: Acute Clinical Quality Measures DVT/VTE Risk/Contraindication: Risk Factor Score Per Nursin RFS Level Per Nursing on Admit: 4+=Very High JOSHUA PARIKH MD November 03, 2019 15:32
== END 2019-10-31 17:57 | disposition expired | DRG 871 ==
LOC: EDUNIT# 23:04 → ER 23:05 → ICU 10-27 01:01
PROVIDERS: ADMIT Family Medicine; ATTEND Family Medicine
PROC: 02HV33Z Insertion of Infusion Device into Superior Vena Cava, Percutaneous Approach (ICD-10-PCS; principal; 2019-10-26)
PROC: 5A1945Z Respiratory Ventilation, 24-96 Consecutive Hours (ICD-10-PCS; 2019-10-30)
PROC: 0BH17EZ Insertion of Endotracheal Airway into Trachea, Via Natural or Artificial Opening (ICD-10-PCS; 2019-10-30)
DX: A41.9 Sepsis, unspecified organism (principal); R65.21 Severe sepsis with septic shock; J18.9 Pneumonia, unspecified organism; J96.21 Acute and chronic respiratory failure with hypoxia; J44.1 Chronic obstructive pulmonary disease with (acute) exacerbation; N17.0 Acute kidney failure with tubular necrosis; K72.00 Acute and subacute hepatic failure without coma; Z66 Do not resuscitate; Z51.5 Encounter for palliative care; E87.2 Acidosis; I25.10 Atherosclerotic heart disease of native coronary artery without angina pectoris; I48.91 Unspecified atrial fibrillation; I12.9 Hypertensive chronic kidney disease with stage 1 through stage 4 chronic kidney disease, or unspecified chronic kidney disease; N18.9 Chronic kidney disease, unspecified; E03.9 Hypothyroidism, unspecified; E78.00 Pure hypercholesterolemia, unspecified; G47.30 Sleep apnea, unspecified; F41.9 Anxiety disorder, unspecified; Z91.81 History of falling; Z87.891 Personal history of nicotine dependence; Z95.1 Presence of aortocoronary bypass graft; Z79.01 Long term (current) use of anticoagulants
CPT/HCPCS: 36415; 70450; 71045; 71250; 72125; 76700; 80048; 80053; 80076; 81000; 82140; 82150; 82805; 82962; 83605; 83690; 83735; 83880; 84100; 84145; 84478; 84484; 85007; 85025; 85027; 85610; 85730; 86308; 87040; 87070; 87077; 87081; 87088; 87205; 87631; 93005; 93306; 94002; 94003; 94640; 94660; 94799; 96361; 96365; 96367